=== PATIENT | male | born 1950 | race Caucasian/White ===

== ENCOUNTER 2024-10-13 13:28 | Inpatient (IN) | payer OTHER, SELFPAY ==
[2024-10-13] VITALS (17 sets, daily range): BP systolic 110–177; BP diastolic 79–122; PULSE 2–98; BMI 46.8
[2024-10-13] MEDS: DUONEB 6 ML INH (09:55)
--- NOTE | 2024-10-13 09:55 | ED.GENMED ---
History of Present Illness
General
Chief Complaint: Breathing Problem
Source: patient
Exam Limitations: none
Time Seen by Provider: 10/13/24 09:45
History of Present Illness
History of Present Illness:
See MDM
Past History
Past History
ED Past Medical History: COPD
ED Past Surgical History: Other (Eye surgery)
Social History
Tobacco: Non-smoker
Alcohol: None
Phy Exam
Physical Exam
Physical Exam:
See MDM
Scores
Heart Failure Risk
Heart Failure Risk Score: Yes
History of Stroke or TIA: No
History of intubation for respiratory distress: No
Heart rate on ED arrival >/= 110: No
SaO2 <90% on arrival on room air: Yes
HR >/=110 during 3min walk test (or too ill to perform test): Yes
ECG has acute ischemic changes: No
Urea >/=12mmol/L (BUN 33.6mg/dL): Yes
Serum CO2>/=35mmol/L: No
Troponin I or T elevated to IN Level (0.4mg/dL): No
NT-proBNP >/=5,000ng/L (5,000pg/ml): No
HF Risk Score: 4
Admission Status: HIGH RISK 26.1% Consider SNF treatment or admission to hospital
Course
Orders/Labs/Results
Orders:
Orders
10/13/24 09:41
EKG [Electrocardiogram (*1)] Urgent
Reason for Study: Shortness of Breath
10/13/24 09:42
EKG- Treatment ONCE
10/13/24 09:52
Dexamethasone Sod Phosphate [Decadron] 10 mg IV NOW STA
Ipratropium/Albuterol Sulfate [Duoneb] 6 ml INH R NOW STA
Bipap [RESP] Urgent
Patient to use own unit?: No
Inspiratory Pressure (cm H2O): 12
Expiratory Pressure (cm H2O): 5
10/13/24 09:54
CR Chest Portable - 1 View Urgent
Comment:
Reason For Exam: SOB, hypoxic
Reason Study Needs to be Portable: Patient Unstable
10/13/24 Lunch
Cholesterol Lowering
At Your Request: Limited, Hat Blocking Machine Operator Required
Fluid Restriction: 1500 mL/day (50 oz)
Cholesterol Lowering: Sodium, 2 Gram
COVID-19 Antigen Urgent
Source: Nasal Swab
Complete Blood Count/With Diff Urgent
Comprehensive Metabolic Panel Urgent
NT-proBNP Urgent
Troponin I Urgent
10/13/24 10:06
INF RAPID [Influenza A+B Rapid Molecular] Urgent
KATI Source: Nasal Swab
Specimen Description:
10/13/24 10:52
Furosemide [Lasix] 40 mg IV NOW STA
10/13/24 12:50
Admit/Transfer Patient As Directed
Co-Sign Provider:
Level of Care: Inpatient admission
Assign to:: IMU- Intermediate Care
Physician / Group: conn/hospitalist
Diagnosis: hypoxemia/pulm edema
Reason for Hospitalization: Acute hypoxic respiratory failure, pulmonary edema,
Expected length of stay greater than two midnights?: Yes
ELOS- Estimated Length of Stay in days: 5
I certify the patient meets the requirements for IP care: Yes
PRN Pain Medication Management As Directed
May give lesser potent ordered pain med per pt: Yes
preference::
Protocol:: Medication orders for pain may be administered in a
manner that supports deferring to patient preference
when the pt is:
- Requesting an ordered lesser potent pain medication.
Least to most potent pain medications are defined
as: acetaminophen < NSAID < tramadol < opioids
(morphine, oxycodone, hydromorphone).
- Requesting a lesser dose of the same medication IF
ORDERED.
- Requesting a less intrusive route of administration
if both routes are prescribed by the provider (PO <
IV).
10/13/24 12:51
Code Status As Directed
Resuscitation Status: Full Code
10/13/24 17:46
Furosemide [Lasix] 40 mg IV BID AT 0800,1600
Ipratropium/Albuterol Sulfate [Duoneb] 3 ml INH R TID
10/13/24 17:46
CARDIOLOGY CONSULT Routine
Consulting Provider: Adryan Shaw
Was physician already notified: Yes
HF DIETARY CONSULT Routine
HF EDUCATOR CONSULT Routine
Comment:
Activity As Directed
Activity Level: Out of Bed-Early Mobility
Intake/ Output As Directed
Frequency: Per unit guidelines
Patient Education As Directed
Type: CHF folder
Comment: give on admission. Document in Interdisciplinary Education record
Sleep Apnea Assessment by RN As Directed
Comment:
Physician Instructions:
Vital Signs As Directed
Frequency: Other
Additional Instructions:: Q12 or per unit guidelines if more frequent.
Weight As Directed
Frequency: Daily
Type of Scale: Standing Scale
Comment: Daily morning weight. If unable to stand, use balanced bed scale.
Weight As Directed
Frequency: Once
Type of Scale: Standing Scale
Comment: Upon Admission. If unable to stand, use balanced bed scale.
Pulse Ox/cont/shift [RESP] Routine
Quantity: 1
Special Instructions: Daily pulse oximetry at rest. If greater than 92% at rest also obtain pulse oximetry
while ambulating as tolerated.
DX Deep Vein Thrombosis Video Routine
10/13/24 18:00
Enoxaparin Sodium [Lovenox] 40 mg SC QPM
10/13/24 18:16
Troponin I Q6H
Comment: at admission & every 6 hours x 2 (3 total), ECG to be done with each level
10/13/24 23:46
Troponin I Q6H
Comment: at admission & every 6 hours x 2 (3 total), ECG to be done with each level
10/14/24 04:03
Cardiovascular Evaluation IN AM
Complete Blood Count/With Diff IN AM
Comprehensive Metabolic Panel IN AM
Magnesium IN AM
10/15/24 06:00
Complete Blood Count/With Diff IN AM
Comprehensive Metabolic Panel IN AM
10/16/24 06:00
Complete Blood Count/With Diff IN AM
Comprehensive Metabolic Panel IN AM
10/17/24 06:00
Comprehensive Metabolic Panel IN AM
10/18/24 06:00
Comprehensive Metabolic Panel IN AM
Abnormal Lab Results
10/13/24
10:00
WBC 12.0 H 10^3/uL
(4.8-10.8)
RBC 6.70 H 10^6/uL
(4.70-6.10)
Hct 57.3 H %
(39.0-52.0)
MCH 25.4 L pg
(27.0-31.0)
MCHC 29.7 L g/dL
(33.0-37.0)
RDW 18.9 H %
(11.5-14.5)
Abs Immat Gran (auto) 0.1 H 10^3/uL
(0-0.05)
Absolute Neuts (auto) 9.4 H 10^3/uL
(1.4-6.5)
Absolute Lymphs (auto) 1.0 L 10^3/uL
(1.2-3.4)
Absolute Monos (auto) 1.5 H 10^3/uL
(0.1-0.6)
Neutrophils % 78.4 H %
(42.2-75.2)
Lymphocytes % 8.0 L %
(20.5-51.1)
Monocytes % 12.8 H %
(1.7-9.3)
Potassium 5.6 H mmol/L
(3.5-5.1)
Carbon Dioxide 32 H mmol/L
(22-30)
BUN 52 H mg/dl
(9-20)
Glucose 124 H mg/dl
(70-99)
Total Bilirubin 1.6 H mg/dl
(0.2-1.3)
AST 238 H U/L
(17-59)
ALT 213 H U/L
(0-50)
10/13/24 10:00
10/13/24 10:00
Vital Signs
Initial and Last Documented VS:
Initial Vital Signs
Pulse Resp BP Pulse Ox
98 27 177/122 80
10/13/24 09:42 10/13/24 09:42 10/13/24 09:42 10/13/24 09:42
Last Documented Vital Signs
Temp Pulse Resp BP Pulse Ox
98.1 F 98 24 133/92 89
10/14/24 14:50 10/14/24 18:00 10/14/24 18:00 10/14/24 18:00 10/14/24 18:00
MDM/Problems Addressed
Differential Diagnosis Includes:
HPI and MDM Narrative:
74-year-old male presenting with shortness of breath, cough and hypoxia. Patient states this has progressed over the past several days. I question whether or not he has a history of CHF or COPD. Patient states he believes he has a history of
COPD. He is not on supplemental oxygen. He was initially on 6 L by EMS but he was unable to tolerate CPAP. On arrival, patient was met by myself, nursing staff and respiratory. Patient still 85% on 6 L. Will give BiPAP trial. Patient has upper
lung field wheezing but he also has bilateral left leg edema. Will treat as COPD and workup as CHF.
Physical exam
General: Uncomfortable, conversational dyspnea
HEENT: protecting airway
Neck: appears supple
CV: No evidence of cyanosis. Regular rate and rhythm
Resp: No accessory muscle use. Tachypnea. Shallow breath sounds. Upper lung wheezing
Abd: Non-distended
Extremities: +3 pitting edema bilateral lower extremities
Neuro: alert
Psych: Normal affect
Skin: Intact
Problems Addressed including Acute and Chronic Conditions affecting care:
1. Shortness of breath with hypoxia
Acuity: acute
Prognosis: stable
Details: Patient started on 2 DuoNebs, IV steroids and transition to BiPAP. Will treat as COPD while ruling out CHF
Updates
Chest x-ray consistent with pulmonary edema. Will continue BiPAP and start IV Lasix
Differential Diagnosis (but not limited to): Pulmonary edema, COPD exacerbation
Testing considered: D-dimer
Drug therapy (if applicable): OTC meds, please see d/c instruction regarding Rx drugs
Amount and/or Complexity of Data Reviewed
Clinical info obtained from: Patient
External data reviewed: N/A
Labs I independently reviewed (but not limited to): Elevated BNP
Radiology: X-ray independently reviewed: Chest x-ray consistent with pulmonary edema
Pulse Ox: hypoxic
EKG independently reviewed: Normal sinus rhythm, right axis, no STEMI
Tenter Frame Operator: sinus rhythm
Critical Care: The high probability of a clinically significant, sudden or life threatening deterioration of the cardiopulmonary system(s) required my full and direct attention, intervention and personal management. The aggregate critical care time
was 55 minutes. This time is in addition to time spent performing reported procedures but includes the following:
[x] Data Review and interpretation
[x] Patient assessment and monitoring of vital signs
[x] Documentation
[x] Medication orders and management
Risk of Complication:
Social Determinants of health: Good social support
Discussed with other providers: Hospitalist
Escalation of Care includes Admit/Obs: Given the pulmonary edema with hypoxia, will continue BiPAP and start IV Lasix and admit
Occasional wrong word or 'sound a like' substitutions may have occurred due to the inherent limitations of voice recognition software. Read the chart carefully and recognize, using context, where substitutions have occurred.
*Critical Care Note
Total Time (30-74mins, 75-104mins- exclusive of procedures): 55 min
ED Attending Note
-
Portions of this chart may have been created with voice recognition software.� Occasional wrong word or��sound alike� substitutions may have occurred due to the inherent limitations of voice recognition software.
Discharge Plan
Departure
Patient Disposition: Admit
Date of Disposition: 10/13/24
Time of Disposition: 10:59
Admit to: IMU
Presentation/result/management discussed w/ accepting MD/DO: Hospitalist
Discharge Problem:
Pulmonary edema, Hypoxia
Interventions
Interventions:
*Risk Screen - Suicide Last Done: 10/13/24 10:17
*General Assessment Last Done: 10/13/24 09:53
*Neglect/Abuse Screening Last Done: 10/13/24 10:16
*ED COVID-19 Vaccine History Last Done: 10/13/24 09:53
*Nursing Disposition Last Done: 10/13/24 17:16
ED- Cardiac Assessment Last Done: 10/13/24 11:45
ED- Pulmonary Assessment Last Done: 10/13/24 11:41
Discharge Date and Time
Discharge Date/Time: 10/13/24 17:18
[2024-10-13] MEDS: DECADRON 10 MG IV (09:58)
[2024-10-13 10:25] LABS: % Basophils 0.3 % (0-2); % Immature Granulocytes 0.5 % (0-0.5); % Monocytes 12.8 % (1.7-9.3); % Neutrophils 78.4 % (42.2-75.2); Absolute Immature Granulocytes 0.1 10^3/uL (0-0.05); Absolute Monocytes 1.5 10^3/uL (0.1-0.6); Absolute Neutrophils 9.4 10^3/uL (1.4-6.5); Hematocrit 57.3 % (39.0-52.0); Mean Corp Hgb Conc. 29.7 g/dL (33.0-37.0); Mean Corpuscular Hgb 25.4 pg (27.0-31.0); Mean Corpuscular Volume 85.5 fL (80.0-94.0); Mean Platelet Volume 10.3 fL (7.4-10.4); Platelet Count 150 10^3/uL (130-400); Red Cell Dist. Width 18.9 % (11.5-14.5)
[2024-10-13 10:36] LABS: COVID-19 Antigen Negative (Negative)
[2024-10-13 10:43] LABS: ALT (SGPT) 213 U/L (0-50); AST (SGOT) 238 U/L (17-59); Albumin 3.5 g/dl (3.5-5.0); Alkaline Phosphatase 109 U/L (38-126); Blood Urea Nitrogen 52 mg/dl (9-20); Calcium 9.2 mg/dl (8.4-10.2); Carbon Dioxide 32 mmol/L (22-30); Chloride 98 mmol/L (98-107); Estimated Creatinine Clearance 79 ml/min; Glucose 124 mg/dl (70-99); Potassium 5.6 mmol/L (3.5-5.1); Sodium 138 mmol/L (135-145); Total Bilirubin 1.6 mg/dl (0.2-1.3); Total Protein 6.8 g/dl (6.3-8.2); eGFR > 60.00
[2024-10-13 10:51] LABS: NT-proBNP 4200 pg/ml; Troponin I 0.027 ng/ml
[2024-10-13] MEDS: LASIX 40 MG IV ×2 (11:19→20:20)
--- NOTE | 2024-10-13 12:56 | HPS.HSE ---
Family Physician
-
Family Physician: Luciano Yates
Chief Complaint
-
Shortness of breath
History of Present Illness
74 female with extensive past medical history is presenting from home with complaint of shortness of breath. Patient stated chronic shortness of breath for the past 1 year. States her shortness of breath worsened in the last few days. States of
worsening lower extremity edema. States he sleeps laying in recliner. Unable to lie flat. States her blood pressure usually runs high. Not on any medications currently. Denies any chest pain. States not able to go up a flight of stairs with
shortness of breath. Denies any chest pain at rest or exertion. Denies any prior history of coronary artery disease or stent. States used to smoke 1 pack a day. Smoked for greater than 40 years. Not on any inhalers. States of productive cough
with white phlegm. No sick contact at home. Denies alcohol usage. Denies lightheaded and dizziness. Denies any nausea or vomiting or diarrhea or dysuria. States he already made significant amount of urine post IV Lasix. States of lower but
uncomfortable due to BiPAP machine. En route by EMS patient was severely hypoxic and received nitroglycerin x 2. Patient was did not tolerate CPAP. Patient was placed on BiPAP in the ER.
Medical History
Past Medical History
Past Medical History: Reports Other
Additional Past Medical History:
COPD
Hypertension
Morbid obesity due to excess calories
Tobacco abuse
Peripheral arterial disease
Lumbar spinal stenosis
Past Surgical History: Reports None
Social History
Tobacco: Former Smoker (Used to smoke 1 pack a day for 40+ years)
Alcohol: None
Family History
Family History: Not pertinent
Allergies / Home Medications
Allergies reflects when Allergies were last updated in [employer].
Home Medications with original date entered in [employer]
Allergy/Medication List:
Allergies
Allergy/AdvReac Type Severity Reaction Status Date / Time
NKA - No Known Allergies Allergy Unknown Uncoded 12/01/15 11:41
Home Medications
epinephrine 0.125 mg/actuation aerosol inhaler (Primatene Mist) 1 puff inhalation Q4HPRN PRN sob/wheezing 10/13/24
vldwyhgxdlvm-ovwoabex-wbumby tablet 1 tab PO DAILY Supplement 10/13/24
Review of Systems
-
History Source: Patient
Constitutional: Reports No Symptoms
Respiratory: Reports See HPI
Cardiac: Reports See HPI
: Reports No Symptoms
Musculoskeletal: Reports Edema
Skin: Reports No Symptoms
Neurological: Reports No Symptoms
Endocrine: Reports No Symptoms
Hematologic/Lymphatic: Reports No Symptoms
Psych: Reports No Symptoms
Physical Exam
Vital Signs
Vital Signs
Pulse Resp BP Pulse Ox
94 31 152/91 89
10/13/24 12:00 10/13/24 10:15 10/13/24 11:19 10/13/24 12:00
Physical Exam
General: Well Developed, Well Nourished and Respiratory Distress
HEENT: NormoCephalic, Moist mucous membranes and Atraumatic
Respiratory: Rales
Cardiac: S1/S2 and Regular Rhythm; No Murmur or Rub
GI: Soft, Non Tender, Non Distended and Normal Bowel Sounds; No Organomegaly
Rectal: Deferred by Provider
Musculoskeletal: No Clubbing, No Cyanosis, Edema, Left Lower Extremity (2-3 pitting edema) and Edema, Right Lower Extremity (2-3 pitting edema)
Skin: No Rash
Neuro: Awake, Alert, Oriented, AO x 3, No Motor Deficits and Nonfocal/grossly intact
Psych: Calm
Laboratory Results
-
10/13/24 10:00
10/13/24 10:00
Laboratory Results
Total Bilirubin 1.6 mg/dl (0.2-1.3) H 10/13/24 10:00
AST 238 U/L (17-59) H 10/13/24 10:00
ALT 213 U/L (0-50) H 10/13/24 10:00
Alkaline Phosphatase 109 U/L (38-126) 10/13/24 10:00
Troponin I 0.027 ng/ml 10/13/24 10:00
Data Reviewed
-
Diagnostic Radiology: Report Reviewed by me and Discussed with Patient
Medical Tests (Nuc Med, Echo, EKG etc): Report Reviewed by me and Discussed with Patient
Lab Data: Labs Reviewed by me and Discussed with Patient
Old Records: Reviewed
Impression/Plan
-
#Pulmonary edema
#Acute heart failure exacerbation
Status post 40 mg of IV Lasix
Start patient on Lasix 40 mg twice daily
Strict I's and O's.
Daily weights
Check echocardiogram
trend troponin
proBNP elevated at 4200
Lower extremity edema will check venous Doppler
Cardiology evaluation
#Right pleural effusion
Check chest ultrasound to see if fluid amenable for thoracentesis
#Acute hypoxic respiratory failure
Wean off BiPAP to nasal cannula or mid flow goal greater than 88%
Check chest ultrasound to see if fluid amenable for thoracentesis
Bronchodilators for now.
#Hyperkalemia
Should improve with aggressive diuresis
#Transaminitis likely secondary hepatic congestion
Check abdominal ultrasound in the morning
Trend CMP for now
#Primary hypertension elevated
Avoid AMADNA or ARB in the setting of hyperkalemia for now
Monitor blood pressure with diuresis
Probably needs to be started on beta-ekaterina, AMANDA or ARB once potassium stabilizes
Can try avoid Norvasc with LE edema
#Hyperglycemia
Check A1c
#Leukocytosis likely reactive
COVID influenza was negative
If spikes fever then check UA and blood cultures
# History of tobacco abuse
Does not follow-up with media marketing coordinator
Morbid obesity due to excess calories
Affects all aspects of medical care
Recommend weight loss after resolution of acute disease process
Peripheral arterial disease
DVT prophylaxis with Lovenox
Full code
I spent a total of 80 minutes with the patient or on the floor. More than 50% of this time involved counseling and coordination of care.
--- NOTE | 2024-10-13 13:38 | CON.CAR ---
Addendum entered and electronically signed by Adryan Shaw MD 10/13/24 13:57:
I saw and examined the patient.
The SOFTWARE ENGINEER SALES or PA's note was reviewed and I agree with the note.
Comment: General: Well developed, well nourished in NAD.
Neck: Supple, no JVD, HJR, carotids +2 B/L, no bruits bilaterally.
Heart: Non displaced PMI, RRR, no murmurs, No S3, S4, no rubs.
Lungs: Scattered rhonchi throughout
Extremities: Moderate lower extremity edema bilaterally with venous stasis changes
Neuro: Grossly nonfocal, awake, alert and oriented x3.
Shaq has a history of COPD with ongoing tobacco abuse as well as morbid obesity. He has had shortness of breath for the past month. He has had lower extremity edema abdominal bloating and orthopnea. He refused to come to the hospital but today
refused to drink coffee and told his he needed to go to the ER. In the ER he was severely hypoxic and is currently on BiPAP. Cardiology is consulted for CHF.
Will reassess response to IV diuresis. May need thoracentesis and will check ultrasound. Check echocardiogram. May need treatment for COPD as well
Original Note:
Consultation
Consultation Request
Date/Time Consultation Performed: 10/13/24
Requesting Provider: Dr. Yin
Performing Provider: Amy Velázquez PA-C for Dr. Shaw
Reason for Consultation: CHF
Medical History
-
Chief Complaint: SOB
History of Present Illness:
This is a 74-year-old male with past medical history of COPD, ongoing tobacco use, morbid obesity, who does not seek regular medical attention. He presented to [facility] due to progressive shortness of breath over the last month,
significantly worse over the last 48 hours. Reports lower extremity edema, weight gain, abdominal bloating, and orthopnea. Denies chest pain or discomfort. attempted to get patient to come in sooner howver patient refused. Today he refused to
drink his daily cup of morning coffee and told his he needed to come in. Ambulance was called as patient was unable to ambulate. proBNP 4600. Chest x-ray with small to moderate right-sided pleural effusion and evidence of pulmonary edema. Was
hypoxic on arrival and has been placed on bipap. Cardiology consulted for evaluation of new CHF. He has never seen cardiology before.
PMH:
COPD
Ongoing tobacco use
Morbid obesity
Past Medical History
Past Medical History: Other (in HPI)
Social History
Tobacco: Smoker (1 ppd, however previously more)
Personal:
Living: With Family
Family History
Family History: CAD (in mother later in life)
Allergies / Home Medications
Allergy/AdvReac Type Severity Reaction Status Date / Time
NKA - No Known Allergies Allergy Unknown Uncoded 12/01/15 11:41
�Medication �Instructions �Recorded �Confirmed �Type
epinephrine 0.125 mg/actuation 1 puff inhalation Q4HPRN PRN 10/13/24 10/13/24 History
aerosol inhaler (Primatene Mist) sob/wheezing
ddwtzvpwzgno-lslfqltw-pktalu tablet 1 tab PO DAILY Supplement 10/13/24 10/13/24 History
Review of Systems
-
History Source: Patient and Family
All other systems: Negative unless noted
Physical Exam
Vital Signs
Pulse Resp BP Pulse Ox
92 24 130/103 90
10/13/24 13:00 10/13/24 11:30 10/13/24 13:00 10/13/24 13:00
Lab Results
10/13/24 10:00
10/13/24 10:00
Troponin I 0.027 ng/ml 10/13/24 10:00
Dnj-E-Qvtnighjyux Pept 4200 pg/ml 10/13/24 10:00
Physical Exam
General: No Apparent Distress and Other (obese. on BIPAP)
HEENT: Normocephalic, Anicteric and Moist Mucous Membranes
Respiratory: Crackles
Cardiac: S1/S2 and Regular Rhythm
GI: Soft, Non Tender, Normal Bowel Sounds and Distended
Musculoskeletal: No Clubbing, No Cyanosis and Edema (4+ to level of thigh)
Skin: Warm and Dry
Neuro: AO x 3
Impression / Plan
-
Primary Dermatology Teacher: none prior to admission
Assessment:
Presentation with SOB
Acute hypoxic respiratory failure, on BIPAP
Acute CHF, unknown type
Small to moderate R pleural effusion
Leukocytosis
Hyperkalemia
Elevated LFTs, concern for passive congestion
COPD
Ongoing tobacco use
Morbid obesity
Plan:
-Patient presents to [facility] due to worsening shortness of breath. On arrival noted to be hypoxic, currently requiring BiPAP with sats still in the 80s. covid/flu negative
-Plan for admission to IMU
-proBNP 4200. Chest x-ray with small to moderate right pleural effusion and evidence of interstitial edema consistent with acute CHF, new diagnosis for patient.
-check chest US to eval for thora
-Continue IV Lasix diuresis with 40mg BID. Creatinine 1.2
-Hyperkalemia should improve with diuresis, as should LFTs if secondary to passive congestion. Follow
-CHF education
-Check echo
-Initial Trop 0.027, trend. no CP. EKG SR without clear ischemic abnormalities
-tobacco cessation encouraged. reports patient will require nicotine patch
-Not ideal candidate for beta-ekaterina given underlying COPD, however consider trialing. Not presently ideal candidate for AMANDA/ARB/Aldactone given hyperkalemia.
-he is frustrated with having to wear bipap mask. we discussed severity of current condition and that he should expect to be admitted for at least 3 days but likely more
-d/w patient, , and son at bedside. d/w ER physician
Data Reviewed
-
EKG: Tracing Personally Visualized and interpreted
Radiology: Report Reviewed by me
Labs: Labs Reviewed by me
--- NOTE | 2024-10-13 18:15 | PTCARENOTE ---
Pt received from ED via stretcher. Assessment as documented. Remains on bipap. Pt with very poor hygiene and multiple wounds present on admission. CHG bath completed and wound care c/s placed. Able to make needs known, call martínez within reach.
[2024-10-13] MEDS: DUONEB INH (18:22)
[2024-10-13 18:46] LABS: Troponin I 0.032 ng/ml
[2024-10-13] MEDS: DUONEB 3 ML INH (20:06)
[2024-10-13] MEDS: NICODERM TRANSDERMAL 14 MG TRANSDERM (20:20)
[2024-10-13] MEDS: LOVENOX 40 MG SC (20:21)
[2024-10-13 21:43] LABS: Glucose - Point of Care 141 mg/dl (70-99)
[2024-10-14] VITALS (24 sets, daily range): BP systolic 102–165; BP diastolic 69–100; PULSE 2–101; BMI 45.2
[2024-10-14 01:08] LABS: Troponin I 0.026 ng/ml
--- NOTE | 2024-10-14 03:19 | PTCARENOTE ---
Assumed care for patient overnight, received report from dayshift RN. Pt AAOx3, agitated at times. Pt was very agitated at the beginning of the shift and states that he wants to be left alone, originally refusing ultrasound stating 'I just want to
be left alone'. After some time this RN spoke to the pt about concerns and he is agitated with wearing the BiPAP. After education and encouragement pt understanding of the importance on the BiPAP. Pt wearing the BiPAP and tolerating. SpO2 91%. Pt
attempted to use urinal and saturated the bed. Full bed bath given. Upon assessment patient has MASD to the abdominal folds and groin, SEROLOGIST ordered desenex. Wound care consulted. Able to make needs known, call martínez is within reach.
[2024-10-14] MEDS: DESENEX/MITRAZOL/ZEASORB 1 APPLIC TOPICAL ×2 (04:13→20:24)
[2024-10-14 04:18] LABS: % Basophils 0.2 % (0-2); % Immature Granulocytes 0.5 % (0-0.5); % Lymphocytes 3.4 % (20.5-51.1); % Monocytes 10.9 % (1.7-9.3); Absolute Immature Granulocytes 0.1 10^3/uL (0-0.05); Absolute Lymphocytes 0.5 10^3/uL (1.2-3.4); Absolute Monocytes 1.7 10^3/uL (0.1-0.6); Absolute Neutrophils 13.1 10^3/uL (1.4-6.5); Hemoglobin 16.1 g/dL (13.0-18.0); Mean Corp Hgb Conc. 29.3 g/dL (33.0-37.0); Mean Corpuscular Hgb 25.2 pg (27.0-31.0); Mean Corpuscular Volume 86.1 fL (80.0-94.0); Mean Platelet Volume 10.7 fL (7.4-10.4); Nucleated Red Blood Cells % 0.4 % (-); Platelet Count 117 10^3/uL (130-400); Red Blood Cell Count 6.39 10^6/uL (4.70-6.10); Red Cell Dist. Width 18.4 % (11.5-14.5); White Blood Cell Count 15.4 10^3/uL (4.8-10.8)
[2024-10-14 04:42] LABS: ALT (SGPT) 165 U/L (0-50); AST (SGOT) 124 U/L (17-59); Albumin 3.3 g/dl (3.5-5.0); Alkaline Phosphatase 91 U/L (38-126); Blood Urea Nitrogen 48 mg/dl (9-20); Calcium 8.4 mg/dl (8.4-10.2); Carbon Dioxide 32 mmol/L (22-30); Chloride 98 mmol/L (98-107); Estimated Creatinine Clearance 105 ml/min; Glucose 126 mg/dl (70-99); HDL Cholesterol 20 mg/dl; LDL Cholesterol, Calculated 64 mg/dl; Magnesium 2.1 mg/dl (1.6-2.3); Potassium 5.3 mmol/L (3.5-5.1); Sodium 137 mmol/L (135-145); Total Bilirubin 1.7 mg/dl (0.2-1.3); Total Cholesterol 95 mg/dl (50-199); Total Protein 6.3 g/dl (6.3-8.2); Triglyceride 59 mg/dl (10-149); Very Low Density Lipoprotein 11 mg/dl (0-30); eGFR > 60.00
--- NOTE | 2024-10-14 06:06 | PTCARENOTE ---
Patient had an episode of V-tach 27 beats, asymptomatic on BiPAP, denies pain. K in AM 5.3. Mag 2.1. VALENTINE made aware. Strip printed and in the chart. VALENTINE Kendall made aware. Order for Frank.
[2024-10-14] MEDS: LOKELMA 5 GRAM PO (06:17)
[2024-10-14] MEDS: DUONEB 3 ML INH ×3 (08:09→19:38)
[2024-10-14] MEDS: NICODERM TRANSDERMAL 14 MG TRANSDERM (08:18)
[2024-10-14] MEDS: LASIX 40 MG IV ×2 (08:18→16:06)
--- NOTE | 2024-10-14 09:23 | W.PN.CARDCBS ---
Addendum entered and electronically signed by Vesna Johansen DO 10/14/24 12:29:
I saw and examined the patient.
The Foot Piece Assembler's note was reviewed and I agree with the note.
Comment: Patient is seen and examined at bedside. Reviewed echocardiogram with hospitalist this morning. RV enlargement hypokinesis with evidence of pulmonary hypertension. Given presentation concerning for thromboembolic disease; evaluation with
thromboembolic disease initiated. Given no absolute contraindications would start empiric IV heparin. Patient denies chest pain or pressure. Continues to have shortness of breath/cough.
GEN: Morbidly obese 74-year-old gentleman appears older than stated age. On mid flow O2 with mild conversational dyspnea
HEENT: Mucous membranes moist, anicteric sclera
LUNGS: Decreased effort. Bronchovesicular breath sounds decreased bilaterally with coarse rhonchi and crackles right base
CV: Regular. Positive S1-S2. Distant heart sounds without murmurs. No rub
ABD: soft, obese BS+, NT/ND
EXT: 4+ edema of B/L LE; chronic venous stasis changes
Plan:
ECHO 10/14/24: EF 55 to 60%, mild to moderate concentric LVH, grade 1 diastolic dysfunction, dilated hypokinetic RV with sparing of apex, PAP 50 to 55 mmHg, IVC dilated and does not collapse, prominent anterior fat pad
Plan:
74-year-old morbidly obese gentleman who does not receive regular medical care presents with acute hypoxic respiratory failure requiring BiPAP now on mid flow O2
-COVID/flu negative
-currently on 14L midflow, wean as able
-Concern for thromboembolic disease after echocardiogram this morning demonstrated RV dilatation and hypokinesis with apical sparing and pulmonary hypertension with RVSP estimated 50-50 mmHg
-No absolute contraindications to start anticoagulation pending further evaluation; will start IV heparin
-CTA chest, lower extremity Dopplers and D-dimer pending
-Chest x-ray with small to moderate right pleural effusion and evidence of interstitial edema consistent with acute CHF, new diagnosis for patient.
-proBNP 4200. Continue IV Lasix
-Highly suspect untreated sleep apnea; recommend outpatient testing
-Pending study results may need to involve pulmonary
-Monitor renal function, electrolytes and LFTs with diuresis
-echo read urgently this morning by physician with results as above, concern for PE. d/w hospitalist. added ddimer. for peripheral US B/L LE and consider for chest CTA when stable. consider starting IV heparin empirically
-proBNP 4200. Continue IV lasix. Cr improved to 0.9. I&O negative overnight
-Hyperkalemia and LFTs improving with diuresis
-trops detectable but within normal range and flat in 0.02 range. no CP
-tobacco cessation encouraged.
-Optimize medical therapy for heart failure with preserved ejection fraction pending above workup of thromboembolic disease
-d/w nursing and hospitalist
Original Note:
Today's Communication / Plan
-
continue IV lasix
echo concerning for PE, for ddimer, periph US, and chest CTA when able
consider empiric IV heparin
wean O2 as able
Impression / Plan
-
Primary Multiple Slide Operator: none prior to admission
Assessment:
Presentation with SOB
Acute hypoxic respiratory failure, on BIPAP
Acute CHF, unknown type
Small to moderate R pleural effusion
Leukocytosis
Hyperkalemia
Elevated LFTs, concern for passive congestion
COPD
Ongoing tobacco use
Morbid obesity
ECHO 10/14/24: EF 55 to 60%, mild to moderate concentric LVH, grade 1 diastolic dysfunction, dilated hypokinetic RV with sparing of apex, PAP 50 to 55 mmHg, IVC dilated and does not collapse, prominent anterior fat pad
Plan:
-Patient presents to [facility] due to worsening shortness of breath. On arrival noted to be hypoxic, initially requiring bipap. covid/flu negative
-currently on 14L midflow, wean as able
-echo read urgently this morning by physician with results as above, concern for PE. d/w hospitalist. added ddimer. for peripheral US B/L LE and consider for chest CTA when stable. consider starting IV heparin empirically
-proBNP 4200. Chest x-ray with small to moderate right pleural effusion and evidence of interstitial edema consistent with acute CHF, new diagnosis for patient. Continue IV lasix. Cr improved to 0.9. I&O negative overnight
-Hyperkalemia and LFTs improving with diuresis
-CHF education
-Not ideal candidate for beta-ekaterina given underlying COPD, however consider trialing. Not presently ideal candidate for AMANDA/ARB/Aldactone given hyperkalemia.
-trops detectable but within normal range and flat in 0.02 range. no CP
-tobacco cessation encouraged.
-d/w nursing
Progress Note - Multiple Slide Operator
Subjective
Date of Service: October 14, 2024
reports breathing somewhat improved compared to yesterday
Objective
Labs:
10/14/24 08:34
10/14/24 04:03
Labs
Hgb Cancelled 10/14/24 08:34
Hct Cancelled 10/14/24 08:34
Plt Count Cancelled 10/14/24 08:34
Sodium 137 mmol/L (135-145) 10/14/24 04:03
Potassium 5.3 mmol/L (3.5-5.1) H 10/14/24 04:03
BUN 48 mg/dl (9-20) H 10/14/24 04:03
Creatinine 0.9 mg/dL (0.7-1.3) 10/14/24 04:03
Glucose 126 mg/dl (70-99) H 10/14/24 04:03
Troponins
10/13/24 10/13/24 10/14/24
10:00 18:16 00:35
Troponin I 0.027 0.032 0.026
Vital Signs and I&O:
Vital Signs
Temp Pulse Resp BP Pulse Ox
97.7 F 91 18 132/90 92
10/14/24 07:15 10/14/24 08:21 10/14/24 08:21 10/14/24 08:18 10/14/24 08:21
Vital Signs
Temp Pulse Resp BP Pulse Ox
97.7 F 91 18 132/90 92
10/14/24 07:15 10/14/24 08:21 10/14/24 08:21 10/14/24 08:18 10/14/24 08:21
Intake & Output
10/12/24 10/13/24 10/14/24 10/15/24
07:59 07:59 07:59 07:59
Intake Total 240 / 240
Output Total 1575 / 1575
Balance -1335 / -1335
Physical Exam
Physical Exam
GEN: No distress, awake, alert, oriented x3. on midflow O2. obese.
HEENT: supple, anicteric, mmm, eomi
LUNGS: Decreased BS, crackles B/L
CV: Reg, S1/S2, no murmur
ABD: soft, BS+, NT/ND
EXT: No cyanosis, clubbing. 4+ edema of B/L LE
NEURO: Gross non-focal
SKIN: Warm, pink, dry. No rash
--- NOTE | 2024-10-14 09:35 | WOUNDNOTE ---
L FOOT/ANKLE (ANTERIOR)
--- NOTE | 2024-10-14 10:04 | WOUNDNOTE ---
[facility] RN note: Patient seen around 929 however was asked to come back by nursing and IV nurse d/t stat order for CT scan, new IV site needed. Unable to hear pedal pulses via portable Doppler. +PT pulses heard via portable Doppler. +LE edema (R>L).
Asked RN Leny to julia text this singer songwriter when patient can be turned for sacral skin assessment. Coolin texted Dr. Butt re: unable to hear pedal pulses via portable Doppler, +PT pulses heard via portable Doppler; defer to hospitalist if LE
arterial Doppler indicated. He has order in for bilateral LE Venous Doppler. Dr. Butt responded patient has severe PAD and will look into it if he had any recent imaging and who he follows up with it.
[2024-10-14 10:16] LABS: APTT 36.4 Sec (23.4-35.0)
[2024-10-14 10:25] LABS: D-Dimer 10.87 ug/mlFEU (0.00-0.50)
--- NOTE | 2024-10-14 10:47 | WOUNDNOTE ---
BACK (LOWER)/L FLANK
--- NOTE | 2024-10-14 10:47 | WOUNDNOTE ---
SACRAL/BUTTOCKS (with photo flash)
--- NOTE | 2024-10-14 10:48 | WOUNDNOTE ---
SACRAL/BUTTOCKS (BLANCHABLE RED/PURPLE)
--- NOTE | 2024-10-14 10:49 | WOUNDNOTE ---
R 5TH TOE TIP
--- NOTE | 2024-10-14 10:50 | WOUNDNOTE ---
[facility] RN note: Patient admitted with hypoxemia, pulmonary edema, LE edema. Patient lives with family. He sleeps in a recliner chair at home.
See H&P for complete history.
PMH: SOB, smoker, COPD, HTN, obesity, PAD, lumbar spinal stenosis.
Wound Location and type/assessment: Patient admitted with: Dermal dry scabbed abrasions dorsal proximal foot/ankle area. R anterior upper calf and L flank scabbed scratch kline. Discolored purple sacral/buttocks skin with MASD. Sacral purple skin
stage 1 vs DTI, slow to mark purple. Abdominal/groin/scrotal/perianal MASD. R 5th toe tip scabbed thin small abrasion. Dry skin on heels. See earlier note.
Appetite: good.
Pressure redistribution devices in place: Centrella Max air bed. Discussed using either comfort care glide air repositioning sheet or the Arjo repositioning sheet for positioning with CLIFF Michele. Patient cannot turn self in bed.
Plan: Stephanie care given. Miconazole powder applied to stephanie/buttocks, abdominal/groin skin folds. Sacral shaped silicone border foam applied to sacrum. Patient turned to R semi side lying position with help from CLIFF Michele using foam turning wedge
and pillow. Heels off bed with folded blankets. t/c SPD and ordered pillows and bariatric air chair cushion for heel relief measures, chair cushion. CLIFF Michele aware to obtain for patient.
Care plan to be updated and will follow as needed.
Note to case management of equipment requested for discharge: Air mattress recommended.
Recommend follow up at wound care center upon discharge if needed.
--- NOTE | 2024-10-14 10:50 | WOUNDNOTE ---
BUTTOCKS (with photo flash)
[2024-10-14] MEDS: HEPARIN 25000 UNITS/250 ML IV (10:59)
--- NOTE | 2024-10-14 11:11 | W.PN.HOSP.TC ---
Addendum entered and electronically signed by Remberto Butt MD 10/14/24 14:21:
After multiple discussion patient agreed to undergo thoracentesis. Explained to the patient he remains severely increased risk of acute severe decompensation with worsening of hypoxic respiratory failure and may need to be transition to high flow
nasal cannula versus mechanical ventilation. Patient agreed for thoracentesis. [facility] aware.
Addendum entered and electronically signed by Remberto uBtt MD 10/14/24 13:44:
Updated patient spouse over the phone in details.
Original Note:
Today's Communication/Plan
-
IV diuresis
wean O2
[facility] for thora
LE doppler pending
Assessment / Plan
Assessment / Plan
#Pulmonary edema
#Acute HFpEF
Start patient on Lasix 40 mg twice daily
Strict I's and O's.
Daily weights
ECHO normal left ventricular size and function with mild to moderate LVH. EF 55 to 60%. Grade 1 diastolic dysfunction. Dilated hypokinetic right ventricle with sparing of the apex. No significant valvular disease. PASP of 50-55. IVC is dilated
and does not collapse.
trop flat.
proBNP elevated at 4200
Elevated D-dimer.
Discussed with cardiology recommended CT chest which was negative for pulmonary embolism. Small suggesting 'filling defect' arterial in the left lower lobe most likely represents a branching vessel and does not pulmonary embolism, although cannot
be excluded. Recommend to continue heparin infusion until lower extremity Doppler negative.
Cardiology evaluation
#Right pleural effusion
CT chest with significant pleural effusion
[facility] consulted for thoracentesis
Fluid studies ordered
#Acute hypoxic respiratory failure
Wean off BiPAP to nasal cannula or mid flow goal greater than 88%
now Midflow 14-15Liter
Bronchodilators for now.
Pulmonary consulted
#Hyperkalemia
Should improve with aggressive diuresis
#Transaminitis likely secondary hepatic congestion
Improving
Trend CMP for now
#Primary hypertension elevated
Avoid AMANDA or ARB in the setting of hyperkalemia for now
Monitor blood pressure with diuresis
Probably needs to be started on beta-ekaterina, AMANDA or ARB once potassium stabilizes
Can try avoid Norvasc with LE edema
#Hyperglycemia
Check A1c
#Leukocytosis likely reactive
COVID influenza was negative
If spikes fever then check UA and blood cultures
# History of tobacco abuse
Does not follow-up with county treasurer
Morbid obesity due to excess calories
Affects all aspects of medical care
Recommend weight loss after resolution of acute disease process
Peripheral arterial disease
Mild thrombocytopenia
Continue to monitor platelets
Sacra; skin stage I versus DTI
Wound care
DVT prophylaxis with Lovenox
Full code
Called spouse to update. No response. left voicemail for call back.
d/w with cardiology
Anticipated Discharge: > 48 hours
Subjective/Interval History
-
Date of Service: October 14, 2024
Patient was transition off BiPAP to the MICU
Patient currently in 14 to 15 L of mid flow
States mild improvement in breathing
Objective Data
-
Labs:
Laboratory Results
10/14/24 10/14/24 10/14/24
04:03 08:34 09:57
WBC 15.4 H Cancelled
Hgb 16.1 Cancelled
Hct 55.0 H Cancelled
Plt Count 117 L D Cancelled
APTT 36.4 H
Sodium 137
Potassium 5.3 H
Chloride 98
Carbon Dioxide 32 H
BUN 48 H
Creatinine 0.9
Glucose 126 H
Calcium 8.4
Total Bilirubin 1.7 H
AST 124 H
ALT 165 H
Alkaline Phosphatase 91
10/14/24
17:00
WBC
Hgb
Hct
Plt Count
APTT Pending
Sodium
Potassium
Chloride
Carbon Dioxide
BUN
Creatinine
Glucose
Calcium
Total Bilirubin
AST
ALT
Alkaline Phosphatase
Vital Signs:
Vital Signs
Temp Pulse Resp BP Pulse Ox
97.7 F 91 18 132/90 92
10/14/24 07:15 10/14/24 08:21 10/14/24 08:21 10/14/24 08:18 10/14/24 08:21
I&O
10/13/24 10/14/24 10/15/24
06:59 06:59 06:59
Intake Total 240 / 240
Output Total 1575 / 1575
Balance -1335 / -1335
Physical Exam
-
General: Well Developed and No Apparent Distress
HEENT: Normocephalic, Atraumatic, Moist Mucous Membranes and Oxygen (MIDFLOW )
Respiratory: Decreased Breath Sounds (R>>L)
Cardiac: Regular Rhythm and S1/S2; Negative Murmur, Rub or Gallop
GI: Soft, Nontender, Nondistended and Normal Bowel Sounds; Negative Organomegaly
Rectal: Deferred by Provider
Musculoskeletal: No Clubbing, No Cyanosis and No Edema
Skin: Negative Rash
Neuro: Nonfocal/Grossly Intact
Data Reviewed
-
Total Time Spent with Patient (in minutes): 59
--- NOTE | 2024-10-14 11:58 | CON.PUL ---
Consultation
Consultation Request
Date/Time Consultation Requested: 10/14/24
Date/Time Consultation Performed: 10/14/24
Performing Provider: Obi
Reason for Consultation: CHF, COPD
Medical History
-
History of Present Illness:
Patient is a 74 year old M with past medical history of COPD, current smoker, noncompliance with outpatient followup presenting from home to ER with complaints of acute on chronic shortness of breath. Patient reports chronic shortness of breath
for the past 1 year, acutely worsening the past few days. There is also notation of worsening lower extremity edema, orthopnea, elevated BP at home. EMS reported patient was severely hypoxemic on initial evaluation and received nitroglycerin x 2.
Patient was placed on BiPAP in the ER. Imaging showing effusion, proBNP >4000, 3+ pitting LE edema. Admitted to IMU.
Reportedly suspected of having COPD but refused outpatient pulmonary evaluation. He denies home oxygen requirements but admits that he often buys canned oxygen and puffs it when he feels he needs it.
Current smoker, cut back to 1/2 PPD. Total usage > 40 pack years. Not on inhalers at home. Does not follow regularly with physicians for his care.
Past Medical History
Past Medical History: Other (see list below)
Social History
Tobacco: Smoker
Alcohol: Occasional
Drug: None
Family History
Family History: Reviewed & Not Pertinent
Allergies / Home Medications
Allergies
Allergy/AdvReac Type Severity Reaction Status Date / Time
No Known Allergies Allergy Verified 10/13/24 23:35
Home Medications
�Medication �Instructions �Recorded �Confirmed �Last Taken �Type
epinephrine 0.125 mg/actuation 1 puff inhalation Q4HPRN PRN 10/13/24 10/13/24 Unknown History
aerosol inhaler (Primatene Mist) sob/wheezing
[id number]-[id number] tablet 1 tab PO DAILY Supplement 10/13/24 10/13/24 Unknown History
Review of Systems
-
History Source: Patient
All other systems: Negative unless noted
Vitals / Labs / Diagnostic Testing
Vital Signs
Temp Pulse Resp BP Pulse Ox
97.7 F 91 18 132/90 92
10/14/24 07:15 10/14/24 08:21 10/14/24 08:21 10/14/24 08:18 10/14/24 08:21
Lab Data
10/14/24 08:34
10/14/24 04:03
Laboratory Results
10/14/24
09:57
APTT 36.4 H
Microbiology
10/13/24 10:06 Nasal Swab Influenza Types A & B (VENITA) - Final
Negative for Influenza A & B, NAAT
Negative results must be combined with clinical observations
and patient history.
Nucleic Acid Amplification test (NAAT)performed on the
[employer] platform.
Diagnostic Testing:
Physical Exam
-
HEENT: Normocephalic, Anicteric and Moist Mucous Membranes
Cardiovascular: S1/S2, Regular Rhythm and Peripheral Edema (3+, bilateral)
Respiratory: Rales and Non-Labored Respirations
GI: Soft, Distended (obese) and Non Tender
Neurology: Awake, Alert and Oriented
Skin: Warm and Dry
General: Comfortable and Other (NAD, morbidly obese)
Assessment
-
Patient is a 74 year old M with past medical history of COPD, current smoker, noncompliance with outpatient followup presenting from home to ER with complaints of acute on chronic shortness of breath. Patient reports chronic shortness of breath
for the past 1 year, acutely worsening the past few days. There is also notation of worsening lower extremity edema, orthopnea, elevated BP at home. EMS reported patient was severely hypoxemic on initial evaluation and received nitroglycerin x 2.
Patient was placed on BiPAP in the ER. Imaging showing effusion, proBNP >4000, 3+ pitting LE edema. Admitted to IMU. We are consulted for evaluation.
Acute heart failure exacerbation, orthopnea/LE edema
Acute hypoxic respiratory failure
Moderate pleural effusion
SOB
Leukocytosis
Hyperkalemia
Suspected CHRISTY/OHS
Noncompliance
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
COPD
Current smoker- 1 pack a day for 40+ years-cut down to 1/2 pack
Hypertension
Morbid obesity due to excess calories
Peripheral arterial disease
Lumbar spinal stenosis s/p surgery 2018
s/p R cataract IOL and trabeculectomy 2014
Plan
Significant hypoxemia noted on arrival, placed on 15L
There is no known history of O2 use at home/suspect he may need to be set up
Was using O2 in cans OTC at home
There is known prior history of lung disease including--suspected COPD but refused outpatient pulmonary evaluation.
He denies home oxygen requirements but admits that he often buys canned oxygen and puffs it when he feels he needs it.
Current smoker, cut back to 1/2 PPD. Total usage > 40 pack years. Not on inhalers at home. Does not follow regularly with physicians for his care.
No prior PFTs for review
Suspect patient has underlying CHF exacerbation predominantly given LE swelling/edema/orthopnea
Cards eval obtained
Diuresis IV
Agree with diagnostic and therapeutic thora, can send for labs for confirmation on fluid type
ECHO results reviewed, preserved function, RV dysfunction noted with moderate PH
Eventually can obtain formal PFT for COPD diagnosis with recs for inhaler therapy
Will hold off for now as he is current CHF that needs to be treated first
Suspect CHRISTY/OHS, placed on BIPAP at admission
Will check ABG for Co2 levels
May need NIV set up at home
Compliance is an issue
Will need outpatient pulmonary evaluation in our office including PFTs and 6MWT
Reviewed with patient
Risk factors assessed for underlying sleep disordered breathing also noted
Recommend outpatient sleep evaluation/PSG testing as indicated
Obesity likely contributing to respiratory symptoms as well
Weight loss measures recommended
We will follow
Diagnostic Data
CXR 10/13/24- CHF and small to moderate right pleural effusion with adjacent atelectasis.
02/03/15- No active pulmonary disease. Slightly prominent left hilum most likely representing overlapping normal vascularity. Left hilar mass/lymphadenopathy cannot be entirely excluded. Recommend comparison with any prior outside study to assess
stability.
CT CHEST 10/14/24- No findings to suggest CENTRAL pulmonary embolism. Unfortunately, evaluation for more peripheral pulmonary embolism particularly in the lower lobes bilaterally limited by bilateral lower lobe consolidations and pleural effusions,
right greater than left as well as motion/respiration artifact.. Small suggesting 'filling defect' arterial in the left lower lobe most likely represents a branching vessel and does not pulmonary embolism, although cannot be excluded.
ECHO 10/14/24- Normal left ventricular size and systolic function with mild to moderate concentric left ventricular hypertrophy Left ventricular ejection fraction visually estimated 55-60% Grade 1 diastolic dysfunction Dilated, hypokinetic right
ventricle with sparing of the apex Mild right atrial dilatation No significant valvular disease. Estimated pulmonary artery pressure of 50-55 mmHg. Assuming a right atrial pressure of 15 mmHg. The IVC is dilated and does not collapse Prominent
anterior fat pad present. No pericardial effusion. No pleural effusion present. No prior study available for comparison
PFT
Reports and relevant images were personally reviewed.
-----
Total time spent on this consultation _78__ minutes which includes review of history, physical exam, medications, llaboratory data, personal review of imaging, extensive review of outpatient records, and discussions with care team.
--- NOTE | 2024-10-14 13:29 | PTCARENOTE ---
Addendum entered by Jonathan Reyes RN 10/14/24 16:13:
Picked patient up from IR post thora. Patient reports easier breathing, VSS, 15L midflow, sats 90%. Thora site CDI. and son at bedside. Closely monitoring.
Original Note:
Patient AAOx3, grumpy. On 15L midflow, sats 93%. DELGADO, orthopneic, tachypneic, productive cough. NSR with PVCs on monitor. VSS. B/L dorsalis pedis pulses faint with doppler. Heparin gtt infusing per protocol. Patient weak. Due for LE US and potential
thoracentesis. Patient making needs known. updated. Will closely monitor.
[2024-10-14 15:44] LABS: Body Fluid pH 7.46
[2024-10-14 15:45] LABS: Body Fluid Mononuclear 37.7 %; Body Fluid Polymorphonuclear 62.3 %; Body Fluid WBC 1754 /CUMM
[2024-10-14 15:58] LABS: Body Fluid Second Tech DW
[2024-10-14 16:17] LABS: B.E. 5.1 mmol/L; O2 Saturation % 94.7 % (94-98); PCO2 66 mmHg (35-48); PO2 75 mmHg (83-108); pH 7.32 (7.35-7.45)
[2024-10-14 16:28] LABS: Body Fluid Amylase < 30 U/L; Body Fluid Glucose 155 mg/dl; Body Fluid LDH 286 U/L; Body Fluid Protein 2.9 g/dl; Body Fluid Triglycerides < 30 mg/dl
--- NOTE | 2024-10-14 16:51 | CM ---
Patient with Hx morbid obesity with Dx Pulmonary edema, Acute HF, Right pleural effusion. Plan thoracentesis. O2 15L NRB. Receiving IV Lasix, Heparin gtt. Seen by wound care nurse - air mattress recommended.
Spoke with patient's Lexy, here visiting patient;
the patient resides with his in a 2 story house with 1 KIERAN.
Met with patient who resides with .
The patient was independent in ADLs and ambulation until recently, when he became weak and needed to walk with RW.
No history of falls.
DME - RW
No prior VN or SNF.
PCP - Luciano Yates
Pharmacy - [facility]
Patient will benefit from PT/OT Evals when less medically acute.
Plan follow patient's O2 needs, mobility needs, wound care needs.
--- NOTE | 2024-10-14 16:58 | CM ---
Patient with Hx morbid obesity with Dx Pulmonary edema, Acute HF, Right pleural effusion. Plan thoracentesis. O2 15L NRB. Receiving IV Lasix, Heparin gtt. Seen by wound care nurse - air mattress recommended.
Spoke with patient's Lexy, here visiting patient;
the patient resides with his in a 2 story house with 1 KIERAN.
The patient was independent in ADLs and ambulation until recently, when he became weak and needed to walk with RW.
No history of falls.
DME - RW
No prior VN or SNF.
PCP - Luciano Yates
Pharmacy - [facility]
Patient will benefit from PT/OT Evals when less medically acute.
Plan follow patient's O2 needs, mobility needs, wound care needs.
[2024-10-14 17:40] LABS: LDH 279 U/L (120-246)
[2024-10-14 17:54] LABS: APTT 46.9 Sec (23.4-35.0)
[2024-10-14] MEDS: HEPARIN 10000 UNITS IV (18:07)
[2024-10-14] MEDS: PHATP 1 UNIT PO (19:44)
[2024-10-14] MEDS: TRANDATE 10 MG IV (22:44)
--- NOTE | 2024-10-14 23:00 | W.PN.UPDATE ---
Update Note
Progress Note Update
-Patient is de sating to low 80s on bipap, SVT 160s, RR in 40s, bp 122/78 denies chest pain. on diuresis IV TID, Labetalol PRN given
-Chest CT/PE neg earlier.
-Abg, cbc, bmp, mag ordered
-giving leukocytosis 15.4 will order procalcitonin, and blood cultures.
-Will transfer the patient to ICU for NIV requirement.
-Patient is full code. Rediscussed the code status with the patient and / Lexy over the phone and both would like to process with all treatment needed including intubation/vent.
[2024-10-14 23:13] LABS: B.E. 4.3 mmol/L; HCO3 33.2 mmol/L (21-28); O2 Saturation % 88.7 % (94-98); PCO2 66 mmHg (35-48); PO2 61 mmHg (83-108); pH 7.31 (7.35-7.45)
--- NOTE | 2024-10-14 23:30 | PTCARENOTE ---
Laid the patient flat to boost and patient desatting to 72% SpO2 and was tachypneic and appeared cyanotic. Called RT, RT bedside. VALENTINE Kendall came to bedside. Pt recovered slowly to 86% SpO2 on BiPAP. Pt RR 45 and HR 165, gave PRN labetalol. HR
responding to dose, HR 120's. Pt asymptomatic and denies any chest pain. Labs ordered, collected and sent. RT placed pt on non-invasive. Transferring patient to ICU, bedside report given to CLIFF Hanna.
[2024-10-14 23:31] LABS: Blood Urea Nitrogen 48 mg/dl (9-20); Calcium 8.9 mg/dl (8.4-10.2); Carbon Dioxide 32 mmol/L (22-30); Chloride 96 mmol/L (98-107); Estimated Creatinine Clearance 115 ml/min; Glucose 137 mg/dl (70-99); Magnesium 2.2 mg/dl (1.6-2.3); Potassium 4.9 mmol/L (3.5-5.1); Sodium 133 mmol/L (135-145); eGFR > 60.00
--- NOTE | 2024-10-14 23:33 | PTCARENOTE ---
Laid the patient flat to boost and patient desatting to 72% SpO2 and was tachypneic and appeared cyanotic. Called RT, RT bedside. VALENTINE Kendall came to bedside. Pt recovered slowly to 86% SpO2. Pt RR 45 and HR 165, gave PRN labetalol. HR responding to
dose, HR 120's. RT placed pt on non-invasive. Transferring patient to ICU, bedside report given to CLIFF Hanna.
[2024-10-14 23:34] LABS: Hemoglobin 16.9 g/dL (13.0-18.0); Mean Corp Hgb Conc. 30.7 g/dL (33.0-37.0); Mean Corpuscular Hgb 25.7 pg (27.0-31.0); Mean Corpuscular Volume 83.7 fL (80.0-94.0); Mean Platelet Volume 10.5 fL (7.4-10.4); Platelet Count 123 10^3/uL (130-400); Red Blood Cell Count 6.57 10^6/uL (4.70-6.10); Red Cell Dist. Width 18.7 % (11.5-14.5); White Blood Cell Count 15.6 10^3/uL (4.8-10.8)
[2024-10-15] VITALS (41 sets, daily range): BP systolic 91–147; BP diastolic 62–94; BMI 45.6
--- NOTE | 2024-10-15 | PTCARENOTE ---
pt was upgraded to ICU for increased O2 requirements, NIV started, pt AAOx3, denies pain and SOB at this time, pt HR ranging from 115-154, DISCOVERY GUIDE made aware and at bedside, EKG ordered and completed, pt remains on hep gtt, no further orders at this
time. doppler lower extremity pulses, tolerating NIV 95%, productive cough, sputum pink tinged, oral care provided, +BS, NPO at this time, pt oriented to room and call martínez in reach
[2024-10-15 00:20] LABS: Procalcitonin 0.21 ng/ml (0.0-0.25)
[2024-10-15 01:17] LABS: APTT > 200.0 Sec (23.4-35.0)
[2024-10-15 02:03] LABS: APTT > 200.0 Sec (23.4-35.0)
[2024-10-15 03:42] LABS: % Basophils 0.1 % (0-2); % Immature Granulocytes 0.5 % (0-0.5); % Monocytes 13.9 % (1.7-9.3); % Neutrophils 82.5 % (42.2-75.2); Absolute Immature Granulocytes 0.1 10^3/uL (0-0.05); Absolute Lymphocytes 0.5 10^3/uL (1.2-3.4); Absolute Monocytes 2.2 10^3/uL (0.1-0.6); Absolute Neutrophils 12.7 10^3/uL (1.4-6.5); Hematocrit 54.9 % (39.0-52.0); Hemoglobin 16.3 g/dL (13.0-18.0); Mean Corp Hgb Conc. 29.7 g/dL (33.0-37.0); Mean Corpuscular Hgb 25.3 pg (27.0-31.0); Mean Corpuscular Volume 85.4 fL (80.0-94.0); Mean Platelet Volume 10.5 fL (7.4-10.4); Nucleated Red Blood Cells % 0.6 % (-); Platelet Count 128 10^3/uL (130-400); Red Blood Cell Count 6.43 10^6/uL (4.70-6.10); Red Cell Dist. Width 18.5 % (11.5-14.5); White Blood Cell Count 15.4 10^3/uL (4.8-10.8)
--- NOTE | 2024-10-15 04:00 | PTCARENOTE ---
pt tolerating NIV, 95%, 18/10, call martínez in reach
[2024-10-15] MEDS: HEPARIN 25000 UNITS/250 ML IV ×2 (04:22→17:28)
[2024-10-15 04:28] LABS: ALT (SGPT) 145 U/L (0-50); AST (SGOT) 92 U/L (17-59); Alkaline Phosphatase 93 U/L (38-126); Blood Urea Nitrogen 52 mg/dl (9-20); Calcium 8.5 mg/dl (8.4-10.2); Carbon Dioxide 33 mmol/L (22-30); Chloride 100 mmol/L (98-107); Estimated Creatinine Clearance 103 ml/min; Glucose 137 mg/dl (70-99); Potassium 5.4 mmol/L (3.5-5.1); Sodium 137 mmol/L (135-145); Total Bilirubin 1.4 mg/dl (0.2-1.3); Total Protein 6.2 g/dl (6.3-8.2); eGFR > 60.00
[2024-10-15 04:41] LABS: Venous Blood Gas B.E. 0.8 mmol/L (-4 to +4); Venous Blood Gas HCO3 30.1 mmol/L (22-27); Venous Blood Gas O2 Sat % 99.2 %; Venous Blood Gas pCO2 67 mmHg (35-48); Venous Blood Gas pH 7.26 (7.32-7.43); Venous Blood Gas pO2 145 mmHg (30-50)
[2024-10-15 04:44] LABS: Venous Blood Gas O2 Therapy 100%
--- NOTE | 2024-10-15 05:12 | PTCARENOTE ---
pt sustaining HR 150s, LEGAL AID aware and at bedside, AMIO bolus and gtt ordered, pt AAOx3, denies chest pain and SOB at this time, call martínez in reach
[2024-10-15] MEDS: CORDARONE 103 MG IV (05:31)
[2024-10-15] MEDS: CORDARONE 518 MG IV (05:37)
--- NOTE | 2024-10-15 05:38 | W.PN.UPDATE ---
Update Note
Progress Note Update
Rapid afib overnight (150 to 155), started on amiodarone drip. Patient already on heparin drip.
[2024-10-15] MEDS: HYDROPHOR 1 APPLIC TOPICAL (07:21)
[2024-10-15] MEDS: DESENEX/MITRAZOL/ZEASORB 1 APPLIC TOPICAL ×2 (07:21→20:01)
[2024-10-15] MEDS: NICODERM TRANSDERMAL 14 MG TRANSDERM (07:29)
[2024-10-15] MEDS: LASIX 40 MG IV ×2 (07:29→17:19)
--- NOTE | 2024-10-15 07:37 | W.PN.INTV ---
Addendum entered and electronically signed by Bear Bolanos MD 10/15/24 14:01:
Reevaluated patient at the bedside-tolerated off noninvasive ventilation, marginal saturations
Updated in person-current clinical situation, prognosis she states 'he is not the best patient', 'paraphrase-we have been telling him to see a doctor for a long time and he has been refusing'
Continue antibiotics, diuresis, and intermittent noninvasive ventilation
Original Note:
Today's Communication / Plan
Recommendations
Diuresis
Antibiotics
Liberate from NIV
Diuresis
Assessment
-
74 year old M with past medical history of COPD, current smoker, noncompliance with outpatient followup presenting from home to ER with complaints of acute on chronic shortness of breath. Patient reports chronic shortness of breath for the past
1 year, acutely worsening the past few days. There is also notation of worsening lower extremity edema, orthopnea, elevated BP at home. EMS reported patient was severely hypoxemic on initial evaluation and received nitroglycerin x 2. Patient was
placed on BiPAP in the ER. Imaging showing effusion, proBNP >4000, 3+ pitting LE edema. Admitted to IMU. We are consulted for evaluation.
Acute heart failure exacerbation, orthopnea/LE edema
Acute hypoxic and hypercapnic respiratory failure
Moderate pleural effusion
SOB
Leukocytosis
Hyperkalemia
Suspected CHRISTY/OHS
Noncompliance
Thrombocytopenia
Conditions present DEGREE CLERK:
COPD-refuses outpatient pulmonary follow-up and PFTs
Current smoker- 1 pack a day for 40+ years-cut down to 1/2 pack
Hypertension
Morbid obesity due to excess calories
Peripheral arterial disease
Lumbar spinal stenosis s/p surgery 2018
s/p R cataract IOL and trabeculectomy 2014
Plan
Critically ill-transferred for progressive respiratory failure requiring noninvasive ventilation to avoid intubation
Supplemental oxygen as needed
Noninvasive ventilation-attempt to liberate-reviewed with respiratory therapy
Nebulizers-DuoNebs continue
Observe off steroids
Chest x-ray 10/14/2024-opacifications bilateral bases, right pleural effusion and component of CHF
Monitor right pleural effusion-consider thoracentesis
Chest x-ray with basilar infiltrates and leukocytosis
Check cultures
Sputum culture
Empiric ceftriaxone and doxycycline
Follow leukocytosis
Atrial fibrillation rate control
Amiodarone continues
Heparin drip continues
Diuresis as tolerated
Monitor renal function, electrolytes, intake/output, lower extremity edema and weight
Replace electrolytes as needed
Echocardiogram noted 10/14/2024-EF 55-60%, will grade 1 diastolic dysfunction, hypokinetic right ventricle, no significant valvular disease, PA systolic 50-55
Cardiology following-correspondence reviewed
Lower extremity ultrasound 10/15/2014-no evidence for DVT bilaterally
Smoking cessation counseling ongoing
Nicotine patch
DVT prophylaxis-on heparin drip
Nutrition
Early mobilization
Outpatient pulmonary and sleep disorders follow-up
Critical care statement: A total of 40 minutes of critical care time was provided for this patient today. This includes management of unstable vital signs, evaluation of the patient at bedside, reviewing the patient's pertinent medical records
including radiographs, microbiology, laboratory evaluations, and discussion with primary team, consultants, pharmacy, nutrition, physical therapy, case management, charge nurse, critical care nursing, and respiratory therapy.
Diagnostic Data
CXR 10/13/24- CHF and small to moderate right pleural effusion with adjacent atelectasis.
Chest x-ray 02/03/15- No active pulmonary disease. Slightly prominent left hilum most likely representing overlapping normal vascularity. Left hilar mass/lymphadenopathy cannot be entirely excluded. Recommend comparison with any prior outside study
to assess stability.
CT CHEST 10/14/24- No findings to suggest CENTRAL pulmonary embolism. Unfortunately, evaluation for more peripheral pulmonary embolism particularly in the lower lobes bilaterally limited by bilateral lower lobe consolidations and pleural effusions,
right greater than left as well as motion/respiration artifact.. Small suggesting 'filling defect' arterial in the left lower lobe most likely represents a branching vessel and does not pulmonary embolism, although cannot be excluded.
ECHO 10/14/24- Normal left ventricular size and systolic function with mild to moderate concentric left ventricular hypertrophy Left ventricular ejection fraction visually estimated 55-60% Grade 1 diastolic dysfunction Dilated, hypokinetic right
ventricle with sparing of the apex Mild right atrial dilatation No significant valvular disease. Estimated pulmonary artery pressure of 50-55 mmHg. Assuming a right atrial pressure of 15 mmHg. The IVC is dilated and does not collapse Prominent
anterior fat pad present. No pericardial effusion. No pleural effusion present. No prior study available for comparison
Reports and relevant images were personally reviewed.
Subjective Dataa
Subjective Data
Date of Service:
Date of Service: October 15, 2024
Chief Complaint: Manager Port Follow Up and Pulmonary Follow Up
Subjective:
Patient agitated as he is on noninvasive ventilator, once the NID off, states that he is less short of breath, offers no complaints of chest pain, productive cough, abdominal pain or leg swelling, nursing does report discolored mucus.
Review of Systems
General: Other (Per HPI)
Objective Data
Data Reviewed
Vital Signs / I&O / Oxygen:
Vital Signs
Temp Pulse Resp BP Pulse Ox
97.6 F 75 21 103/72 93
10/15/24 03:59 10/15/24 06:30 10/15/24 06:30 10/15/24 06:30 10/15/24 06:30
Intake and Output
10/14/24 10/15/24 10/16/24
06:59 06:59 06:59
Intake Total 240 / 240 863.3 / 863.3
Output Total 1575 / 1575 1350 / 1350
Balance -1335 / -1335 -486.7 / -486.7
SaO2 93
Physical Exam
General: Respiratory Distress (Mild-on noninvasive ventilation) and Comfortable
HEENT: Normocephalic, Anicteric and Moist Mucous Membranes
Cardiovascular: Irregular Rhythm and Murmur
Respiratory: Crackles (Basilar), Rhonchi ( expiratory), Non-Labored Respirations, Accessory Resp Muscle Use (n) and Stridor (n)
GI: Soft, Non Distended and Non Tender
Neurology: Awake, Alert and No Motor Deficits
Skin: Warm, Good Color, Cyanosis (n), Jaundice (n) and Rash (n)
Labs/Micro/Reports
Lab Data
10/15/24 03:24
10/15/24 03:24
Laboratory Results
10/14/24 10/14/24 10/14/24
09:57 16:03 17:18
APTT 36.4 H 46.9 H
pH 7.32 L
pCO2 66 H
pO2 75 L
HCO3 34.0 H
O2 Delivery Level
10/14/24 10/15/24 10/15/24
22:56 00:41 01:31
APTT > 200.0 H* > 200.0 H*
pH 7.31 L
pCO2 66 H
pO2 61 L
HCO3 33.2 H
O2 Delivery Level
Microbiology
10/14/24 15:19 Pleural Fluid Gram Stain - Preliminary
10/13/24 10:06 Nasal Swab Influenza Types A & B (VENITA) - Final
Negative for Influenza A & B, NAAT
Negative results must be combined with clinical observations
and patient history.
Nucleic Acid Amplification test (NAAT)performed on the
[employer] platform.
[2024-10-15] MEDS: DUONEB 3 ML INH ×3 (07:39→20:46)
--- NOTE | 2024-10-15 08:06 | PTCARENOTE ---
Received pt sleeping.Eyes open to voice.Conversation is appropriate.+SIMON.denies pain.Refusing to turn stating 'You did this already!'Pt educated regarding need to reposition and assessment.SR noted.Heparin and Amiodarone gtts infusing.NIV intact
18/10 100%Coarse breath sounds with rhonchi and wheezing noted.POX 92%+DELGADO,tachypnea and orthopnea noted.NPO.Mouth care completed.Smear BM.Pt has not voided.Condom cath applied.Skin integrity as noted.Plan of care discussed.
--- NOTE | 2024-10-15 08:32 | W.PN.CARDCBS ---
Today's Communication / Plan
-
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
HFpEF is secondary issue
Continue IV amiodarone and IV heparin
Continue IV furosemide
Transition to DOAC when stable, for A-fib, not for pulmonary embolus
Eventual consideration of SGLT2 antagonist, spironolactone for HFpEF
Impression / Plan
-
Primary Box Estimator: none prior to admission
Assessment:
Presentation with SOB
Acute hypoxic respiratory failure, on BIPAP
Acute CHF, unknown type
Small to moderate R pleural effusion
Leukocytosis
Hyperkalemia
Elevated LFTs, concern for passive congestion
COPD
Ongoing tobacco use
Morbid obesity
ECHO 10/14/24: EF 55 to 60%, mild to moderate concentric LVH, grade 1 diastolic dysfunction, dilated hypokinetic RV with sparing of apex, PAP 50 to 55 mmHg, IVC dilated and does not collapse, prominent anterior fat pad
Plan:
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
His echo was suggestive of pulmonary embolus, but no pulmonary embolus seen. Right heart changes likely related to COPD and hypercapnic/hypoxemic respiratory failure
He now has atrial fibrillation with a rapid ventricular response. He is on IV heparin and IV amiodarone. When stable we will transition to oral amiodarone and DOAC.
If heart rate remains difficult to control we could consider adding diltiazem with phenylephrine support, or consider digoxin
For now, continue IV Lasix. Eventual consideration of SGLT2 antagonist, possibly spironolactone.
Thoracentesis was for 200 mL, presumably transudative.
Given minimal troponin and body habitus, would probably not pursue ischemic evaluation at this time.
We will continue to follow.
Clinical summary:74-year-old man with COPD and ongoing tobacco abuse, morbid obesity, no recent medical contacts presenting with dyspnea and evidence of heart failure/pulmonary edema, proBNP 4200. Echo with preserved LVEF, hypokinetic right
ventricle with sparing of the apex, pulmonary artery systolic pressure 50-[address] scan shows elevated right hemidiaphragm and bilateral lower lobe consolidation with pleural effusions and no evidence of obvious pulmonary emboli. Onset of
atrial fibrillation October 15.
Progress Note - Box Estimator
Subjective
Date of Service: October 15, 2024:Nicotine patch, furosemide 40 mg IV twice daily, DuoNebs, IV heparin, amiodarone IV
He went into atrial fibrillation last night, rapid ventricular response, now on BiPAP, he says he is comfortable with the BiPAP but thirsty, asked for fruit cup
105/72, pulse 75, respirate 28, afebrile, sats 92%, intake and output -0.4 L, weight is 148.1 kg, morbidly obese, awake, conversant, rhonchi, distant heart tones, no obvious murmurs JVD probably elevated but hard to assess, abdomen morbidly obese
3-4+ edema distal pulses diminished but still palpable
White count 15.4, hemoglobin 16.3, 14% monocytes, D-dimer is 10.87, ABG last night 7.31, pCO2 66, pO2 61, bicarb 33, VBG this morning 7.26, 67, 145, bicarb 30.1, BUN and creatinine 52 and 0.9, potassium 5.4, bilirubin 1.4, AST 92, ALT 145,
procalcitonin is normal, troponin 0.032
ECG: Atrial fibrillation, anterior RI, low voltage, nonspecific ST and T wave changes
Objective
Labs:
10/15/24 03:24
10/15/24 03:24
Labs
Hgb 16.3 g/dL (13.0-18.0) 10/15/24 03:24
Hct 54.9 % (39.0-52.0) H 10/15/24 03:24
Plt Count 128 10^3/uL (130-400) L 10/15/24 03:24
APTT > 200.0 Sec (23.4-35.0) H* 10/15/24 01:31
Sodium 137 mmol/L (135-145) 10/15/24 03:24
Potassium 5.4 mmol/L (3.5-5.1) H 10/15/24 03:24
BUN 52 mg/dl (9-20) H 10/15/24 03:24
Creatinine 0.9 mg/dL (0.7-1.3) 10/15/24 03:24
Glucose 137 mg/dl (70-99) H 10/15/24 03:24
Troponins
10/13/24 10/13/24 10/14/24
10:00 18:16 00:35
Troponin I 0.027 0.032 0.026
Vital Signs and I&O:
Vital Signs
Temp Pulse Resp BP Pulse Ox
36.6 C 75 28 105/72 92
10/15/24 07:00 10/15/24 07:40 10/15/24 07:40 10/15/24 07:30 10/15/24 07:59
Vital Signs
Temp Pulse Resp BP Pulse Ox
36.6 C 75 28 105/72 92
10/15/24 07:00 10/15/24 07:40 10/15/24 07:40 10/15/24 07:30 10/15/24 07:59
Intake & Output
10/13/24 10/14/24 10/15/24 10/16/24
07:59 07:59 07:59 07:59
Intake Total 240 / 240 916.6 / 969.9 53.3 / 53.3
Output Total 1575 / 1575 1350 / 1350
Balance -1335 / -1335 -433.4 / -380.1 53.3 / 53.3
Physical Exam
Physical Exam
See above
--- NOTE | 2024-10-15 08:36 | PTCARENOTE ---
Pt expectorating thick blood tinged moderate sputum.
--- NOTE | 2024-10-15 09:24 | PTCARENOTE ---
Pt voiding jody urine via condom catheter.
--- NOTE | 2024-10-15 10:40 | PTCARENOTE ---
Pt transitioned to High flow 60l 80% as per MD order.
[2024-10-15 10:42] LABS: APTT 97.1 Sec (23.4-35.0)
--- NOTE | 2024-10-15 12:13 | W.PN.HOSP.TC ---
Today's Communication/Plan
-
Start patient IV antibiotic
IV amiodarone
Transition heparin to cardiac protocol
Continue with bronchodilators
High flow nasal cannula
Wean oxygen as tolerated
Assessment / Plan
Assessment / Plan
#Pulmonary edema
#Acute HFpEF
Start patient on Lasix 40 mg twice daily
S [place] catheter. Monitor urinary output. Change in Weight. May Benefit from Metolazone.
Strict I's and O's.
Daily weights
ECHO normal left ventricular size and function with mild to moderate LVH. EF 55 to 60%. Grade 1 diastolic dysfunction. Dilated hypokinetic right ventricle with sparing of the apex. No significant valvular disease. PASP of 50-55. IVC is dilated
and does not collapse.
trop flat.
proBNP elevated at 4200
Elevated D-dimer.
Discussed with cardiology recommended CT chest which was negative for pulmonary embolism. Small suggesting 'filling defect' arterial in the left lower lobe most likely represents a branching vessel and does not pulmonary embolism, although cannot
be excluded. If lower extremity Doppler negative then transition heparin to cardiac protocol
Cardiology evaluation
#Right pleural effusion exudative
CT chest with significant pleural effusion
[facility] consulted for thoracentesis status post 200 cc of fluid removal.
Fluid culture in lab.
Cytology pending
#Acute hypoxic and hypercapnic respiratory failure likely multifactorial pleural effusion, suspected COPD exacerbation, pulmonary edema, diastolic heart failure exacerbation, pneumonia
Off BiPAP and NIV and now transition to high flow
Started on ceftriaxone and doxycycline
Await for sputum sample
Bronchodilators for now.
Defer steroids to pulmonary
Card Maker following
# New onset of atrial fibrillation with rapid ventricular response
Already on heparin drip can be transition to DOAC
Remains on amiodarone
Continue to monitor on telemetry. Remains tachycardic.
#Hyperkalemia
Should improve with aggressive diuresis
#Transaminitis likely secondary hepatic congestion
Improving
Trend CMP for now
#Primary hypertension elevated
Avoid AMANDA or ARB in the setting of hyperkalemia for now
Monitor blood pressure with diuresis
Now with soft blood pressure
#Hyperglycemia
Check A1c
# History of tobacco abuse
Does not follow-up with travel director
Nicoderm
Morbid obesity due to excess calories
Affects all aspects of medical care
Recommend weight loss after resolution of acute disease process
Peripheral arterial disease
Mild thrombocytopenia
Continue to monitor platelets
Sacra; skin stage I versus DTI
Wound care
DVT prophylaxis hep gtt
Full code
d/w with cardiology
Total Critical Care Time_ 35 minutes. I was immediately available to the patient and staff. I personally examined, reviewed labs, diagnostic images/reports, interpretations, treatment plans, discussed patient care with other providers and family
or caregivers (if patient is unable to make decisions), entered orders as appropriate and documented the medical record.
Anticipated Discharge: > 48 hours
Subjective/Interval History
-
Date of Service: October 15, 2024
Overnight events noted
pt tx to ICU
On NIV
Wants fruit cup
in afib
Objective Data
-
Labs:
Laboratory Results
10/15/24 10/15/24 10/15/24
00:41 01:31 03:24
WBC 15.4 H
Hgb 16.3
Hct 54.9 H
Plt Count 128 L
APTT > 200.0 H* > 200.0 H*
Sodium 137
Potassium 5.4 H
Chloride 100
Carbon Dioxide 33 H
BUN 52 H
Creatinine 0.9
Glucose 137 H
Calcium 8.5
Total Bilirubin 1.4 H
AST 92 H
ALT 145 H
Alkaline Phosphatase 93
10/15/24 10/15/24
10:17 17:00
WBC
Hgb
Hct
Plt Count
APTT 97.1 H Pending
Sodium
Potassium
Chloride
Carbon Dioxide
BUN
Creatinine
Glucose
Calcium
Total Bilirubin
AST
ALT
Alkaline Phosphatase
Vital Signs:
Vital Signs
Temp Pulse Resp BP Pulse Ox
97.9 F 75 28 105/72 93
10/15/24 07:00 10/15/24 07:40 10/15/24 07:40 10/15/24 07:30 10/15/24 11:57
I&O
10/14/24 10/15/24 10/16/24
06:59 06:59 06:59
Intake Total 240 / 240 863.3 / 916.6 159.9 / 159.9
Output Total 1575 / 1575 1350 / 1350
Balance -1335 / -1335 -486.7 / -433.4 159.9 / 159.9
Physical Exam
-
General: Well Developed and No Apparent Distress
HEENT: Normocephalic, Atraumatic, Moist Mucous Membranes and Oxygen (niv)
Respiratory: Rhonchi
Cardiac: S1/S2, Irregular Rhythm and Tachycardic; Negative Murmur, Rub or Gallop
GI: Soft, Nontender, Nondistended and Normal Bowel Sounds; Negative Organomegaly
Rectal: Deferred by Provider
Musculoskeletal: No Clubbing, No Cyanosis, Edema, Right Lower Extrem and Edema, Left Lower Extrem
Skin: Negative Rash
Neuro: Awake and Nonfocal/Grossly Intact
[2024-10-15] MEDS: ROCEPHIN 2000 MG IV (12:40)
[2024-10-15] MEDS: STERILE WATER FOR INJECTION 20 ML IV (12:40)
[2024-10-15] MEDS: VIBRAMYCIN 100 MG PO ×2 (12:40→20:01)
--- NOTE | 2024-10-15 13:00 | PTCARENOTE ---
Pt assessed.No change in assessment noted.Pt changed to bariatric bed.Pt's at bedside.
--- NOTE | 2024-10-15 14:45 | PTCARENOTE ---
Pt frequently pulling high flow nasal prongs out of his nose with subsequent desaturation.Pt educated to keep High Flow prongs in place to ensure oxygen delivery.
--- NOTE | 2024-10-15 16:00 | PTCARENOTE ---
Pt assessed.No change in assessment noted.
--- NOTE | 2024-10-15 16:12 | VATNOTE ---
Per radiology report, PICC tip placement in good position in the cavoatrial junction. PCN notified that PICC is OK to use and to change all IV tubing prior to connection to the PICC line.
[2024-10-15 17:16] LABS: APTT 48.3 Sec (23.4-35.0)
[2024-10-15] MEDS: SENOKOT-S 1 TABLET PO (20:01)
--- NOTE | 2024-10-15 20:32 | PTCARENOTE ---
on assessment pt angry but cooperative, AAOx3, generalized weakness, denies pain and SOB at this time, SR on the monitor, doppler LE pulses, remains on hep gtt and amio gtt per orders, pt continues to remove high flow nasal cannula, pt educated on
importance of leaving NC on and in place, condom cath in place, pt on bariatric bed, call martínez in reach
[2024-10-16] VITALS (34 sets, daily range): BP systolic 95–166; BP diastolic 53–125; BMI 45.4
[2024-10-16 00:19] LABS: APTT 148.8 Sec (23.4-35.0)
--- NOTE | 2024-10-16 00:55 | PTCARENOTE ---
no changes from prior assessment, tolerating high flow NC, call martínez in reach
[2024-10-16] MEDS: CORDARONE 518 MG IV (03:59)
--- NOTE | 2024-10-16 05:15 | PTCARENOTE ---
no changes from prior assessment, call martínez in reach, repositioned q2h
[2024-10-16] MEDS: HEPARIN 25000 UNITS/250 ML IV (05:42)
[2024-10-16 06:08] LABS: % Basophils 0.1 % (0-2); % Immature Granulocytes 0.4 % (0-0.5); % Lymphocytes 3.4 % (20.5-51.1); % Monocytes 11.7 % (1.7-9.3); % Neutrophils 84.4 % (42.2-75.2); Absolute Immature Granulocytes 0.1 10^3/uL (0-0.05); Absolute Lymphocytes 0.5 10^3/uL (1.2-3.4); Absolute Monocytes 1.8 10^3/uL (0.1-0.6); Absolute Neutrophils 13.1 10^3/uL (1.4-6.5); Hemoglobin 15.2 g/dL (13.0-18.0); Mean Corp Hgb Conc. 29.8 g/dL (33.0-37.0); Mean Corpuscular Hgb 25.5 pg (27.0-31.0); Mean Corpuscular Volume 85.6 fL (80.0-94.0); Mean Platelet Volume 10.6 fL (7.4-10.4); Nucleated Red Blood Cells % 0.5 % (-); Platelet Count 115 10^3/uL (130-400); Red Blood Cell Count 5.96 10^6/uL (4.70-6.10); Red Cell Dist. Width 18.3 % (11.5-14.5); White Blood Cell Count 15.6 10^3/uL (4.8-10.8)
[2024-10-16 06:12] LABS: APTT 124.8 Sec (23.4-35.0)
[2024-10-16 06:44] LABS: ALT (SGPT) 108 U/L (0-50); AST (SGOT) 53 U/L (17-59); Albumin 2.8 g/dl (3.5-5.0); Alkaline Phosphatase 87 U/L (38-126); Blood Urea Nitrogen 52 mg/dl (9-20); Calcium 8.6 mg/dl (8.4-10.2); Carbon Dioxide 31 mmol/L (22-30); Chloride 97 mmol/L (98-107); Estimated Creatinine Clearance 116 ml/min; Glucose 125 mg/dl (70-99); Potassium 5.1 mmol/L (3.5-5.1); Sodium 134 mmol/L (135-145); Total Bilirubin 1.9 mg/dl (0.2-1.3); Total Protein 5.8 g/dl (6.3-8.2); eGFR > 60.00
[2024-10-16] MEDS: DUONEB 3 ML INH ×3 (07:18→20:57)
--- NOTE | 2024-10-16 07:18 | W.PN.INTV ---
Today's Communication / Plan
Recommendations
Wean oxygen
Increase activity
Gentle diuresis
Antibiotics
NIV as needed
Assessment
-
74 year old M with past medical history of COPD, current smoker, noncompliance with outpatient followup presenting from home to ER with complaints of acute on chronic shortness of breath. Patient reports chronic shortness of breath for the past
1 year, acutely worsening the past few days. There is also notation of worsening lower extremity edema, orthopnea, elevated BP at home. EMS reported patient was severely hypoxemic on initial evaluation and received nitroglycerin x 2. Patient was
placed on BiPAP in the ER. Imaging showing effusion, proBNP >4000, 3+ pitting LE edema. Admitted to IMU. We are consulted for evaluation.
Acute heart failure exacerbation, orthopnea/LE edema
Acute hypoxic and hypercapnic respiratory failure
Moderate pleural effusion
SOB
Leukocytosis
Hyperkalemia
Suspected CHRISTY/OHS
Noncompliance
Thrombocytopenia
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
COPD-refuses outpatient pulmonary follow-up and PFTs
Current smoker- 1 pack a day for 40+ years-cut down to 1/2 pack
Hypertension
Morbid obesity due to excess calories
Peripheral arterial disease
Lumbar spinal stenosis s/p surgery 2018
s/p R cataract IOL and trabeculectomy 2014
Plan
Critically ill intermittently requiring noninvasive ventilation
Noninvasive ventilation-attempt to liberate-reviewed with respiratory therapy-weaned to high flow oxygen-continue wean
Nebulizers-DuoNebs continue
Continue to observe off steroids
Chest x-ray 10/14/2024-opacifications bilateral bases, right pleural effusion and component of CHF
Chest x-ray 10/15/2024-right PICC projects over cavoatrial junction, mild vascular congestion, suspect bilateral pleural effusions
Monitor right pleural effusion-consider thoracentesis
Cultures reviewed
Blood cultures negative
Pleural fluid 10/14/2024-no growth
Sputum culture 10/15/2024-many WBC, mixed organisms
Influenza negative
Empiric ceftriaxone and doxycycline-finish a course for pneumonia
Follow leukocytosis-Remains elevated
Atrial fibrillation rate control
Amiodarone continues
Heparin drip continues
Diuresis as tolerated
Monitor renal function, electrolytes, intake/output, lower extremity edema and weight
Replace electrolytes as needed
Echocardiogram noted 10/14/2024-EF 55-60%, will grade 1 diastolic dysfunction, hypokinetic right ventricle, no significant valvular disease, PA systolic 50-55
Cardiology following-correspondence reviewed
Lower extremity ultrasound 10/15/2014-no evidence for DVT bilaterally
Smoking cessation counseling ongoing
Nicotine patch
DVT prophylaxis-on heparin drip
Nutrition with aspiration precautions
Eventual physical therapy evaluation
Dr. Bolanos reviewed in detail with at the bedside 10/15/2024
Outpatient pulmonary and sleep disorders follow-up
Critical care statement: A total of 38 minutes of critical care time was provided for this patient today. This includes management of unstable vital signs, evaluation of the patient at bedside, reviewing the patient's pertinent medical records
including radiographs, management of noninvasive ventilation, microbiology, laboratory evaluations, and discussion with primary team, consultants, pharmacy, nutrition, physical therapy, case management, charge nurse, critical care nursing, and
respiratory therapy.
Diagnostic Data
CXR 10/13/24- CHF and small to moderate right pleural effusion with adjacent atelectasis.
Chest x-ray 02/03/15- No active pulmonary disease. Slightly prominent left hilum most likely representing overlapping normal vascularity. Left hilar mass/lymphadenopathy cannot be entirely excluded. Recommend comparison with any prior outside study
to assess stability.
CT CHEST 10/14/24- No findings to suggest CENTRAL pulmonary embolism. Unfortunately, evaluation for more peripheral pulmonary embolism particularly in the lower lobes bilaterally limited by bilateral lower lobe consolidations and pleural effusions,
right greater than left as well as motion/respiration artifact.. Small suggesting 'filling defect' arterial in the left lower lobe most likely represents a branching vessel and does not pulmonary embolism, although cannot be excluded.
ECHO 10/14/24- Normal left ventricular size and systolic function with mild to moderate concentric left ventricular hypertrophy Left ventricular ejection fraction visually estimated 55-60% Grade 1 diastolic dysfunction Dilated, hypokinetic right
ventricle with sparing of the apex Mild right atrial dilatation No significant valvular disease. Estimated pulmonary artery pressure of 50-55 mmHg. Assuming a right atrial pressure of 15 mmHg. The IVC is dilated and does not collapse Prominent
anterior fat pad present. No pericardial effusion. No pleural effusion present. No prior study available for comparison
Reports and relevant images were personally reviewed.
Subjective Dataa
Subjective Data
Date of Service:
Date of Service: October 16, 2024
Chief Complaint: Measurement Technician Follow Up and Pulmonary Follow Up
Subjective:
Weaned off noninvasive, on high flow oxygen, denies any shortness of breath, 'when can I walk', no chest pain or abdominal pain
Review of Systems
General: Other (Per HPI)
Objective Data
Data Reviewed
Vital Signs / I&O / Oxygen:
Vital Signs
Temp Pulse Resp BP Pulse Ox
97.6 F 86 29 136/79 91
10/16/24 03:46 10/16/24 06:00 10/16/24 06:00 10/16/24 06:00 10/16/24 06:00
Intake and Output
10/15/24 10/16/24 10/17/24
06:59 06:59 06:59
Intake Total 863.3 / 916.6 1662.6 / 1662.6
Output Total 1350 / 1350 975 / 975
Balance -486.7 / -433.4 687.6 / 687.6
SaO2 [NIV (Non Invasive 92
Ventilation)]
SaO2 91
Nasal Cannula flow liters per 55
minute
Physical Exam
General: Respiratory Distress (Mild-on noninvasive ventilation) and Comfortable
HEENT: Normocephalic, Anicteric and Moist Mucous Membranes
Cardiovascular: Irregular Rhythm and Murmur
Respiratory: Crackles (Basilar), Rhonchi ( expiratory), Non-Labored Respirations, Accessory Resp Muscle Use (n) and Stridor (n)
GI: Soft, Non Distended and Non Tender
Neurology: Awake, Alert and No Motor Deficits
Skin: Warm, Good Color, Cyanosis (n), Jaundice (n) and Rash (n)
Labs/Micro/Reports
Lab Data
10/16/24 05:45
10/16/24 05:45
Laboratory Results
10/15/24 10/15/24 10/15/24
10:17 16:52 23:54
APTT 97.1 H 48.3 H 148.8 H
10/16/24
05:45
APTT 124.8 H
Microbiology
10/14/24 22:58 Blood/Venous Blood Culture - Preliminary
No Growth in 24 hours- Final report to follow
10/14/24 22:56 Blood/Venous Blood Culture - Preliminary
No Growth in 24 hours- Final report to follow
10/15/24 10:25 Sputum Gram Stain - Preliminary
10/14/24 15:19 Pleural Fluid Body Fluid Culture - Preliminary
No Growth After 18-24 Hours
10/14/24 15:19 Pleural Fluid Gram Stain - Preliminary
10/13/24 10:06 Nasal Swab Influenza Types A & B (VENITA) - Final
Negative for Influenza A & B, NAAT
Negative results must be combined with clinical observations
and patient history.
Nucleic Acid Amplification test (NAAT)performed on the
[employer] platform.
[2024-10-16] MEDS: HYDROPHOR 1 APPLIC TOPICAL (07:56)
[2024-10-16] MEDS: VIBRAMYCIN 100 MG PO ×2 (08:04→21:00)
[2024-10-16] MEDS: SENOKOT-S 1 TABLET PO ×2 (08:04→21:00)
[2024-10-16] MEDS: NICODERM TRANSDERMAL 14 MG TRANSDERM (08:04)
[2024-10-16] MEDS: LASIX 40 MG IV ×2 (08:05→15:53)
[2024-10-16] MEDS: FLUSH (NSS) 2 FLUSH IV ×3 (08:06→15:54)
[2024-10-16] MEDS: DESENEX/MITRAZOL/ZEASORB 1 APPLIC TOPICAL ×2 (08:07→20:12)
--- NOTE | 2024-10-16 08:07 | W.PN.CARDCBS ---
Today's Communication / Plan
-
Switch IV amiodarone to p.o.
Stop heparin and start Eliquis
Santacruz SGLT2 antagonist
Continue IV furosemide
Impression / Plan
-
Primary Oral Surgery Physician: none prior to admission
Assessment:
Presentation with SOB
Acute hypoxic respiratory failure, on BIPAP
Acute HFpEF
Paroxysmal atrial fibrillation, converted to sinus rhythm on amiodarone
Leukocytosis
Hyperkalemia
Elevated LFTs, concern for passive congestion
COPD
Ongoing tobacco use
Morbid obesity
ECHO 10/14/24: EF 55 to 60%, mild to moderate concentric LVH, grade 1 diastolic dysfunction, dilated hypokinetic RV with sparing of apex, PAP 50 to 55 mmHg, IVC dilated and does not collapse, prominent anterior fat pad
Plan:
Regarding A-fib, he is now in sinus rhythm on IV amiodarone and IV heparin.
It looks like no invasive procedures are planned, will so we will stop heparin and begin Eliquis. Will transition amiodarone to oral. As outpatient we can determine whether amiodarone should be continued long-term.
Acute HFpEF seems improved, but still with massive lower extremity edema. He has mild hyperkalemia. Continue IV Lasix. He could be considered for Farxiga or Jardiance. Avoid spironolactone. Will ask case management to santacruz SGLT2 antagonist
With preservation of EF, AMANDA/ARB, Etc. is not required
Major issue remains COPD, defer to hospitalist and spring former machine regarding best medication strategy
Clinical summary:74-year-old man with COPD and ongoing tobacco abuse, morbid obesity, no recent medical contacts presenting with dyspnea and evidence of heart failure/pulmonary edema, proBNP 4200. Echo with preserved LVEF, hypokinetic right
ventricle with sparing of the apex, pulmonary artery systolic pressure 50-[address] scan shows elevated right hemidiaphragm and bilateral lower lobe consolidation with pleural effusions and no evidence of obvious pulmonary emboli. Onset of
atrial fibrillation October 15.
Progress Note - Oral Surgery Physician
Subjective
Date of Service: October 16, 2024:
Meds: DuoNebs, IV heparin, IV amiodarone, nicotine patch, furosemide 40 mg IV twice daily, doxycycline, ceftriaxone, Senokot,
136/79, pulse 74, respiratory 20, afebrile, sats are 92% on room air,, intake and output 1.5/1 L, now on high flow, looks better, diminished breath sounds in lungs, regular rate and rhythm without obvious murmurs, obese abdomen still with 4+ edema,
neck veins are probably okay
Chest x-ray yesterday, infiltrate effusion right greater than left, suboptimal positioning of chest
White count 15.6, hemoglobin 15.2, BUN/creatinine 52 and 0.8, potassium 5.1, sodium 134, ALT 808
EKG yesterday, A-fib with RVR, proBNP was 4200, peak troponin 0.032
Echo: EF 55-60%, pulmonary artery pressure 50-55 mmHg, no significant valvular heart disease
Address amiodarone and heparin, decide about Lasix dosing, SGLT 1 antagonist no spironolactone given potassium
Objective
Labs:
10/16/24 05:45
10/16/24 05:45
Labs
Hgb 15.2 g/dL (13.0-18.0) 10/16/24 05:45
Hct 51.0 % (39.0-52.0) 10/16/24 05:45
Plt Count 115 10^3/uL (130-400) L 10/16/24 05:45
APTT 124.8 Sec (23.4-35.0) H 10/16/24 05:45
Sodium 134 mmol/L (135-145) L 10/16/24 05:45
Potassium 5.1 mmol/L (3.5-5.1) 10/16/24 05:45
BUN 52 mg/dl (9-20) H 10/16/24 05:45
Creatinine 0.8 mg/dL (0.7-1.3) 10/16/24 05:45
Glucose 125 mg/dl (70-99) H 10/16/24 05:45
Troponins
10/13/24 10/13/24 10/14/24
10:00 18:16 00:35
Troponin I 0.027 0.032 0.026
Vital Signs and I&O:
Vital Signs
Temp Pulse Resp BP Pulse Ox
36.4 C 72 20 148/82 92
10/16/24 03:46 10/16/24 08:05 10/16/24 07:21 10/16/24 08:05 10/16/24 07:22
Vital Signs
Temp Pulse Resp BP Pulse Ox
36.4 C 72 20 148/82 92
10/16/24 03:46 10/16/24 08:05 10/16/24 07:21 10/16/24 08:05 10/16/24 07:22
Intake & Output
10/14/24 10/15/24 10/16/24 10/17/24
07:59 07:59 07:59 07:59
Intake Total 240 / 240 916.6 / 969.9 1609.3 / 1609.3
Output Total 1575 / 1575 1350 / 1350 975 / 975
Balance -1335 / -1335 -433.4 / -380.1 634.3 / 634.3
Physical Exam
Physical Exam
See above
--- NOTE | 2024-10-16 09:00 | PTCARENOTE ---
Rec'd pt at 0745 awake resting in bed. Overall alert and oriented. Is cooperative but will tend to get easily frustrated with turning/care and if his table gets moved even for a short period to do care. Calms with explanation. Denies pain. Denies
dizziness or headache. SIMON but weakly. Did use arms to assist with turning but legs needed to be manually lifted for turning. Was able to lift them in general off the bed. Pt keeps stating that he wants to walk around however sats will dip to 83% if
High flow is not situated properly in his nose. Skin is pale pink wm and dry. Wounds as documented. Scabs are present on his back and legs. MASD in groin and skin folds. Miconazole applied. Hydorphor to his feet which are very dry. +2 gen anasarca
and +3 LE edema. Respirs- Rec'd pt on High Flow O2 55L/100% with sats of anywhere from 85% to 94% depending on whether he has the high flow situated properly in his nose. Pt keeps tending to reposition the cannula but then it is not seated properly
and sats are in the 82-86% range. Occasional moist cough for bloody tinged secretions. Encouraged pt to use the Yan[place]ur (showed him how to use it) instead of coughing in a cup. BS are coarse throughout, rhonchi with exp wheezing (mostly anterior).
With lying flatter or turning tends to get very orthopnic and dusky briefly until repositioned with his head back up. Only time he c/o being sob is lying flatter. Monitor SR with 1st'avb. MS.24. Denies chest pain. + pulses. PT and Dp pulses with the
doppler. R DP somewhat hard to find and can be fleeting. +3 LE edema. VS as documented. Remains on IV Amiodarone at 0.5 mg and Heparin at 1900 units/hr via R arm DP picc site wnl. Capped int intact L hand. LAC site removed due to occlusion. ABd is
obese with + BS. Initially did not want anything to eat but eventually ate about 60% of breakfast. Denies nausea. #[address] Voiding jody urine. Lasix 40 mg IV given as ordered. Turned and repositioned. Partial bath and mouth care
given. Pt shaved. Plan of care reviewed with pt and call martínez in reach.
[2024-10-16 09:52] LABS: Glycohemoglobin (HgbA1c) 6.8 % (4.0-5.6)
[2024-10-16] MEDS: PACERONE 200 MG PO ×3 (10:09→21:23)
[2024-10-16] MEDS: ELIQUIS 5 MG PO ×2 (10:10→21:00)
--- NOTE | 2024-10-16 10:15 | PTCARENOTE ---
Dr. Ocampo in to see pt orders given to stop IV Heparin and Amiodarone- Per order. PO Amiodarone 200 mg and Eliquis 5 mg po given and IV Heparin and Amiodarone gtts dc'd. PICC Line flushed. Repositioned. Remains on High FLow but need to keep
reminding pt to keep the high flow in his nose- tends to keep adjusting the cannula but when he does he does not reposition it correctly and sats decrease to 82-85%- when positioned properly sats are 93%. No other changes
--- NOTE | 2024-10-16 10:20 | W.PN.HOSP.TC ---
Today's Communication/Plan
-
Amiodarone loading dose
Eliquis
Start sliding scale Accu-Cheks
Wean oxygen as tolerated
IV antibiotics
Assessment / Plan
Assessment / Plan
#Pulmonary edema
#Acute HFpEF
Start patient on Lasix 40 mg twice daily
S [place] catheter. Monitor urinary output. Change in Weight. May Benefit from Metolazone.
Strict I's and O's.
Daily weights
ECHO normal left ventricular size and function with mild to moderate LVH. EF 55 to 60%. Grade 1 diastolic dysfunction. Dilated hypokinetic right ventricle with sparing of the apex. No significant valvular disease. PASP of 50-55. IVC is dilated
and does not collapse.
trop flat.
proBNP elevated at 4200
Elevated D-dimer.
CT chest which was negative for pulmonary embolism. lower extremity Doppler negative
Cardiology evaluation
#Right pleural effusion exudative
CT chest with significant pleural effusion
[facility] consulted for thoracentesis status post 200 cc of fluid removal.
Fluid culture in lab.
Cytology pending
#Acute hypoxic and hypercapnic respiratory failure likely multifactorial pleural effusion, suspected COPD exacerbation, pulmonary edema, diastolic heart failure exacerbation, pneumonia
Off BiPAP and NIV and now transition to high flow 100% FIO2.
Started on ceftriaxone and doxycycline
Await for sputum sample
Bronchodilators for now.
Defer steroids to pulmonary
Millinery Copyist following
# New onset of atrial fibrillation with rapid ventricular response
hep gtt stopped and switched to DOAC
Remains on amiodarone. Gtt discontinued and switch to 200mg PO TID loading dose.
Continue to monitor on telemetry. Remains tachycardic.
#Hyperkalemia
improved with aggressive diuresis
#Transaminitis likely secondary hepatic congestion
Improving
Trend CMP for now
#Primary hypertension elevated
Avoid AMANDA or ARB in the setting of hyperkalemia for now
Monitor blood pressure with diuresis
# Diabetes mellitus type 2
A1c of 6.8
Start insulin sliding scale and Accu-Cheks
May benefit from Farxiga or Jardiance
Start additional p.o. agents closer to discharge
# History of tobacco abuse
Does not follow-up with vp genetic
Nicoderm
Morbid obesity due to excess calories
Affects all aspects of medical care
Recommend weight loss after resolution of acute disease process
Peripheral arterial disease
Mild thrombocytopenia
Continue to monitor platelets
Sacra; skin stage I versus DTI
Wound care
DVT prophylaxi Eliquis
Full code
Anticipated Discharge: > 48 hours
Subjective/Interval History
-
Date of Service: October 16, 2024
remains on HFNC on 100%fio2
Objective Data
-
Labs:
Laboratory Results
10/15/24 10/16/24 10/16/24
23:54 05:45 12:30
WBC 15.6 H
Hgb 15.2
Hct 51.0
Plt Count 115 L
APTT 148.8 H 124.8 H Pending
Sodium 134 L
Potassium 5.1
Chloride 97 L
Carbon Dioxide 31 H
BUN 52 H
Creatinine 0.8
Glucose 125 H
Calcium 8.6
Total Bilirubin 1.9 H
AST 53
ALT 108 H
Alkaline Phosphatase 87
Vital Signs:
Vital Signs
Temp Pulse Resp BP Pulse Ox
97.0 F 89 18 166/87 95
10/16/24 08:00 10/16/24 10:09 10/16/24 09:00 10/16/24 10:09 10/16/24 09:00
I&O
10/15/24 10/16/24 10/17/24
06:59 06:59 06:59
Intake Total 863.3 / 916.6 1662.6 / 1698.3 507.1 / 507.1
Output Total 1350 / 1350 975 / 975 300 / 300
Balance -486.7 / -433.4 687.6 / 723.3 207.1 / 207.1
Physical Exam
-
General: Well Developed and No Apparent Distress
HEENT: Normocephalic, Atraumatic, Moist Mucous Membranes and Oxygen (HFNC )
Respiratory: Rhonchi
Cardiac: S1/S2, Irregular Rhythm and Tachycardic; Negative Murmur, Rub or Gallop
GI: Soft, Nontender, Nondistended and Normal Bowel Sounds; Negative Organomegaly
Rectal: Deferred by Provider
Musculoskeletal: No Clubbing, No Cyanosis, Edema, Right Lower Extrem and Edema, Left Lower Extrem
Skin: Negative Rash
Neuro: Awake and Nonfocal/Grossly Intact
Data Reviewed
-
Total Time Spent with Patient (in minutes): 55
--- NOTE | 2024-10-16 11:25 | CM ---
CM called to [facility] and confirmed cost for Farxiga is 143.90 for 30 day supply and Jardiance is 151.03 for 30 day supply. CM will try to reach insurance and update patient re; cost pending copay and deductibles. CM could supply coupon for 30 day
coverage. Patient would benefit from PT/OT assessment to clarify discharge level of care needs.
Plan; Pending medical treatment plan; patient plan is home with VN vs SNF
[2024-10-16 12:07] LABS: Glucose - Point of Care 145 mg/dl (70-99)
[2024-10-16] MEDS: NOVOLOG FLEXPEN-LOW RESISTANCE SC ×2 (12:08→17:36)
[2024-10-16] MEDS: ROCEPHIN 2000 MG IV (12:11)
[2024-10-16] MEDS: STERILE WATER FOR INJECTION 20 ML IV (12:11)
[2024-10-16] MEDS: FLUSH (NSS) 1 FLUSH IV (12:11)
--- NOTE | 2024-10-16 12:35 | PTCARENOTE ---
Remains resting. Dozes at intervals but easily awakens. Continues to 'adjust his high flow' out of his nose and sats decrease to the 83% range - 94% when wearing it appropriately. Desats easily with lying flatter and turning and does not tolerate
it. C/O being SOB when flatter. VS as documented. Remains in SR with 1st' avb. Voiding jody/yellow urine. Repositioned. Call martínez in reach. Lunch ordered
--- NOTE | 2024-10-16 14:11 | PTCARENOTE ---
Pt at the bedside. Updated. Resp therapy and around 1355 High flow decreased to 55/90% and currently decreased to 55L/80%. High Flow. Limited appetite for lunch. Ate fruit and about 5 bites of pancakes. Eating and drinking without diff in
swallowing
--- NOTE | 2024-10-16 16:15 | PTCARENOTE ---
Remains resting- dozing at intervals. Overall tolerating High FLow 60L/80% with sats of 91-93% although will desat with any activity or if the High FLow is not situated right in his nostrils. . Coughing bloody tinged mucous into a cup and rarely
into the yankeur. VS as documented. Aware of 1500 ml fluid restriction. Lasix given as ordered. PICC capped since earlier. Turned and repositioned. Skin care given. Linens changed. Call martínez in reach. at the bedside.
[2024-10-16 17:34] LABS: Glucose - Point of Care 97 mg/dl (70-99)
[2024-10-16 21:46] LABS: Glucose - Point of Care 125 mg/dl (70-99)
--- NOTE | 2024-10-16 22:54 | PTCARENOTE ---
Pt consistently angry/verbally nasty to staff. Emotional support provided, pt encouraged to work together with team for best possible outcome. Pt rolls his eyes at any suggestions and is demanding. Despite anger, pt agreed to turning/getting pulled
up in bed for optimal lung expansion. Pt placed on NIV as recommended but did not tolerate 2/2 moderate thin blood tinged secretions and aggressive coughing. RT at bedside. Placed back on high flow/NRB. Will reassess need for NIV throughout shift.
See assessment for more detail. Will monitor and encourage patient to participate in care.
[2024-10-17] VITALS (26 sets, daily range): BP systolic 129–168; BP diastolic 67–107; BMI 45.2
[2024-10-17 03:42] LABS: Hematocrit 48.8 % (39.0-52.0); Hemoglobin 15.1 g/dL (13.0-18.0); Mean Corp Hgb Conc. 30.9 g/dL (33.0-37.0); Mean Corpuscular Hgb 25.8 pg (27.0-31.0); Mean Corpuscular Volume 83.3 fL (80.0-94.0); Mean Platelet Volume 10.6 fL (7.4-10.4); Platelet Count 114 10^3/uL (130-400); Red Blood Cell Count 5.86 10^6/uL (4.70-6.10); Red Cell Dist. Width 17.9 % (11.5-14.5); White Blood Cell Count 13.7 10^3/uL (4.8-10.8)
[2024-10-17 04:02] LABS: ALT (SGPT) 96 U/L (0-50); AST (SGOT) 53 U/L (17-59); Albumin 2.8 g/dl (3.5-5.0); Alkaline Phosphatase 98 U/L (38-126); Blood Urea Nitrogen 44 mg/dl (9-20); Calcium 8.4 mg/dl (8.4-10.2); Carbon Dioxide 35 mmol/L (22-30); Chloride 95 mmol/L (98-107); Estimated Creatinine Clearance > 125 ml/min; Glucose 107 mg/dl (70-99); Potassium 4.7 mmol/L (3.5-5.1); Sodium 134 mmol/L (135-145); Total Bilirubin 1.9 mg/dl (0.2-1.3); Total Protein 5.8 g/dl (6.3-8.2); eGFR > 60.00
--- NOTE | 2024-10-17 04:30 | PTCARENOTE ---
AM labs sent. Pt offered am care/bath. Refused at this time. Pt noncompliant with q2h turns but agreeable to some turns overnight. Will monitor.
[2024-10-17] MEDS: DUONEB 3 ML INH ×3 (07:14→19:50)
[2024-10-17] MEDS: PACERONE 200 MG PO ×3 (07:19→21:28)
[2024-10-17] MEDS: VIBRAMYCIN 100 MG PO ×2 (07:19→20:00)
[2024-10-17] MEDS: ELIQUIS 5 MG PO ×2 (07:20→20:00)
[2024-10-17] MEDS: LASIX 40 MG IV ×2 (07:20→16:04)
[2024-10-17] MEDS: SENOKOT-S 1 TABLET PO ×2 (07:20→20:00)
[2024-10-17] MEDS: NICODERM TRANSDERMAL 14 MG TRANSDERM (07:20)
[2024-10-17] MEDS: HYDROPHOR 1 APPLIC TOPICAL (07:21)
[2024-10-17] MEDS: DESENEX/MITRAZOL/ZEASORB 1 APPLIC TOPICAL ×2 (07:21→20:00)
[2024-10-17] MEDS: FLUSH (NSS) 2 FLUSH IV (07:22)
--- NOTE | 2024-10-17 07:31 | W.PN.INTV ---
Today's Communication / Plan
Recommendations
Diuresis
Wean FiO2
Noninvasive ventilation as needed
Antibiotics
Prognosis guarded
Assessment
-
74 year old M with past medical history of COPD, current smoker, noncompliance with outpatient followup presenting from home to ER with complaints of acute on chronic shortness of breath. Patient reports chronic shortness of breath for the past
1 year, acutely worsening the past few days. There is also notation of worsening lower extremity edema, orthopnea, elevated BP at home. EMS reported patient was severely hypoxemic on initial evaluation and received nitroglycerin x 2. Patient was
placed on BiPAP in the ER. Imaging showing effusion, proBNP >4000, 3+ pitting LE edema. Admitted to IMU. We are consulted for evaluation.
Acute heart failure exacerbation, orthopnea/LE edema
Acute hypoxic and hypercapnic respiratory failure
Moderate pleural effusion
SOB
Leukocytosis
Hyperkalemia
Suspected CHRISTY/OHS
Noncompliance
Thrombocytopenia
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
COPD-refuses outpatient pulmonary follow-up and PFTs
Current smoker- 1 pack a day for 40+ years-cut down to 1/2 pack
Hypertension
Morbid obesity due to excess calories
Peripheral arterial disease
Lumbar spinal stenosis s/p surgery 2018
s/p R cataract IOL and trabeculectomy 2014
Plan
Remains critically ill intermittently requiring noninvasive ventilation with tenuous respiratory status
Noninvasive ventilation-attempt to liberate-reviewed with respiratory therapy-weaned to high flow oxygen-continue wean
Nebulizers-DuoNebs continue
Continue to observe off steroids
Chest x-ray 10/14/2024-opacifications bilateral bases, right pleural effusion and component of CHF
Chest x-ray 10/15/2024-right PICC projects over cavoatrial junction, mild vascular congestion, suspect bilateral pleural effusions
Monitor right pleural effusion-consider thoracentesis
Cultures reviewed
Blood cultures negative
Pleural fluid 10/14/2024-no growth
Sputum culture 10/15/2024-many WBC, mixed organisms
Influenza negative
Empiric ceftriaxone and doxycycline-finish a course for pneumonia
Follow leukocytosis-Remains elevated
Atrial fibrillation rate control
Amiodarone continues
Heparin drip continues
Diuresis continues as tolerated
Monitor renal function, electrolytes, intake/output, lower extremity edema and weight
Replace electrolytes as needed
Echocardiogram noted 10/14/2024-EF 55-60%, will grade 1 diastolic dysfunction, hypokinetic right ventricle, no significant valvular disease, PA systolic 50-55
Cardiology following-correspondence reviewed
Lower extremity ultrasound 10/15/2014-no evidence for DVT bilaterally
Smoking cessation counseling ongoing
Nicotine patch
DVT prophylaxis-on heparin drip
Nutrition with aspiration precautions
Eventual physical therapy evaluation
Dr. Bolanos reviewed in detail with at the bedside 10/15/2024 and 10/16/2024- states does not take care of himself, does not seek medical attention, and they have been nagging him to get medical attention since Thanksgiving
Goals of care discussion ongoing
Outpatient pulmonary and sleep disorders follow-up if willing to follow-up
Critical care statement: A total of 40 minutes of critical care time was provided for this patient today. This includes management of unstable vital signs, evaluation of the patient at bedside, reviewing the patient's pertinent medical records
including radiographs, management of noninvasive ventilation, microbiology, laboratory evaluations, and discussion with primary team, consultants, pharmacy, nutrition, physical therapy, case management, charge nurse, critical care nursing, and
respiratory therapy.
Diagnostic Data
CXR 10/13/24- CHF and small to moderate right pleural effusion with adjacent atelectasis.
Chest x-ray 02/03/15- No active pulmonary disease. Slightly prominent left hilum most likely representing overlapping normal vascularity. Left hilar mass/lymphadenopathy cannot be entirely excluded. Recommend comparison with any prior outside study
to assess stability.
CT CHEST 10/14/24- No findings to suggest CENTRAL pulmonary embolism. Unfortunately, evaluation for more peripheral pulmonary embolism particularly in the lower lobes bilaterally limited by bilateral lower lobe consolidations and pleural effusions,
right greater than left as well as motion/respiration artifact.. Small suggesting 'filling defect' arterial in the left lower lobe most likely represents a branching vessel and does not pulmonary embolism, although cannot be excluded.
ECHO 10/14/24- Normal left ventricular size and systolic function with mild to moderate concentric left ventricular hypertrophy Left ventricular ejection fraction visually estimated 55-60% Grade 1 diastolic dysfunction Dilated, hypokinetic right
ventricle with sparing of the apex Mild right atrial dilatation No significant valvular disease. Estimated pulmonary artery pressure of 50-55 mmHg. Assuming a right atrial pressure of 15 mmHg. The IVC is dilated and does not collapse Prominent
anterior fat pad present. No pericardial effusion. No pleural effusion present. No prior study available for comparison
Reports and relevant images were personally reviewed.
Subjective Dataa
Subjective Data
Date of Service:
Date of Service: October 17, 2024
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
Subjective:
Still quite tenuous from a respiratory perspective, easily desaturates, does not like noninvasive ventilation, no chest pain, some chest congestion, no abdominal pain and persistent lower extremity edema
Review of Systems
General: Other (Per HPI)
Objective Data
Data Reviewed
Vital Signs / I&O / Oxygen:
Vital Signs
Temp Pulse Resp BP Pulse Ox
99.5 F 96 22 162/85 91
10/17/24 07:08 10/17/24 07:20 10/17/24 07:15 10/17/24 07:20 10/17/24 07:15
Intake and Output
10/16/24 10/17/24 10/18/24
06:59 06:59 06:59
Intake Total 1662.6 / 1698.3 1212.8 / 1212.8
Output Total 975 / 975 1850 / 1850
Balance 687.6 / 723.3 -637.2 / -637.2
SaO2 [NIV (Non Invasive 92
Ventilation)]
SaO2 91
Nasal Cannula flow liters per 55
minute
Physical Exam
General: Respiratory Distress (Mild-on noninvasive ventilation) and Comfortable
HEENT: Normocephalic, Anicteric and Moist Mucous Membranes
Cardiovascular: Irregular Rhythm, Murmur and Peripheral Edema (+2)
Respiratory: Crackles (Basilar), Rhonchi ( expiratory), Non-Labored Respirations, Accessory Resp Muscle Use (n) and Stridor (n)
GI: Soft, Non Distended and Non Tender
Neurology: Awake, Alert and No Motor Deficits
Skin: Warm, Good Color, Cyanosis (n), Jaundice (n) and Rash (n)
Labs/Micro/Reports
Lab Data
10/17/24 03:24
10/17/24 03:24
Laboratory Results
10/16/24
12:30
APTT Cancelled
Microbiology
10/14/24 22:56 Blood/Venous Blood Culture - Preliminary
No Growth in 48 hours- Final report to follow
10/14/24 22:58 Blood/Venous Blood Culture - Preliminary
No Growth in 48 hours- Final report to follow
10/15/24 10:25 Sputum Respiratory Culture - Preliminary
Moraxella catarrhalis
10/15/24 10:25 Sputum Gram Stain - Preliminary
10/14/24 15:19 Pleural Fluid Body Fluid Culture - Preliminary
No Growth After 48 Hours
10/14/24 15:19 Pleural Fluid Gram Stain - Preliminary
[2024-10-17 08:03] LABS: Glucose - Point of Care 107 mg/dl (70-99)
--- NOTE | 2024-10-17 08:09 | W.PN.CARDCBS ---
Today's Communication / Plan
-
Continue IV furosemide 40 twice daily, follow serum bicarbonate
Avoid spironolactone
SGLT2 antagonist may be cost prohibitive
Impression / Plan
-
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
Assessment:
Presentation with SOB
Acute hypoxic respiratory failure, on BIPAP
Acute HFpEF
Paroxysmal atrial fibrillation, converted to sinus rhythm on amiodarone
Leukocytosis
Hyperkalemia
Elevated LFTs, concern for passive congestion
COPD
Ongoing tobacco use
Morbid obesity
ECHO 10/14/24: EF 55 to 60%, mild to moderate concentric LVH, grade 1 diastolic dysfunction, dilated hypokinetic RV with sparing of apex, PAP 50 to 55 mmHg, IVC dilated and does not collapse, prominent anterior fat pad
Plan:
Regarding atrial fibrillation, he remains in sinus rhythm, on oral amiodarone and now on Eliquis. Some hemoptysis, but will continue Eliquis for now.
Regarding HFpEF, he does not seem to have a significant element of left-sided heart failure but still has substantial edema. His BUN has dropped, creatinine is stable, continue furosemide 40 mg IV twice daily.
SGLT2 antagonist is likely cost prohibitive. Avoid spironolactone given hyperkalemia.
Management of COPD/respiratory failure per hospitalist and primary team. He remains on high flow oxygen and desaturates into the 70s off oxygen.
Clinical summary:74-year-old man with COPD and ongoing tobacco abuse, morbid obesity, no recent medical contacts presenting with dyspnea and evidence of heart failure/pulmonary edema, proBNP 4200. Echo with preserved LVEF, hypokinetic right
ventricle with sparing of the apex, pulmonary artery systolic pressure 50-[address] scan shows elevated right hemidiaphragm and bilateral lower lobe consolidation with pleural effusions and no evidence of obvious pulmonary emboli. Onset of
atrial fibrillation October 15.
Progress Note - Plant Attendant
Subjective
Date of Service: October 17, 2024:
He complains of fatigue.
Meds: Nicotine patch, furosemide 40 mg IV twice daily, DuoNebs, doxycycline p.o., ceftriaxone, apixaban 5 mg twice daily, amiodarone 200 mg 3 times daily, insulin sliding scale
162/85, low blood pressure 129/83, pulse 96, respiratory 22, afebrile, sats 91% on 55 L, intake and output -0.7 L, weight is pending was 147.5 kg yesterday which was down 0.6 kg, admission weight was 152 kg, obese, head neck exam unremarkable, rare
scattered rhonchi, normal sinus rhythm without obvious murmurs, Obese, edema slightly better still probably 3+
White count 13.7, hemoglobin 15.1, platelets 114, BUN/creatinine 44 and 0.7 with a potassium of 4.7, bicarb is 35
Objective
Labs:
10/17/24 03:24
10/17/24 03:24
Labs
Hgb 15.1 g/dL (13.0-18.0) 10/17/24 03:24
Hct 48.8 % (39.0-52.0) 10/17/24 03:24
Plt Count 114 10^3/uL (130-400) L 10/17/24 03:24
APTT Cancelled 10/16/24 12:30
Sodium 134 mmol/L (135-145) L 10/17/24 03:24
Potassium 4.7 mmol/L (3.5-5.1) 10/17/24 03:24
BUN 44 mg/dl (9-20) H 10/17/24 03:24
Creatinine 0.7 mg/dL (0.7-1.3) 10/17/24 03:24
Glucose 107 mg/dl (70-99) H 10/17/24 03:24
Vital Signs and I&O:
Vital Signs
Temp Pulse Resp BP Pulse Ox
37.5 C 96 22 162/85 91
10/17/24 07:08 10/17/24 07:20 10/17/24 07:15 10/17/24 07:20 10/17/24 07:15
Vital Signs
Temp Pulse Resp BP Pulse Ox
37.5 C 96 22 162/85 91
10/17/24 07:08 10/17/24 07:20 10/17/24 07:15 10/17/24 07:20 10/17/24 07:15
Intake & Output
10/15/24 10/16/24 10/17/24 10/18/24
07:59 07:59 07:59 07:59
Intake Total 916.6 / 969.9 1645.0 / 1930.7 1177.1 / 1177.1
Output Total 1350 / 1350 975 / 1275 1850 / 1850
Balance -433.4 / -380.1 670.0 / 655.7 -672.9 / -672.9
Physical Exam
Physical Exam
See above
[2024-10-17] MEDS: NOVOLOG FLEXPEN-LOW RESISTANCE SC ×3 (08:20→17:34)
--- NOTE | 2024-10-17 09:00 | PTCARENOTE ---
Rec'd pt at 0700 awake resting in bed. Does get drowsy at times but is easily arousable and oriented. SIMON but legs are weak and needs encouragement to move extremities- although wanted to get up and walk around today- explained to pt that he needs
too much O2 currently but encouraged pt to move extremities in bed. Affect is flat but will get frustrated at times when he wants something, something isn't in the right spot or is being turned. Skin is pale pink wm and dry. Wounds/skin as
documented. LE are reddned and pt in general has multiple scabbed areas many presumably from scratching. Foam dressing intact on sacrum. Respirs- at change of shift O2 sat were dipping into the 73% range and pt required 100% NRB along with the High
Flow. Considered trying pt back on NIV-but sats did come back slowly and currently pt back on just 55L/100% High FLow. Pt needs very frequent reminders to not be 'adjusting' the High flow in his nose as when he does it never ends up back in his
nostrils and he desats into the low 80's. Gets very orthopnic when needing to lay flatter for turning. Does not tolerate for long and gets winded. Added NRB with turning and sats only went as low as 88-91%. Respirs are shallow and tachypnic in the
26-36 range. BS are decreased, coarse with exp wheezing. Coughing up thick bloody tinged secretions. Henri Ocampo and Deandra aware secretions are bloody and have been. Encouraged to use the [employer]. Monitor SR. + pulses. PT and DP pulses with the
doppler. Edema as noted. Denies chest pain. VS as documented. ABd is obese with hypoactive BS. Denies nausea. Initially did not want breakfast but then did eat his ge[place]ian toast and juice. Lasix given as ordered and pt diurising. yellow urine. #25
short condom cath in place. Capped int intact L hand. R upper arm DL picc capped -site wnl. Turned and repositioned. Skin and mouth care given. Scotum is reddened. MIconazole applied. Plan of care reviewed with pt and call martínez in reach.
--- NOTE | 2024-10-17 10:30 | PTCARENOTE ---
Resting- just needs reminders to stop 'adjusting' his High Flow as he tends to desat into the 80's- back to the 92-94% range when on the High Flow
--- NOTE | 2024-10-17 11:23 | W.PN.HOSP.TC ---
Today's Communication/Plan
-
Continue with IV aggressive diuresis
Continue with antibiotic
Wean oxygen as tolerated continue bronchodilators
Assessment / Plan
Assessment / Plan
#Pulmonary edema
#Acute HFpEF
Start patient on Lasix 40 mg twice daily
[place] catheter. Monitor urinary output. Increase in UOP noted.
Strict I's and O's.
Daily weights
ECHO normal left ventricular size and function with mild to moderate LVH. EF 55 to 60%. Grade 1 diastolic dysfunction. Dilated hypokinetic right ventricle with sparing of the apex. No significant valvular disease. PASP of 50-55. IVC is dilated
and does not collapse.
trop flat.
proBNP elevated at 4200
Elevated D-dimer.
CT chest which was negative for pulmonary embolism. lower extremity Doppler negative
Cardiology evaluation
#Right pleural effusion exudative
CT chest with significant pleural effusion
[facility] consulted for thoracentesis status post 200 cc of fluid removal.
Fluid culture remains negative.
Cytology pending
#Acute hypoxic and hypercapnic respiratory failure likely multifactorial pleural effusion, suspected COPD exacerbation, pulmonary edema, diastolic heart failure exacerbation, pneumonia
Off BiPAP and NIV and now transition to high flow 100% FIO2.
Started on ceftriaxone and doxycycline
Await for sputum sample
Bronchodilators for now.
Defer steroids to pulmonary
Bend Up following
# Moraxella catarrhalis pneumonia
Continue with ceftriaxone and Doxy
# New onset of atrial fibrillation with rapid ventricular response
hep gtt stopped and switched to DOAC
Remains on amiodarone. Gtt discontinued and switch to 200mg PO TID loading dose.
Continue to monitor on telemetry. Remains tachycardic.
#Hyperkalemia
improved with aggressive diuresis
#Transaminitis likely secondary hepatic congestion
Improving
Trend CMP for now
#Primary hypertension elevated
Avoid AMANDA or ARB in the setting of hyperkalemia for now
Monitor blood pressure with diuresis
# Diabetes mellitus type 2
A1c of 6.8
Start insulin sliding scale and Accu-Cheks
May benefit from Farxiga or Jardiance
Start additional p.o. agents closer to discharge
# History of tobacco abuse
Does not follow-up with toe lining closer
Nicoderm
Morbid obesity due to excess calories
Affects all aspects of medical care
Recommend weight loss after resolution of acute disease process
Peripheral arterial disease
Mild thrombocytopenia
Continue to monitor platelets
Sacra; skin stage I versus DTI
Wound care
DVT prophylaxi Eliquis
Full code
Anticipated Discharge: > 48 hours
Subjective/Interval History
-
Date of Service: October 17, 2024
remains on HFNC
now in NSR
Objective Data
-
Labs:
Laboratory Results
10/17/24
03:24
WBC 13.7 H
Hgb 15.1
Hct 48.8
Plt Count 114 L
Sodium 134 L
Potassium 4.7
Chloride 95 L
Carbon Dioxide 35 H
BUN 44 H
Creatinine 0.7
Glucose 107 H
Calcium 8.4
Total Bilirubin 1.9 H
AST 53
ALT 96 H
Alkaline Phosphatase 98
Vital Signs:
Vital Signs
Temp Pulse Resp BP Pulse Ox
99.5 F 96 36 141/82 89
10/17/24 07:08 10/17/24 11:00 10/17/24 11:00 10/17/24 11:00 10/17/24 11:00
I&O
10/16/24 10/17/24 10/18/24
06:59 06:59 06:59
Intake Total 1662.6 / 1698.3 1212.8 / 1212.8 250 / 250
Output Total 975 / 975 1850 / 1850 1150 / 1150
Balance 687.6 / 723.3 -637.2 / -637.2 -900 / -900
Physical Exam
-
General: Well Developed and No Apparent Distress
HEENT: Normocephalic, Atraumatic, Moist Mucous Membranes and Oxygen (HFNC )
Respiratory: Rhonchi
Cardiac: S1/S2, Irregular Rhythm and Tachycardic; Negative Murmur, Rub or Gallop
GI: Soft, Nontender, Nondistended and Normal Bowel Sounds; Negative Organomegaly
Rectal: Deferred by Provider
Musculoskeletal: No Clubbing, No Cyanosis, Edema, Right Lower Extrem and Edema, Left Lower Extrem
Skin: Negative Rash
Neuro: Awake and Nonfocal/Grossly Intact
Psych: Calm
Data Reviewed
-
Total Time Spent with Patient (in minutes): 55
[2024-10-17] MEDS: ROCEPHIN 2000 MG IV (12:00)
[2024-10-17] MEDS: STERILE WATER FOR INJECTION 20 ML IV (12:01)
[2024-10-17] MEDS: FLUSH (NSS) 1 FLUSH IV ×2 (12:01→16:04)
[2024-10-17 12:17] LABS: Glucose - Point of Care 122 mg/dl (70-99)
--- NOTE | 2024-10-17 12:30 | PTCARENOTE ---
Dozing or watching TV this morning. Put bariatric bed in the chair position to see how pt tolerated but he did not like the positioning and did not want to stay in it. PROM done to lower extremities as pt is able to move his feet but with the edema
has difficulty moving his legs. Resp therapy in and tried pt on 6L nc to see how he would tolerate but sats down to 87%- placed pt then on 15L midlfow to see if the cannula would work better as far as keeping it in his nose. Currently sats are 89%
-90% on 15L midflow. Needs to be reminded to cough up his secretions and use the Yan[employer]ur. VS as documented. Will order lunch. Voiding jody/yellow urine. Repositioned. Denture care given. Pts at the bedside
--- NOTE | 2024-10-17 14:30 | PTCARENOTE ---
Ate a hamburger for lunch. Does intermittently desat on the 15L midlfow to 86% but then comes back up to 88-91% and overall says he is tired but more comfortable on the midlfow
--- NOTE | 2024-10-17 16:30 | PTCARENOTE ---
Family in visiting although pt mostly dozing. Awakens easily but admits to being tired. Overall this afternoon has tolerated the 15L Midflow with sats of 89-92%. Respirs overall remain shallow. VS as documented. Continuing to encourage pt to try to
expectorate mucous. Does get easily frustrated but is cooperative. Lasix given as ordered. New #25 short condom cath placed. Turned and repositioned. Skin and mouth care given. Call martínez in reach. Tried to see if pt would like to try the rotation
on the bariatric bed but does not like/tolerate his head being too low and needs his head up too high for rotation.
[2024-10-17 17:11] LABS: Glucose - Point of Care 128 mg/dl (70-99)
--- NOTE | 2024-10-17 18:20 | PTCARENOTE ---
Resting. No changes in assessment. Did not want any dinner currently. Remains on 15L midflow- sats currently 92%
--- NOTE | 2024-10-17 20:00 | PTCARENOTE ---
Rec'd pt resting in bed, very drowsy, easily arousable, oriented, pt needs a lot of encouragement to assist in care, does not want to turn- instructed pt on importance of turning to prevent pressure injuries;gets easily frustrated, SR, distal pulses
via doppler, + edema, O2 via mid flow 15 liters, to maintain sat > 88, see flow sheet, lungs decr, coughs up sm mat blood tinged secretions, enc to use is- reaches 100, hypo bowel sounds, no bm, abd obese, soft, no n/v, darryn h20, # 25 short condom
cath on- voiding jody urine
[2024-10-17 21:38] LABS: Glucose - Point of Care 108 mg/dl (70-99)
[2024-10-17] MEDS: TRANDATE 10 MG IV (22:37)
--- NOTE | 2024-10-17 22:39 | PTCARENOTE ---
labetolol 10mg iv given for elevatwed bp
[2024-10-18] VITALS (29 sets, daily range): BP systolic 109–171; BP diastolic 62–127; BMI 44.1
--- NOTE | 2024-10-18 | PTCARENOTE ---
sys reviewed, changes noted, when pt pulls off o2 sat dropped to 75%, CHG bath done, linens changed, with activity NRB mask applied; pt refused NIV
[2024-10-18 04:00] LABS: % Basophils 0.1 % (0-2); % Eosinophils 0.3 % (0-6); % Immature Granulocytes 0.5 % (0-0.5); % Lymphocytes 3.6 % (20.5-51.1); % Monocytes 12.1 % (1.7-9.3); % Neutrophils 83.4 % (42.2-75.2); Absolute Immature Granulocytes 0.1 10^3/uL (0-0.05); Absolute Lymphocytes 0.5 10^3/uL (1.2-3.4); Absolute Monocytes 1.7 10^3/uL (0.1-0.6); Absolute Neutrophils 11.6 10^3/uL (1.4-6.5); Hematocrit 51.5 % (39.0-52.0); Hemoglobin 15.6 g/dL (13.0-18.0); Mean Corp Hgb Conc. 30.3 g/dL (33.0-37.0); Mean Corpuscular Hgb 25.6 pg (27.0-31.0); Mean Corpuscular Volume 84.6 fL (80.0-94.0); Mean Platelet Volume 10.8 fL (7.4-10.4); Nucleated Red Blood Cells % 0.1 % (-); Platelet Count 115 10^3/uL (130-400); Red Blood Cell Count 6.09 10^6/uL (4.70-6.10); Red Cell Dist. Width 18.5 % (11.5-14.5); White Blood Cell Count 13.9 10^3/uL (4.8-10.8)
--- NOTE | 2024-10-18 04:00 | PTCARENOTE ---
sys reviewed, changes noted, cont to desat to 70's when takes off midflow, wearing NRB also prn
[2024-10-18 04:09] LABS: ALT (SGPT) 89 U/L (0-50); AST (SGOT) 54 U/L (17-59); Albumin 2.8 g/dl (3.5-5.0); Alkaline Phosphatase 107 U/L (38-126); Blood Urea Nitrogen 33 mg/dl (9-20); Calcium 8.6 mg/dl (8.4-10.2); Chloride 91 mmol/L (98-107); Estimated Creatinine Clearance > 125 ml/min; Glucose 116 mg/dl (70-99); Potassium 4.6 mmol/L (3.5-5.1); Sodium 136 mmol/L (135-145); Total Bilirubin 2.3 mg/dl (0.2-1.3); Total Protein 5.9 g/dl (6.3-8.2); eGFR > 60.00
[2024-10-18 04:19] LABS: Carbon Dioxide 37 mmol/L (22-30)
[2024-10-18] MEDS: TRANDATE 10 MG IV (06:14)
--- NOTE | 2024-10-18 06:17 | PTCARENOTE ---
labetolol 10mg iv given for bp
--- NOTE | 2024-10-18 07:11 | W.PN.HOSP.TC ---
Today's Communication/Plan
-
Add low dose BB to help with tachycardia/ HTN
change to low calorie diet
c/w Lasix
c/w ABx for total of 7-10 days
Assessment / Plan
Assessment / Plan
#Pulmonary edema
#Acute hypoxic and hypercapnic respiratory failure likely multifactorial pleural effusion, suspected COPD exacerbation, pulmonary edema, diastolic heart failure exacerbation, pneumonia
Off BiPAP and NIV and now transition to 15 liters and non rebreather to help with complaince.
Started on ceftriaxone and doxycycline
Blood cultures negative
Pleural fluid 10/14/2024-no growth
Sputum culture: Moraxella catarrhalis
Influenza negative
IV ceftriaxone and doxycycline-finish a course for pneumonia for total of 7-10 days
Bronchodilators for now.
#Acute HFpEF
Start patient on Lasix 40 mg twice daily
[place] catheter. Monitor urinary output. Increase in UOP noted.
Strict I's and O's.
Daily weights
ECHO normal left ventricular size and function with mild to moderate LVH. EF 55 to 60%. Grade 1 diastolic dysfunction. Dilated hypokinetic right ventricle with sparing of the apex. No significant valvular disease. PASP of 50-55. IVC is dilated
and does not collapse.
trop flat.
proBNP elevated at 4200
Elevated D-dimer.
CT chest which was negative for pulmonary embolism. lower extremity Doppler negative
Cardiology evaluation
#Right pleural effusion exudative
CT chest with significant pleural effusion
iRad consulted for thoracentesis status post 200 cc of fluid removal.
Fluid culture remains negative.
Cytology pending
# Moraxella catarrhalis pneumonia
Continue with ceftriaxone and Doxy
# New onset of atrial fibrillation with rapid ventricular response
hep gtt stopped and switched to DOAC
Remains on amiodarone. Gtt discontinued and switch to 200mg PO TID loading dose.
Continue to monitor on telemetry. Remains tachycardic.
#Hyperkalemia
improved with aggressive diuresis
#Transaminitis likely secondary hepatic congestion
Improving
Trend CMP for now
#Primary hypertension
Was uncontrolled
Add low dose Coreg
Avoid AMANDA or ARB in the setting of hyperkalemia for now
Monitor blood pressure with diuresis
# Borderline Diabetes mellitus type 2
A1c of 6.8
Start insulin sliding scale and Accu-Cheks
Not needing insulin
Encourage weight loss and diet compliance.
# tobacco abuse
Does not follow-up with tuck pointer
NicoDerm
Morbid obesity due to excess calories
Affects all aspects of medical care
Recommend weight loss after resolution of acute disease process
#Peripheral arterial disease
# Medical Noncompliance
Mild thrombocytopenia
Continue to monitor platelets
Sacra; skin stage I versus DTI
Wound care
DVT prophylaxis Eliquis
Full code
Total time spent to see the patient, examine the patient, review data and lab results, discuss treatment plan with patient, nursing staff around 55 minutes
Anticipated Discharge: > 48 hours
Subjective/Interval History
-
Date of Service: October 18, 2024
He reports feeling uncomfortable
No chest pain
Feels aches all his body
Objective Data
-
Labs:
Laboratory Results
10/18/24
03:36
WBC 13.9 H
Hgb 15.6
Hct 51.5
Plt Count 115 L
Sodium 136
Potassium 4.6
Chloride 91 L
Carbon Dioxide 37 H
BUN 33 H
Creatinine 0.7
Glucose 116 H
Calcium 8.6
Total Bilirubin 2.3 H
AST 54
ALT 89 H
Alkaline Phosphatase 107
Vital Signs:
Vital Signs
Temp Pulse Resp BP Pulse Ox
98.4 F 97 22 168/91 89
10/18/24 04:00 10/18/24 06:14 10/18/24 06:10 10/18/24 06:14 10/18/24 06:10
I&O
10/17/24 10/18/24 10/19/24
06:59 06:59 06:59
Intake Total 1212.8 / 1212.8 800 / 800
Output Total 1850 / 1850 3400 / 3400
Balance -637.2 / -637.2 -2600 / -2600
--- NOTE | 2024-10-18 07:15 | W.PN.INTV ---
Today's Communication / Plan
Recommendations
Remains on NIV, severe hypoxemia ongoing
Continue IV diuresis, has lost 9lkgs thus far but legs are still edematous
Follow IOs, daily weights
Low threshold for intubation, aware of prognosis and he remains full code
Assessment
-
74 year old M with past medical history of COPD, current smoker, noncompliance with outpatient followup presenting from home to ER with complaints of acute on chronic shortness of breath. Patient reports chronic shortness of breath for the past
1 year, acutely worsening the past few days. There is also notation of worsening lower extremity edema, orthopnea, elevated BP at home. EMS reported patient was severely hypoxemic on initial evaluation and received nitroglycerin x 2. Patient was
placed on BiPAP in the ER. Imaging showing effusion, proBNP >4000, 3+ pitting LE edema. Admitted to IMU. We are consulted for evaluation.
Acute heart failure exacerbation, orthopnea/LE edema now on NIV
Acute hypoxic and hypercapnic respiratory failure
Moderate pleural effusion
SOB
Leukocytosis
Hyperkalemia
Suspected CHRISTY/OHS
Noncompliance
Thrombocytopenia
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
COPD-refuses outpatient pulmonary follow-up and PFTs
Current smoker- 1 pack a day for 40+ years-cut down to 1/2 pack
Hypertension
Morbid obesity due to excess calories
Peripheral arterial disease
Lumbar spinal stenosis s/p surgery 2018
s/p R cataract IOL and trabeculectomy 2014
Plan
Remains critically ill intermittently requiring noninvasive ventilation with tenuous respiratory status
Noninvasive ventilation-attempt to liberate-reviewed with respiratory therapy-weaned to high flow oxygen-continue wean
Has been dependant on NIV more often
Nebulizers-DuoNebs continue
Continue to observe off steroids
Chest x-ray 10/14/2024-opacifications bilateral bases, right pleural effusion and component of CHF
Chest x-ray 10/15/2024-right PICC projects over cavoatrial junction, mild vascular congestion, suspect bilateral pleural effusions
Monitor right pleural effusion-consider thoracentesis
Cultures reviewed
Blood cultures negative
Pleural fluid 10/14/2024-no growth
Sputum culture 10/15/2024-many WBC, mixed organisms
Influenza negative
Empiric ceftriaxone and doxycycline-finish a course for pneumonia
Follow leukocytosis-Remains elevated
Atrial fibrillation rate control
Amiodarone continues
Heparin drip continues
Diuresis continues as tolerated--IV continued
Monitor renal function, electrolytes, intake/output, lower extremity edema and weight
Replace electrolytes as needed
Echocardiogram noted 10/14/2024-EF 55-60%, will grade 1 diastolic dysfunction, hypokinetic right ventricle, no significant valvular disease, PA systolic 50-55
Cardiology following-correspondence reviewed
Lower extremity ultrasound 10/15/2014-no evidence for DVT bilaterally
Smoking cessation counseling ongoing
Nicotine patch
DVT prophylaxis-on heparin drip
Nutrition with aspiration precautions
Eventual physical therapy evaluation
Family Discussions
Obi 10/18/24- spoke with at bedside regarding code status and she notes that he would not want to be prolonged or undergo tracheostomy but would want intubation is that would help him recover
Remains full code
Dr. Bolanos reviewed in detail with at the bedside 10/15/2024 and 10/16/2024- states does not take care of himself, does not seek medical attention, and they have been nagging him to get medical attention since Thanksgiving
Goals of care discussion ongoing
Diagnostic Data
CXR 10/13/24- CHF and small to moderate right pleural effusion with adjacent atelectasis.
Chest x-ray 02/03/15- No active pulmonary disease. Slightly prominent left hilum most likely representing overlapping normal vascularity. Left hilar mass/lymphadenopathy cannot be entirely excluded. Recommend comparison with any prior outside study
to assess stability.
CT CHEST 10/14/24- No findings to suggest CENTRAL pulmonary embolism. Unfortunately, evaluation for more peripheral pulmonary embolism particularly in the lower lobes bilaterally limited by bilateral lower lobe consolidations and pleural effusions,
right greater than left as well as motion/respiration artifact.. Small suggesting 'filling defect' arterial in the left lower lobe most likely represents a branching vessel and does not pulmonary embolism, although cannot be excluded.
ECHO 10/14/24- Normal left ventricular size and systolic function with mild to moderate concentric left ventricular hypertrophy Left ventricular ejection fraction visually estimated 55-60% Grade 1 diastolic dysfunction Dilated, hypokinetic right
ventricle with sparing of the apex Mild right atrial dilatation No significant valvular disease. Estimated pulmonary artery pressure of 50-55 mmHg. Assuming a right atrial pressure of 15 mmHg. The IVC is dilated and does not collapse Prominent
anterior fat pad present. No pericardial effusion. No pleural effusion present. No prior study available for comparison
Reports and relevant images were personally reviewed.
Critical care statement: A total of 55 minutes of critical care time was provided for this patient today. This includes management of unstable vital signs, evaluation of the patient at bedside, reviewing the patient's pertinent medical records
including radiographs, management of noninvasive ventilation, microbiology, laboratory evaluations, and discussion with primary team, consultants, pharmacy, nutrition, physical therapy, case management, charge nurse, critical care nursing, and
respiratory therapy.
Subjective Dataa
Subjective Data
Date of Service:
Date of Service: October 18, 2024
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
Subjective:
Remains on NIV, has been noncompliant with care
Remains on IV diuresis, weight down 9kgs
and son at bedside
Objective Data
Data Reviewed
Vital Signs / I&O / Oxygen:
Vital Signs
Temp Pulse Resp BP Pulse Ox
98.4 F 97 22 168/91 89
10/18/24 04:00 10/18/24 06:14 10/18/24 06:10 10/18/24 06:14 10/18/24 06:10
Intake and Output
10/17/24 10/18/24 10/19/24
06:59 06:59 06:59
Intake Total 1212.8 / 1212.8 800 / 800
Output Total 1850 / 1850 3400 / 3400
Balance -637.2 / -637.2 -2600 / -2600
SaO2 [NIV (Non Invasive 92
Ventilation)]
SaO2 89
Nasal Cannula flow liters per 55
minute
Physical Exam
General: Respiratory Distress (Mild-on noninvasive ventilation), Comfortable, Other (morbid obesity) and Other (on NIV)
HEENT: Normocephalic, Anicteric and Moist Mucous Membranes
Cardiovascular: S1-S2, Irregular Rhythm, Murmur and Peripheral Edema (4+)
Respiratory: Crackles (Basilar), Non-Labored Respirations, Accessory Resp Muscle Use (n), Stridor (n) and Other (overall decreased BS bilaterally)
GI: Soft, Non Distended and Non Tender
Neurology: Awake, Alert, Oriented and No Motor Deficits
Skin: Warm, Good Color, Cyanosis (n), Jaundice (n) and Rash (n)
Labs/Micro/Reports
Lab Data
10/18/24 03:36
10/18/24 03:36
Microbiology
10/14/24 22:58 Blood/Venous Blood Culture - Preliminary
No Growth in 72 hours- Final report to follow
10/14/24 22:56 Blood/Venous Blood Culture - Preliminary
No Growth in 72 hours- Final report to follow
10/14/24 15:19 Pleural Fluid Body Fluid Culture - Final
No Growth After 72 Hours
10/14/24 15:19 Pleural Fluid Gram Stain - Final
10/15/24 10:25 Sputum Respiratory Culture - Final
Moraxella catarrhalis
10/15/24 10:25 Sputum Gram Stain - Final
[2024-10-18] MEDS: DUONEB 3 ML INH ×3 (07:17→20:34)
--- NOTE | 2024-10-18 08:00 | PTCARENOTE ---
Received pt awake and alert.Conversation is appropriate.+SIMON.c/o general whole body discomfort.Repositioned for comfort.Declined Tylenol.SR noted.Right DL PICC intact.15 l mid flow O2 with NRB.POX 85-88%Pt removing and readjusting O2 mask
frequently.Pt states the O2 modalities are uncomfortable.Pt educated to keep O2 modalities on to prevent desaturation.Coarse ,decreased breath sounds throughout.Occasional non productive cough noted.Appetite is poor.Pt encouraged to eat, but only
wants water.No BM.Condom cath draining jody urine.Skin integrity as documented.Plan of care discussed.
[2024-10-18] MEDS: VIBRAMYCIN 100 MG PO ×2 (08:05→19:50)
[2024-10-18] MEDS: SENOKOT-S 1 TABLET PO ×2 (08:05→19:50)
[2024-10-18] MEDS: ELIQUIS 5 MG PO ×2 (08:05→19:50)
[2024-10-18] MEDS: NICODERM TRANSDERMAL 14 MG TRANSDERM (08:05)
[2024-10-18] MEDS: PACERONE 200 MG PO ×3 (08:06→21:18)
[2024-10-18] MEDS: LASIX 40 MG IV ×2 (08:06→17:05)
[2024-10-18] MEDS: HYDROPHOR 1 APPLIC TOPICAL (08:06)
[2024-10-18] MEDS: DESENEX/MITRAZOL/ZEASORB 1 APPLIC TOPICAL ×2 (08:07→20:06)
[2024-10-18] MEDS: NOVOLOG FLEXPEN-LOW RESISTANCE SC ×2 (08:12→13:10)
[2024-10-18 08:22] LABS: Glucose - Point of Care 106 mg/dl (70-99)
--- NOTE | 2024-10-18 08:30 | W.PN.CARDCBS ---
Today's Communication / Plan
-
Continue IV Lasix
No spironolactone or SGLT2 antagonist
Impression / Plan
-
Primary Manager Human Resources: none prior to admission
Assessment:
Presentation with SOB
Acute hypoxic respiratory failure, on BIPAP
Acute HFpEF
Paroxysmal atrial fibrillation, converted to sinus rhythm on amiodarone
Leukocytosis
Hyperkalemia
Elevated LFTs, concern for passive congestion
COPD
Ongoing tobacco use
Morbid obesity
ECHO 10/14/24: EF 55 to 60%, mild to moderate concentric LVH, grade 1 diastolic dysfunction, dilated hypokinetic RV with sparing of apex, PAP 50 to 55 mmHg, IVC dilated and does not collapse, prominent anterior fat pad
Plan:
Unfortunately from the standpoint of COPD, his progress is slow and his oxygen requirements have increased.
Overall from a cardiac standpoint he is relatively stable, but still volume overloaded with edema. Blood pressure, renal function continues to improve so we will continue IV Lasix 40 mg IV twice daily. He has dropped almost 10 kg since admission
and dropped 3.5 kg since yesterday.
Will add losartan for hypertension at this time.
Although he has a diagnosis of HFpEF, no SGLT2 antagonist related to cost, avoid spironolactone related to hyperkalemia.
No further A-fib, continue amiodarone and at discharge decrease to 200 mg twice daily for 4 weeks then 200 mg a day. Continue apixaban.
Clinical summary:74-year-old man with COPD and ongoing tobacco abuse, morbid obesity, no recent medical contacts presenting with dyspnea and evidence of heart failure/pulmonary edema, proBNP 4200. Echo with preserved LVEF, hypokinetic right
ventricle with sparing of the apex, pulmonary artery systolic pressure 50-[address] scan shows elevated right hemidiaphragm and bilateral lower lobe consolidation with pleural effusions and no evidence of obvious pulmonary emboli. Onset of
atrial fibrillation October 15.
Progress Note - Manager Human Resources
Subjective
Date of Service: October 18, 2024:
Now on both high flow and nonrebreather
Medications: DuoNebs, doxycycline, ceftriaxone, nicotine patch, furosemide 40 IV twice daily, apixaban 5 twice daily, amiodarone 200 3 times daily
168/91, 109/75 pulse 89, resp rate 20, sats 88% on mid flow, rhonchi, distant heart tones, JVD probably okay, still with substantial lower extremity edema
White count 13.9, hemoglobin 15.6, platelets 115, BUN and creatinine 33 and 0.7, BUN had been 44, potassium 4.6, bilirubin is 2.3, ALT is 89, ALT continues to drop was 213, AST 54, had been 92
Objective
Labs:
10/18/24 03:36
10/18/24 03:36
Labs
Hgb 15.6 g/dL (13.0-18.0) 10/18/24 03:36
Hct 51.5 % (39.0-52.0) 10/18/24 03:36
Plt Count 115 10^3/uL (130-400) L 10/18/24 03:36
APTT Cancelled 10/16/24 12:30
Sodium 136 mmol/L (135-145) 10/18/24 03:36
Potassium 4.6 mmol/L (3.5-5.1) 10/18/24 03:36
BUN 33 mg/dl (9-20) H 10/18/24 03:36
Creatinine 0.7 mg/dL (0.7-1.3) 10/18/24 03:36
Glucose 116 mg/dl (70-99) H 10/18/24 03:36
Vital Signs and I&O:
Vital Signs
Temp Pulse Resp BP Pulse Ox
36.5 C 89 20 168/91 88
10/18/24 07:22 10/18/24 07:18 10/18/24 07:18 10/18/24 06:14 10/18/24 07:18
Vital Signs
Temp Pulse Resp BP Pulse Ox
36.5 C 89 20 168/91 88
10/18/24 07:22 10/18/24 07:18 10/18/24 07:18 10/18/24 06:14 10/18/24 07:18
Intake & Output
10/16/24 10/17/24 10/18/24 10/19/24
07:59 07:59 07:59 07:59
Intake Total 1645.0 / 1930.7 1177.1 / 1177.1 800 / 800
Output Total 975 / 1275 1850 / 1850 3400 / 3400
Balance 670.0 / 655.7 -672.9 / -672.9 -2600 / -2600
Physical Exam
Physical Exam
See above
--- NOTE | 2024-10-18 08:44 | PTCARENOTE ---
POX 83-85%.High Flow 55 l with NRB applied by RT.POX 92%
--- NOTE | 2024-10-18 10:40 | PTCARENOTE ---
POX 85%.NIV 15/5 70% applied by RT.
--- NOTE | 2024-10-18 12:00 | PTCARENOTE ---
Pt assessed.No change in assessment noted.
[2024-10-18] MEDS: COREG 3.125 MG PO ×2 (12:09→19:50)
[2024-10-18] MEDS: STERILE WATER FOR INJECTION 20 ML IV (12:21)
[2024-10-18] MEDS: ROCEPHIN 2000 MG IV (12:21)
[2024-10-18 13:19] LABS: Glucose - Point of Care 111 mg/dl (70-99)
--- NOTE | 2024-10-18 14:47 | CM ---
CM following re: discharge planning.
Discussed in Rounds, reviewed pt's chart, met with pt. Pt' spouse and pt's son at bedside.
Per Rounds meeting, pt requires continuous NIV treatment, continue supportive care. Pt's spouse expressed little motivation regrading pt's recovery. Emotional support offered and provided.
D/C plan: uncertain at this time and will depend on pt's progress.
CM will follow with discharge plan updates as hospitalization progresses
--- NOTE | 2024-10-18 16:00 | PTCARENOTE ---
Pt assessed.No change in assessment noted.
[2024-10-18 17:38] LABS: Glucose - Point of Care 178 mg/dl (70-99)
[2024-10-18] MEDS: NOVOLOG FLEXPEN-LOW RESISTANCE 1 UNITS SC (18:30)
--- NOTE | 2024-10-18 20:00 | PTCARENOTE ---
Rec'd pt sleeping, easily arousable, follows commands, denies pain at present,follows commands, moves legs weakly, SR w/ 1' AV block, bp elevated, coreg given as scheduled,distal pulses via doppler, + edema, skin warm/dry, O2 via NIV 15/5 w/ rate
14, 100% o2, sat 92, lungs dec, crackles R base, occas cough, + bowel sounds, no bm, abd obese, darryn fluids, purewick to urethra
[2024-10-18 21:35] LABS: Glucose - Point of Care 111 mg/dl (70-99)
--- NOTE | 2024-10-18 23:57 | PTCARENOTE ---
sys reviewed, changes noted, lungs unch,CHG bath done, linens changed, #21 condom cath applied
[2024-10-19] VITALS (47 sets, daily range): BP systolic 125–187; BP diastolic 68–127; PULSE 103; O2SAT 94; BMI 43.6
--- NOTE | 2024-10-19 01:00 | PTCARENOTE ---
fio2 decr to 80% by resp therapist
[2024-10-19 03:51] LABS: Hematocrit 51.3 % (39.0-52.0); Hemoglobin 15.2 g/dL (13.0-18.0); Mean Corp Hgb Conc. 29.6 g/dL (33.0-37.0); Mean Corpuscular Hgb 25.2 pg (27.0-31.0); Mean Corpuscular Volume 85.2 fL (80.0-94.0); Mean Platelet Volume 11.6 fL (7.4-10.4); Platelet Count 116 10^3/uL (130-400); Red Blood Cell Count 6.02 10^6/uL (4.70-6.10); Red Cell Dist. Width 18.1 % (11.5-14.5); White Blood Cell Count 12.3 10^3/uL (4.8-10.8)
[2024-10-19 03:58] LABS: Blood Urea Nitrogen 33 mg/dl (9-20); Calcium 8.4 mg/dl (8.4-10.2); Chloride 93 mmol/L (98-107); Estimated Creatinine Clearance > 125 ml/min; Glucose 107 mg/dl (70-99); Potassium 4.7 mmol/L (3.5-5.1); Sodium 136 mmol/L (135-145); eGFR > 60.00
--- NOTE | 2024-10-19 04:00 | PTCARENOTE ---
sys reviewed, fio2 decr to 75% by resp therapist, #21 condom cath applied
[2024-10-19 04:08] LABS: Carbon Dioxide 37 mmol/L (22-30)
--- NOTE | 2024-10-19 06:21 | W.PN.HOSP.TC ---
Today's Communication/Plan
-
Poor intake, trial of IV PPI & Pre-meal Reglan
Can repeat chest x ray today
Would c/w Lasix, BB, Amiodarone
c/w IV Abx
Assessment / Plan
Assessment / Plan
#Pulmonary edema
#Acute hypoxic and hypercapnic respiratory failure likely multifactorial pleural effusion, suspected COPD exacerbation, pulmonary edema, diastolic heart failure exacerbation, pneumonia
Off BiPAP and NIV
Started on ceftriaxone and doxycycline
Blood cultures negative
Pleural fluid 10/14/2024-no growth
Sputum culture: Moraxella catarrhalis
Influenza negative
IV ceftriaxone and doxycycline-finish a course for pneumonia for total of 7-10 days
Bronchodilators for now.
#Acute HFpEF
Start patient on Lasix 40 mg twice daily
No SGLT2 antagonist related to cost, avoid spironolactone related to hyperkalemia.
Monitor urinary output.
Daily weights
ECHO normal left ventricular size and function with mild to moderate LVH. EF 55 to 60%. Grade 1 diastolic dysfunction. Dilated hypokinetic right ventricle with sparing of the apex. No significant valvular disease. PASP of 50-55. IVC is dilated
and does not collapse.
trop flat.
proBNP elevated at 4200
Elevated D-dimer.
CT chest which was negative for pulmonary embolism. lower extremity Doppler negative
Cardiology evaluation
#Right pleural effusion exudative
CT chest with significant pleural effusion
[facility] consulted for thoracentesis status post 200 cc of fluid removal.
Fluid culture remains negative.
Cytology pending
# Poor oral intake
will do IV PPI & Pre-meal Reglan for today
# Moraxella catarrhalis pneumonia
Continue with ceftriaxone and Doxy
# New onset of atrial fibrillation with rapid ventricular response
hep gtt stopped and switched to DOAC
Remains on amiodarone. Gtt discontinued and switch to 200mg PO TID loading dose, now on 200 mg QD with new dose of Coreg.
Continue to monitor on telemetry. Remains tachycardic.
#Hyperkalemia
improved with aggressive diuresis
#Transaminitis likely secondary hepatic congestion
Improving
Trend CMP for now
#Primary hypertension
Better controlled
Added low dose Coreg
Avoid AMANDA or ARB in the setting of hyperkalemia for now
Monitor blood pressure with diuresis
# Borderline Diabetes mellitus type 2
A1c of 6.8
Started insulin sliding scale and Accu-Cheks
Not needing insulin
Encourage weight loss and diet compliance.
# tobacco abuse
Does not follow-up with photography manager
NicoDerm
Morbid obesity due to excess calories
Affects all aspects of medical care
Recommend weight loss after resolution of acute disease process
#Peripheral arterial disease
# Medical Noncompliance
Mild thrombocytopenia
Continue to monitor platelets
Sacra; skin stage I versus DTI
Wound care
DVT prophylaxis Eliquis
Full code
Total time spent to see the patient, examine the patient, review data and lab results, discuss treatment plan with patient, nursing staff around 55 minutes
Anticipated Discharge: > 48 hours
Subjective/Interval History
-
Date of Service: October 19, 2024
Slept well overnight
No fevers
Still on NIV
Objective Data
-
Labs:
Laboratory Results
10/19/24
03:10
WBC 12.3 H
Hgb 15.2
Hct 51.3
Plt Count 116 L
Sodium 136
Potassium 4.7
Chloride 93 L
Carbon Dioxide 37 H
BUN 33 H
Creatinine 0.6 L
Glucose 107 H
Calcium 8.4
Vital Signs:
Vital Signs
Temp Pulse Resp BP Pulse Ox
97.6 F 73 15 133/79 91
10/19/24 04:00 10/19/24 06:00 10/19/24 06:00 10/19/24 06:00 10/19/24 06:00
I&O
10/17/24 10/18/24 10/19/24
06:59 06:59 06:59
Intake Total 1212.8 / 1212.8 800 / 800 580 / 580
Output Total 1850 / 1850 3400 / 3400 1350 / 1350
Balance -637.2 / -637.2 -2600 / -2600 -770 / -770
--- NOTE | 2024-10-19 07:14 | W.PN.INTV ---
Today's Communication / Plan
Recommendations
Remains on NIV and HFNC, no significant improvements
IV diuresis continued, severe deconditioning is an issue
Complete abx for 5 days, then stop
Needs aggressive rehab, PT/OT evals
Repeat CXR today
Continue GOC discussion with family
Assessment
-
74 year old M with past medical history of COPD, current smoker, noncompliance with outpatient followup presenting from home to ER with complaints of acute on chronic shortness of breath. Patient reports chronic shortness of breath for the past
1 year, acutely worsening the past few days. There is also notation of worsening lower extremity edema, orthopnea, elevated BP at home. EMS reported patient was severely hypoxemic on initial evaluation and received nitroglycerin x 2. Patient was
placed on BiPAP in the ER. Imaging showing effusion, proBNP >4000, 3+ pitting LE edema. Admitted to IMU. We are consulted for evaluation.
Acute heart failure exacerbation, orthopnea/LE edema now on NIV
Acute hypoxic and hypercapnic respiratory failure
Moderate pleural effusion
SOB
Leukocytosis
Hyperkalemia
Suspected CHRISTY/OHS
Noncompliance
Thrombocytopenia
Profoundly weak, likely severe deconditioning
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
COPD-refuses outpatient pulmonary follow-up and PFTs
Current smoker- 1 pack a day for 40+ years-cut down to 1/2 pack
Hypertension
Morbid obesity due to excess calories
Peripheral arterial disease
Lumbar spinal stenosis s/p surgery 2018
s/p R cataract IOL and trabeculectomy 2014
Plan
Remains critically ill intermittently requiring noninvasive ventilation with tenuous respiratory status
Noninvasive ventilation-attempt to liberate-reviewed with respiratory therapy-weaned to high flow oxygen-continue wean
Has been dependant on NIV more often
Nebulizers-DuoNebs continue
Continue to observe off steroids
Chest x-ray 10/14/2024-opacifications bilateral bases, right pleural effusion and component of CHF
Chest x-ray 10/15/2024-right PICC projects over cavoatrial junction, mild vascular congestion, suspect bilateral pleural effusions
Monitor right pleural effusion-consider thoracentesis
Repeat CXR 10/19
Cultures reviewed
Blood cultures negative
Pleural fluid 10/14/2024-no growth
Sputum culture 10/15/2024-many WBC, mixed organisms
Influenza negative
Empiric ceftriaxone and doxycycline-finish a course for pneumonia
Follow leukocytosis-Remains elevated
Atrial fibrillation rate control
Amiodarone continues
Heparin drip continues
Diuresis continues as tolerated--IV continued
Monitor renal function, electrolytes, intake/output, lower extremity edema and weight
Replace electrolytes as needed
Echocardiogram noted 10/14/2024-EF 55-60%, will grade 1 diastolic dysfunction, hypokinetic right ventricle, no significant valvular disease, PA systolic 50-55
Cardiology following-correspondence reviewed
Lower extremity ultrasound 10/15/2014-no evidence for DVT bilaterally
Smoking cessation counseling ongoing
Nicotine patch
DVT prophylaxis-on heparin drip
Nutrition with aspiration precautions
Eventual physical therapy evaluation
Family Discussions
Obi 10/18/24- spoke with at bedside regarding code status and she notes that he would not want to be prolonged or undergo tracheostomy but would want intubation is that would help him recover
Remains full code
Dr. Bolanos reviewed in detail with at the bedside 10/15/2024 and 10/16/2024- states does not take care of himself, does not seek medical attention, and they have been nagging him to get medical attention since Thanksgiving
Goals of care discussion ongoing
Diagnostic Data
CXR 10/15/24- 1. Right PICC tip projects over the cavoatrial junction. 2. Mild pulmonary vascular congestion. 3. Suspected bilateral pleural effusions. Bibasilar airspace disease may also be present.
CXR 10/13/24- CHF and small to moderate right pleural effusion with adjacent atelectasis.
Chest x-ray 02/03/15- No active pulmonary disease. Slightly prominent left hilum most likely representing overlapping normal vascularity. Left hilar mass/lymphadenopathy cannot be entirely excluded. Recommend comparison with any prior outside study
to assess stability.
CT CHEST 10/14/24- No findings to suggest CENTRAL pulmonary embolism. Unfortunately, evaluation for more peripheral pulmonary embolism particularly in the lower lobes bilaterally limited by bilateral lower lobe consolidations and pleural effusions,
right greater than left as well as motion/respiration artifact.. Small suggesting 'filling defect' arterial in the left lower lobe most likely represents a branching vessel and does not pulmonary embolism, although cannot be excluded.
ECHO 10/14/24- Normal left ventricular size and systolic function with mild to moderate concentric left ventricular hypertrophy Left ventricular ejection fraction visually estimated 55-60% Grade 1 diastolic dysfunction Dilated, hypokinetic right
ventricle with sparing of the apex Mild right atrial dilatation No significant valvular disease. Estimated pulmonary artery pressure of 50-55 mmHg. Assuming a right atrial pressure of 15 mmHg. The IVC is dilated and does not collapse Prominent
anterior fat pad present. No pericardial effusion. No pleural effusion present. No prior study available for comparison
Reports and relevant images were personally reviewed.
Critical care statement: A total of 54 minutes of critical care time was provided for this patient today. This includes management of unstable vital signs, evaluation of the patient at bedside, reviewing the patient's pertinent medical records
including radiographs, management of noninvasive ventilation, microbiology, laboratory evaluations, and discussion with primary team, consultants, pharmacy, nutrition, physical therapy, case management, charge nurse, critical care nursing, and
respiratory therapy.
Subjective Dataa
Subjective Data
Date of Service:
Date of Service: October 19, 2024
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
Subjective:
Remains unchanged, on NIV at night
Remains on max HFNC settings when off
Bedbound, not OOB yet
Objective Data
Data Reviewed
Vital Signs / I&O / Oxygen:
Vital Signs
Temp Pulse Resp BP Pulse Ox
97.6 F 73 15 133/79 91
10/19/24 04:00 10/19/24 06:00 10/19/24 06:00 10/19/24 06:00 10/19/24 06:00
Intake and Output
10/18/24 10/19/24 10/20/24
06:59 06:59 06:59
Intake Total 800 / 800 580 / 580
Output Total 3400 / 3400 1350 / 1350
Balance -2600 / -2600 -770 / -770
SaO2 [NIV (Non Invasive 91
Ventilation)]
SaO2 91
Nasal Cannula flow liters per 55
minute
Physical Exam
General: Respiratory Distress (Mild-on noninvasive ventilation), Comfortable, Other (morbid obesity) and Other (on NIV)
HEENT: Normocephalic, Anicteric and Moist Mucous Membranes
Cardiovascular: S1-S2, Irregular Rhythm, Murmur and Peripheral Edema (4+)
Respiratory: Crackles (Basilar), Non-Labored Respirations, Accessory Resp Muscle Use (n), Stridor (n) and Other (overall decreased BS bilaterally)
GI: Soft, Non Distended and Non Tender
Neurology: Awake, Alert, Oriented and No Motor Deficits
Skin: Warm, Good Color, Cyanosis (n), Jaundice (n) and Rash (n)
Labs/Micro/Reports
Lab Data
10/19/24 03:10
10/19/24 03:10
Microbiology
10/14/24 22:56 Blood/Venous Blood Culture - Preliminary
No Growth in 4 days- Final report to follow
10/14/24 22:58 Blood/Venous Blood Culture - Preliminary
No Growth in 4 days- Final report to follow
10/14/24 15:19 Pleural Fluid Body Fluid Culture - Final
No Growth After 72 Hours
10/14/24 15:19 Pleural Fluid Gram Stain - Final
10/15/24 10:25 Sputum Respiratory Culture - Final
Moraxella catarrhalis
10/15/24 10:25 Sputum Gram Stain - Final
[2024-10-19] MEDS: DUONEB 3 ML INH ×3 (07:52→20:05)
[2024-10-19] MEDS: NOVOLOG FLEXPEN-LOW RESISTANCE SC ×3 (08:54→17:31)
[2024-10-19] MEDS: VIBRAMYCIN 100 MG PO ×2 (08:55→19:18)
[2024-10-19] MEDS: NICODERM TRANSDERMAL 14 MG TRANSDERM (08:55)
[2024-10-19] MEDS: SENOKOT-S 1 TABLET PO ×2 (08:55→19:18)
[2024-10-19] MEDS: COREG 3.125 MG PO ×2 (08:55→18:40)
[2024-10-19] MEDS: PROTONIX IV 40 MG IV (08:56)
[2024-10-19] MEDS: PACERONE 200 MG PO ×3 (08:56→21:31)
[2024-10-19] MEDS: ELIQUIS 5 MG PO ×2 (08:56→19:18)
[2024-10-19] MEDS: REGLAN 2.5 MG IV ×2 (08:56→15:43)
[2024-10-19] MEDS: LASIX 40 MG IV ×2 (08:57→15:44)
[2024-10-19] MEDS: NSS (PRESERVATIVE FREE) 10 ML IV (08:57)
[2024-10-19] MEDS: DESENEX/MITRAZOL/ZEASORB 1 APPLIC TOPICAL ×2 (08:57→21:30)
[2024-10-19] MEDS: HYDROPHOR 1 APPLIC TOPICAL (08:57)
[2024-10-19 09:05] LABS: Glucose - Point of Care 115 mg/dl (70-99)
--- NOTE | 2024-10-19 09:08 | W.PN.CARDCBS ---
Today's Communication / Plan
-
Continue IV Lasix and attempt to improve his respiratory status
Follow creatinine which is improving
Impression / Plan
-
Primary Staff Electrical Engineer: none prior to admission
Assessment:
Presentation with SOB
Acute hypoxic respiratory failure, on BIPAP
Acute HFpEF
Paroxysmal atrial fibrillation, converted to sinus rhythm on amiodarone
Leukocytosis
Hyperkalemia
Elevated LFTs, concern for passive congestion
COPD
Ongoing tobacco use
Morbid obesity
ECHO 10/14/24: EF 55 to 60%, mild to moderate concentric LVH, grade 1 diastolic dysfunction, dilated hypokinetic RV with sparing of apex, PAP 50 to 55 mmHg, IVC dilated and does not collapse, prominent anterior fat pad
Plan:
Requiring bipap overnight and this AM. Suspect hypoxia is more so related to COPD, but there is a component of HFpEF
Continue IV diuresis and monitor Cr which is improving suggestive of cardiorenal syndrome
No SGLT2 antagonist related to cost
Avoid spironolactone related to hyperkalemia which was POA
No further A-fib
Continue amiodarone and at discharge decrease to 200 mg twice daily for 4 weeks then 200 mg a day
Continue apixaban
Clinical summary:74-year-old man with COPD and ongoing tobacco abuse, morbid obesity, no recent medical contacts presenting with dyspnea and evidence of heart failure/pulmonary edema, proBNP 4200. Echo with preserved LVEF, hypokinetic right
ventricle with sparing of the apex, pulmonary artery systolic pressure 50-[address] scan shows elevated right hemidiaphragm and bilateral lower lobe consolidation with pleural effusions and no evidence of obvious pulmonary emboli. Onset of
atrial fibrillation October 15.
Progress Note - Staff Electrical Engineer
Subjective
Date of Service: October 19, 2024
Requiring bipap overnight. Remains in MICU.
Objective
Labs:
10/19/24 03:10
10/19/24 03:10
Labs
Hgb 15.2 g/dL (13.0-18.0) 10/19/24 03:10
Hct 51.3 % (39.0-52.0) 10/19/24 03:10
Plt Count 116 10^3/uL (130-400) L 10/19/24 03:10
APTT Cancelled 10/16/24 12:30
Sodium 136 mmol/L (135-145) 10/19/24 03:10
Potassium 4.7 mmol/L (3.5-5.1) 10/19/24 03:10
BUN 33 mg/dl (9-20) H 10/19/24 03:10
Creatinine 0.6 mg/dL (0.7-1.3) L 10/19/24 03:10
Glucose 107 mg/dl (70-99) H 10/19/24 03:10
Vital Signs and I&O:
Vital Signs
Temp Pulse Resp BP Pulse Ox
97.8 F 71 15 141/72 95
10/19/24 07:44 10/19/24 08:57 10/19/24 06:00 10/19/24 08:57 10/19/24 07:53
Vital Signs
Temp Pulse Resp BP Pulse Ox
97.8 F 71 15 141/72 95
10/19/24 07:44 10/19/24 08:57 10/19/24 06:00 10/19/24 08:57 10/19/24 07:53
Intake & Output
10/17/24 10/18/24 10/19/24 10/20/24
06:59 06:59 06:59 06:59
Intake Total 1212.8 / 1212.8 800 / 800 580 / 580
Output Total 1850 / 1850 3400 / 3400 1350 / 1350
Balance -637.2 / -637.2 -2600 / -2600 -770 / -770
Physical Exam
Physical Exam
Gen: NAD, awake
HEENT: NC/AT, sclera anicteric
Neck: Difficult to assess JVD
CV: RRR, NL s1/s2
Lungs: No increased WOB on bipap
Abd: S/ND
Ext: Nonpitting LE edema
Skin: Warm, dry
Neuro: Non-focal
[2024-10-19] MEDS: TRANDATE 10 MG IV ×2 (11:27→17:31)
[2024-10-19] MEDS: ROCEPHIN 2000 MG IV (11:27)
[2024-10-19] MEDS: STERILE WATER FOR INJECTION 20 ML IV (11:28)
[2024-10-19 12:08] LABS: Glucose - Point of Care 143 mg/dl (70-99)
--- NOTE | 2024-10-19 12:42 | PTCARENOTE ---
pt awake and alert , in am on NIV and transitioned to HFNC 60L and 100% sats are 94-96% , NSR on monitor , he was lifted oob to chair with lift device this am , his respiratory status is much improved with oob in chair , poor appetite , pt family
here and updated on current plan of care and condition , physical therapy consulted
[2024-10-19] MEDS: REGLAN IV (14:08)
--- NOTE | 2024-10-19 15:21 | PTCARENOTE ---
no change in assessments , pt family spoke in length with Dr Hargrove regarding goals of care , pt currently remains a full code
--- NOTE | 2024-10-19 16:09 | CM ---
CM following re: discharge planning.
Discussed in Rounds, reviewed pt's chart, met with pt. Pt' spouse and pt's son Adryan at bedside.
Per Rounds meeting, pt requires HFNC with NIV treatment, continue supportive care.
PT and OT evaluated the pt and SNF level of care recommended. CM will explore SNF options when pt will be less medically acute.
D/C plan: uncertain at this time and will depend on pt's progress.
CM will follow with discharge plan updates as hospitalization progresses
[2024-10-19 17:44] LABS: Glucose - Point of Care 135 mg/dl (70-99)
--- NOTE | 2024-10-19 18:43 | PTCARENOTE ---
pt oob for 9 hours today tolerated well, pt hypertensive SBP 170-180 he was given labetalol 10mg at 1730 and was not effective , Dr Villatoro notifed and pt medicated with pm coreg 3.125 dose at 1830 , will continue to evaluate and monitor
[2024-10-19] MEDS: APRESOLINE 10 MG IV (19:28)
--- NOTE | 2024-10-19 19:30 | PTCARENOTE ---
Received pt resting in bed, on hi flow 45 liters/ 100 %, sat 85%, placed on NIV 100%, RFate 16, 13/01, bp 184/103, B Dominick, VOICE PATHOLOGIST aware, apresoline 10mg iv given
--- NOTE | 2024-10-19 20:00 | PTCARENOTE ---
pt answers questions appropriately, flat affect, needs a lot of enc to assist w/ care, very weak, SR w/ 1' AV block, bp improved after apresoline, distal pulses via doppler + edema, skin warm/dry, enc to use IS- reaches 500ml,sats 92 on NIV, lungs
coarse, decr in bases, occas NPC, + bowel sounds, no bm , abd obese, soft, no n/v, darryn h20 with meds, pruewick in place- voiding jody urine
[2024-10-19 21:24] LABS: Glucose - Point of Care 123 mg/dl (70-99)
[2024-10-20] VITALS (29 sets, daily range): BP systolic 119–170; BP diastolic 63–110; PULSE 2–107; O2SAT 87–88; BMI 43.6
--- NOTE | 2024-10-20 | PTCARENOTE ---
sys reviewed, tolerating NIV, purewick leaking, # 25 short condom cath applied, CHG bath done, linens changed, inc lg soft brown bm
--- NOTE | 2024-10-20 03:26 | DOWNTIME ---
There was a [email or web address] Client Burglary Investigator Downtime on 10/20/2024 from 0100 to 10/20/2023 at 0235 . Downtime documentation of patient's care, including medication administrations, has been reconciled in the electronic record per guidelines. Refer to the
patient's paper chart under the miscellaneous tab to see printed paper medication records and downtime forms.
[2024-10-20 03:56] LABS: Hematocrit 51.4 % (39.0-52.0); Hemoglobin 15.6 g/dL (13.0-18.0); Mean Corp Hgb Conc. 30.4 g/dL (33.0-37.0); Mean Corpuscular Hgb 25.4 pg (27.0-31.0); Mean Corpuscular Volume 83.8 fL (80.0-94.0); Mean Platelet Volume 10.8 fL (7.4-10.4); Platelet Count 132 10^3/uL (130-400); Red Blood Cell Count 6.13 10^6/uL (4.70-6.10); Red Cell Dist. Width 18.3 % (11.5-14.5)
--- NOTE | 2024-10-20 04:06 | PTCARENOTE ---
sys reviewed, changes noted,darryn NIV
[2024-10-20 04:08] LABS: Blood Urea Nitrogen 32 mg/dl (9-20); Calcium 8.7 mg/dl (8.4-10.2); Chloride 90 mmol/L (98-107); Estimated Creatinine Clearance > 125 ml/min; Glucose 105 mg/dl (70-99); Potassium 4.2 mmol/L (3.5-5.1); Sodium 137 mmol/L (135-145); eGFR > 60.00
[2024-10-20 04:29] LABS: Carbon Dioxide 38 mmol/L (22-30)
--- NOTE | 2024-10-20 06:40 | W.PN.HOSP.TC ---
Today's Communication/Plan
-
Lost weight with IV Lasix
c/w low dose Reglan, PPI
Assessment / Plan
Assessment / Plan
#Pulmonary edema
#Acute hypoxic and hypercapnic respiratory failure likely multifactorial pleural effusion, suspected COPD exacerbation, pulmonary edema, diastolic heart failure exacerbation, pneumonia
Off BiPAP and NIV
Started on ceftriaxone and doxycycline
Blood cultures negative
Pleural fluid 10/14/2024-no growth
Sputum culture: Moraxella catarrhalis
Influenza negative
IV ceftriaxone and doxycycline-finish a course for pneumonia for total of 7-10 days
Bronchodilators for now.
#Acute HFpEF
Start patient on Lasix 40 mg twice daily
No SGLT2 antagonist related to cost, avoid spironolactone related to hyperkalemia.
Monitor urinary output.
Daily weights
ECHO normal left ventricular size and function with mild to moderate LVH. EF 55 to 60%. Grade 1 diastolic dysfunction. Dilated hypokinetic right ventricle with sparing of the apex. No significant valvular disease. PASP of 50-55. IVC is dilated
and does not collapse.
trop flat.
proBNP elevated at 4200
Elevated D-dimer.
CT chest which was negative for pulmonary embolism. lower extremity Doppler negative
Cardiology evaluation
#Right pleural effusion exudative
CT chest with significant pleural effusion
[facility] consulted for thoracentesis status post 200 cc of fluid removal.
Fluid culture remains negative.
Cytology pending
# Poor oral intake
will do IV PPI & Pre-meal Reglan for today
# Moraxella catarrhalis pneumonia
Continue with ceftriaxone and Doxy
# New onset of atrial fibrillation with rapid ventricular response
hep gtt stopped and switched to DOAC
Remains on amiodarone. Gtt discontinued and switch to 200mg PO TID loading dose, now on 200 mg QD with new dose of Coreg.
Continue to monitor on telemetry. Remains tachycardic.
#Hyperkalemia
improved with aggressive diuresis
#Transaminitis likely secondary hepatic congestion
Improving
Trend CMP for now
#Primary hypertension
Better controlled
Added low dose Coreg
Avoid AMANDA or ARB in the setting of hyperkalemia for now
Monitor blood pressure with diuresis
# Borderline Diabetes mellitus type 2
A1c of 6.8
Started insulin sliding scale and Accu-Cheks
Not needing insulin
Encourage weight loss and diet compliance.
# tobacco abuse
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
NicoDerm
Morbid obesity due to excess calories
Affects all aspects of medical care
Recommend weight loss after resolution of acute disease process
#Peripheral arterial disease
# Medical Noncompliance
Mild thrombocytopenia
Continue to monitor platelets
Sacra; skin stage I versus DTI
Wound care
DVT prophylaxis Eliquis
Full code
Total time spent to see the patient, examine the patient, review data and lab results, discuss treatment plan with patient, nursing staff around 55 minutes
Anticipated Discharge: > 48 hours
Subjective/Interval History
-
Date of Service: October 20, 2024
Still on NIV
No fevers
Objective Data
-
Labs:
Laboratory Results
10/20/24
03:33
WBC 14.0 H
Hgb 15.6
Hct 51.4
Plt Count 132
Sodium 137
Potassium 4.2
Chloride 90 L
Carbon Dioxide 38 H
BUN 32 H
Creatinine 0.6 L
Glucose 105 H
Calcium 8.7
Vital Signs:
Vital Signs
Temp Pulse Resp BP Pulse Ox
98.1 F 78 16 119/63 90
10/20/24 04:00 10/20/24 06:00 10/20/24 05:30 10/20/24 06:00 10/20/24 06:00
I&O
10/18/24 10/19/24 10/20/24
06:59 06:59 06:59
Intake Total 800 / 800 580 / 580 525 / 525
Output Total 3400 / 3400 1350 / 1350 950 / 950
Balance -2600 / -2600 -770 / -770 -425 / -425
--- NOTE | 2024-10-20 07:15 | W.PN.INTV ---
Today's Communication / Plan
Recommendations
Remains on HFNC with NIV, trial back to BIPAP nightly
Continue diuresis, cards following
Completed abx, can repeat cultures if needed
CXR remains similar to prior
Encouraged further rehab, IS, OOB
Assessment
-
74 year old M with past medical history of COPD, current smoker, noncompliance with outpatient followup presenting from home to ER with complaints of acute on chronic shortness of breath. Patient reports chronic shortness of breath for the past
1 year, acutely worsening the past few days. There is also notation of worsening lower extremity edema, orthopnea, elevated BP at home. EMS reported patient was severely hypoxemic on initial evaluation and received nitroglycerin x 2. Patient was
placed on BiPAP in the ER. Imaging showing effusion, proBNP >4000, 3+ pitting LE edema. Admitted to IMU. We are consulted for evaluation.
Acute heart failure exacerbation, orthopnea/LE edema now on NIV
Acute hypoxic and hypercapnic respiratory failure
Moderate pleural effusion s/p thora 10/14/24
SOB
Leukocytosis
Hyperkalemia
Suspected CHRISTY/OHS
Noncompliance
Thrombocytopenia
Profoundly weak, likely severe deconditioning
Moraxella in sputum
Conditions present RN TRIAGE:
COPD-refuses outpatient pulmonary follow-up and PFTs
Current smoker- 1 pack a day for 40+ years-cut down to 1/2 pack
Hypertension
Morbid obesity due to excess calories
Peripheral arterial disease
Lumbar spinal stenosis s/p surgery 2018
s/p R cataract IOL and trabeculectomy 2014
Plan
HFNC on 100%/45LPM, NIV use intermittently, nightly use
Transition to BIPAP as tolerated, reviewed with RT
Nebulizers-DuoNebs continue
Continue to observe off steroids
Chest x-ray 10/14/2024-opacifications bilateral bases, right pleural effusion and component of CHF
Chest x-ray 10/15/2024-right PICC projects over cavoatrial junction, mild vascular congestion, suspect bilateral pleural effusions
Monitor right pleural effusion-s/p thoracentesis 10/14/24, yielded 200cc
Cell count: 7.46/ wbc 1754 / glu 155 / tp 2.9 / ldh 286- pleural culture negative/cyto neg
Repeat CXR 10/19--similar to prior
Cultures reviewed
Blood cultures negative
Pleural fluid 10/14/2024-no growth
Sputum culture 10/15/2024- +Moraxella, completed Doxy
Influenza negative
Empiric ceftriaxone and doxycycline-finished course for pneumonia
Follow leukocytosis-Remains elevated
Repeat cultures as indicated
Atrial fibrillation rate control
Echocardiogram noted 10/14/2024-EF 55-60%, will grade 1 diastolic dysfunction, hypokinetic right ventricle, no significant valvular disease, PA systolic 50-55
Cardiology following-correspondence reviewed
Amiodarone continues
Heparin drip continues
Diuresis continues as tolerated--IV continued --thus far down 11kg
Monitor renal function, electrolytes, intake/output, lower extremity edema and weight
Replace electrolytes as needed
Lower extremity ultrasound 10/15/2014-no evidence for DVT bilaterally
Smoking cessation counseling ongoing
Nicotine patch
DVT prophylaxis-on heparin drip
Nutrition with aspiration precautions
Eventual physical therapy evaluation
Family Discussions
Obi 10/18/24- spoke with at bedside regarding code status and she notes that he would not want to be prolonged or undergo tracheostomy but would want intubation is that would help him recover
Remains full code
Dr. Bolanos reviewed in detail with at the bedside 10/15/2024 and 10/16/2024- states does not take care of himself, does not seek medical attention, and they have been nagging him to get medical attention since Thanksgiving
Goals of care discussion ongoing
Diagnostic Data
CXR 10/15/24- 1. Right PICC tip projects over the cavoatrial junction. 2. Mild pulmonary vascular congestion. 3. Suspected bilateral pleural effusions. Bibasilar airspace disease may also be present.
CXR 10/13/24- CHF and small to moderate right pleural effusion with adjacent atelectasis.
Chest x-ray 02/03/15- No active pulmonary disease. Slightly prominent left hilum most likely representing overlapping normal vascularity. Left hilar mass/lymphadenopathy cannot be entirely excluded. Recommend comparison with any prior outside study
to assess stability.
CT CHEST 10/14/24- No findings to suggest CENTRAL pulmonary embolism. Unfortunately, evaluation for more peripheral pulmonary embolism particularly in the lower lobes bilaterally limited by bilateral lower lobe consolidations and pleural effusions,
right greater than left as well as motion/respiration artifact.. Small suggesting 'filling defect' arterial in the left lower lobe most likely represents a branching vessel and does not pulmonary embolism, although cannot be excluded.
ECHO 10/14/24- Normal left ventricular size and systolic function with mild to moderate concentric left ventricular hypertrophy Left ventricular ejection fraction visually estimated 55-60% Grade 1 diastolic dysfunction Dilated, hypokinetic right
ventricle with sparing of the apex Mild right atrial dilatation No significant valvular disease. Estimated pulmonary artery pressure of 50-55 mmHg. Assuming a right atrial pressure of 15 mmHg. The IVC is dilated and does not collapse Prominent
anterior fat pad present. No pericardial effusion. No pleural effusion present. No prior study available for comparison
Reports and relevant images were personally reviewed.
Critical care statement: A total of 45 minutes of critical care time was provided for this patient today. This includes management of unstable vital signs, evaluation of the patient at bedside, reviewing the patient's pertinent medical records
including radiographs, management of noninvasive ventilation, microbiology, laboratory evaluations, and discussion with primary team, consultants, pharmacy, nutrition, physical therapy, case management, charge nurse, critical care nursing, and
respiratory therapy.
Subjective Dataa
Subjective Data
Date of Service:
Date of Service: October 20, 2024
Chief Complaint: Loom Blower Follow Up and Pulmonary Follow Up
Subjective:
Remains between HFNC and NIV
Somewhat improving on his efforts, OOB yesterday
No new complaints
Objective Data
Data Reviewed
Vital Signs / I&O / Oxygen:
Vital Signs
Temp Pulse Resp BP Pulse Ox
98.1 F 78 16 119/63 90
10/20/24 04:00 10/20/24 06:00 10/20/24 05:30 10/20/24 06:00 10/20/24 06:00
Intake and Output
10/19/24 10/20/24 10/21/24
06:59 06:59 06:59
Intake Total 580 / 580 525 / 525
Output Total 1350 / 1350 950 / 950
Balance -770 / -770 -425 / -425
SaO2 [NIV (Non Invasive 90
Ventilation)]
SaO2 90
Nasal Cannula flow liters per 50
minute
Physical Exam
General: Respiratory Distress (Mild-on noninvasive ventilation), Comfortable, Other (morbid obesity) and Other (on NIV)
HEENT: Normocephalic, Anicteric and Moist Mucous Membranes
Cardiovascular: S1-S2, Irregular Rhythm, Murmur and Peripheral Edema (4+)
Respiratory: Crackles (Basilar), Non-Labored Respirations, Accessory Resp Muscle Use (n), Stridor (n) and Other (overall decreased BS bilaterally)
GI: Soft, Non Distended and Non Tender
Neurology: Awake, Alert, Oriented and No Motor Deficits
Skin: Warm, Good Color, Cyanosis (n), Jaundice (n) and Rash (n)
Labs/Micro/Reports
Lab Data
10/20/24 03:33
10/20/24 03:33
Microbiology
10/14/24 22:58 Blood/Venous Blood Culture - Final
No Growth - Final Report
10/14/24 22:56 Blood/Venous Blood Culture - Final
No Growth - Final Report
10/14/24 15:19 Pleural Fluid Body Fluid Culture - Final
No Growth After 72 Hours
10/14/24 15:19 Pleural Fluid Gram Stain - Final
10/15/24 10:25 Sputum Respiratory Culture - Final
Moraxella catarrhalis
10/15/24 10:25 Sputum Gram Stain - Final
[2024-10-20] MEDS: DUONEB 3 ML INH ×3 (07:34→19:32)
--- NOTE | 2024-10-20 08:00 | PTCARENOTE ---
Received pt sleeping.Eyes open to voice.Conversation is appropriate.+SIMON 2-3/5.Pt does attempt to assist with repositioning.Denies pain at this time.SR noted.Right DL PICC intact.Coarse breath sounds decreased breath sounds bibasilar noted.High Flow
50 l 100% POX 85-89%Appetite is poor.No BM.Condom cath draining jody urine.Skin integrity as documented.Plan of care discussed.
[2024-10-20 08:22] LABS: Glucose - Point of Care 96 mg/dl (70-99)
[2024-10-20] MEDS: ELIQUIS 5 MG PO ×2 (08:40→19:48)
[2024-10-20] MEDS: SENOKOT-S 1 TABLET PO ×2 (08:40→19:48)
[2024-10-20] MEDS: PACERONE 200 MG PO ×3 (08:40→23:17)
[2024-10-20] MEDS: NOVOLOG FLEXPEN-LOW RESISTANCE SC ×3 (08:40→18:02)
[2024-10-20] MEDS: COREG 3.125 MG PO (08:41)
[2024-10-20] MEDS: HYDROPHOR 1 APPLIC TOPICAL (08:41)
[2024-10-20] MEDS: DESENEX/MITRAZOL/ZEASORB 1 APPLIC TOPICAL ×2 (08:41→19:48)
[2024-10-20] MEDS: PROTONIX 40 MG PO (08:41)
[2024-10-20] MEDS: NICODERM TRANSDERMAL 14 MG TRANSDERM (08:41)
[2024-10-20] MEDS: REGLAN 2.5 MG IV ×2 (08:45→11:52)
[2024-10-20] MEDS: LASIX 40 MG IV ×2 (08:45→16:49)
--- NOTE | 2024-10-20 10:11 | W.PN.CARDCBS ---
Today's Communication / Plan
-
Continue IV diuresis
Follow Cr
Wean O2 as able
Stop Coreg
Impression / Plan
-
Primary Photographic Restorer: none prior to admission
Assessment:
Presentation with SOB
Acute hypoxic respiratory failure, on BIPAP
Acute HFpEF
Paroxysmal atrial fibrillation, converted to sinus rhythm on amiodarone
Leukocytosis
Hyperkalemia
Elevated LFTs, concern for passive congestion
COPD
Ongoing tobacco use
Morbid obesity
ECHO 10/14/24: EF 55 to 60%, mild to moderate concentric LVH, grade 1 diastolic dysfunction, dilated hypokinetic RV with sparing of apex, PAP 50 to 55 mmHg, IVC dilated and does not collapse, prominent anterior fat pad
Plan:
Requiring high flow O2
Suspect hypoxia is more so related to COPD, but there is a component of HFpEF
Continue IV diuresis and monitor Cr which is improving suggestive of cardiorenal syndrome
No SGLT2 antagonist related to cost
Avoid spironolactone related to hyperkalemia which was POA
No further A-fib
Continue amiodarone and at discharge decrease to 200 mg twice daily for 4 weeks then 200 mg a day
Continue apixaban
Stop Coreg given underlying lung disease
Smoking cessation encouraged
Clinical summary:74-year-old man with COPD and ongoing tobacco abuse, morbid obesity, no recent medical contacts presenting with dyspnea and evidence of heart failure/pulmonary edema, proBNP 4200. Echo with preserved LVEF, hypokinetic right
ventricle with sparing of the apex, pulmonary artery systolic pressure 50-[address] scan shows elevated right hemidiaphragm and bilateral lower lobe consolidation with pleural effusions and no evidence of obvious pulmonary emboli. Onset of
atrial fibrillation October 15.
Progress Note - Photographic Restorer
Subjective
Date of Service: October 20, 2024
NAOE. Remains in ICU on high flow O2. Tells me his breathing is improved from days prior.
Objective
Labs:
02/19/25 03:33
10/20/24 03:33
Labs
Hgb 15.6 g/dL (13.0-18.0) 10/20/24 03:33
Hct 51.4 % (39.0-52.0) 10/20/24 03:33
Plt Count 132 10^3/uL (130-400) 10/20/24 03:33
APTT Cancelled 10/16/24 12:30
Sodium 137 mmol/L (135-145) 10/20/24 03:33
Potassium 4.2 mmol/L (3.5-5.1) 10/20/24 03:33
BUN 32 mg/dl (9-20) H 10/20/24 03:33
Creatinine 0.6 mg/dL (0.7-1.3) L 10/20/24 03:33
Glucose 105 mg/dl (70-99) H 10/20/24 03:33
Vital Signs and I&O:
Vital Signs
Temp Pulse Resp BP Pulse Ox
97.6 F 85 28 119/63 90
10/20/24 07:25 10/20/24 07:41 10/20/24 07:41 10/20/24 06:00 10/20/24 07:42
Vital Signs
Temp Pulse Resp BP Pulse Ox
97.6 F 85 28 119/63 90
10/20/24 07:25 10/20/24 07:41 10/20/24 07:41 10/20/24 06:00 10/20/24 07:42
Intake & Output
10/18/24 10/19/24 10/20/24 10/21/24
06:59 06:59 06:59 06:59
Intake Total 800 / 800 580 / 580 525 / 525
Output Total 3400 / 3400 1350 / 1350 950 / 950
Balance -2600 / -2600 -770 / -770 -425 / -425
Physical Exam
Physical Exam
Gen: NAD, AAOx3
HEENT: NC/AT, sclera anicteric
Neck: Difficult to assess JVD
CV: RRR, NL s1/s2
Lungs: CTAB on high flow O2
Abd: S/ND
Ext: 2+ pitting LE edema
Skin: Warm, dry
Neuro: Non-focal
--- NOTE | 2024-10-20 12:00 | PTCARENOTE ---
Pt assessed.No change in assessment noted.Pt dependently assisted oob to chair with lift.Pt's at bedside.Plan of care discussed.
[2024-10-20 12:57] LABS: Glucose - Point of Care 102 mg/dl (70-99)
--- NOTE | 2024-10-20 13:57 | CM ---
CM following re: discharge planning.
Discussed in Rounds, reviewed pt's chart, met with pt. Pt's son Dru at bedside.
Per Rounds meeting, pt requires 50 L HFNC with FIO2 100%, NIV at night, continue supportive care.
PT and OT evaluated the pt and SNF level of care recommended. CM will explore SNF options when pt will be less medically acute.
D/C plan: uncertain at this time and will depend on pt's progress.
CM will follow with discharge plan updates as hospitalization progresses
--- NOTE | 2024-10-20 16:00 | PTCARENOTE ---
Pt assessed.No change in assessment noted.Pt encouraged to increase food intake.
--- NOTE | 2024-10-20 16:30 | PTCARENOTE ---
resumed care of patient from previous RN. Pt OOB in chair. AAOx3. pt on high flow nasal cannula, 50L, 100%. sat 91%. lung sounds coarse. SR on telemetry heart rate in 80s. condom catheter replaced. IV lasix given. family at bedside.
--- NOTE | 2024-10-20 17:23 | PTCARENOTE ---
Report given to TRACTOR SWEEPER OPERATOR.
[2024-10-20] MEDS: REGLAN IV (18:02)
[2024-10-20 18:11] LABS: Glucose - Point of Care 104 mg/dl (70-99)
[2024-10-20] MEDS: TRANDATE 10 MG IV (19:58)
--- NOTE | 2024-10-20 20:00 | PTCARENOTE ---
Received pt via handoff. Pt AAOx3 but irritated and angry when asked to do things with generalized weakness. NSR with palpable radial pulses, DP's present with doppler, +3 edema on lower extremities, +2 on uppers. 90% on high flow with NRB, lung
sounds coarse throughout. Hypoactive bowel sounds in all 4Q. #[address] draining jody clear urine. DL Picc in place. Pt sitting in chair, requested to stay in it for tonight. Call martínez at bedside.
[2024-10-21] VITALS (47 sets, daily range): BP systolic 95–169; BP diastolic 48–109; BMI 43.6
--- NOTE | 2024-10-21 | PTCARENOTE ---
All systems reassessed. Pt continues to remove NIV, settings increased to 18/8.
[2024-10-21 05:00] LABS: Blood Urea Nitrogen 33 mg/dl (9-20); Chloride 85 mmol/L (98-107); Estimated Creatinine Clearance > 125 ml/min; Glucose 108 mg/dl (70-99); Potassium 3.9 mmol/L (3.5-5.1); Sodium 138 mmol/L (135-145); eGFR > 60.00
--- NOTE | 2024-10-21 05:13 | PTCARENOTE ---
All systems reassessed, labs drawn and hygiene performed. Call martínez at bedside.
[2024-10-21 05:20] LABS: Carbon Dioxide 38 mmol/L (22-30)
[2024-10-21] MEDS: APRESOLINE 10 MG IV (06:12)
--- NOTE | 2024-10-21 06:24 | W.PN.HOSP.TC ---
Today's Communication/Plan
-
c/w Lasix, amiodarone
Coreg was stopped.
O2 management
IV Rocephin
Stop Reglan
Assessment / Plan
Assessment / Plan
Physical Exam
General: chronically ill looking
HEENT: Normocephalic, Atraumatic,
Respiratory: Rhonchi
Cardiac: S1/S2
GI: Soft, Nontender, Nondistended and Normal Bowel Sounds;
Rectal: no bleeding
Musculoskeletal: No Cyanosis, Edema, Right Lower Extrem and Edema, Left Lower Extrem
Skin: Negative Rash
Neuro: Awake, lethargy, follows simple commands
Psych: Calm
#Pulmonary edema
#Acute hypoxic and hypercapnic respiratory failure likely multifactorial pleural effusion, suspected COPD exacerbation, pulmonary edema, diastolic heart failure exacerbation, pneumonia
Off BiPAP and NIV
s/p eftriaxone and doxycycline
Blood cultures negative
Pleural fluid 10/14/2024-no growth
Sputum culture: Moraxella catarrhalis
Influenza negative
IV ceftriaxone and doxycycline-finish a course for pneumonia for total of 10 days
Bronchodilators for now.
#Acute HFpEF
Lasix 40 mg twice daily
No SGLT2 antagonist related to cost, avoid spironolactone related to hyperkalemia.
Monitor urinary output.
Daily weights
ECHO normal left ventricular size and function with mild to moderate LVH. EF 55 to 60%. Grade 1 diastolic dysfunction. Dilated hypokinetic right ventricle with sparing of the apex. No significant valvular disease. PASP of 50-55. IVC is dilated
and does not collapse.
trop flat.
proBNP elevated at 4200
Elevated D-dimer.
CT chest which was negative for pulmonary embolism. lower extremity Doppler negative
Cardiology evaluation
#Right pleural effusion exudative
CT chest with significant pleural effusion
[facility] consulted for thoracentesis status post 200 cc of fluid removal.
Fluid culture remains negative.
Cytology pending
# Poor oral intake
Tried PPI & Pre-meal Reglan for today
# Moraxella catarrhalis pneumonia
Continue with ceftriaxone and Doxy
# New onset of atrial fibrillation with rapid ventricular response
hep gtt stopped and switched to DOAC
Remains on amiodarone. Gtt discontinued and switch to 200mg PO TID loading dose, cardiology adjusted doses, now on Amiodarone only, Coreg was stopped.
Continue to monitor on telemetry. Remains tachycardic.
#Hyperkalemia
improved with aggressive diuresis
#Transaminitis likely secondary hepatic congestion
Improving
Trend CMP for now
#Primary hypertension
Better controlled
Added low dose Coreg
Avoid AMANDA or ARB in the setting of hyperkalemia for now
Monitor blood pressure with diuresis
# Borderline Diabetes mellitus type 2
A1c of 6.8
Started insulin sliding scale and Accu-Cheks
Not needing insulin
Encourage weight loss and diet compliance.
# tobacco abuse
Does not follow-up with property assistant
NicoDerm
Morbid obesity due to excess calories
Affects all aspects of medical care
Recommend weight loss after resolution of acute disease process
#Peripheral arterial disease
# Medical Noncompliance
Mild thrombocytopenia
Continue to monitor platelets
Sacra; skin stage I versus DTI
Wound care
DVT prophylaxis Eliquis
Full code
Total time spent to see the patient, examine the patient, review data and lab results, discuss treatment plan with patient, nursing staff around 55 minutes
Anticipated Discharge: > 48 hours
Subjective/Interval History
-
Date of Service: October 21, 2024
No fevers over night
Objective Data
-
Labs:
Laboratory Results
10/21/24
03:50
Sodium 138
Potassium 3.9
Chloride 85 L
Carbon Dioxide 38 H
BUN 33 H
Creatinine 0.7
Glucose 108 H
Calcium 9.0
Vital Signs:
Vital Signs
Temp Pulse Resp BP Pulse Ox
100.0 F 93 27 153/109 89
10/21/24 03:30 10/21/24 05:01 10/21/24 05:01 10/21/24 05:01 10/21/24 04:32
I&O
10/19/24 10/20/24 10/21/24
06:59 06:59 06:59
Intake Total 580 / 580 525 / 525 220 / 220
Output Total 1350 / 1350 950 / 950 850 / 850
Balance -770 / -770 -425 / -425 -630 / -630
--- NOTE | 2024-10-21 07:15 | W.PN.INTV ---
Today's Communication / Plan
Recommendations
Worsening in the past 12 hours, more dependant on NIV
Remains on IV diuresis
Placed back on abx IV
Have spoken to family numerous times about code status/prognosis
Continue supportive care
Assessment
-
74 year old M with past medical history of COPD, current smoker, noncompliance with outpatient followup presenting from home to ER with complaints of acute on chronic shortness of breath. Patient reports chronic shortness of breath for the past
1 year, acutely worsening the past few days. There is also notation of worsening lower extremity edema, orthopnea, elevated BP at home. EMS reported patient was severely hypoxemic on initial evaluation and received nitroglycerin x 2. Patient was
placed on BiPAP in the ER. Imaging showing effusion, proBNP >4000, 3+ pitting LE edema. Admitted to IMU. We are consulted for evaluation.
Acute heart failure exacerbation, orthopnea/LE edema now on NIV
Acute hypoxic and hypercapnic respiratory failure
Moderate pleural effusion s/p thora 10/14/24
SOB
Leukocytosis
Hyperkalemia
Suspected CHRISTY/OHS
Noncompliance
Thrombocytopenia
Profoundly weak, likely severe deconditioning
Moraxella in sputum
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
COPD-refuses outpatient pulmonary follow-up and PFTs
Current smoker- 1 pack a day for 40+ years-cut down to 1/2 pack
Hypertension
Morbid obesity due to excess calories
Peripheral arterial disease
Lumbar spinal stenosis s/p surgery 2018
s/p R cataract IOL and trabeculectomy 2014
Plan
HFNC on 100%/45LPM, NIV use intermittently, nightly use--more dependant on NIV
Transition to BIPAP as tolerated, reviewed with RT
Nebulizers-DuoNebs continue
Continue to observe off steroids
Chest x-ray 10/14/2024-opacifications bilateral bases, right pleural effusion and component of CHF
Chest x-ray 10/15/2024-right PICC projects over cavoatrial junction, mild vascular congestion, suspect bilateral pleural effusions
Monitor right pleural effusion-s/p thoracentesis 10/14/24, yielded 200cc
Cell count: 7.46/ wbc 1754 / glu 155 / tp 2.9 / ldh 286- pleural culture negative/cyto neg
Repeat CXR 10/19--similar to prior
Cultures reviewed
Blood cultures negative
Pleural fluid 10/14/2024-no growth
Sputum culture 10/15/2024- +Moraxella, completed Doxy
Influenza negative
Empiric ceftriaxone and doxycycline-finished course for pneumonia
Follow leukocytosis-Remains elevated
Repeat cultures as indicated
Atrial fibrillation rate control
Echocardiogram noted 10/14/2024-EF 55-60%, will grade 1 diastolic dysfunction, hypokinetic right ventricle, no significant valvular disease, PA systolic 50-55
Cardiology following-correspondence reviewed
Amiodarone continues
Heparin drip continues
Diuresis continues as tolerated--IV continued --thus far down 11kg
Monitor renal function, electrolytes, intake/output, lower extremity edema and weight
Replace electrolytes as needed
Lower extremity ultrasound 10/15/2014-no evidence for DVT bilaterally
Smoking cessation counseling ongoing
Nicotine patch
DVT prophylaxis-on heparin drip
Nutrition with aspiration precautions
Eventual physical therapy evaluation
Family Discussions
Obi 10/19/24- spoke to family again at bedside, they confirmed intubation but he would not want prolongation
Obi 10/18/24- spoke with at bedside regarding code status and she notes that he would not want to be prolonged or undergo tracheostomy but would want intubation is that would help him recover
Remains full code
Dr. Bolanos reviewed in detail with at the bedside 10/15/2024 and 10/16/2024- states does not take care of himself, does not seek medical attention, and they have been nagging him to get medical attention since Thanksgiving
Goals of care discussion ongoing
Diagnostic Data
CXR 10/15/24- 1. Right PICC tip projects over the cavoatrial junction. 2. Mild pulmonary vascular congestion. 3. Suspected bilateral pleural effusions. Bibasilar airspace disease may also be present.
CXR 10/13/24- CHF and small to moderate right pleural effusion with adjacent atelectasis.
Chest x-ray 02/03/15- No active pulmonary disease. Slightly prominent left hilum most likely representing overlapping normal vascularity. Left hilar mass/lymphadenopathy cannot be entirely excluded. Recommend comparison with any prior outside study
to assess stability.
CT CHEST 10/14/24- No findings to suggest CENTRAL pulmonary embolism. Unfortunately, evaluation for more peripheral pulmonary embolism particularly in the lower lobes bilaterally limited by bilateral lower lobe consolidations and pleural effusions,
right greater than left as well as motion/respiration artifact.. Small suggesting 'filling defect' arterial in the left lower lobe most likely represents a branching vessel and does not pulmonary embolism, although cannot be excluded.
ECHO 10/14/24- Normal left ventricular size and systolic function with mild to moderate concentric left ventricular hypertrophy Left ventricular ejection fraction visually estimated 55-60% Grade 1 diastolic dysfunction Dilated, hypokinetic right
ventricle with sparing of the apex Mild right atrial dilatation No significant valvular disease. Estimated pulmonary artery pressure of 50-55 mmHg. Assuming a right atrial pressure of 15 mmHg. The IVC is dilated and does not collapse Prominent
anterior fat pad present. No pericardial effusion. No pleural effusion present. No prior study available for comparison
Reports and relevant images were personally reviewed.
Critical care statement: A total of 45 minutes of critical care time was provided for this patient today. This includes management of unstable vital signs, evaluation of the patient at bedside, reviewing the patient's pertinent medical records
including radiographs, management of noninvasive ventilation, microbiology, laboratory evaluations, and discussion with primary team, consultants, pharmacy, nutrition, physical therapy, case management, charge nurse, critical care nursing, and
respiratory therapy.
Subjective Dataa
Subjective Data
Date of Service:
Date of Service: October 21, 2024
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
Subjective:
Remains on NIV and intermittent to HFNC
Worsened in the past 12 hours, more dependant on NIV
Objective Data
Data Reviewed
Vital Signs / I&O / Oxygen:
Vital Signs
Temp Pulse Resp BP Pulse Ox
100.0 F 93 27 153/109 89
10/21/24 03:30 10/21/24 05:01 10/21/24 05:01 10/21/24 05:01 10/21/24 04:32
Intake and Output
10/20/24 10/21/24 10/22/24
06:59 06:59 06:59
Intake Total 525 / 525 220 / 220
Output Total 950 / 950 850 / 850
Balance -425 / -425 -630 / -630
SaO2 [NIV (Non Invasive 90
Ventilation)]
SaO2 89
Nasal Cannula flow liters per 50
minute
Physical Exam
General: Respiratory Distress (Mild-on noninvasive ventilation), Comfortable, Other (morbid obesity) and Other (on NIV)
HEENT: Normocephalic, Anicteric and Moist Mucous Membranes
Cardiovascular: S1-S2, Irregular Rhythm, Murmur and Peripheral Edema (4+)
Respiratory: Crackles (Basilar), Non-Labored Respirations, Accessory Resp Muscle Use (n), Stridor (n) and Other (overall decreased BS bilaterally)
GI: Soft, Non Distended and Non Tender
Neurology: Awake, Alert, Oriented and No Motor Deficits
Skin: Warm, Good Color, Cyanosis (n), Jaundice (n) and Rash (n)
Labs/Micro/Reports
Lab Data
10/20/24 03:33
10/21/24 03:50
Microbiology
10/14/24 22:58 Blood/Venous Blood Culture - Final
No Growth - Final Report
10/14/24 22:56 Blood/Venous Blood Culture - Final
No Growth - Final Report
[2024-10-21] MEDS: DUONEB 3 ML INH ×3 (07:31→17:39)
--- NOTE | 2024-10-21 08:00 | PTCARENOTE ---
Received pt at 07:15 from previous RN. Pt drowsy, easily arousable, opens eyes to voice. Conversation is appropriate.+SIMON.Pt does attempt to assist with repositioning. Denies pain at this time. SR noted. Right DL PICC intact. Coarse breath sounds,
decreased breath sounds bibasilar noted. Cough productive with blood tinged mucous. Pt spitting into tissue. High Flow 50 l 100% with NRB attempted at 07:30, however pt did not tolerate for >30 min as POX dipped to low 80s. Oral meds administered,
mouth care provided, then placed back on NIV by RT at 08:00, settings as documented in worklist. Appetite is poor. Mod soft brown BM -hygiene care and CHG bath provided for incontinence of bowel and bladder-large amounts of jody urine draining via
purewick. Call martínez in hand, pt indicates knowledge of use. Safe environment maintained.
[2024-10-21 08:02] LABS: Glucose - Point of Care 123 mg/dl (70-99)
[2024-10-21] MEDS: PROTONIX 40 MG PO (08:05)
[2024-10-21] MEDS: ELIQUIS 5 MG PO (08:05)
[2024-10-21] MEDS: PACERONE 200 MG PO (08:05)
[2024-10-21] MEDS: SENOKOT-S PO (08:44)
[2024-10-21] MEDS: NOVOLOG FLEXPEN-LOW RESISTANCE SC ×2 (08:44→12:19)
[2024-10-21] MEDS: REGLAN IV (08:45)
[2024-10-21] MEDS: DESENEX/MITRAZOL/ZEASORB 1 APPLIC TOPICAL ×2 (08:53→20:12)
[2024-10-21] MEDS: HYDROPHOR 1 APPLIC TOPICAL (08:53)
[2024-10-21] MEDS: LASIX 40 MG IV (08:54)
[2024-10-21] MEDS: NICODERM TRANSDERMAL 14 MG TRANSDERM (08:55)
[2024-10-21] MEDS: STERILE WATER FOR INJECTION 20 ML IV (12:11)
[2024-10-21] MEDS: ROCEPHIN 2000 MG IV (12:11)
--- NOTE | 2024-10-21 12:11 | W.PN.CARDCBS ---
Today's Communication / Plan
-
Requiring BiPAP
Continue IV diuresis. Will increase lasix to 60mg IV BID and follow.
Follow labs, check pro-BNP (4200 prior 10/13/24)
Avoid spironolactone related to hyperkalemia
Continue amiodarone, has received oral 3000mg today total.
Continue apixaban
Impression / Plan
-
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
Assessment:
Acute hypoxic respiratory failure, on BIPAP
Presentation with SOB
Acute HFpEF
Paroxysmal atrial fibrillation, converted to sinus rhythm on amiodarone
Leukocytosis
Hyperkalemia
Elevated LFTs, concern for passive congestion
COPD
Ongoing tobacco use
Morbid obesity
ECHO 10/14/24: EF 55 to 60%, mild to moderate concentric LVH, grade 1 diastolic dysfunction, dilated hypokinetic RV with sparing of apex, PAP 50 to 55 mmHg, IVC dilated and does not collapse, prominent anterior fat pad
Plan:
Continues with high oxygen requirements and not doing as well today as yesterday.
Requiring high flow O2--now BiPAP
Suspect hypoxia is more so related to COPD, but there is a component of HFpEF with increased volume which is difficult to assess
Continue IV diuresis. Will increase lasix to 60mg IV BID and follow. Good urine output despite flat wt on bedscale. Monitor Cr which is improving/stable suggestive of cardiorenal syndrome
Check pro BNP
No SGLT2 antagonist related to cost
Avoid spironolactone related to hyperkalemia which was POA
No further A-fib
Continue amiodarone, has received oral 3000mg today total.
Continue apixaban
Stop Coreg given underlying lung disease
Prn medications for BP elevation noted. Continue
Smoking cessation encouraged
I dw family at the bedside.I dw nursing.
Clinical summary:74-year-old man with COPD and ongoing tobacco abuse, morbid obesity, no recent medical contacts presenting with dyspnea and evidence of heart failure/pulmonary edema, proBNP 4200. Echo with preserved LVEF, hypokinetic right
ventricle with sparing of the apex, pulmonary artery systolic pressure 50-[address] scan shows elevated right hemidiaphragm and bilateral lower lobe consolidation with pleural effusions and no evidence of obvious pulmonary emboli. Onset of
atrial fibrillation October 15.
Progress Note - Passenger Booking Clerk
Subjective
Date of Service: October 21, 2024
On bipap. No chest pain.
Objective
Labs:
10/20/24 03:33
10/21/24 03:50
Labs
Hgb 15.6 g/dL (13.0-18.0) 10/20/24 03:33
Hct 51.4 % (39.0-52.0) 10/20/24 03:33
Plt Count 132 10^3/uL (130-400) 10/20/24 03:33
APTT Cancelled 10/16/24 12:30
Sodium 138 mmol/L (135-145) 10/21/24 03:50
Potassium 3.9 mmol/L (3.5-5.1) 10/21/24 03:50
BUN 33 mg/dl (9-20) H 10/21/24 03:50
Creatinine 0.7 mg/dL (0.7-1.3) 10/21/24 03:50
Glucose 108 mg/dl (70-99) H 10/21/24 03:50
Vital Signs and I&O:
Vital Signs
Temp Pulse Resp BP Pulse Ox
98.5 F 93 29 151/73 92
10/21/24 08:00 10/21/24 08:54 10/21/24 08:30 10/21/24 08:54 10/21/24 08:30
Vital Signs
Temp Pulse Resp BP Pulse Ox
98.5 F 93 29 151/73 92
10/21/24 08:00 10/21/24 08:54 10/21/24 08:30 10/21/24 08:54 10/21/24 08:30
Intake & Output
10/19/24 10/20/24 10/21/24 10/22/24
06:59 06:59 06:59 06:59
Intake Total 580 / 580 525 / 525 220 / 220
Output Total 1350 / 1350 950 / 950 850 / 850
Balance -770 / -770 -425 / -425 -630 / -630
Physical Exam
Physical Exam
General: ill man on bipap
Heart: distant heart sd, regular
Lungs: coarse bth sounds
Extremities: No clubbing, cyanosis +2-3 edema bilaterall rt>lt.
Neuro: awake
[2024-10-21 12:29] LABS: Glucose - Point of Care 102 mg/dl (70-99)
[2024-10-21] MEDS: LASIX 20 MG IV (13:04)
--- NOTE | 2024-10-21 13:59 | PTCARENOTE ---
Plan of care was discussed in rounds, family at bedside, no change in assessment, pt remains on NIV due to inability to maintain sat on Hiflow at this time. See worklist for documentation.
[2024-10-21] MEDS: LASIX 60 MG IV (15:53)
[2024-10-21] MEDS: PACERONE PO (15:55)
--- NOTE | 2024-10-21 16:29 | PTCARENOTE ---
Air Liaison And Special Staff in room to discuss plan with patient and family, pt remains on NIV...sat only holding 88-92%, plan is likely to intubate pt, awaiting son to arrive to assist in making final decision. Anesthesia notified.
[2024-10-21] MEDS: DIPRIVAN 100 IV ×2 (17:05→21:00)
--- NOTE | 2024-10-21 17:05 | PTCARENOTE ---
Decision to intubate, anesthesia in room, pt intubated at 17:05. Diprivan gtt initiated per orders- See flowsheet.
--- NOTE | 2024-10-21 17:14 | W.PN.ANESINT ---
Anesthesia Intubation Note
- Intubation Note
Intubation Note:
Diagnosis: heart failure, resp distress
Blade: glidescope 4
Tube Size:
8
Depth:
21
Side Taped:
r
Drugs Used:
propofol 100mg, anectine 100mg, phenylephrine 100 mcg
Grade View:
EtCO2 Present:
y
Atraumatic:
y
Attempts:
1
Insertion Start and Stop Time:
1700
SaO2 Pre:83
SaO2 Post:88
Glidescope Used:
y
Other Airway Adjustments:
Pre-Oxygenated:
y
Portable Chest X-Ray:
RSI:y
Suctioned:
Bilateral Breath Sounds Confirmed:
y
Vent Settings:
Settings per ___Attending Physician
--- NOTE | 2024-10-21 17:46 | W.PN.UPDATE ---
Update Note
Progress Note Update
Update:
Spoke to and family regarding code status and elective intubation as patient had been steadily worsening throughout the day. She decided to intubate patient, anesthesia called, ETT placed.
Bagged and vented for sats around 75-83%. Placed on AC 400/22/100/12+ with no improvement.
Initial CXR showing total L sided atelectasis, mucus plugs suctioned via ETT.
Emergently bronched at bedside, L side showing some plugs, lavaged quickly and suctioned. Mostly clear just noted compelete L main stem collapse/atelectasis.
Patient repositioned to slight R lateral recumbent and sats now 90-91% on AC 400/22/100/10+
Repeat ABG and CXR pending again
Will leave this way for the night, and family updated.
----
Additional CC time 65 mins, total time spent >100mins.
[2024-10-21] MEDS: SUBLIMAZE 50 MCG IV (17:49)
[2024-10-21] MEDS: SUBLIMAZE 100 IV (17:53)
--- NOTE | 2024-10-21 18:52 | PTCARENOTE ---
Pt emergently bronched after intubation, see forest fire management officer report. DHT placed right nare @75, xray for placement confirmation. Fent and propofol gtts infusing per orders. Handoff given to night RN.
[2024-10-21] MEDS: ELIQUIS TUBE (20:13)
[2024-10-21 20:41] LABS: Triglycerides 208 mg/dl (10-149)
[2024-10-21] MEDS: ELIQUIS 5 MG TUBE (20:54)
--- NOTE | 2024-10-21 21:57 | W.PN.UPDATE ---
Update Note
Progress Note Update
Procedure Note: Arterial Line�
� Right Wrist Arrow 20 (11/02)�
Diagnosis:��Hypoxic respiratory failure
IV Line Comments: Uneventful Procedure�
Bear's test completed pre-procedure: Yes�
A-Line Comments: Sterile technique as per standard protocol, Ultrasound guided insertion�
Functioning A-line in situ: Yes�
A-line Insertion Start Time:��2129
A-line in at:��2134
[2024-10-21 22:27] LABS: B.E. 21.1 mmol/L; O2 Saturation % 91.6 % (94-98); PCO2 64 mmHg (35-48); PO2 61 mmHg (83-108); pH 7.49 (7.35-7.45)
[2024-10-21 22:29] LABS: HCO3 48.8 mmol/L (21-28)
[2024-10-21] MEDS: PACERONE 200 MG TUBE (23:11)
--- NOTE | 2024-10-21 23:39 | PTCARENOTE ---
Received pt via handoff. Pt sedated and intubated. NSR with palpable radial pulses, DP's present with doppler, +3 edema on lower extremities, +2 on uppers. Vent settings A/C 20/400/1/100%, lung sounds coarse throughout. Hypoactive bowel sounds in
all 4Q. Purewick in place draining jody clear urine. DL Picc in place. A Line zeroed and correlates with cuff.
[2024-10-21 23:55] LABS: Glucose - Point of Care 96 mg/dl (70-99)
[2024-10-22] VITALS: BP 122/59
--- NOTE | 2024-10-22 00:05 | PTCARENOTE ---
All systems reassessed. ABG drawn, no change in status.
[2024-10-22] MEDS: DIPRIVAN 100 IV ×4 (01:12→21:09)
[2024-10-22 03:56] LABS: B.E. 20.6 mmol/L; O2 Saturation % 93.2 % (94-98); PCO2 67 mmHg (35-48); PO2 66 mmHg (83-108); pH 7.47 (7.35-7.45)
[2024-10-22 03:58] LABS: O2 Therapy 100
[2024-10-22 03:59] LABS: HCO3 48.8 mmol/L (21-28)
[2024-10-22 04:17] LABS: Hematocrit 47.9 % (39.0-52.0); Hemoglobin 14.4 g/dL (13.0-18.0); Mean Corp Hgb Conc. 30.1 g/dL (33.0-37.0); Mean Corpuscular Hgb 25.6 pg (27.0-31.0); Mean Corpuscular Volume 85.2 fL (80.0-94.0); Mean Platelet Volume 10.7 fL (7.4-10.4); Platelet Count 136 10^3/uL (130-400); Red Blood Cell Count 5.62 10^6/uL (4.70-6.10); Red Cell Dist. Width 18.6 % (11.5-14.5); White Blood Cell Count 20.9 10^3/uL (4.8-10.8)
[2024-10-22 04:22] LABS: Blood Urea Nitrogen 37 mg/dl (9-20); Calcium 8.3 mg/dl (8.4-10.2); Chloride 91 mmol/L (98-107); Estimated Creatinine Clearance > 125 ml/min; Glucose 106 mg/dl (70-99); Potassium 3.7 mmol/L (3.5-5.1); Sodium 139 mmol/L (135-145); eGFR > 60.00
[2024-10-22 04:39] LABS: NT-proBNP 2840 pg/ml
[2024-10-22] MEDS: KCL 50 IV (05:26)
[2024-10-22] MEDS: DUONEB 3 ML INH ×3 (05:35→17:30)
[2024-10-22 06:00] VITALS: BMI 43.6
[2024-10-22 06:14] LABS: Carbon Dioxide 39 mmol/L (22-30)
--- NOTE | 2024-10-22 06:52 | W.PN.HOSP.TC ---
Today's Communication/Plan
-
High Peep and FiO2
I/O chart
Nutrition
KCl
Lasix
Rocephin
Blood culture
CXR
Assessment / Plan
Assessment / Plan
Physical Exam
General: chronically ill looking, intubated
HEENT: Normocephalic, Atraumatic, ET tube
Respiratory: Rhonchi
Cardiac: S1/S2
GI: Soft, Nontender, Nondistended and Normal Bowel Sounds;
Rectal: no bleeding
Musculoskeletal: No Cyanosis, Edema, Right Lower Extrem and Edema, Left Lower Extrem
Skin: Negative Rash
Neuro: Awake, lethargy, follows simple commands
Psych: Calm
# Acute mucus plugging with collapse of left lung and persistent hypoxia despite high flow O2 and pressurized O2 treatment
s/p Bronchoscopy and intubation on 10/21
Need high Peep & FiO2 to maintain normal O2 level
No fevers
respirator culture 10/21 is pending
Order blood culture
#Pulmonary edema
#Acute hypoxic and hypercapnic respiratory failure likely multifactorial pleural effusion, suspected COPD exacerbation, pulmonary edema, diastolic heart failure exacerbation, pneumonia
Failed BiPAP and NIV, now intubated, ventilatory assisted.
s/p Ceftriaxone and doxycycline
Blood cultures negative, repeat 10/22
Pleural fluid 10/14/2024-no growth
Sputum culture: Moraxella catarrhalis, respiratory culture sent on 10/21
Influenza negative
IV ceftriaxone 2 gm, to finish a course for pneumonia for total of 10 days
Bronchodilators for now.
#Acute HFpEF
Lasix 60 mg twice daily, add KCl.
No SGLT2 antagonist related to cost, avoid spironolactone related to hyperkalemia.
Monitor urinary output.
Daily weights
ECHO normal left ventricular size and function with mild to moderate LVH. EF 55 to 60%. Grade 1 diastolic dysfunction. Dilated hypokinetic right ventricle with sparing of the apex. No significant valvular disease. PASP of 50-55. IVC is dilated
and does not collapse.
trop flat.
proBNP elevated at 4200
Elevated D-dimer.
CT chest which was negative for pulmonary embolism. lower extremity Doppler negative
Cardiology evaluation
#Right pleural effusion exudative
CT chest with significant pleural effusion
[facility] consulted for thoracentesis status post 200 cc of fluid removal.
Fluid culture remains negative.
Cytology atypical cells, favor reactive.
# Moraxella catarrhalis pneumonia
Continue with ceftriaxone
Repeat culture
# New onset of atrial fibrillation with rapid ventricular response
hep gtt stopped and switched to DOAC
Remains on amiodarone. Gtt discontinued and switch to 200mg PO TID loading dose, cardiology adjusted doses, now on Amiodarone only, Coreg was stopped.
Continue to monitor on telemetry. Remains tachycardic.
#Hyperkalemia
improved with aggressive diuresis
#Transaminitis likely secondary hepatic congestion
Improving
#Primary hypertension
Avoid AMANDA or ARB in the setting of hyperkalemia for now
Monitor blood pressure with diuresis
# Borderline Diabetes mellitus type 2
A1c of 6.8
Started insulin sliding scale and Accu-Cheks
Not needing insulin
Encourage weight loss and diet compliance.
# tobacco abuse
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
NicoDerm
#Morbid obesity due to excess calories
# Obesity BMP >40
Affects all aspects of medical care
Recommend weight loss after resolution of acute disease process
#Peripheral arterial disease
# Medical Noncompliance
Mild thrombocytopenia
Continue to monitor platelets
Sacra; skin stage I versus DTI
Wound care
DVT prophylaxis Eliquis
Full code
Total time spent to see the patient, examine the patient, review data and lab results, discuss treatment plan with pulmonary nursing staff around 55 minutes
Anticipated Discharge: > 48 hours
Subjective/Interval History
-
Date of Service: October 22, 2024
Intubated and sedated
Afebrile
Objective Data
-
Labs:
Laboratory Results
10/21/24 10/21/24 10/22/24
22:08 22:23 03:46
WBC 20.9 H
Hgb 14.4
Hct 47.9
Plt Count 136
HCO3 Cancelled 48.8 H* 48.8 H*
Sodium 139
Potassium 3.7
Chloride 91 L
Carbon Dioxide 39 H
BUN 37 H
Creatinine 0.7
Glucose 106 H
Calcium 8.3 L
Vital Signs:
Vital Signs
Temp Pulse Resp BP Pulse Ox
97.1 F 87 18 122/59 87
10/22/24 03:35 10/22/24 06:00 10/22/24 06:00 10/22/24 00:00 10/22/24 06:00
I&O
10/20/24 10/21/24 10/22/24
06:59 06:59 06:59
Intake Total 525 / 525 220 / 220 286 / 286
Output Total 950 / 950 850 / 850 1150 / 1150
Balance -425 / -425 -630 / -630 -864 / -864
--- NOTE | 2024-10-22 07:26 | W.PN.INTV ---
Today's Communication / Plan
Recommendations
Remains on max vent settings without clear improvement in hypoxemia
Desats with position
Continue IV diuresis, cards following
Add IV steroids
Bronch wash pending
Continue as is, follow up discussions with family if not significant improvement noted
Assessment
-
74 year old M with past medical history of COPD, current smoker, noncompliance with outpatient followup presenting from home to ER with complaints of acute on chronic shortness of breath. Patient reports chronic shortness of breath for the past
1 year, acutely worsening the past few days. There is also notation of worsening lower extremity edema, orthopnea, elevated BP at home. EMS reported patient was severely hypoxemic on initial evaluation and received nitroglycerin x 2. Patient was
placed on BiPAP in the ER. Imaging showing effusion, proBNP >4000, 3+ pitting LE edema. Admitted to IMU. We are consulted for evaluation.
Acute heart failure exacerbation, orthopnea/LE edema on NIV
s/p intubation 10/21/24
Acute hypoxic and hypercapnic respiratory failure
Moderate pleural effusion s/p thora 10/14/24
SOB
Leukocytosis
Hyperkalemia
Suspected CHRISTY/OHS
Noncompliance
Thrombocytopenia
Profoundly weak, likely severe deconditioning
Moraxella in sputum
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
COPD-refuses outpatient pulmonary follow-up and PFTs
Current smoker- 1 pack a day for 40+ years-cut down to 1/2 pack
Hypertension
Morbid obesity due to excess calories
Peripheral arterial disease
Lumbar spinal stenosis s/p surgery 2018
s/p R cataract IOL and trabeculectomy 2014
Plan
Sedated/intubated
Now on propofol, fent, wean as tolerated
RASS goal -2
Atrial fibrillation rate control
Echocardiogram noted 10/14/2024-EF 55-60%, will grade 1 diastolic dysfunction, hypokinetic right ventricle, no significant valvular disease, PA systolic 50-55
Cardiology following-correspondence reviewed
Amiodarone/Eliquis PO continued
Diuresis continues as tolerated--IV continued --thus far down 11kg
HFNC on 100%/45LPM, NIV use intermittently, nightly use--more dependant on NIV
s/p Intubation 10/21/24 due to worsening hypoxemia, WOB
CXR wtih total L sided atelectasis, emergent bronch small mucus, lavaged and suctioned, mostly L sided atelectasis
Repositioned to R side down, sats improved
Desats with turning, positionally dependent
Nebulizers-DuoNebs continue
Add IV steroids
No significant improvement in sats with max vent settings
NPO, DHT in place
TFs order per RD placed
Aspiration precautions
Cultures reviewed
Blood cultures negative
Pleural fluid 10/14/2024-no growth
Sputum culture 10/15/2024- +Moraxella, completed Doxy
Bronch culture resent 10/21, pending
Influenza negative
Empiric ceftriaxone and doxycycline-finished course for pneumonia
Resumed on CTX following clinical change
Follow leukocytosis-Remains elevated
Monitor renal function, electrolytes, intake/output, lower extremity edema and weight
Replace electrolytes as needed
Lower extremity ultrasound 10/15/2014-no evidence for DVT bilaterally
DVT ppx, Eliquis
Smoking cessation counseling ongoing
Nicotine patch
DVT prophylaxis-on heparin drip
Nutrition with aspiration precautions
Eventual physical therapy evaluation
Family Discussions
Obi 10/19/24- spoke to family again at bedside, they confirmed intubation but he would not want prolongation
Obi 10/18/24- spoke with at bedside regarding code status and she notes that he would not want to be prolonged or undergo tracheostomy but would want intubation is that would help him recover
Remains full code
Dr. Bolanos reviewed in detail with at the bedside 10/15/2024 and 10/16/2024- states does not take care of himself, does not seek medical attention, and they have been nagging him to get medical attention since Thanksgiving
Goals of care discussion ongoing
Diagnostic Data
CXR 10/15/24- 1. Right PICC tip projects over the cavoatrial junction. 2. Mild pulmonary vascular congestion. 3. Suspected bilateral pleural effusions. Bibasilar airspace disease may also be present.
CXR 10/13/24- CHF and small to moderate right pleural effusion with adjacent atelectasis.
Chest x-ray 02/03/15- No active pulmonary disease. Slightly prominent left hilum most likely representing overlapping normal vascularity. Left hilar mass/lymphadenopathy cannot be entirely excluded. Recommend comparison with any prior outside study
to assess stability.
CT CHEST 10/14/24- No findings to suggest CENTRAL pulmonary embolism. Unfortunately, evaluation for more peripheral pulmonary embolism particularly in the lower lobes bilaterally limited by bilateral lower lobe consolidations and pleural effusions,
right greater than left as well as motion/respiration artifact.. Small suggesting 'filling defect' arterial in the left lower lobe most likely represents a branching vessel and does not pulmonary embolism, although cannot be excluded.
ECHO 10/14/24- Normal left ventricular size and systolic function with mild to moderate concentric left ventricular hypertrophy Left ventricular ejection fraction visually estimated 55-60% Grade 1 diastolic dysfunction Dilated, hypokinetic right
ventricle with sparing of the apex Mild right atrial dilatation No significant valvular disease. Estimated pulmonary artery pressure of 50-55 mmHg. Assuming a right atrial pressure of 15 mmHg. The IVC is dilated and does not collapse Prominent
anterior fat pad present. No pericardial effusion. No pleural effusion present. No prior study available for comparison
Reports and relevant images were personally reviewed.
Critical care statement: A total of 45 minutes of critical care time was provided for this patient today. This includes management of unstable vital signs, evaluation of the patient at bedside, reviewing the patient's pertinent medical records
including radiographs, management of noninvasive ventilation, microbiology, laboratory evaluations, and discussion with primary team, consultants, pharmacy, nutrition, physical therapy, case management, charge nurse, critical care nursing, and
respiratory therapy.
Subjective Dataa
Subjective Data
Date of Service:
Date of Service: October 22, 2024
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
Subjective:
intubated overnight, see other note
Remains on vent, satting 89-91% despite max settings
Objective Data
Data Reviewed
Vital Signs / I&O / Oxygen:
Vital Signs
Temp Pulse Resp BP Pulse Ox
98.1 F 87 18 122/59 87
10/22/24 07:04 10/22/24 06:00 10/22/24 06:00 10/22/24 00:00 10/22/24 06:00
Intake and Output
10/21/24 10/22/24 10/23/24
06:59 06:59 06:59
Intake Total 220 / 220 286 / 286
Output Total 850 / 850 1150 / 1150
Balance -630 / -630 -864 / -864
SaO2 [A/C] 87
SaO2 [NIV (Non Invasive 90
Ventilation)]
SaO2 87
Nasal Cannula flow liters per 50
minute
Physical Exam
General: Comfortable and Other (morbid obesity)
HEENT: Normocephalic, Anicteric and Moist Mucous Membranes
Cardiovascular: S1-S2, Irregular Rhythm, Murmur and Peripheral Edema (4+)
Respiratory: Crackles (Basilar), Non-Labored Respirations, Accessory Resp Muscle Use (n), Stridor (n), ET Tube and Other (overall decreased BS bilaterally)
GI: Soft, Non Distended and Non Tender
Neurology: No Motor Deficits and Non Verbal (sedated/intubated)
Skin: Warm, Good Color, Cyanosis (n), Jaundice (n) and Rash (n)
Labs/Micro/Reports
Lab Data
10/22/24 03:46
10/22/24 03:46
Laboratory Results
10/21/24 10/21/24 10/22/24
22:08 22:23 03:46
pH Cancelled 7.49 H 7.47 H
pCO2 Cancelled 64 H 67 H
pO2 Cancelled 61 L 66 L
HCO3 Cancelled 48.8 H* 48.8 H*
O2 Delivery Level Cancelled 100
Microbiology
10/14/24 22:58 Blood/Venous Blood Culture - Final
No Growth - Final Report
10/14/24 22:56 Blood/Venous Blood Culture - Final
No Growth - Final Report
[2024-10-22 08:00] VITALS: BP 113/62
[2024-10-22] MEDS: LASIX 60 MG IV ×2 (08:35→15:31)
[2024-10-22] MEDS: PROTONIX IV 40 MG IV (08:36)
[2024-10-22] MEDS: PACERONE 200 MG TUBE ×3 (08:37→21:09)
[2024-10-22] MEDS: NICODERM TRANSDERMAL 14 MG TRANSDERM (08:37)
[2024-10-22] MEDS: DESENEX/MITRAZOL/ZEASORB 1 APPLIC TOPICAL ×2 (08:37→19:17)
[2024-10-22] MEDS: ELIQUIS 5 MG TUBE ×2 (08:37→19:17)
[2024-10-22] MEDS: HYDROPHOR 1 APPLIC TOPICAL (08:38)
[2024-10-22] MEDS: MIRALAX TUBE (08:41)
--- NOTE | 2024-10-22 09:00 | PTCARENOTE ---
Pt rec'd from night RN 07:15, sedated and intubated. NSR in 90-9s, palpable radial pulses, DP's present with doppler, +3 edema on lower extremities, +2 on uppers. Vent settings A/C 20/400/+10/100%, lung sounds dim/coarse throughout. Hypoactive bowel
sounds in all 4Q. Purewick in place draining jody clear urine. Right DL Picc in place with fent and prop infusing, see worklist. A Line zeroed and correlated with cuff. Meds and assessment as documented. Plan discussed in grand rounds, awaiting
family to arrive. Safe environment maintained.
--- NOTE | 2024-10-22 10:47 | W.PN.CARDCBS ---
Today's Communication / Plan
-
Continue IV diuresis; strict i/o and weights; ~600 cc output /24h
Leukocytosis -> Abx per primary service
Continue amiodarone, apixaban; if no respiratory improvement, can consider amio reduction/discontiuation
Impression / Plan
-
Primary Manager Massage Department: none prior to admission, first seen by Dr Shaw
Assessment:
Acute hypoxic respiratory failure, on BIPAP, now intubated (10/21) 2/ worsening hypoxia
Presentation with SOB
Acute HFpEF
Paroxysmal atrial fibrillation, converted to sinus rhythm on amiodarone
Leukocytosis
Hyperkalemia
Elevated LFTs, concern for passive congestion
COPD, possibly acute on chronic
Ongoing tobacco use
Morbid obesity
ECHO 10/14/24: EF 55 to 60%, mild to moderate concentric LVH, grade 1 diastolic dysfunction, dilated hypokinetic RV with sparing of apex, PAP 50 to 55 mmHg, IVC dilated and does not collapse, prominent anterior fat pad
Plan:
Elective intubation on 10/21 due to hypoxia; requiring high PEEP and O2
Suspect hypoxia is more so related to COPD, but there is a component of HFpEF with increased volume which is difficult to assess
Continue IV diuresis. Will increase lasix to 60mg IV BID and follow. Good urine output despite flat wt on bedscale. Monitor Cr which is improving/stable suggestive of cardiorenal syndrome; BNP downtrending 4000 -> 2000 showing improvement wit
hdiuresis
No SGLT2 antagonist related to cost
Avoid spironolactone related to hyperkalemia which was POA
No further A-fib
Continue amiodarone, has received oral 3000mg 10/21 total; on 200 mg TID via NGT
Continue apixaban
Coreg stopped given underlying lung disease
Prn medications for BP elevation noted. currently stable
d/w nursing, Dr Hargrove.
Clinical summary:74-year-old man with COPD and ongoing tobacco abuse, morbid obesity, no recent medical contacts presenting with dyspnea and evidence of heart failure/pulmonary edema, proBNP 4200. Echo with preserved LVEF, hypokinetic right
ventricle with sparing of the apex, pulmonary artery systolic pressure 50-[address] scan shows elevated right hemidiaphragm and bilateral lower lobe consolidation with pleural effusions and no evidence of obvious pulmonary emboli. Onset of
atrial fibrillation October 15.
Progress Note - Manager Massage Department
Subjective
Date of Service: October 22, 2024
Patient seen and examined. Elective intubation occurring overnight. Patient intubated and sedated on mechanical ventilation. Telemetry demonstrates sinus rhythm. ROS not obtained due to medical condition.
Objective
Labs:
10/22/24 03:46
10/22/24 03:46
Labs
Hgb 14.4 g/dL (13.0-18.0) 10/22/24 03:46
Hct 47.9 % (39.0-52.0) 10/22/24 03:46
Plt Count 136 10^3/uL (130-400) 10/22/24 03:46
APTT Cancelled 10/16/24 12:30
Sodium 139 mmol/L (135-145) 10/22/24 03:46
Potassium 3.7 mmol/L (3.5-5.1) 10/22/24 03:46
BUN 37 mg/dl (9-20) H 10/22/24 03:46
Creatinine 0.7 mg/dL (0.7-1.3) 10/22/24 03:46
Glucose 106 mg/dl (70-99) H 10/22/24 03:46
Vital Signs and I&O:
Vital Signs
Temp Pulse Resp BP Pulse Ox
98.1 F 92 18 113/62 91
10/22/24 07:04 10/22/24 10:00 10/22/24 10:00 10/22/24 08:35 10/22/24 09:00
Vital Signs
Temp Pulse Resp BP Pulse Ox
98.1 F 92 18 113/62 91
10/22/24 07:04 10/22/24 10:00 10/22/24 10:00 10/22/24 08:35 10/22/24 09:00
Intake & Output
10/20/24 10/21/24 10/22/24 10/23/24
06:59 06:59 06:59 06:59
Intake Total 525 / 525 220 / 220 286 / 308 259.5 / 259.5
Output Total 950 / 950 850 / 850 1150 / 1150
Balance -425 / -425 -630 / -630 -864 / -842 259.5 / 259.5
Physical Exam
Physical Exam
GENERAL: Ill-appearing, intubated, sedated
EYE: sclera anicteric
NECK: Supple, no JVD appreciated (difficult to assess due to neck mass), no carotid bruit appreciated
ENT: normal nose, dry mucosal membranes
CARDIAC: Distant heart sounds, regular rate and rhythm, +S1/S2, no murmur, rubs, or gallops
CHEST/PULMONARY: Normal effort, coarse mechanical breath sounds
ABDOMEN: Soft, without focal tenderness or distention
NEUROLOGICAL: Sedated on mechanical ventilation
SKIN: Warm and dry, no rash, 3+ pitting edema bilaterally, right greater than left
PSYCH: Sedated on mechanical ventilation
[2024-10-22] MEDS: DECADRON 4 MG IV ×2 (11:22→15:31)
[2024-10-22] MEDS: STERILE WATER FOR INJECTION 20 ML IV (11:22)
[2024-10-22] MEDS: ROCEPHIN 2000 MG IV (11:23)
--- NOTE | 2024-10-22 11:45 | PTOTSP ---
Reviewed chart and noted pt was intubated in afternoon 10/21/24. Will hold PT at this time. Will need new orders for PT, and OT, when stable to restart therapy activities.
--- NOTE | 2024-10-22 12:00 | PTCARENOTE ---
Pt reassessed. Propofol weaned, see worklist. Vent settings unchanged per Bending Roll Hand, sa02 89-90%. at bedside, plan discussed. She states she wants to 'give him a few days' and see how he does, will readdress GOC on Friday. Bending Roll Hand
updated. Safe environment maintained.
[2024-10-22 12:06] LABS: Glucose - Point of Care 85 mg/dl (70-99)
[2024-10-22] MEDS: SUBLIMAZE 100 IV (12:06)
[2024-10-22] MEDS: SUBLIMAZE 50 MCG IV (15:03)
--- NOTE | 2024-10-22 15:13 | PTCARENOTE ---
Pt restless, PRN Fent bolus administered, pt coughing, suctioned for large amount thick bloody secretions, sat dropping to low 80s, slowly recovered to 86%...prop increased back to 10 mcg/kg/min, pt repositioned to right lateral recumbent position,
food processing scientist aware.
[2024-10-22] MEDS: PACERONE TUBE (15:31)
--- NOTE | 2024-10-22 15:49 | PTCARENOTE ---
Tube moved to left side, 24 at the lip. oral care provided.
[2024-10-22 16:00] VITALS: BP 118/61
[2024-10-22] MEDS: NOVOLOG FLEXPEN-MODERATE RESISTANCE SC (18:35)
[2024-10-22 18:40] LABS: Glucose - Point of Care 118 mg/dl (70-99)
--- NOTE | 2024-10-22 18:45 | PTCARENOTE ---
Starr cath placement ordered by Dr Hargrove. 16R thermistor starr cath placed with sterile technique. Initial urine output 275 ml. Pt remains on AC 18, TV 400 ml, peep 10, 100% O2, O2 sat=90%. Pt will open eyes to name, and nod appropriately to
questions when asked. Propofol remains at 50 mcg/hr and propofol at 10 mcg/kg/min.
--- NOTE | 2024-10-22 19:30 | PTCARENOTE ---
Received patient at 1900. Pt. currently intubated and sedated. Opens eyes to voice, follows simple commands. Nods appropriately. Denies pain/discomfort. Heart rhythm sinus. Blood pressure normotensive. Ventilator settings verified. Lungs sound
diminished. NG tube in place. Parson catheter in place, draining without issue. Skin as documented. Discussed plan of care with patient. Vital signs stable at this time.
[2024-10-23] VITALS: BP 108/63
--- NOTE | 2024-10-23 | PTCARENOTE ---
Pt. assessment unchanged. Remans sedated on ventilator. Fi02 100%. Pt. has episodes where oxygen saturation dips down into low 80s. Suction performed. Thick driscoll secretions. 02 saturation recovered back to low 90s. Vital signs stable at this time.
[2024-10-23] MEDS: NOVOLOG FLEXPEN-MODERATE RESISTANCE SC ×5 (00:05→23:12)
[2024-10-23] MEDS: DECADRON 4 MG IV ×4 (00:08→23:13)
[2024-10-23 00:12] LABS: Glucose - Point of Care 117 mg/dl (70-99)
[2024-10-23 03:13] LABS: Venous Blood Gas B.E. 19.4 mmol/L (-4 to +4); Venous Blood Gas HCO3 47.3 mmol/L (22-27); Venous Blood Gas O2 Sat % 91.4 %; Venous Blood Gas pCO2 65 mmHg (35-48); Venous Blood Gas pH 7.47 (7.32-7.43); Venous Blood Gas pO2 62 mmHg (30-50)
[2024-10-23 03:14] LABS: Venous Blood Gas O2 Therapy VENT
[2024-10-23 03:27] LABS: White Blood Cell Count 19.1 10^3/uL (4.8-10.8)
[2024-10-23 03:33] LABS: Blood Urea Nitrogen 45 mg/dl (9-20); Calcium 8.5 mg/dl (8.4-10.2); Chloride 90 mmol/L (98-107); Estimated Creatinine Clearance 113 ml/min; Glucose 125 mg/dl (70-99); Potassium 4.2 mmol/L (3.5-5.1); Sodium 137 mmol/L (135-145); eGFR > 60.00
[2024-10-23 03:36] LABS: Hematocrit 47.7 % (39.0-52.0); Hemoglobin 14.4 g/dL (13.0-18.0); Mean Corp Hgb Conc. 30.2 g/dL (33.0-37.0); Mean Corpuscular Hgb 25.6 pg (27.0-31.0); Mean Corpuscular Volume 84.9 fL (80.0-94.0); Mean Platelet Volume 11.5 fL (7.4-10.4); Platelet Count 134 10^3/uL (130-400); Red Blood Cell Count 5.62 10^6/uL (4.70-6.10); Red Cell Dist. Width 18.8 % (11.5-14.5)
[2024-10-23 03:53] LABS: Carbon Dioxide 42 mmol/L (22-30)
--- NOTE | 2024-10-23 04:00 | PTCARENOTE ---
Pt. assessment remains unchanged. AM labs drawn. Vital signs stable at this time.
[2024-10-23] MEDS: DIPRIVAN 100 IV ×3 (04:51→21:24)
[2024-10-23 05:25] VITALS: BMI 43.5
--- NOTE | 2024-10-23 06:37 | W.PN.HOSP.TC ---
Today's Communication/Plan
-
Chest x ray this morning
On high dose Lasix, lost weight. Blood pressure seems to tolerate diuresis
To start Tube nutrition
IV steroid , high dose
High dose IV Rocephin
f/w blood and respiratory cultures.
DVT and GI prophylaxis
High-dose amiodarone for A-fib
Assessment / Plan
Assessment / Plan
Physical Exam
General: chronically ill looking, intubated
HEENT: Normocephalic, Atraumatic, ET tube
Respiratory: Rhonchi
Cardiac: S1/S2
GI: Soft, Nontender, Nondistended and Normal Bowel Sounds;
Rectal: no bleeding
Musculoskeletal: No Cyanosis, Edema, Right Lower Extrem and Edema, Left Lower Extrem
Skin: Negative Rash
Neuro: Awake, lethargy, follows simple commands
Psych: Calm
# Acute mucus plugging with collapse of left lung and persistent hypoxia despite high flow O2 and pressurized O2 treatment
s/p Bronchoscopy and intubation on 10/21
Need high Peep & FiO2 to maintain normal O2 level
No fevers
respirator culture 10/21 is pending
Follow with blood culture
#Pulmonary edema
#Acute hypoxic and hypercapnic respiratory failure likely multifactorial pleural effusion, suspected COPD exacerbation, pulmonary edema, diastolic heart failure exacerbation, pneumonia
Failed BiPAP and NIV, now intubated, ventilatory assisted.
s/p Ceftriaxone and doxycycline
Blood cultures negative, repeat 10/22
Pleural fluid 10/14/2024-no growth
Sputum culture: Moraxella catarrhalis, respiratory culture sent on 10/21
Influenza negative
IV ceftriaxone 2 gm, to finish a course for pneumonia for total of 10 days
Bronchodilators for now.
#Acute HFpEF
Lasix 60 mg twice daily, add KCl.
No SGLT2 antagonist related to cost, avoid spironolactone related to hyperkalemia.
Monitor urinary output.
Daily weights
ECHO normal left ventricular size and function with mild to moderate LVH. EF 55 to 60%. Grade 1 diastolic dysfunction. Dilated hypokinetic right ventricle with sparing of the apex. No significant valvular disease. PASP of 50-55. IVC is dilated
and does not collapse.
trop flat.
proBNP elevated at 4200
Elevated D-dimer.
CT chest which was negative for pulmonary embolism. lower extremity Doppler negative
Cardiology evaluation
#Right pleural effusion exudative
CT chest with significant pleural effusion
[facility] consulted for thoracentesis status post 200 cc of fluid removal.
Fluid culture remains negative.
Cytology atypical cells, favor reactive.
# Moraxella catarrhalis pneumonia
Continue with ceftriaxone
Repeat culture
# New onset of atrial fibrillation with rapid ventricular response
hep gtt stopped and switched to DOAC
Remains on amiodarone. Gtt discontinued and switch to 200mg PO TID loading dose, cardiology adjusted doses, now on Amiodarone only, Coreg was stopped.
Continue to monitor on telemetry. Remains tachycardic.
#Hyperkalemia
improved with aggressive diuresis
#Transaminitis likely secondary hepatic congestion
Improving
#Primary hypertension
Avoid AMANDA or ARB in the setting of hyperkalemia for now
Monitor blood pressure with diuresis
# Borderline Diabetes mellitus type 2
A1c of 6.8
Started insulin sliding scale and Accu-Cheks
Not needing insulin
Encourage weight loss and diet compliance.
# tobacco abuse
Does not follow-up with pharmacy laboratory technician
NicoDerm
#Morbid obesity due to excess calories
# Obesity BMP >40
Affects all aspects of medical care
Recommend weight loss after resolution of acute disease process
#Peripheral arterial disease
# Medical Noncompliance
Mild thrombocytopenia
Continue to monitor platelets
Sacra; skin stage I versus DTI
Wound care
DVT prophylaxis Eliquis
Full code
Total time spent to see the patient, examine the patient, review data and lab results, discuss treatment plan with pulmonary nursing staff around 55 minutes
Anticipated Discharge: > 48 hours
Subjective/Interval History
-
Date of Service: October 23, 2024
Afebrile over night
No hypotension
Objective Data
-
Labs:
Laboratory Results
10/23/24
03:04
WBC 19.1 H
Hgb 14.4
Hct 47.7
Plt Count 134
Sodium 137
Potassium 4.2
Chloride 90 L
Carbon Dioxide 42 H
BUN 45 H
Creatinine 0.8
Glucose 125 H
Calcium 8.5
Vital Signs:
Vital Signs
Temp Pulse Resp BP Pulse Ox
98.3 F 85 19 108/63 87
10/23/24 03:24 10/23/24 06:00 10/23/24 06:00 10/23/24 00:00 10/23/24 06:00
I&O
10/21/24 10/22/24 10/23/24
06:59 06:59 06:59
Intake Total 220 / 220 286 / 308 765.3 / 765.3
Output Total 850 / 850 1150 / 1150 1385 / 1385
Balance -630 / -630 -864 / -842 -619.7 / -619.7
[2024-10-23] MEDS: DUONEB 3 ML INH ×3 (07:21→19:28)
[2024-10-23 07:40] VITALS: BP 145/70
[2024-10-23] MEDS: DESENEX/MITRAZOL/ZEASORB 1 APPLIC TOPICAL ×2 (07:42→19:30)
[2024-10-23] MEDS: HYDROPHOR 1 APPLIC TOPICAL (07:43)
[2024-10-23] MEDS: ELIQUIS 5 MG TUBE ×2 (07:43→19:27)
[2024-10-23] MEDS: LASIX 60 MG IV ×2 (07:44→15:09)
[2024-10-23] MEDS: MIRALAX 17 GRAMS TUBE (07:45)
[2024-10-23] MEDS: NICODERM TRANSDERMAL 14 MG TRANSDERM (07:45)
[2024-10-23] MEDS: PACERONE 200 MG TUBE ×3 (07:45→21:24)
[2024-10-23] MEDS: PROTONIX IV 40 MG IV (07:46)
[2024-10-23] MEDS: NSS (PRESERVATIVE FREE) 10 ML IV (07:46)
[2024-10-23] MEDS: SUBLIMAZE 50 MCG IV (07:46)
[2024-10-23 08:00] VITALS: BP 152/78
--- NOTE | 2024-10-23 08:10 | W.PN.INTV ---
Today's Communication / Plan
Recommendations
Mechanical ventilation
DuoNebs
Lightly sedate with goal RASS 0 to -2
Starting Coreg given possible Takotsubo's cardiomyopathy seen on echo from 10/14/2024
Start sport bed CPT
Continue IV diuresis, cards following
s/p course of ABx
May need to add Zaroxolyn
Continue IV steroid
Bronch wash pending (NGTD)
Continue as is, follow up discussions with family if not significant improvement noted
Patient is critically ill
Assessment
-
74 year old M with past medical history of COPD, current smoker, noncompliance with outpatient followup presenting from home to ER with complaints of acute on chronic shortness of breath. Patient reports chronic shortness of breath for the past
1 year, acutely worsening the past few days. There is also notation of worsening lower extremity edema, orthopnea, elevated BP at home. EMS reported patient was severely hypoxemic on initial evaluation and received nitroglycerin x 2. Patient was
placed on BiPAP in the ER. Imaging showing effusion, proBNP >4000, 3+ pitting LE edema. Admitted to IMU. We are consulted for evaluation.
Acute HFpEF exacerbation with orthopnea/LE edema on NIV
s/p intubation 10/21/24
Acute hypoxic and hypercapnic respiratory failure
Moderate pleural effusions s/p R-sided thora 10/14/24 (transudative)
SOB
Leukocytosis
Suspected CHRISTY/OHS
Noncompliance
Thrombocytopenia
Profoundly weak, likely severe deconditioning
Moraxella in sputum Cx from 10/15/2024
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
COPD-refuses outpatient pulmonary follow-up and PFTs
Current smoker- 1 pack a day for 40+ years-cut down to 1/2 pack
Hypertension
Morbid obesity due to excess calories
Peripheral arterial disease
Lumbar spinal stenosis s/p surgery 2018
s/p R cataract IOL and trabeculectomy 2014
Plan
Sedated/intubated
Now on propofol, fent, wean as tolerated
RASS goal 0 to -2
Atrial fibrillation rate control - currently in NSR as of 10/23/2024
Echocardiogram noted 10/14/2024-EF 55-60%, will grade 1 diastolic dysfunction, hypokinetic right ventricle with apical sparing (?Takotsubo's cardiomyopathy), no significant valvular disease, PA systolic 50-55
Cardiology following-correspondence reviewed
Amiodarone/Eliquis PO continued
Diuresis continues as tolerated--IV continued on IV lasix 60mg BID; may need additional diuresis with Zaroxolyn
Given his echo findings with possible Takotsubo's cardiomyopathy, I discussed this case today with Dr. Nabor Loredo, and we will restart beta-ekaterina
s/p Intubation 10/21/24 due to worsening hypoxemia, WOB
CXR with total L sided atelectasis, emergent bronch on 10/21/2024 with small mucus, lavaged and suctioned, mostly L sided atelectasis
Repositioned to R side down, sats improved
Desats with turning, positionally dependent
Nebulizers-DuoNebs continue
Start chest PT with sport bed
Added IV steroids on 10/22/2024 with IV decadron 4mg q8hr
NPO, DHT in place
TFs order per RD placed
Aspiration precautions
Cultures reviewed
Blood cultures negative
Pleural fluid 10/14/2024-no growth
Sputum culture 10/15/2024- +Moraxella, completed Doxy/rocephin (10/15 - 10/19/2024), then got rocephin again 10/21-10/22 (resumed on CTX following clinical change)
Bronch culture resent 10/21, NGTD
Influenza negative
Empiric ceftriaxone and doxycycline-finished course for pneumonia
Follow leukocytosis-Remains elevated
Monitor for fevers
Monitor renal function, electrolytes, intake/output, lower extremity edema and weight
Replace electrolytes as needed
Lower extremity ultrasound 10/15/2014-no evidence for DVT bilaterally
DVT ppx, Eliquis
Smoking cessation counseling ongoing
Nicotine patch
DVT prophylaxis-on Eliquis
Eventual physical therapy evaluation
[facility] services will continue to follow along. Patient remains critically ill.
Family Discussions
Obi 10/19/24- spoke to family again at bedside, they confirmed intubation but he would not want prolongation
Obi 10/18/24- spoke with at bedside regarding code status and she notes that he would not want to be prolonged or undergo tracheostomy but would want intubation is that would help him recover
Remains full code
Dr. Bolanos reviewed in detail with at the bedside 10/15/2024 and 10/16/2024- states does not take care of himself, does not seek medical attention, and they have been nagging him to get medical attention since Thanksgiving
Goals of care discussion ongoing
Diagnostic Data
CXR 10/15/24- 1. Right PICC tip projects over the cavoatrial junction. 2. Mild pulmonary vascular congestion. 3. Suspected bilateral pleural effusions. Bibasilar airspace disease may also be present.
CXR 10/13/24- CHF and small to moderate right pleural effusion with adjacent atelectasis.
Chest x-ray 02/03/15- No active pulmonary disease. Slightly prominent left hilum most likely representing overlapping normal vascularity. Left hilar mass/lymphadenopathy cannot be entirely excluded. Recommend comparison with any prior outside study
to assess stability.
CT CHEST 10/14/24- No findings to suggest CENTRAL pulmonary embolism. Unfortunately, evaluation for more peripheral pulmonary embolism particularly in the lower lobes bilaterally limited by bilateral lower lobe consolidations and pleural effusions,
right greater than left as well as motion/respiration artifact.. Small suggesting 'filling defect' arterial in the left lower lobe most likely represents a branching vessel and does not pulmonary embolism, although cannot be excluded.
ECHO 10/14/24- Normal left ventricular size and systolic function with mild to moderate concentric left ventricular hypertrophy Left ventricular ejection fraction visually estimated 55-60% Grade 1 diastolic dysfunction Dilated, hypokinetic right
ventricle with sparing of the apex Mild right atrial dilatation No significant valvular disease. Estimated pulmonary artery pressure of 50-55 mmHg. Assuming a right atrial pressure of 15 mmHg. The IVC is dilated and does not collapse Prominent
anterior fat pad present. No pericardial effusion. No pleural effusion present. No prior study available for comparison
Reports and relevant images were personally reviewed.
Critical care statement: A total of 38 minutes of critical care time was provided for this patient today. This includes management of unstable vital signs, evaluation of the patient at bedside, reviewing the patient's pertinent medical records
including radiographs, microbiology, laboratory evaluations, and discussion with primary team, consultants, pharmacy, nutrition, physical therapy, case management, charge nurse, critical care nursing, and respiratory therapy.
Subjective Dataa
Subjective Data
Date of Service:
Date of Service: October 23, 2024
Chief Complaint: [facility] Follow Up and Pulmonary Follow Up
Subjective:
Patient seen and evaluated today at bedside. Remains intubated on AC/CMV at 18/400/80%/10, with peak pressure [id number], VTe 474 cc and breathing at 18 breaths/minute. He is sedated on propofol at 10mcg/kg/hr and fentanyl 50mcg/hr and on tube feeds
at 20 cc/hour. He easily awakens and is following all commands, in no acute distress. Denies chest pain or abdominal pain. Heart rate 81, BP (A-line): 137/59, BP (NIBP): 152/78, SpO2: 91%, ETCO2: 47.
Review of Systems
General: Other (Negative unless mentioned above)
Objective Data
Data Reviewed
Vital Signs / I&O / Oxygen:
Vital Signs
Temp Pulse Resp BP Pulse Ox
98.3 F 85 18 152/78 96
10/23/24 07:00 10/23/24 09:00 10/23/24 09:00 10/23/24 08:00 10/23/24 09:00
Intake and Output
10/22/24 10/23/24 10/24/24
06:59 06:59 06:59
Intake Total 286 / 308 765.3 / 765.3
Output Total 1150 / 1150 1385 / 1385
Balance -864 / -842 -619.7 / -619.7
SaO2 [A/C] 89
SaO2 [NIV (Non Invasive 90
Ventilation)]
SaO2 96
Nasal Cannula flow liters per 50
minute
Physical Exam
General: Respiratory Distress (negative), Comfortable, Chills (negative), Sweats (negative) and Other (morbid obesity)
HEENT: Normocephalic, Anicteric and Moist Mucous Membranes
Cardiovascular: S1-S2, Rub (negative) and Peripheral Edema (4+ bilateral pitting edema in lower extremities)
Respiratory: Wheeze (negative), Crackles (Bilaterally), Rhonchi (negative), Non-Labored Respirations, Accessory Resp Muscle Use (n), Stridor (n) and ET Tube (Mechanical breath sounds heard bilaterally)
GI: Soft, Distended (Abdominal obesity), Non Tender and Normal Bowel Sounds
Neurology: Tremors (negative) and Other (Sedated but easily arousable and following all commands)
Skin: Warm, Dry, Cyanosis (n), Jaundice (n) and Rash (n)
Labs/Micro/Reports
Lab Data
10/23/24 03:04
10/23/24 03:04
Microbiology
10/21/24 20:11 Bronch Washing Respiratory Culture - Final
10/21/24 20:11 Bronch Washing Gram Stain - Final
--- NOTE | 2024-10-23 10:21 | W.PN.CARDCBS ---
Addendum entered and electronically signed by Zain Loredo DO 10/23/24 10:57:
Discussed case with Dr. Otero. Patient has RV dysfunction present on echocardiogram with apical sparing at initial presentation as well as pulmonary hypertension with PASP 50 to 55 mmHg. Patient is improving while on ventilator with decreasing
FiO2 requirements and stable diuresis. Additionally, patient hypertensive on monitor. We discussed options for initiation of goal-directed medical therapy not only to help with hypertension but possible RV dysfunction. Patient currently unable to
take AMANDA/ARB due to hyperkalemia present on admission and also Aldactone to be avoided for similar reason. Plan for reassessment of SGLT2 with case management for pricing as patient may need this going forward. For now, we will start low-dose
beta-ekaterina (carvedilol 3.125 twice daily) and monitor response. This had previously been stopped out of concern for respiratory function however respiratory function unchanged with and without carvedilol. In discussion with Dr. Otero, he
agrees that carvedilol a reasonable option to start. If change in respiratory status while on beta-ekaterina therapy, promptly discontinue. Continue IV diuresis, vent management per pulmonology. Remaining assessment and plan as below.
Original Note:
Today's Communication / Plan
-
Continue IV diuresis Lasix 60 mg IV twice daily, appropriate urine output roughly 1 L output over last 24 hours
BUN/creatinine stable, monitor and replete electrolytes
May benefit from compression hose for lower extremities while immobile
Impression / Plan
-
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
Assessment:
Acute hypoxic respiratory failure, on BIPAP, now intubated (10/21) 2/2 worsening hypoxia
Presentation with SOB
Acute HFpEF
Paroxysmal atrial fibrillation, converted to sinus rhythm on amiodarone
Leukocytosis
Hyperkalemia
Elevated LFTs, concern for passive congestion
COPD, possibly acute on chronic
Ongoing tobacco use
Morbid obesity
ECHO 10/14/24: EF 55 to 60%, mild to moderate concentric LVH, grade 1 diastolic dysfunction, dilated hypokinetic RV with sparing of apex, PAP 50 to 55 mmHg, IVC dilated and does not collapse, prominent anterior fat pad
Plan:
Elective intubation on 10/21 due to hypoxia; requiring high PEEP and O2
Suspect hypoxia is more so related to COPD, but there is a component of HFpEF with increased volume which is difficult to assess
Continue IV diuresis. Will increase lasix to 60mg IV BID and follow; creatinine stable at 0.8, can consider additional IV diuretic therapy. Good urine output despite flat wt on bedscale. Monitor Cr which is improving/stable suggestive of cardiorenal
syndrome; BNP downtrending 4000 -> 2000 showing improvement with diuresis; roughly 1 L 24-hour urine output via [place]
No SGLT2 antagonist related to cost
Avoid spironolactone related to hyperkalemia which was POA
No further A-fib
Continue amiodarone, has received oral 3000mg 10/21 total; on 200 mg TID via NGT
Continue apixaban
Coreg stopped given underlying lung disease
Prn medications for BP elevation noted. currently stable
d/w nursing, Dr Hargrove.
Clinical summary:74-year-old man with COPD and ongoing tobacco abuse, morbid obesity, no recent medical contacts presenting with dyspnea and evidence of heart failure/pulmonary edema, proBNP 4200. Echo with preserved LVEF, hypokinetic right
ventricle with sparing of the apex, pulmonary artery systolic pressure 50-[address] scan shows elevated right hemidiaphragm and bilateral lower lobe consolidation with pleural effusions and no evidence of obvious pulmonary emboli. Onset of
atrial fibrillation October 15.
Progress Note - Hotel Sales Manager
Subjective
Date of Service: October 23, 2024
Patient seen and examined. No acute events overnight. Patient intubated, sedated, on mechanical ventilation. 958 cc output over last 24 hours. Telemetry sinus rhythm no AF. Afebrile overnight.
Objective
Labs:
10/23/24 03:04
10/23/24 03:04
Labs
Hgb 14.4 g/dL (13.0-18.0) 10/23/24 03:04
Hct 47.7 % (39.0-52.0) 10/23/24 03:04
Plt Count 134 10^3/uL (130-400) 10/23/24 03:04
APTT Cancelled 10/16/24 12:30
Sodium 137 mmol/L (135-145) 10/23/24 03:04
Potassium 4.2 mmol/L (3.5-5.1) 10/23/24 03:04
BUN 45 mg/dl (9-20) H 10/23/24 03:04
Creatinine 0.8 mg/dL (0.7-1.3) 10/23/24 03:04
Glucose 125 mg/dl (70-99) H 10/23/24 03:04
Vital Signs and I&O:
Vital Signs
Temp Pulse Resp BP Pulse Ox
98.3 F 86 18 152/78 97
10/23/24 07:00 10/23/24 09:30 10/23/24 09:30 10/23/24 08:00 10/23/24 09:30
Vital Signs
Temp Pulse Resp BP Pulse Ox
98.3 F 86 18 152/78 97
10/23/24 07:00 10/23/24 09:30 10/23/24 09:30 10/23/24 08:00 10/23/24 09:30
Intake & Output
10/21/24 10/22/24 10/23/24 10/24/24
06:59 06:59 06:59 06:59
Intake Total 220 / 220 286 / 308 765.3 / 778.8 240.5 / 240.5
Output Total 850 / 850 1150 / 1150 1385 / 1445 320 / 320
Balance -630 / -630 -864 / -842 -619.7 / -666.2 -79.5 / -79.5
Physical Exam
Physical Exam
GENERAL: Ill-appearing, intubated, sedated
EYE: sclera anicteric
NECK: Supple, no JVD appreciated (difficult to assess due to neck mass), no carotid bruit appreciated
ENT: normal nose, dry mucosal membranes
CARDIAC: Distant heart sounds, regular rate and rhythm, +S1/S2, no murmur, rubs, or gallops
CHEST/PULMONARY: Normal effort, coarse mechanical breath sounds
ABDOMEN: Soft, without focal tenderness or distention
NEUROLOGICAL: Sedated on mechanical ventilation
SKIN: Warm and dry, no rash, 3+ pitting edema bilaterally, right greater than left
PSYCH: Sedated on mechanical ventilation
[2024-10-23] MEDS: SUBLIMAZE 100 IV (10:33)
[2024-10-23] MEDS: ROCEPHIN 2000 MG IV (11:48)
[2024-10-23] MEDS: STERILE WATER FOR INJECTION 20 ML IV (11:48)
[2024-10-23 11:54] LABS: Glucose - Point of Care 114 mg/dl (70-99)
[2024-10-23 12:00] VITALS: BP 139/69
--- NOTE | 2024-10-23 12:48 | PTCARENOTE ---
Systems reviewed. Pt having intermittent agitation, r/t not being able to eat or drink. Denies pain, follows commands. Nods Y/N appropriately. Otherwise please see worklist.
[2024-10-23 16:00] VITALS: BP 136/72
--- NOTE | 2024-10-23 16:32 | PTCARENOTE ---
Systems reviewed. No new changes. updated by myself and Dr Otero. Percussion done and tolerated well.
[2024-10-23 17:37] LABS: Glucose - Point of Care 121 mg/dl (70-99)
[2024-10-23] MEDS: COREG 3.125 MG PO (19:27)
[2024-10-23 20:00] VITALS: BP 120/59
[2024-10-23 23:23] LABS: Glucose - Point of Care 146 mg/dl (70-99)
[2024-10-24] VITALS (8 sets, daily range): BP systolic 119–136; BP diastolic 60–77; BMI 43.4
--- NOTE | 2024-10-24 | PTCARENOTE ---
Pt. assessment unchanged. Appears to be sleeping comfortably. Vital signs stable at this time.
[2024-10-24] MEDS: DIPRIVAN 100 IV ×2 (04:10→21:38)
--- NOTE | 2024-10-24 04:30 | PTCARENOTE ---
Pt. assessment remains unchanged. AM labs drawn. Vital signs stable at this time.
[2024-10-24 04:32] LABS: B.E. 21.1 mmol/L; O2 Saturation % 96.2 % (94-98); PCO2 64 mmHg (35-48); PO2 73 mmHg (83-108); pH 7.49 (7.35-7.45)
[2024-10-24 04:33] LABS: O2 Therapy VENT
[2024-10-24 04:34] LABS: HCO3 48.8 mmol/L (21-28)
[2024-10-24 04:51] LABS: Hematocrit 47.5 % (39.0-52.0); Hemoglobin 14.2 g/dL (13.0-18.0); Mean Corp Hgb Conc. 29.9 g/dL (33.0-37.0); Mean Corpuscular Hgb 25.2 pg (27.0-31.0); Mean Corpuscular Volume 84.2 fL (80.0-94.0); Mean Platelet Volume 12.3 fL (7.4-10.4); Platelet Count 148 10^3/uL (130-400); Red Blood Cell Count 5.64 10^6/uL (4.70-6.10); White Blood Cell Count 19.7 10^3/uL (4.8-10.8)
[2024-10-24 05:06] LABS: Blood Urea Nitrogen 55 mg/dl (9-20); Calcium 8.5 mg/dl (8.4-10.2); Chloride 91 mmol/L (98-107); Estimated Creatinine Clearance 113 ml/min; Glucose 152 mg/dl (70-99); Potassium 4.1 mmol/L (3.5-5.1); Sodium 137 mmol/L (135-145); Triglycerides 116 mg/dl (10-149); eGFR > 60.00
[2024-10-24 05:17] LABS: Carbon Dioxide 38 mmol/L (22-30)
[2024-10-24] MEDS: NOVOLOG FLEXPEN-MODERATE RESISTANCE 1 UNITS SC ×2 (05:35→23:18)
--- NOTE | 2024-10-24 06:41 | W.PN.HOSP.TC ---
Today's Communication/Plan
-
c/w diuretic therapy
Coreg was re-started, agree
Eliquis
Nutrition with tube feeding
FiO2 70%
Assessment / Plan
Assessment / Plan
Physical Exam
General: chronically ill looking, intubated
HEENT: Normocephalic, Atraumatic, ET tube
Respiratory: Rhonchi
Cardiac: S1/S2
GI: Soft, Nontender, Nondistended and Normal Bowel Sounds;
Rectal: no bleeding
Musculoskeletal: No Cyanosis, Edema, Right Lower Extrem and Edema, Left Lower Extrem
Skin: Negative Rash
Neuro: Awake, lethargy, follows simple commands
Psych: Calm
# Acute mucus plugging with collapse of left lung and persistent hypoxia despite high flow O2 and pressurized O2 treatment
s/p Bronchoscopy and intubation on 10/21
Need high Peep & FiO2 to maintain normal O2 level
No fevers
respirator culture 10/21 no growth
Neegative blood culture
#Pulmonary edema
#Acute hypoxic and hypercapnic respiratory failure likely multifactorial pleural effusion, suspected COPD exacerbation, pulmonary edema, diastolic heart failure exacerbation, pneumonia
Failed BiPAP and NIV, now intubated, ventilatory assisted.
s/p Ceftriaxone and doxycycline. IV ceftriaxone 2 gm, to finish a course for pneumonia for total of 10 days
Blood cultures negative, repeat 10/22
Pleural fluid 10/14/2024-no growth
Sputum culture: Moraxella catarrhalis, respiratory culture sent on 10/21
Influenza negative
Bronchodilators for now.
#Acute HFpEF
Lasix 80 mg twice daily, add KCl.
No SGLT2 antagonist related to cost, avoid spironolactone related to hyperkalemia.
Monitor urinary output.
Daily weights
ECHO normal left ventricular size and function with mild to moderate LVH. EF 55 to 60%. Grade 1 diastolic dysfunction. Dilated hypokinetic right ventricle with sparing of the apex. No significant valvular disease. PASP of 50-55. IVC is dilated
and does not collapse.
trop flat.
proBNP elevated at 4200
Elevated D-dimer.
CT chest which was negative for pulmonary embolism. lower extremity Doppler negative
Cardiology evaluation
#Right pleural effusion exudative
CT chest with significant pleural effusion
[facility] consulted for thoracentesis status post 200 cc of fluid removal.
Fluid culture remains negative.
Cytology atypical cells, favor reactive.
# Moraxella catarrhalis pneumonia
Continue with ceftriaxone ( ordered)
Repeat culture no growth
# New onset of atrial fibrillation with rapid ventricular response
hep gtt stopped and switched to DOAC
Remains on amiodarone. Gtt discontinued and switch to 200mg PO TID loading dose, cardiology adjusted doses, now on Amiodarone only, Coreg was stopped then started back again.
#Hyperkalemia
improved with aggressive diuresis
#Transaminitis likely secondary hepatic congestion
Improving
#Primary hypertension
Avoid AMANDA or ARB in the setting of hyperkalemia for now
Monitor blood pressure with diuresis
# Borderline Diabetes mellitus type 2
A1c of 6.8
Started insulin sliding scale and Accu-Cheks
Not needing insulin
Encourage weight loss and diet compliance.
# tobacco abuse
Does not follow-up with coordinator hotels
NicoDerm
#Morbid obesity due to excess calories
# Obesity BMP >40
Affects all aspects of medical care
Recommend weight loss after resolution of acute disease process
#Peripheral arterial disease
# Medical Noncompliance
Mild thrombocytopenia
Continue to monitor platelets
Sacra; skin stage I versus DTI
Wound care
DVT prophylaxis Eliquis
Full code
Total time spent to see the patient, examine the patient, review data and lab results, discuss treatment plan with pulmonary nursing staff around 55 minutes
Anticipated Discharge: > 48 hours
Subjective/Interval History
-
Date of Service: October 24, 2024
No hypotension
No fevers
Objective Data
-
Labs:
Laboratory Results
10/24/24
04:23
WBC 19.7 H
Hgb 14.2
Hct 47.5
Plt Count 148
HCO3 48.8 H*
Sodium 137
Potassium 4.1
Chloride 91 L
Carbon Dioxide 38 H
BUN 55 H
Creatinine 0.8
Glucose 152 H
Calcium 8.5
Vital Signs:
Vital Signs
Temp Pulse Resp BP Pulse Ox
98.5 F 63 18 125/73 95
10/23/24 19:54 10/24/24 06:00 10/24/24 06:00 10/24/24 04:00 10/24/24 06:00
I&O
10/22/24 10/23/24 10/24/24
06:59 06:59 06:59
Intake Total 286 / 308 765.3 / 778.8 1910.6 / 1910.6
Output Total 1150 / 1150 1385 / 1445 1765 / 1765
Balance -864 / -842 -619.7 / -666.2 145.6 / 145.6
[2024-10-24] MEDS: DECADRON 4 MG IV ×2 (07:47→19:44)
[2024-10-24] MEDS: COREG 3.125 MG PO ×2 (07:47→19:43)
[2024-10-24] MEDS: DESENEX/MITRAZOL/ZEASORB 1 APPLIC TOPICAL ×2 (07:48→19:44)
[2024-10-24] MEDS: ELIQUIS 5 MG TUBE ×2 (07:48→19:43)
[2024-10-24] MEDS: HYDROPHOR 1 APPLIC TOPICAL (07:48)
[2024-10-24] MEDS: MIRALAX 17 GRAMS TUBE (07:49)
[2024-10-24] MEDS: LASIX 60 MG IV (07:49)
[2024-10-24] MEDS: NICODERM TRANSDERMAL 14 MG TRANSDERM (07:49)
[2024-10-24] MEDS: PROTONIX IV 40 MG IV (07:50)
[2024-10-24] MEDS: PACERONE 200 MG TUBE ×3 (07:50→21:36)
[2024-10-24] MEDS: DUONEB 3 ML INH ×3 (07:52→19:47)
[2024-10-24] MEDS: NSS (PRESERVATIVE FREE) 10 ML IV (07:52)
--- NOTE | 2024-10-24 08:01 | W.PN.INTV ---
Today's Communication / Plan
Recommendations
Mechanical ventilation --> mode changed to ASV and his FiO2 as improved today to 50%
Hopefully can liberate him from the fly in the next 48-72 hrs
DuoNebs
Lightly sedate with goal RASS 0 to -2
Continue Coreg given possible Takotsubo's cardiomyopathy seen on echo from 10/14/2024
Continue sport bed CPT
Continue IV diuresis, cards following
May need to add Zaroxolyn depending on CXR tomorrow
s/p course of ABx and back on rocephin --> would only give short course
Continue IV steroids --> start weaning down today
Bronch wash shows NGTD
Patient is critically ill - remains full code; he will have a long uphill road ahead of him if he is extubated, and will almost certainly require at least subacute rehab, possibly SNF
Assessment
-
74 year old M with past medical history of COPD, current smoker, noncompliance with outpatient followup presenting from home to ER with complaints of acute on chronic shortness of breath. Patient reports chronic shortness of breath for the past
1 year, acutely worsening the past few days. There is also notation of worsening lower extremity edema, orthopnea, elevated BP at home. EMS reported patient was severely hypoxemic on initial evaluation and received nitroglycerin x 2. Patient was
placed on BiPAP in the ER. Imaging showing effusion, proBNP >4000, 3+ pitting LE edema. Admitted to IMU. We are consulted for evaluation.
Acute HFpEF exacerbation with orthopnea/LE edema on NIV
s/p intubation 10/21/24
Acute hypoxic and hypercapnic respiratory failure
Moderate pleural effusions s/p R-sided thora 10/14/24 (transudative)
SOB
Leukocytosis
Suspected CHRISTY/OHS (Noncompliant)
Thrombocytopenia
Profoundly weak, likely severe deconditioning
Moraxella in sputum Cx from 10/15/2024
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
COPD-refuses outpatient pulmonary follow-up and PFTs
Current smoker- 1 pack a day for 40+ years-cut down to 1/2 pack
Hypertension
Morbid obesity due to excess calories
Peripheral arterial disease
Lumbar spinal stenosis s/p surgery 2018
s/p R cataract IOL and trabeculectomy 2014
Plan
Sedated/intubated
Now off propofol, remains on fentanyl gtt at low dose (25mcg/hr), wean as tolerated to keep goal RASS goal 0 to -2
Atrial fibrillation rate control - currently in NSR as of 10/23/2024
Echocardiogram noted 10/14/2024-EF 55-60%, grade 1 diastolic dysfunction, hypokinetic right ventricle with apical sparing (?Takotsubo's cardiomyopathy), no significant valvular disease, PA systolic 50-55
Cardiology following-correspondence reviewed
Amiodarone/Eliquis PO continued
Diuresis continues as tolerated--today (10/24/2024) lasix changed from 60mg IV BID to 80mg BID; may need additional diuresis with Zaroxolyn
Given his echo findings with possible Takotsubo's cardiomyopathy, I discussed this case on 10/[address] Nabor Loredo, and we resumed Coreg - will increase dose as tolerated
s/p Intubation 10/21/24 due to worsening hypoxemia, WOB
CXR with total L sided atelectasis, emergent bronch on 10/21/2024 with small mucus, lavaged and suctioned, mostly L sided atelectasis
Repositioned to R side down, sats improved
Desats with turning, positionally dependent
Nebulizers-DuoNebs continue
On 10/23 we started chest PT with sport bed
Added IV steroids on 10/22/2024 with IV decadron 4mg q8hr --> will start weaning now to 4mg IV q12hr
NPO, DHT in place
TFs order per RD placed
Aspiration precautions
Cultures reviewed
Blood cultures negative
Pleural fluid 10/14/2024-no growth
Sputum culture 10/15/2024- +Moraxella, completed Doxy/rocephin (10/15 - 10/19/2024), then rocephin resumed on 10/21 following clinical change --> would stop after next 24-48 hrs assuming he remains afebrile
Bronch culture resent 10/21, NGTD
Influenza negative
Follow leukocytosis-Remains elevated
Monitor for fevers
Monitor renal function, electrolytes, intake/output, lower extremity edema and weight
Replace electrolytes as needed
Lower extremity ultrasound 10/15/2014-no evidence for DVT bilaterally
DVT ppx, Eliquis
Smoking cessation counseling ongoing
Nicotine patch
DVT prophylaxis-on Eliquis
Eventual physical therapy evaluation
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 Patient remains critically ill.
Family Discussions
Obi 10/19/24- spoke to family again at bedside, they confirmed intubation but he would not want prolongation
Obi 10/18/24- spoke with at bedside regarding code status and she notes that he would not want to be prolonged or undergo tracheostomy but would want intubation is that would help him recover
Remains full code
Dr. Bolanos reviewed in detail with at the bedside 10/15/2024 and 10/16/2024- states does not take care of himself, does not seek medical attention, and they have been nagging him to get medical attention since Thanksgiving
Goals of care discussion ongoing
Diagnostic Data
CXR 10/15/24- 1. Right PICC tip projects over the cavoatrial junction. 2. Mild pulmonary vascular congestion. 3. Suspected bilateral pleural effusions. Bibasilar airspace disease may also be present.
CXR 10/13/24- CHF and small to moderate right pleural effusion with adjacent atelectasis.
Chest x-ray 02/03/15- No active pulmonary disease. Slightly prominent left hilum most likely representing overlapping normal vascularity. Left hilar mass/lymphadenopathy cannot be entirely excluded. Recommend comparison with any prior outside study
to assess stability.
CT CHEST 10/14/24- No findings to suggest CENTRAL pulmonary embolism. Unfortunately, evaluation for more peripheral pulmonary embolism particularly in the lower lobes bilaterally limited by bilateral lower lobe consolidations and pleural effusions,
right greater than left as well as motion/respiration artifact.. Small suggesting 'filling defect' arterial in the left lower lobe most likely represents a branching vessel and does not pulmonary embolism, although cannot be excluded.
ECHO 10/14/24- Normal left ventricular size and systolic function with mild to moderate concentric left ventricular hypertrophy Left ventricular ejection fraction visually estimated 55-60% Grade 1 diastolic dysfunction Dilated, hypokinetic right
ventricle with sparing of the apex Mild right atrial dilatation No significant valvular disease. Estimated pulmonary artery pressure of 50-55 mmHg. Assuming a right atrial pressure of 15 mmHg. The IVC is dilated and does not collapse Prominent
anterior fat pad present. No pericardial effusion. No pleural effusion present. No prior study available for comparison
Reports and relevant images were personally reviewed.
Critical care statement: A total of 41 minutes of critical care time was provided for this patient today. This includes management of unstable vital signs, evaluation of the patient at bedside, reviewing the patient's pertinent medical records
including radiographs, microbiology, laboratory evaluations, and discussion with primary team, consultants, pharmacy, nutrition, physical therapy, case management, charge nurse, critical care nursing, and respiratory therapy.
Subjective Dataa
Subjective Data
Date of Service:
Date of Service: October 24, 2024
Chief Complaint: Floor Mechanic Follow Up and Pulmonary Follow Up
Subjective:
Pt was seen this AM - at bedside. All questions were answered. He remains intubated - vent mode changed to ASV 110% with PEEP remaining at 10, and FiO2 down to 50%. He is saturating 94% with HR 69, and BP 123/53 via A-line (135/72 via NIBP).
EtCO2 is 39, PIP: 60dnP7L, VTe 413mL and breathing at 26 breaths/min. He is sedated on fentanyl gtt at 25 mcg/hr, although still awake and following all commands, and is calm. On TF at 75 cc/hr. He denies chest pain, abd pain, or PELAEZ.
Review of Systems
General: Other (negative unless mentioned above)
Objective Data
Data Reviewed
Vital Signs / I&O / Oxygen:
Vital Signs
Temp Pulse Resp BP Pulse Ox
97.4 F 75 16 135/72 89
10/24/24 07:37 10/24/24 10:47 10/24/24 10:47 10/24/24 08:00 10/24/24 10:47
Intake and Output
10/23/24 10/24/24 10/25/24
06:59 06:59 06:59
Intake Total 765.3 / 778.8 1910.6 / 2009.1 627.0 / 627.0
Output Total 1385 / 1445 1765 / 1815 535 / 535
Balance -619.7 / -666.2 145.6 / 194.1 92.0 / 92.0
SaO2 [A/C] 96
SaO2 [NIV (Non Invasive 90
Ventilation)]
SaO2 89
Nasal Cannula flow liters per 50
minute
Physical Exam
General: Respiratory Distress (negative), Comfortable, Chills (negative), Sweats (negative) and Other (morbid obesity)
HEENT: Normocephalic, Anicteric, Moist Mucous Membranes and Other (Thick neck)
Cardiovascular: S1-S2, Rub (negative) and Peripheral Edema (+3 bilateral pitting edema in lower extremities)
Respiratory: Wheeze (negative), Crackles (Bilaterally), Rhonchi (negative), Non-Labored Respirations, Accessory Resp Muscle Use (n), Stridor (n) and ET Tube (Mechanical breath sounds heard bilaterally)
GI: Soft, Distended (Abdominal obesity), Non Tender and Normal Bowel Sounds
Neurology: Awake, Alert, Tremors (negative) and Other (On sedaton, sleepy at times but easily arousable and following all commands)
Skin: Warm, Dry, Cyanosis (n), Jaundice (n) and Rash (n)
Labs/Micro/Reports
Lab Data
10/24/24 04:23
10/24/24 04:23
Laboratory Results
10/24/24
04:23
pH 7.49 H
pCO2 64 H
pO2 73 L
HCO3 48.8 H*
O2 Delivery Level Vent
Microbiology
10/22/24 13:25 Blood/Venous Blood Culture - Preliminary
No Growth in 24 hours- Final report to follow
10/21/24 20:11 Bronch Washing Respiratory Culture - Final
10/21/24 20:11 Bronch Washing Gram Stain - Final
--- NOTE | 2024-10-24 08:50 | W.PN.CARDCBS ---
Today's Communication / Plan
-
Increase Lasix 80 mg twice daily, additional dose 40 mg IV today
Monitor renal function, intake and output
Vent management per pulm
Impression / Plan
-
Primary Bar Pilot: none prior to admission, first seen by Dr Shaw
Assessment:
Acute hypoxic respiratory failure, on BIPAP, now intubated (10/21) 2/ worsening hypoxia
Presentation with SOB
Acute HFpEF, improving
Paroxysmal atrial fibrillation, converted to sinus rhythm on amiodarone
Leukocytosis
Hyperkalemia
Elevated LFTs, concern for passive congestion
COPD, possibly acute on chronic
Ongoing tobacco use
Morbid obesity
ECHO 10/14/24: EF 55 to 60%, mild to moderate concentric LVH, grade 1 diastolic dysfunction, dilated hypokinetic RV with sparing of apex, PAP 50 to 55 mmHg, IVC dilated and does not collapse, prominent anterior fat pad
Plan:
Elective intubation on 10/21 due to hypoxia; requiring high PEEP and O2
Suspect hypoxia is more so related to COPD, but there is a component of HFpEF with increased volume which is difficult to assess
Continue IV diuresis. Will increase lasix to 60mg IV BID and follow; creatinine stable at 0.8, can consider additional IV diuretic therapy. Good urine output despite flat wt on bedscale. Monitor Cr which is improving/stable suggestive of cardiorenal
syndrome; BNP downtrending 4000 -> 2000 showing improvement with diuresis; roughly 1 L 24-hour urine output via [place]; 10/24 positive fluid balance due to tube feeds; will increase lasix to 80 BID; additional 40 mg dose today
Tolerating low dose beta-ekaterina, coreg 3.125 for hypertension/rate control; FiO2 requirements improving
No SGLT2 antagonist related to cost
Avoid spironolactone related to hyperkalemia which was POA
No further A-fib
Continue amiodarone, has received oral 3000mg 10/21 total; on 200 mg TID via NGT; QT/QTc stable
Continue apixaban
Coreg resumed, tolerating without issue
d/w nursing
Clinical summary:74-year-old man with COPD and ongoing tobacco abuse, morbid obesity, no recent medical contacts presenting with dyspnea and evidence of heart failure/pulmonary edema, proBNP 4200. Echo with preserved LVEF, hypokinetic right
ventricle with sparing of the apex, pulmonary artery systolic pressure 50-[address] scan shows elevated right hemidiaphragm and bilateral lower lobe consolidation with pleural effusions and no evidence of obvious pulmonary emboli. Onset of
atrial fibrillation October 15.
Progress Note - Bar Pilot
Subjective
Date of Service: October 24, 2024
Patient seen and examined. No acute events overnight. Patient intubated, sedated on mechanical ventilation. Sedation reduced this morning and patient following verbal stimuli appropriately. Telemetry demonstrates sinus rhythm, no recurrence of
AF.
Objective
Labs:
10/24/24 04:23
10/24/24 04:23
Labs
Hgb 14.2 g/dL (13.0-18.0) 10/24/24 04:23
Hct 47.5 % (39.0-52.0) 10/24/24 04:23
Plt Count 148 10^3/uL (130-400) 10/24/24 04:23
APTT Cancelled 10/16/24 12:30
Sodium 137 mmol/L (135-145) 10/24/24 04:23
Potassium 4.1 mmol/L (3.5-5.1) 10/24/24 04:23
BUN 55 mg/dl (9-20) H 10/24/24 04:23
Creatinine 0.8 mg/dL (0.7-1.3) 10/24/24 04:23
Glucose 152 mg/dl (70-99) H 10/24/24 04:23
Vital Signs and I&O:
Vital Signs
Temp Pulse Resp BP Pulse Ox
97.4 F 71 18 135/72 96
10/24/24 07:37 10/24/24 08:00 10/24/24 08:00 10/24/24 08:00 10/24/24 08:49
Vital Signs
Temp Pulse Resp BP Pulse Ox
97.4 F 71 18 135/72 96
10/24/24 07:37 10/24/24 08:00 10/24/24 08:00 10/24/24 08:00 10/24/24 08:49
Intake & Output
10/22/24 10/23/24 10/24/24 10/25/24
06:59 06:59 06:59 06:59
Intake Total 286 / 308 765.3 / 778.8 1910.6 / 2009.1 422.0 / 422.0
Output Total 1150 / 1150 1385 / 1445 1765 / 1815 110 / 110
Balance -864 / -842 -619.7 / -666.2 145.6 / 194.1 312.0 / 312.0
Physical Exam
Physical Exam
GENERAL: Ill-appearing, intubated, sedated
EYE: sclera anicteric
NECK: Supple, no JVD appreciated (difficult to assess due to neck mass), no carotid bruit appreciated
ENT: normal nose, dry mucosal membranes
CARDIAC: Distant heart sounds, regular rate and rhythm, +S1/S2, no murmur, rubs, or gallops
CHEST/PULMONARY: Normal effort, coarse mechanical breath sounds, distant breath sounds
ABDOMEN: Soft, without focal tenderness or distention
NEUROLOGICAL: Sedated on mechanical ventilation
SKIN: Warm and dry, no rash, 3+ pitting edema bilaterally, right greater than left
PSYCH: Sedated on mechanical ventilation
[2024-10-24] MEDS: ROCEPHIN 2000 MG IV (11:40)
[2024-10-24] MEDS: LASIX 40 MG IV (11:40)
[2024-10-24] MEDS: STERILE WATER FOR INJECTION 20 ML IV (11:41)
--- NOTE | 2024-10-24 12:06 | PTCARENOTE ---
Systems reviewed. Fio2 weaned to 50% t/o morning. Dr Otero aware and approved wean, pt initially weaned 15/10, 08/10, 06/10 for about and hour then transitioned to asv. Vitals stable t/o. Pt continues on sport bed. Propofol off for a few
hours, but pt frustrated/agitated when arrived, restarted at half dose. Otherwise see flowsheets.
[2024-10-24] MEDS: NOVOLOG FLEXPEN-MODERATE RESISTANCE SC ×2 (12:20→17:29)
[2024-10-24 12:29] LABS: Glucose - Point of Care 144 mg/dl (70-99)
[2024-10-24] MEDS: SUBLIMAZE 50 MCG IV (14:13)
--- NOTE | 2024-10-24 14:22 | PTCARENOTE ---
pt agitated again with family. keeps asking for water, mouth moisturizer given and pt still agitated. fentanyl bolus given
[2024-10-24] MEDS: LASIX 80 MG IV (15:57)
[2024-10-24] MEDS: TYLENOL ORAL SOLUTION 650 MG TUBE (15:58)
--- NOTE | 2024-10-24 16:24 | PTCARENOTE ---
Systems reviewed. Pt repositioned had multiple episodes of desat as low as 86% with 'big turn', had to get multiple 100% o2 and suctioned a couple of times before pt recovered while on 45%. Otherwise no complaints at this time..
[2024-10-24] MEDS: SUBLIMAZE 100 IV (16:25)
[2024-10-24 17:39] LABS: Glucose - Point of Care 147 mg/dl (70-99)
--- NOTE | 2024-10-24 20:00 | PTCARENOTE ---
Rec'd pt with wrist restraints on for pt safety, awake, follows simple commands, SIMON,on lAat rotation bed, fent gtt at 25 tiara, diprivan gtt at 5 tiara, 1' AV block, R rad larry w/ good wave form, flushes well, accurate to cuff, distal pulses via
doppler +edema, #8 oral ett- moved to R side of mouth at 24cm, ASV 110, 45%, 10 peep, lungs coarse, sat 92,thick driscoll secretions via tube,percussion done q4 hr per order; + bowel sounds, + flatus, R nares dobhof- vital 1.2 at 75ml/hr & 25ml/hr h20
flush, no vomiting, abd obese, soft, thermister starr draining jody urine w/ sediment
--- NOTE | 2024-10-24 22:25 | PTCARENOTE ---
VS filed from [id number] by this RN, unable to assess validity since it was from previous shift
[2024-10-24 23:28] LABS: Glucose - Point of Care 152 mg/dl (70-99)
[2024-10-25] VITALS: BP 139/79
--- NOTE | 2024-10-25 00:03 | PTCARENOTE ---
Addendum entered by Brinda Davis RN 10/25/24 01:02:
CHG bath done, linens changed, on Left medial buttock at coccyx, puncture hoe noted - draining sanguinous liquid
Original Note:
sys reviewed, changes noted, percussion larry stanley tubing & dsg changed
[2024-10-25 03:34] LABS: B.E. 21.5 mmol/L; O2 Saturation % 91.6 % (94-98); PCO2 56 mmHg (35-48); PO2 61 mmHg (83-108); pH 7.54 (7.35-7.45)
[2024-10-25 03:35] LABS: HCO3 47.9 mmol/L (21-28); O2 Therapy VENT
[2024-10-25 03:47] LABS: Hematocrit 47.4 % (39.0-52.0); Hemoglobin 14.3 g/dL (13.0-18.0); Mean Corp Hgb Conc. 30.2 g/dL (33.0-37.0); Mean Corpuscular Hgb 25.5 pg (27.0-31.0); Mean Corpuscular Volume 84.5 fL (80.0-94.0); Mean Platelet Volume 12.3 fL (7.4-10.4); Platelet Count 153 10^3/uL (130-400); Red Blood Cell Count 5.61 10^6/uL (4.70-6.10); Red Cell Dist. Width 18.6 % (11.5-14.5); White Blood Cell Count 19.2 10^3/uL (4.8-10.8)
--- NOTE | 2024-10-25 04:00 | PTCARENOTE ---
sys reviewed. ett repos on left side at 24 cm, percussion done
[2024-10-25 04:04] LABS: Blood Urea Nitrogen 60 mg/dl (9-20); Calcium 8.6 mg/dl (8.4-10.2); Chloride 90 mmol/L (98-107); Estimated Creatinine Clearance 113 ml/min; Glucose 154 mg/dl (70-99); Potassium 3.8 mmol/L (3.5-5.1); Sodium 137 mmol/L (135-145); eGFR > 60.00
[2024-10-25 04:13] LABS: NT-proBNP 1870 pg/ml
[2024-10-25 04:24] LABS: Carbon Dioxide 41 mmol/L (22-30)
[2024-10-25 04:41] VITALS: BMI 42.6
[2024-10-25] MEDS: NOVOLOG FLEXPEN-MODERATE RESISTANCE SC ×3 (05:42→18:19)
[2024-10-25 05:49] LABS: Glucose - Point of Care 127 mg/dl (70-99)
[2024-10-25] MEDS: DUONEB 3 ML INH ×3 (07:20→19:11)
[2024-10-25] MEDS: MIRALAX 17 GRAMS TUBE (07:34)
[2024-10-25] MEDS: COREG 3.125 MG PO (07:36)
[2024-10-25] MEDS: PACERONE 200 MG TUBE ×2 (07:36→19:44)
[2024-10-25] MEDS: NSS (PRESERVATIVE FREE) 10 ML IV (07:37)
[2024-10-25] MEDS: PROTONIX IV 40 MG IV (07:37)
[2024-10-25] MEDS: DECADRON 4 MG IV ×2 (07:37→19:44)
[2024-10-25] MEDS: LASIX 80 MG IV (07:37)
[2024-10-25] MEDS: HYDROPHOR 1 APPLIC TOPICAL (07:38)
[2024-10-25] MEDS: NICODERM TRANSDERMAL 14 MG TRANSDERM (07:38)
[2024-10-25] MEDS: DESENEX/MITRAZOL/ZEASORB 1 APPLIC TOPICAL ×2 (07:40→19:45)
[2024-10-25] MEDS: ELIQUIS 5 MG TUBE ×2 (07:40→19:44)
--- NOTE | 2024-10-25 08:12 | W.PN.INTV ---
Today's Communication / Plan
Recommendations
Mechanical ventilation --> mode changed to ASV
Hopefully can liberate him from the vent in the next 48-72 hrs
DuoNebs
Lightly sedate with goal RASS 0 to -2
Continue Coreg given possible Takotsubo's cardiomyopathy seen on echo from 10/14/2024
Continue sport bed CPT
Continue diuresis, now on PO as of 10/25, cards following
May need to add Zaroxolyn if pulmonary edema worsens - thankfully his CXR looks better today
s/p course of ABx and back on rocephin --> would only give short course (last day today)
Continue IV steroids --> began weaning down on 10/24
Bronch wash shows NGTD
Patient is critically ill - remains full code; he will have a long uphill road ahead of him if he is extubated, and will almost certainly require at least subacute rehab, possibly SNF
Assessment
-
74 year old M with past medical history of COPD, current smoker, noncompliance with outpatient followup presenting from home to ER with complaints of acute on chronic shortness of breath. Patient reports chronic shortness of breath for the past
1 year, acutely worsening the past few days. There is also notation of worsening lower extremity edema, orthopnea, elevated BP at home. EMS reported patient was severely hypoxemic on initial evaluation and received nitroglycerin x 2. Patient was
placed on BiPAP in the ER. Imaging showing effusion, proBNP >4000, 3+ pitting LE edema. Admitted to IMU. We are consulted for evaluation.
Acute HFpEF exacerbation with orthopnea/LE edema on NIV
s/p intubation 10/21/24
Acute hypoxic and hypercapnic respiratory failure
Moderate pleural effusions s/p R-sided thora 10/14/24 (transudative)
SOB
Leukocytosis
Suspected CHRISTY/OHS (Noncompliant)
Thrombocytopenia
Profoundly weak, likely severe deconditioning
Moraxella in sputum Cx from 10/15/2024
Conditions present NURSE TRANSITIONAL:
COPD-refuses outpatient pulmonary follow-up and PFTs
Current smoker- 1 pack a day for 40+ years-cut down to 1/2 pack
Hypertension
Morbid obesity due to excess calories
Peripheral arterial disease
Lumbar spinal stenosis s/p surgery 2018
s/p R cataract IOL and trabeculectomy 2014
Plan
Sedated/intubated
Was off propofol but now back on; remains on fentanyl gtt at low dose (25mcg/hr), wean sedation as tolerated to keep goal RASS goal 0 to -2
Atrial fibrillation rate control - currently in NSR as of 10/23/2024
Echocardiogram noted 10/14/2024-EF 55-60%, grade 1 diastolic dysfunction, hypokinetic right ventricle with apical sparing (?Takotsubo's cardiomyopathy), no significant valvular disease, PA systolic 50-55
Cardiology following-correspondence reviewed
Amiodarone/Eliquis PO continued
Diuresis continues as tolerated--on 10/24/2024 lasix changed from 60mg IV BID to 80mg BID; may need additional diuresis with Zaroxolyn
He has improved pulmonary edema on CXR today --> cardiology changed IV lasix to PO
Given his echo findings with possible Takotsubo's cardiomyopathy, I discussed this case on 10/[address] Nabor Loredo, and we resumed Coreg - now stopped on 10/25 due to Hx of COPD
s/p intubation 10/21/24 due to worsening hypoxemia, WOB
CXR with total L sided atelectasis, emergent bronch on 10/21/2024 with small mucus, lavaged and suctioned, mostly L sided atelectasis
Repositioned to R side down, sats improved
Desats with turning, positionally dependent
Nebulizers-DuoNebs continue
On 10/23 we started chest PT with sport bed
Added IV steroids on 10/22/2024 with IV decadron 4mg q8hr --> started weaning on 10/24 to 4mg IV q12hr
NPO, DHT in place
TFs order per RD placed
Aspiration precautions
Cultures reviewed
Blood cultures negative
Pleural fluid 10/14/2024-no growth
Sputum culture 10/15/2024- +Moraxella, completed Doxy/rocephin (10/15 - 10/19/2024), then rocephin resumed on 10/21 following clinical change --> would stop after next 24-48 hrs assuming he remains afebrile
Bronch culture resent 10/21, NGTD
Influenza negative
Follow leukocytosis-Remains elevated
Monitor for fevers
Monitor renal function, electrolytes, intake/output, lower extremity edema and weight
Replace electrolytes as needed
Giving diamox today --> continue to trend blood gas
Lower extremity ultrasound 10/15/2014-no evidence for DVT bilaterally
DVT ppx, Eliquis
Smoking cessation counseling ongoing
Nicotine patch
DVT prophylaxis-on Eliquis
Eventual physical therapy evaluation
Edger Machine Setter services will continue to follow along. Patient remains critically ill.
Family Discussions
Obi 10/19/24- spoke to family again at bedside, they confirmed intubation but he would not want prolongation
Obi 10/18/24- spoke with at bedside regarding code status and she notes that he would not want to be prolonged or undergo tracheostomy but would want intubation is that would help him recover
Remains full code
Dr. Bolanos reviewed in detail with at the bedside 10/15/2024 and 10/16/2024- states does not take care of himself, does not seek medical attention, and they have been nagging him to get medical attention since Thanksgiving
Goals of care discussion ongoing
Diagnostic Data
CXR 10/15/24- 1. Right PICC tip projects over the cavoatrial junction. 2. Mild pulmonary vascular congestion. 3. Suspected bilateral pleural effusions. Bibasilar airspace disease may also be present.
CXR 10/13/24- CHF and small to moderate right pleural effusion with adjacent atelectasis.
Chest x-ray 02/03/15- No active pulmonary disease. Slightly prominent left hilum most likely representing overlapping normal vascularity. Left hilar mass/lymphadenopathy cannot be entirely excluded. Recommend comparison with any prior outside study
to assess stability.
CT CHEST 10/14/24- No findings to suggest CENTRAL pulmonary embolism. Unfortunately, evaluation for more peripheral pulmonary embolism particularly in the lower lobes bilaterally limited by bilateral lower lobe consolidations and pleural effusions,
right greater than left as well as motion/respiration artifact.. Small suggesting 'filling defect' arterial in the left lower lobe most likely represents a branching vessel and does not pulmonary embolism, although cannot be excluded.
ECHO 10/14/24- Normal left ventricular size and systolic function with mild to moderate concentric left ventricular hypertrophy Left ventricular ejection fraction visually estimated 55-60% Grade 1 diastolic dysfunction Dilated, hypokinetic right
ventricle with sparing of the apex Mild right atrial dilatation No significant valvular disease. Estimated pulmonary artery pressure of 50-55 mmHg. Assuming a right atrial pressure of 15 mmHg. The IVC is dilated and does not collapse Prominent
anterior fat pad present. No pericardial effusion. No pleural effusion present. No prior study available for comparison
Reports and relevant images were personally reviewed.
Critical care statement: A total of 38 minutes of critical care time was provided for this patient today. This includes management of unstable vital signs, evaluation of the patient at bedside, reviewing the patient's pertinent medical records
including radiographs, microbiology, laboratory evaluations, and discussion with primary team, consultants, pharmacy, nutrition, physical therapy, case management, charge nurse, critical care nursing, and respiratory therapy.
Subjective Dataa
Subjective Data
Date of Service:
Date of Service: October 25, 2024
Chief Complaint: Edger Machine Setter Follow Up and Pulmonary Follow Up
Subjective:
Pt seen and evaluated this AM. Remains intubated on ASV at 110%, FiO2 40%, PEEP 10. He is easily awakening, following commands. Currently sedated on Fentanyl gtt at 25mcg/hr and propofol at 5mcg/kg/min. HR 66, BP 122/56, EtCO2 39, SpO2 93%.
Has thick driscoll moderate amount secretions from ETT. End-tidal CO2 is 35 with a shake for morphology.
Review of Systems
General: Other (Unobtainable - intubated)
Objective Data
Data Reviewed
Vital Signs / I&O / Oxygen:
Vital Signs
Temp Pulse Resp BP Pulse Ox
97.9 F 74 14 134/56 91
10/25/24 07:21 10/25/24 08:00 10/25/24 08:00 10/25/24 07:36 10/25/24 08:00
Intake and Output
10/24/24 10/25/24 10/26/24
06:59 06:59 06:59
Intake Total 1910.6 / 2009.1 2868.7 / 2975.5 320.4 / 320.4
Output Total 1765 / 1815 2355 / 2430 725 / 725
Balance 145.6 / 194.1 513.7 / 545.5 -404.6 / -404.6
SaO2 [ASV] 91
SaO2 [A/C] 96
SaO2 [NIV (Non Invasive 90
Ventilation)]
SaO2 91
Nasal Cannula flow liters per 50
minute
Physical Exam
General: Respiratory Distress (negative), Comfortable, Chills (negative), Sweats (negative) and Other (morbid obesity)
HEENT: Normocephalic, Anicteric, Moist Mucous Membranes and Other (Thick neck)
Cardiovascular: S1-S2, Rub (negative) and Peripheral Edema (+2 bilateral pitting edema in lower extremities)
Respiratory: Wheeze (negative), Crackles (Bilaterally), Rhonchi (negative), Non-Labored Respirations, Accessory Resp Muscle Use (n), Stridor (n) and ET Tube (Mechanical breath sounds heard bilaterally)
GI: Soft, Distended (Abdominal obesity), Non Tender and Normal Bowel Sounds
Neurology: Awake, Alert, Tremors (negative) and Other (On sedaton, sleepy at times but easily arousable and following all commands)
Skin: Warm, Dry, Cyanosis (n), Jaundice (n) and Rash (n)
Labs/Micro/Reports
Lab Data
10/25/24 03:05
10/25/24 03:05
Laboratory Results
10/25/24
03:05
pH 7.54 H
pCO2 56 H
pO2 61 L
HCO3 47.9 H*
O2 Delivery Level Vent
Microbiology
10/22/24 13:25 Blood/Venous Blood Culture - Preliminary
No Growth in 48 hours- Final report to follow
10/21/24 20:11 Bronch Washing Respiratory Culture - Final
10/21/24 20:11 Bronch Washing Gram Stain - Final
--- NOTE | 2024-10-25 08:25 | W.PN.CARDCBS ---
Today's Communication / Plan
-
Switch to furosemide via tube
Decrease amiodarone to 200 mg twice daily
Stop carvedilol given COPD
Consider acetazolamide
Impression / Plan
-
Primary Leases And Land Supervisor: none prior to admission, first seen by Dr Shaw
Assessment:
Acute hypoxic respiratory failure, on BIPAP, now intubated (10/21) 2/ worsening hypoxia
Presentation with SOB
Acute HFpEF, improving
Paroxysmal atrial fibrillation, converted to sinus rhythm on amiodarone
Leukocytosis
Hyperkalemia
Elevated LFTs, concern for passive congestion
COPD, possibly acute on chronic
Ongoing tobacco use
Morbid obesity
ECHO 10/14/24: EF 55 to 60%, mild to moderate concentric LVH, grade 1 diastolic dysfunction, dilated hypokinetic RV with sparing of apex, PAP 50 to 55 mmHg, IVC dilated and does not collapse, prominent anterior fat pad
Plan:
Overall, he seems relatively stable from a cardiac standpoint. He may be volume depleted and has marked hypercarbia. This may be affecting ability to get off the vent. Silk Weaver to consider acetazolamide, will defer to their best judgment.
Given bronchospasm, and the fact that he has HFpEF, indication for beta-ekaterina is unclear and it could be making bronchospasm worse. Will stop carvedilol.
If acetazolamide is started, that may assist diuresis will switch to oral/tube furosemide 80 twice daily
No SGLT2 antagonist or spironolactone related to cost and hyperkalemia respectively.
Clinical summary:74-year-old man with COPD and ongoing tobacco abuse, morbid obesity, no recent medical contacts presenting with dyspnea and evidence of heart failure/pulmonary edema, proBNP 4200. Echo with preserved LVEF, hypokinetic right
ventricle with sparing of the apex, pulmonary artery systolic pressure 50-[address] scan shows elevated right hemidiaphragm and bilateral lower lobe consolidation with pleural effusions and no evidence of obvious pulmonary emboli. Onset of
atrial fibrillation October 15.
Progress Note - Leases And Land Supervisor
Subjective
Date of Service: October 25, 2024:
Sedated but awake, nods appropriately to questions, on ASV, 40% may have spontaneous breathing trial later today.
Current meds: Nicotine patch, DuoNebs, ceftriaxone, IV fentanyl, IV propofol, pantoprazole, amiodarone 200 via the tube 3 times daily, apixaban 5 mg via the tube twice daily, carvedilol 3.125 mg twice daily furosemide 80 mg IV twice daily,
dexamethasone 4 IV every 12
134/56, pulse 74, resp rate 14, afebrile, weight is 138.6 kg, if accurate down 2.5 kg, weight on admission was 152 kg, intake and output balanced, rhonchi, JVD okay, regular rate and rhythm, abdomen obese still with 1+ 2+ edema
White count 19.2, hemoglobin 14.3, platelets 153, bicarbonate 47.9, pO2 61, pH 7.54, sodium 137, bicarb 41, BUN 60, creatinine 0.8, proBNP 1870, had been 4200 on admission
Chest x-ray today, infiltrate in bases right greater than left, question interstitial pattern
Objective
Labs:
10/25/24 03:05
10/25/24 03:05
Labs
Hgb 14.3 g/dL (13.0-18.0) 10/25/24 03:05
Hct 47.4 % (39.0-52.0) 10/25/24 03:05
Plt Count 153 10^3/uL (130-400) 10/25/24 03:05
APTT Cancelled 10/16/24 12:30
Sodium 137 mmol/L (135-145) 10/25/24 03:05
Potassium 3.8 mmol/L (3.5-5.1) 10/25/24 03:05
BUN 60 mg/dl (9-20) H 10/25/24 03:05
Creatinine 0.8 mg/dL (0.7-1.3) 10/25/24 03:05
Glucose 154 mg/dl (70-99) H 10/25/24 03:05
Vital Signs and I&O:
Vital Signs
Temp Pulse Resp BP Pulse Ox
36.6 C 74 14 134/56 91
10/25/24 07:21 10/25/24 08:00 10/25/24 08:00 10/25/24 07:36 10/25/24 08:00
Vital Signs
Temp Pulse Resp BP Pulse Ox
36.6 C 74 14 134/56 91
10/25/24 07:21 10/25/24 08:00 10/25/24 08:00 10/25/24 07:36 10/25/24 08:00
Intake & Output
10/23/24 10/24/24 10/25/24 10/26/24
07:59 07:59 07:59 07:59
Intake Total 756.8 / 970.3 1995.6 / 2319.1 2877.0 / 2983.8 106.8 / 106.8
Output Total 1445 / 1505 1755 / 1815 2380 / 2455 75 / 75
Balance -688.2 / -534.7 240.6 / 504.1 497.0 / 528.8 31.8 / 31.8
Physical Exam
Physical Exam
See above
[2024-10-25 08:50] VITALS: BP 130/65
--- NOTE | 2024-10-25 09:18 | PTOTSP ---
Reviewed chart and note pt continues to be intubated in ICU. Will continue to hold PT at this time.
--- NOTE | 2024-10-25 09:34 | PTCARENOTE ---
Received pt awake and alert.Mouthing words and using letter board to communicate.Pt was asking for a fruit cup to eat.+SIMON.Pt attempts to assist with repositioning.Denies pain.SR with 1st AVB noted.Right DL PICC intact with Fentanyl and Propofol
gtts.#8 ETT to vent.Coarse breath sounds throughout.Suctioned for moderate amount thick driscoll secretions.POX 92%Dobbhoff intact with tube feedings as ordered.Smear BM noted.Parson draining jdoy yellow urine.Skin integrity as documented.Plan of care
discussed.
--- NOTE | 2024-10-25 11:13 | WOUNDNOTE ---
GLUTEAL CLEFT AND SACRUM
--- NOTE | 2024-10-25 11:15 | WOUNDNOTE ---
R LEG AND FOOT
--- NOTE | 2024-10-25 11:15 | WOUNDNOTE ---
L LOWER LEG AND FOOT
--- NOTE | 2024-10-25 11:16 | WOUNDNOTE ---
AZALEA RN NOTE: Followed up today with assist of nurse Katie. Asked to follow up for bleeding ulcers on buttocks. Sacrum and gluteal cleft with blanchable purple tinged skin, improved since last seen. Perianal/buttocks with sloughing skin when cleaned
and weeping serosanguineous drainage of scant amt. Patient had a loose dark brown stool, appeared to be blood tinged, nurse Katie aware. Barrier cream applied after cleaning. Legs with same scabs, less dry and heels intact. Repositioned patient onto L
semi side lying position and pillows under calves. Remains on sports bed with lateral rotation. NO change to wound care, will follow as needed.
--- NOTE | 2024-10-25 11:22 | W.PN.HOSP.TC ---
Today's Communication/Plan
-
diuretics
BB stopped
recheck h/h
vent weaning per ICU
cont TF
Assessment / Plan
Assessment / Plan
Physical Exam
General: chronically ill looking, intubated
HEENT: Normocephalic, Atraumatic, ET tube
Respiratory: Rhonchi
Cardiac: S1/S2
GI: Soft, Nontender, Nondistended and Normal Bowel Sounds;
Rectal: no bleeding
Musculoskeletal: No Cyanosis, Edema, Right Lower Extrem and Edema, Left Lower Extrem
Skin: Negative Rash
Neuro: lightly sedated
Psych: Calm
# Acute mucus plugging with collapse of left lung and persistent hypoxia despite high flow O2 and pressurized O2 treatment
s/p Bronchoscopy and intubation on 10/21
Need high Peep & FiO2 to maintain normal O2 level
No fevers
respirator culture 10/21 no growth
Neegative blood culture
#Pulmonary edema
#Acute hypoxic and hypercapnic respiratory failure likely multifactorial pleural effusion, suspected COPD exacerbation, pulmonary edema, diastolic heart failure exacerbation, pneumonia
Failed BiPAP and NIV, now intubated, ventilatory assisted.
s/p Ceftriaxone and doxycycline. IV ceftriaxone 2 gm, to finish a course for pneumonia for total of 10 days
Blood cultures negative, repeat 10/22
Pleural fluid 10/14/2024-no growth
Sputum culture: Moraxella catarrhalis, respiratory culture sent on 10/21
Influenza negative
Bronchodilators for now.
FiO2 requirement downtrending. TF ongoing
#Acute HFpEF
Lasix 80 mg twice daily, add KCl.
No SGLT2 antagonist related to cost, avoid spironolactone related to hyperkalemia.
Monitor urinary output.
Daily weights
ECHO normal left ventricular size and function with mild to moderate LVH. EF 55 to 60%. Grade 1 diastolic dysfunction. Dilated hypokinetic right ventricle with sparing of the apex. No significant valvular disease. PASP of 50-55. IVC is dilated
and does not collapse.
trop flat.
proBNP elevated at 4200
Elevated D-dimer.
CT chest which was negative for pulmonary embolism. lower extremity Doppler negative
Cardiology evaluation
#Right pleural effusion exudative
CT chest with significant pleural effusion
[facility] consulted for thoracentesis status post 200 cc of fluid removal.
Fluid culture remains negative.
Cytology atypical cells, favor reactive.
#Burgundy stool on 10/25
Check H/H
Hgb stable so far
# Moraxella catarrhalis pneumonia
Continue with ceftriaxone ( ordered)
Repeat culture no growth
# New onset of atrial fibrillation with rapid ventricular response
hep gtt stopped and switched to DOAC
Remains on amiodarone. Gtt discontinued and switch to 200mg PO TID loading dose, cardiology adjusted doses, now on Amiodarone 200 BID only, Coreg was started and now stopped .
#Hyperkalemia
improved with aggressive diuresis
#Transaminitis likely secondary hepatic congestion
Improving
#Primary hypertension
Avoid AMANDA or ARB in the setting of hyperkalemia for now
Monitor blood pressure with diuresis
# Borderline Diabetes mellitus type 2
A1c of 6.8
Started insulin sliding scale and Accu-Cheks
Not needing insulin
Encourage weight loss and diet compliance.
# tobacco abuse
Does not follow-up with agile java developer
NicoDerm
#Morbid obesity due to excess calories
# Obesity BMP >40
Affects all aspects of medical care
Recommend weight loss after resolution of acute disease process
#Peripheral arterial disease
# Medical Noncompliance
Mild thrombocytopenia
Continue to monitor platelets
Sacra; skin stage I versus DTI
Wound care
DVT prophylaxis Eliquis
Full code
Anticipated Discharge: > 48 hours
Subjective/Interval History
-
Date of Service: October 25, 2024
Remains intubated and sedated
FiO2 45%
Objective Data
-
Labs:
Laboratory Results
10/25/24
03:05
WBC 19.2 H
Hgb 14.3
Hct 47.4
Plt Count 153
HCO3 47.9 H*
Sodium 137
Potassium 3.8
Chloride 90 L
Carbon Dioxide 41 H
BUN 60 H
Creatinine 0.8
Glucose 154 H
Calcium 8.6
Vital Signs:
Vital Signs
Temp Pulse Resp BP Pulse Ox
99.1 F 76 15 130/65 91
10/25/24 11:16 10/25/24 11:00 10/25/24 11:00 10/25/24 08:50 10/25/24 11:00
I&O
10/24/24 10/25/24 10/26/24
06:59 06:59 06:59
Intake Total 1910.6 / 2008.1 2868.7 / 2975.5 534.0 / 534.0
Output Total 1765 / 1815 2355 / 2430 1025 / 1025
Balance 145.6 / 194.1 513.7 / 545.5 -491.0 / -491.0
Data Reviewed
-
Total Time Spent with Patient (in minutes): 56
[2024-10-25] MEDS: STERILE WATER FOR INJECTION 20 ML IV (11:24)
[2024-10-25] MEDS: DIAMOX 250 MG TUBE (11:24)
[2024-10-25] MEDS: ROCEPHIN 2000 MG IV (11:24)
--- NOTE | 2024-10-25 11:45 | PTCARENOTE ---
Pt incontinent of small amount burgundy stool. made aware.H/H obtained as ordered.
[2024-10-25 11:48] LABS: Hematocrit 46.1 % (39.0-52.0); Hemoglobin 14.3 g/dL (13.0-18.0)
[2024-10-25 11:48] LABS: Glucose - Point of Care 135 mg/dl (70-99)
[2024-10-25 12:15] VITALS: BP_SYST 132
--- NOTE | 2024-10-25 12:19 | PTCARENOTE ---
Pt assessed.No change in assessment noted.SBT in progress 01/06 45%.
[2024-10-25] MEDS: DIPRIVAN 100 IV ×2 (12:46→19:44)
[2024-10-25 13:00] VITALS: BP_SYST 133
--- NOTE | 2024-10-25 13:56 | PTCARENOTE ---
Pt's at bedside.Plan of care discussed.
--- NOTE | 2024-10-25 14:49 | PN.CDI ---
CDI
- -
CDI:
Physician Documentation Request
Admit Date: 10/13/24 13:28
Dear Doctor Filomena,
Patient admitted for acute heart failure.
10/25 Blueprint Duplicator Assessment: 'Peptide based enteral feeding with MCTs appropriate at this time due to severe protein calorie malnutrition of acute illness with 12lb 3.85% weight loss in 1 week, prolonged poor intake <50% estimated needs
>5days.'
Based on the above information and your assessment, which of the following most accurately represents the patient's nutritional status?
Severe protein calorie malnutrition
Other
Merlin Criteria ([facility] 2017)
2 or more criteria must be present for either
non severe or severe malnutrition
Note that the criteria differs related to the
presence of an acute or chronic illness
Acute Illness Chronic Illness
Energy Intake Non Severe: <75% for >7 days Non Severe: <75% for >1 month
Severe: <50% for >5 days Severe: <75% for >1 month
Weight Loss Non Severe: 1-2% over 1 week Non Severe: 5% over 1 month
5% over 1 month 7.5% over 3 months
7.5% over 3 months 10% over 6 months
1 year N/A 20% over 1 year
Severe: >2% over 1 week Severe: >5% over 1 month
>5% over 1 month >7.5% over 3 months
>7.5% over 3 months >10% over 6 months
1 year N/A >20% over 1 year
Body Fat Non Severe: Mild Decrease Non Severe: Mild Loss
Severe: Moderate Decrease Severe: Severe Loss
Muscle Mass Non Severe: Mild Decrease Non Severe: Mild Loss
Severe: Moderate Decrease Severe: Severe Loss
Fluid Accumulation Non Severe: Mild Accumulation Non Severe: Mild Accumulation
Severe: Moderate to severe Severe: Moderate to severe
accumulation accumulation
Reduced Senior Fire Protection Engineer Strength Non Severe: N/A Non Severe: N/A
Severe: Measurably reduced Severe: Measurably reduced
Additional criteria that can be used to Determine if Mild or Moderate Malnutrition ([employer] Manual 2018)
Mild Moderate Severe
Albumin gm/dl <3.0 gm/dl <2.5 gm/dl <2.0 gm/dl
Pre Albumin mg/dl <15 gm/dl <10 mg/dl <5.0 mg/dl
BMI <18.5 <17 <16
Use of terms such as suspected, likely, concern for, or probable (associated with a specific diagnosis that is being evaluated, monitored, or treated as if it exists) are acceptable and can be coded in the inpatient setting, when documented at the
time of discharge.
Thank you,
Liz Anderson RN, BSN
CDI Specialist
Available via [place] text
Please use your independent medical judgment in providing your response.
[2024-10-25 16:05] VITALS: BP_SYST 131
--- NOTE | 2024-10-25 16:15 | PTCARENOTE ---
Pt assessed.Tachypnea noted.Pt c/o SOB.RT made aware.Pt changed back to ASV vent setting.Pt tolerated SBT x 4.5 hours.
[2024-10-25] MEDS: LASIX 80 MG PO (16:25)
--- NOTE | 2024-10-25 16:42 | RESPNOTE ---
patient weaned on CPAP5/8 @45% for about 4.5 hours. patient tiring out, SpO2 85%. back to ASV 110% +8 45%, SpO2 improved to 89-90%.
[2024-10-25 16:43] VITALS: BP_SYST 131
[2024-10-25 18:14] LABS: Glucose - Point of Care 134 mg/dl (70-99)
--- NOTE | 2024-10-25 19:14 | PTCARENOTE ---
Received pt awake and alert. Mouthing words and using letter board to communicate. Able to SIMON.Pt attempts to assist with repositioning.Denies pain. NSR with 1st AVB noted. Right DL PICC intact with Fentanyl and Propofol gtts.#8 ETT to vent. Coarse
breath sounds throughout. Suctioned for moderate amount thick driscoll secretions. 93% POX. Dobbhoff intact with tube feedings as ordered.Parson draining jody yellow urine.Skin integrity as documented. Plan of care discussed.
[2024-10-26] MEDS: NOVOLOG FLEXPEN-MODERATE RESISTANCE SC ×2 (00:20→05:59)
[2024-10-26] MEDS: DIPRIVAN 100 IV ×2 (00:23→18:07)
[2024-10-26 00:29] LABS: Glucose - Point of Care 136 mg/dl (70-99)
--- NOTE | 2024-10-26 00:43 | PTCARENOTE ---
All systems reassessed. Propofol increased due to pt becoming restless and attempting to pull out tube.
[2024-10-26 03:44] LABS: Blood Urea Nitrogen 57 mg/dl (9-20); Calcium 8.5 mg/dl (8.4-10.2); Chloride 92 mmol/L (98-107); Estimated Creatinine Clearance 99 ml/min; Glucose 150 mg/dl (70-99); Magnesium 2.3 mg/dl (1.6-2.3); Potassium 3.6 mmol/L (3.5-5.1); Sodium 138 mmol/L (135-145); eGFR > 60.00
[2024-10-26 03:49] LABS: Mean Corp Hgb Conc. 30.4 g/dL (33.0-37.0); Mean Corpuscular Hgb 25.2 pg (27.0-31.0); Mean Corpuscular Volume 82.9 fL (80.0-94.0); Mean Platelet Volume 12.1 fL (7.4-10.4); Platelet Count 144 10^3/uL (130-400); Red Blood Cell Count 5.55 10^6/uL (4.70-6.10); Red Cell Dist. Width 19.4 % (11.5-14.5); White Blood Cell Count 29.6 10^3/uL (4.8-10.8)
[2024-10-26 03:55] LABS: Carbon Dioxide 38 mmol/L (22-30)
[2024-10-26 04:08] LABS: % Basophils 0.3 % (0-2); % Immature Granulocytes 0.8 % (0-0.5); % Lymphocytes 2.6 % (20.5-51.1); % Monocytes 4.7 % (1.7-9.3); % Neutrophils 91.6 % (42.2-75.2); Absolute Basophils 0.1 10^3/uL (0-0.2); Absolute Immature Granulocytes 0.3 10^3/uL (0-0.05); Absolute Lymphocytes 0.8 10^3/uL (1.2-3.4); Absolute Monocytes 1.4 10^3/uL (0.1-0.6); Absolute Neutrophils 27.1 10^3/uL (1.4-6.5); Nucleated Red Blood Cells % 0 % (-)
[2024-10-26 04:23] LABS: B.E. 16.4 mmol/L; O2 Saturation % 95.7 % (94-98); PCO2 56 mmHg (35-48); PO2 68 mmHg (83-108); pH 7.49 (7.35-7.45)
[2024-10-26 04:24] LABS: HCO3 42.7 mmol/L (21-28); O2 Therapy 21
--- NOTE | 2024-10-26 04:43 | PTCARENOTE ---
All systems reassessed, labs drawn and hygiene performed. Call martínez at bedside.
[2024-10-26 06:00] VITALS: BMI 42.5
[2024-10-26 06:10] LABS: Glucose - Point of Care 147 mg/dl (70-99)
[2024-10-26] MEDS: DUONEB 3 ML INH ×3 (07:43→20:00)
--- NOTE | 2024-10-26 08:00 | PTCARENOTE ---
Received pt with eyes closed.Eyes open to voice.Propofol titrated to 5 mcg.Pt consistently follows commands.+ SIMON.Pt seems withdrawn today.Denies pain at this time.SR with 1st AVB noted.Right DL PICC intact with Propofol and Fentanyl gtts.# 8 ETT to
vent.POX91%Coarse rhonchi/diminished breath sounds throughout.Suctioned for moderate amount thick driscoll sputum.No BM at this time.Dobbhoff intact with tube feedings.Parson draining jody urine.Skin integrity as documented.Plan of care discussed with pt.
[2024-10-26] MEDS: DECADRON 4 MG IV ×2 (08:10→21:12)
[2024-10-26] MEDS: PACERONE 200 MG TUBE ×2 (08:10→21:14)
[2024-10-26] MEDS: LASIX 80 MG TUBE ×2 (08:10→16:03)
[2024-10-26] MEDS: DESENEX/MITRAZOL/ZEASORB 1 APPLIC TOPICAL ×2 (08:11→21:14)
[2024-10-26] MEDS: PROTONIX IV 40 MG IV (08:11)
[2024-10-26] MEDS: NSS (PRESERVATIVE FREE) 10 ML IV (08:11)
[2024-10-26] MEDS: MIRALAX 17 GRAMS TUBE (08:11)
[2024-10-26] MEDS: ELIQUIS 5 MG TUBE ×2 (08:11→21:14)
[2024-10-26] MEDS: NICODERM TRANSDERMAL 14 MG TRANSDERM (08:12)
[2024-10-26] MEDS: HYDROPHOR 1 APPLIC TOPICAL (08:12)
--- NOTE | 2024-10-26 08:24 | W.PN.INTV ---
Today's Communication / Plan
Recommendations
Mechanical ventilation --> mode changed to ASV
Hopefully can liberate him from the vent in the next 24-48hrs
DuoNebs
Lightly sedate with goal RASS 0 to -2
Now off Coreg --> was resumed given possible Takotsubo's cardiomyopathy seen on echo from 10/14/2024
Continue sport bed CPT
Continue diuresis, now on PO as of 10/25, cards following --> give a dose of IV lasix today and diamox
May need to add Zaroxolyn if pulmonary edema worsens - thankfully his CXR looks better on 10/25
s/p course of ABx and s/p short course again of rocephin (last day yesterday)
Continue IV steroids --> began weaning down on 10/24
Bronch wash shows NGTD
Patient is critically ill - remains full code; he will have a long uphill road ahead of him if he is extubated, and will almost certainly require at least subacute rehab, possibly SNF
Assessment
-
74 year old M with past medical history of COPD, current smoker, noncompliance with outpatient followup presenting from home to ER with complaints of acute on chronic shortness of breath. Patient reports chronic shortness of breath for the past
1 year, acutely worsening the past few days. There is also notation of worsening lower extremity edema, orthopnea, elevated BP at home. EMS reported patient was severely hypoxemic on initial evaluation and received nitroglycerin x 2. Patient was
placed on BiPAP in the ER. Imaging showing effusion, proBNP >4000, 3+ pitting LE edema. Admitted to IMU. We are consulted for evaluation.
Acute HFpEF exacerbation with orthopnea/LE edema on NIV
s/p intubation 10/21/24
Acute hypoxic and hypercapnic respiratory failure
Moderate pleural effusions s/p R-sided thora 10/14/24 (transudative)
SOB
Leukocytosis
Suspected CHRISTY/OHS (Noncompliant)
Thrombocytopenia
Profoundly weak, likely severe deconditioning
Moraxella in sputum Cx from 10/15/2024
Bloody stool seen on 10/25/2024 - resolved
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
COPD-refuses outpatient pulmonary follow-up and PFTs
Current smoker- 1 pack a day for 40+ years-cut down to 1/2 pack
Hypertension
Morbid obesity due to excess calories
Peripheral arterial disease
Lumbar spinal stenosis s/p surgery 2018
s/p R cataract IOL and trabeculectomy 2014
Plan
Sedated/intubated
Was off propofol but now back on; remains on fentanyl gtt at low dose - wean sedation as tolerated to keep goal RASS goal 0 to -2
Atrial fibrillation rate control - currently in NSR as of 10/23/2024
Echocardiogram noted 10/14/2024-EF 55-60%, grade 1 diastolic dysfunction, hypokinetic right ventricle with apical sparing (?Takotsubo's cardiomyopathy), no significant valvular disease, PA systolic 50-55
Cardiology following-correspondence reviewed
Amiodarone/Eliquis PO continued
Diuresis continues as tolerated--on 10/24/2024 lasix changed from 60mg IV BID to 80mg BID --> now on PO lasix since 10/25 may need additional diuresis with Zaroxolyn
He has improved pulmonary edema on CXR on 10/25 --> cardiology changed IV lasix to PO on 10/25
Given his echo findings with possible Takotsubo's cardiomyopathy, I discussed this case on 10/[address] Nabor Loredo, and we resumed Coreg - now stopped on 10/25 due to Hx of COPD
s/p intubation 10/21/24 due to worsening hypoxemia, WOB
CXR with total L sided atelectasis, emergent bronch on 10/21/2024 with small mucus, lavaged and suctioned, mostly L sided atelectasis
Repositioned to R side down, sats improved
Desats with turning, positionally dependent
Nebulizers-DuoNebs continue
On 10/23 we started chest PT with sport bed
Added IV steroids on 10/22/2024 with IV decadron 4mg q8hr --> started weaning on 10/24 to 4mg IV q12hr
NPO, DHT in place
TFs order per RD placed
Aspiration precautions
Cultures reviewed
Blood cultures negative
Pleural fluid 10/14/2024-no growth
Sputum culture 10/15/2024- +Moraxella, completed Doxy/rocephin (10/15 - 10/19/2024), then rocephin resumed on 10/21 following clinical change --> would stop after next 24-48 hrs assuming he remains afebrile
Bronch culture resent 10/21, NGTD
Influenza negative
Follow leukocytosis-Remains elevated
Monitor for fevers
Monitor renal function, electrolytes, intake/output, lower extremity edema and weight
Replace electrolytes as needed
Giving diamox again today --> continue to trend blood gas
Lower extremity ultrasound 10/15/2014-no evidence for DVT bilaterally
DVT ppx, Eliquis
Smoking cessation counseling ongoing
Nicotine patch
DVT prophylaxis-on Eliquis
Eventual physical therapy evaluation
Pt failed SBT yesterday due to tachypnea after about 4 hrs. He is much less interactive today. I discussed his poor status today with his . She is aware that there is a low chance of successful extubation, but she wants to give him another
day and see how he does with the weaning trial tomorrow.
Coat Padder services will continue to follow along. Patient remains critically ill.
Family Discussions
Obi 10/19/24- spoke to family again at bedside, they confirmed intubation but he would not want prolongation
Obi 10/18/24- spoke with at bedside regarding code status and she notes that he would not want to be prolonged or undergo tracheostomy but would want intubation is that would help him recover
Remains full code
Dr. Bolanos reviewed in detail with at the bedside 10/15/2024 and 10/16/2024- states does not take care of himself, does not seek medical attention, and they have been nagging him to get medical attention since Thanksgiving
Goals of care discussion ongoing
Diagnostic Data
CXR 10/15/24- 1. Right PICC tip projects over the cavoatrial junction. 2. Mild pulmonary vascular congestion. 3. Suspected bilateral pleural effusions. Bibasilar airspace disease may also be present.
CXR 10/13/24- CHF and small to moderate right pleural effusion with adjacent atelectasis.
Chest x-ray 02/03/15- No active pulmonary disease. Slightly prominent left hilum most likely representing overlapping normal vascularity. Left hilar mass/lymphadenopathy cannot be entirely excluded. Recommend comparison with any prior outside study
to assess stability.
CT CHEST 10/14/24- No findings to suggest CENTRAL pulmonary embolism. Unfortunately, evaluation for more peripheral pulmonary embolism particularly in the lower lobes bilaterally limited by bilateral lower lobe consolidations and pleural effusions,
right greater than left as well as motion/respiration artifact.. Small suggesting 'filling defect' arterial in the left lower lobe most likely represents a branching vessel and does not pulmonary embolism, although cannot be excluded.
ECHO 10/14/24- Normal left ventricular size and systolic function with mild to moderate concentric left ventricular hypertrophy Left ventricular ejection fraction visually estimated 55-60% Grade 1 diastolic dysfunction Dilated, hypokinetic right
ventricle with sparing of the apex Mild right atrial dilatation No significant valvular disease. Estimated pulmonary artery pressure of 50-55 mmHg. Assuming a right atrial pressure of 15 mmHg. The IVC is dilated and does not collapse Prominent
anterior fat pad present. No pericardial effusion. No pleural effusion present. No prior study available for comparison
Reports and relevant images were personally reviewed.
Critical care statement: A total of 41 minutes of critical care time was provided for this patient today. This includes management of unstable vital signs, evaluation of the patient at bedside, reviewing the patient's pertinent medical records
including radiographs, microbiology, laboratory evaluations, and discussion with primary team, consultants, pharmacy, nutrition, physical therapy, case management, charge nurse, critical care nursing, and respiratory therapy.
Subjective Dataa
Subjective Data
Date of Service:
Date of Service: October 26, 2024
Chief Complaint: Coat Padder Follow Up and Pulmonary Follow Up
Subjective:
Pt seen and evaluated this AM. Still intubated on ASV at 110%, PEEP 8, FiO2 60% with PIP [id number], VTe 513 mL and breathing at 16 breaths/min. He tried to extubate himself overnight. FiO2 raised overnight from 45% to 60%. Less interactive this
AM. Had burgundy colored stool yesterday, no BM seen today. HR 79, BP 132/58, SpO2 90%, EtCO2 35. Tolerated SBT yesterday x 4 hrs.
Review of Systems
General: Other (Unobtainable - intubated)
Objective Data
Data Reviewed
Vital Signs / I&O / Oxygen:
Vital Signs
Temp Pulse Resp BP Pulse Ox
99.3 F 74 14 132/55 89
10/26/24 08:12 10/26/24 07:49 10/26/24 07:49 10/25/24 19:44 10/26/24 07:49
Intake and Output
10/25/24 10/26/24 10/27/24
06:59 06:59 06:59
Intake Total 2868.7 / 2975.5 2639.2 / 2639.2
Output Total 2355 / 2430 3105 / 3105
Balance 513.7 / 545.5 -465.8 / -465.8
SaO2 [CPAP/PSV] 92
SaO2 [ASV] 84
SaO2 [A/C] 96
SaO2 [NIV (Non Invasive 90
Ventilation)]
SaO2 89
Nasal Cannula flow liters per 50
minute
Physical Exam
General: Respiratory Distress (negative), Comfortable, Chills (negative), Sweats (negative) and Other (morbid obesity)
HEENT: Normocephalic, Anicteric, Moist Mucous Membranes and Other (Thick neck)
Cardiovascular: S1-S2, Rub (negative) and Peripheral Edema (+2 bilateral pitting edema in lower extremities)
Respiratory: Wheeze (negative), Crackles (Bilaterally), Rhonchi (negative), Non-Labored Respirations, Accessory Resp Muscle Use (n), Stridor (n) and ET Tube (Mechanical breath sounds heard bilaterally)
GI: Soft, Distended (Abdominal obesity), Non Tender and Normal Bowel Sounds
Neurology: Awake, Tremors (negative), Lethargic and Other (sleepy at times but easily arousable and following all commands)
Skin: Warm, Dry, Cyanosis (n), Jaundice (n) and Rash (n)
Labs/Micro/Reports
Lab Data
10/26/24 03:11
10/26/24 03:11
Laboratory Results
10/26/24
04:16
pH 7.49 H
pCO2 56 H
pO2 68 L
HCO3 42.7 H*
O2 Delivery Level 21
Microbiology
10/22/24 13:25 Blood/Venous Blood Culture - Preliminary
No Growth in 72 hours- Final report to follow
10/25/24 10:07 Nasal Swab Influenza Types A & B (VENITA) - Final
Negative for Influenza A & B, NAAT
Negative results must be combined with clinical observations
and patient history.
Nucleic Acid Amplification test (NAAT)performed on the
[employer] platform.
10/21/24 20:11 Bronch Washing Respiratory Culture - Final
10/21/24 20:11 Bronch Washing Gram Stain - Final
[2024-10-26] MEDS: SUBLIMAZE 100 IV (08:36)
--- NOTE | 2024-10-26 08:58 | CM ---
Patient intubated. Therapy unable to assess functional status at this time. Will follow for progress.
Plan: Case management will continue to follow and assist with discharge planning. Will follow medical course and discuss discharge planning when patient can participate in care and therapy.
--- NOTE | 2024-10-26 10:36 | PTOTSP ---
Reviewed chart. Pt remains intubated this AM. Will continue to hold PT. Will need new order for PT and OT when extubated and able to actively participate in therapy activity.
--- NOTE | 2024-10-26 11:27 | W.PN.CARDCBS ---
Today's Communication / Plan
-
No changes in cardiac regimen at this time
Prognosis very guarded
May need to reconsider goals of care and level of care
Impression / Plan
-
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
Assessment:
Acute hypoxic respiratory failure, on BIPAP, now intubated (10/21) 2/2 worsening hypoxia
Presentation with SOB
Acute HFpEF, improving
Paroxysmal atrial fibrillation, converted to sinus rhythm on amiodarone
Leukocytosis
Hyperkalemia
Elevated LFTs, concern for passive congestion
COPD, possibly acute on chronic
Ongoing tobacco use
Morbid obesity
ECHO 10/14/24: EF 55 to 60%, mild to moderate concentric LVH, grade 1 diastolic dysfunction, dilated hypokinetic RV with sparing of apex, PAP 50 to 55 mmHg, IVC dilated and does not collapse, prominent anterior fat pad
Plan:
Volume status with HFpEF is relatively stable but still probably 10 to 15 pounds above dry weight. Acetazolamide may be of value in facilitating diuresis.
Doing poorly from respiratory standpoint.
May need to consider goals of care.
No cardiac changes at this time, will continue to follow
Clinical summary:74-year-old man with COPD and ongoing tobacco abuse, morbid obesity, no recent medical contacts presenting with dyspnea and evidence of heart failure/pulmonary edema, proBNP 4200. Echo with preserved LVEF, hypokinetic right
ventricle with sparing of the apex, pulmonary artery systolic pressure 50-[address] scan shows elevated right hemidiaphragm and bilateral lower lobe consolidation with pleural effusions and no evidence of obvious pulmonary emboli. Onset of
atrial fibrillation October 15.
Progress Note - Unindentured Apprentice
Subjective
Date of Service: October 26, 2024:
Still intubated, failed weaning trial, receiving acetazolamide, got extra dose of IV Lasix today
Current medications: DuoNebs, IV fentanyl, propofol, nicotine patch, apixaban 5 via the tube twice daily, IV dexamethasone, amiodarone 200 twice daily via tube, furosemide 80 twice daily via tube, IV Lasix now x 1, acetazolamide 250 mg daily
132/55, pulse 81, respiratory 21, afebrile, weight is 138.1 kg which is stable, admission weight was 152 kg, appears weaker and frailer, head neck exam unremarkable, lungs are diminished, regular rate and rhythm, abdomen benign still 3+ edema
White count 29.6, hemoglobin 14.0, platelets 144, ABG today 7.49, pCO2 56, pO2 68, calculated bicarb 43
Objective
Labs:
10/26/24 03:11
10/26/24 03:11
Labs
Hgb 14.0 g/dL (13.0-18.0) 10/26/24 03:11
Hct 46.0 % (39.0-52.0) 10/26/24 03:11
Plt Count 144 10^3/uL (130-400) 10/26/24 03:11
APTT Cancelled 10/16/24 12:30
Sodium 138 mmol/L (135-145) 10/26/24 03:11
Potassium 3.6 mmol/L (3.5-5.1) 10/26/24 03:11
BUN 57 mg/dl (9-20) H 10/26/24 03:11
Creatinine 0.9 mg/dL (0.7-1.3) 10/26/24 03:11
Glucose 150 mg/dl (70-99) H 10/26/24 03:11
Vital Signs and I&O:
Vital Signs
Temp Pulse Resp BP Pulse Ox
37.4 C 81 21 132/55 87
10/26/24 08:12 10/26/24 11:00 10/26/24 11:00 10/25/24 19:44 10/26/24 11:00
Vital Signs
Temp Pulse Resp BP Pulse Ox
37.4 C 81 21 132/55 87
10/26/24 08:12 10/26/24 11:00 10/26/24 11:00 10/25/24 19:44 10/26/24 11:00
Intake & Output
10/24/24 10/25/24 10/26/24 10/27/24
07:59 07:59 07:59 07:59
Intake Total 1995.6 / 2319.1 2877.0 / 2983.8 2639.2 / 2746.0 427.2 / 427.2
Output Total 1755 / 1815 2380 / 2455 3105 / 3180 430 / 430
Balance 240.6 / 504.1 497.0 / 528.8 -465.8 / -434.0 -2.8 / -2.8
Physical Exam
Physical Exam
See above
[2024-10-26 11:48] LABS: Glucose - Point of Care 151 mg/dl (70-99)
--- NOTE | 2024-10-26 12:00 | PTCARENOTE ---
Pt assessed.No change in assessment noted.Pt failed SBT wean lasting 8 minutes before tachypnea and desaturation to < 85% POX noted. made aware.
[2024-10-26] MEDS: LASIX 80 MG IV (12:19)
[2024-10-26] MEDS: DIAMOX 250 MG TUBE ×2 (12:19→21:13)
--- NOTE | 2024-10-26 12:46 | W.PN.HOSP.TC ---
Today's Communication/Plan
-
Additional dose of IV Lasix
Wean oxygen as tolerated
Chest x-ray with pulmonary edema
Continue with steroids
Continue with tube feeding
Assessment / Plan
Assessment / Plan
Physical Exam
General: chronically ill looking, intubated
HEENT: Normocephalic, Atraumatic, ET tube
Respiratory: Rhonchi
Cardiac: S1/S2
GI: Soft, Nontender, Nondistended and Normal Bowel Sounds;
Rectal: no bleeding
Musculoskeletal: No Cyanosis, Edema, Right Lower Extrem and Edema, Left Lower Extrem
Skin: Negative Rash
Neuro: lightly sedated
Psych: Calm
# Acute mucus plugging with collapse of left lung and persistent hypoxia despite high flow O2 and pressurized O2 treatment
s/p Bronchoscopy and intubation on 10/21
Currently on 60% FiO2 with 87% sats. May require to go up on FiO2.
Repeat chest x-ray
No fevers
respirator culture 10/21 no growth
Negative blood culture
#Pulmonary edema
#Acute hypoxic and hypercapnic respiratory failure likely multifactorial pleural effusion, suspected COPD exacerbation, pulmonary edema, diastolic heart failure exacerbation, pneumonia
Failed BiPAP and NIV, now intubated, ventilatory assisted.
s/p Ceftriaxone and doxycycline. IV ceftriaxone 2 gm, to finish a course for pneumonia for total of 10 days
Blood cultures negative, repeat 10/22
Pleural fluid 10/14/2024-no growth
Sputum culture: Moraxella catarrhalis, respiratory culture sent on 10/21
Influenza negative
Bronchodilators for now.
FiO2 requirement uptrending today TF ongoing
Chest x-ray 10/26 with acute pulmonary edema with slight progression
#Acute HFpEF
Lasix 80 mg twice daily, add KCl.
No SGLT2 antagonist related to cost, avoid spironolactone related to hyperkalemia.
Monitor urinary output.
Daily weights
ECHO normal left ventricular size and function with mild to moderate LVH. EF 55 to 60%. Grade 1 diastolic dysfunction. Dilated hypokinetic right ventricle with sparing of the apex. No significant valvular disease. PASP of 50-55. IVC is dilated
and does not collapse.
trop flat.
proBNP elevated at 4200
Elevated D-dimer.
CT chest which was negative for pulmonary embolism. lower extremity Doppler negative
Also resume Diamox
May need to consider increasing dose of diuretics and transition to IV
Cardiology evaluation
# Leukocytosis likely secondary to recent pneumonia and also with steroids
If had episode of fever will need pancultures with repeat urine, blood cultures and chest x-ray
Monitor secretions
#Right pleural effusion exudative
CT chest with significant pleural effusion
[facility] consulted for thoracentesis status post 200 cc of fluid removal.
Fluid culture remains negative.
Cytology atypical cells, favor reactive.
#Burgundy stool on 10/25
Hgb stable so far
Monitor stools
# Moraxella catarrhalis pneumonia
Continue with ceftriaxone ( ordered)
Repeat culture no growth
# New onset of atrial fibrillation with rapid ventricular response
hep gtt stopped and switched to DOAC
Remains on amiodarone. Gtt discontinued and switch to 200mg PO TID loading dose, cardiology adjusted doses, now on Amiodarone 200 BID only, Coreg was started and now stopped .
#Hyperkalemia
improved with aggressive diuresis
#Transaminitis likely secondary hepatic congestion
Improving
#Primary hypertension
Avoid AMANDA or ARB in the setting of hyperkalemia for now
Monitor blood pressure with diuresis
# Borderline Diabetes mellitus type 2
A1c of 6.8
Started insulin sliding scale and Accu-Cheks
Not needing insulin
Encourage weight loss and diet compliance.
# tobacco abuse
Does not follow-up with order desk caller
NicoDerm
#Morbid obesity due to excess calories
# Obesity BMP >40
Affects all aspects of medical care
Recommend weight loss after resolution of acute disease process
#Peripheral arterial disease
# Medical Noncompliance
Mild thrombocytopenia
Continue to monitor platelets
Resolved
Sacra; skin stage I versus DTI
Wound care
Severe protein caloric malnutrition of acute illness
Tube feedings ongoing
Dietitian on board
DVT prophylaxis Eliquis
Full code
Discussed with director process engineering
Total Critical Care Time 32 _ minutes. I was immediately available to the patient and staff. I personally examined, reviewed labs, diagnostic images/reports, interpretations, treatment plans, discussed patient care with other providers and family
or caregivers (if patient is unable to make decisions), entered orders as appropriate and documented the medical record.
Anticipated Discharge: > 48 hours
Subjective/Interval History
-
Date of Service: October 26, 2024
Remains intubated and sedated
Opens eyes
Was trying to self extubated and propofol was increased overnight
Objective Data
-
Labs:
Laboratory Results
10/26/24 10/26/24
03:11 04:16
WBC 29.6 H
Hgb 14.0
Hct 46.0
Plt Count 144
HCO3 42.7 H*
Sodium 138
Potassium 3.6
Chloride 92 L
Carbon Dioxide 38 H
BUN 57 H
Creatinine 0.9
Glucose 150 H
Calcium 8.5
Vital Signs:
Vital Signs
Temp Pulse Resp BP Pulse Ox
98.6 F 84 23 132/55 88
10/26/24 11:30 10/26/24 12:00 10/26/24 12:00 10/25/24 19:44 10/26/24 12:00
I&O
10/25/24 10/26/24 10/27/24
06:59 06:59 06:59
Intake Total 2868.7 / 2975.5 2639.2 / 2746.0 534.0 / 534.0
Output Total 2355 / 2430 3105 / 3180 505 / 505
Balance 513.7 / 545.5 -465.8 / -434.0 29.0 / 29.0
--- NOTE | 2024-10-26 12:47 | RESPNOTE ---
attempted CPAP trial. SBT failed after 8 min, SpO2 dropped to 83% and patient became tachypneic RR 28-32. Dr. Otero updated.
--- NOTE | 2024-10-26 14:08 | PTCARENOTE ---
Pt's at bedside.Update given and plan of care discussed.
--- NOTE | 2024-10-26 16:25 | PTCARENOTE ---
Pt assessed.No change in assessment noted.
[2024-10-26 17:42] LABS: Glucose - Point of Care 192 mg/dl (70-99)
--- NOTE | 2024-10-26 20:00 | PTCARENOTE ---
On assessment pt intubated and sedated, on FEN and PROP gtt per MD order. pt follows simple commands and nods head appropriately. SIMON. denies pain, SR on monitor, doppler pulses, #8 24 at the lip 92%, Vital 1.2 75 with 25 flush, R nare dobhoff,
matty for critical I&Os, R radial FABIANA [place] double lumen PICC
--- NOTE | 2024-10-27 | PTCARENOTE ---
no changes from prior assessment, pt repositioned and cleansed, auto turn on bed q2h
[2024-10-27] MEDS: DIPRIVAN 100 IV ×2 (00:29→05:46)
--- NOTE | 2024-10-27 04:07 | PTCARENOTE ---
no changes from prior assessment, denies pain, follows commands and nods appropriately.
[2024-10-27 05:06] LABS: B.E. 15.3 mmol/L; O2 Saturation % 92.5 % (94-98); PCO2 61 mmHg (35-48); PO2 63 mmHg (83-108); pH 7.45 (7.35-7.45)
[2024-10-27 05:07] LABS: O2 Therapy 60%
[2024-10-27 05:08] LABS: HCO3 42.4 mmol/L (21-28)
[2024-10-27 05:13] LABS: % Basophils 0.3 % (0-2); % Immature Granulocytes 1.4 % (0-0.5); % Lymphocytes 1.6 % (20.5-51.1); % Monocytes 3.6 % (1.7-9.3); % Neutrophils 93.1 % (42.2-75.2); Absolute Basophils 0.1 10^3/uL (0-0.2); Absolute Immature Granulocytes 0.5 10^3/uL (0-0.05); Absolute Lymphocytes 0.5 10^3/uL (1.2-3.4); Absolute Monocytes 1.2 10^3/uL (0.1-0.6); Absolute Neutrophils 31.4 10^3/uL (1.4-6.5); Hematocrit 44.3 % (39.0-52.0); Hemoglobin 13.6 g/dL (13.0-18.0); Mean Corp Hgb Conc. 30.7 g/dL (33.0-37.0); Mean Corpuscular Hgb 25.5 pg (27.0-31.0); Nucleated Red Blood Cells % 0 % (-); Platelet Count 151 10^3/uL (130-400); Red Blood Cell Count 5.34 10^6/uL (4.70-6.10); Red Cell Dist. Width 19.9 % (11.5-14.5); White Blood Cell Count 33.7 10^3/uL (4.8-10.8)
[2024-10-27 05:27] VITALS: BMI 41.9
[2024-10-27 05:38] LABS: Blood Urea Nitrogen 55 mg/dl (9-20); Calcium 8.4 mg/dl (8.4-10.2); Chloride 92 mmol/L (98-107); Estimated Creatinine Clearance 98 ml/min; Glucose 171 mg/dl (70-99); Potassium 3.7 mmol/L (3.5-5.1); Sodium 138 mmol/L (135-145); Triglycerides 80 mg/dl (10-149); eGFR > 60.00
[2024-10-27 05:51] LABS: Carbon Dioxide 39 mmol/L (22-30)
[2024-10-27 06:39] LABS: Glucose - Point of Care 157 mg/dl (70-99)
[2024-10-27] MEDS: DUONEB 3 ML INH ×3 (07:21→19:32)
--- NOTE | 2024-10-27 07:28 | W.PN.CARDCBS ---
Today's Communication / Plan
-
Remains intubated and sedated.
Continue diuresis with Lasix 80 mg p.o. twice daily. Creatinine overall stable. Could add Zaroxolyn if needed.
Remains in sinus rhythm. Continue amiodarone and Eliquis.
Continue ventilatory care. Continue nebs and steroids.
Impression / Plan
-
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
Assessment:
Acute hypoxic respiratory failure, on BIPAP, now intubated (10/21) 2/ worsening hypoxia
Presentation with SOB
Acute HFpEF, improving
Paroxysmal atrial fibrillation, converted to sinus rhythm on amiodarone
Leukocytosis
Hyperkalemia
Elevated LFTs, concern for passive congestion
COPD, possibly acute on chronic
Ongoing tobacco use
Morbid obesity
ECHO 10/14/24: EF 55 to 60%, mild to moderate concentric LVH, grade 1 diastolic dysfunction, dilated hypokinetic RV with sparing of apex, PAP 50 to 55 mmHg, IVC dilated and does not collapse, prominent anterior fat pad
Plan:
Weight continues to fall. Continue Lasix 80 mg p.o. twice daily. Could use Zaroxolyn if needed.
Continue steroids and supportive care for respiratory failure.
Remains in sinus rhythm. Continue amiodarone and Eliquis.
Blood pressure remains borderline but acceptable.
Continue with elevated white blood cell count. ?from steroids
Clinical summary:74-year-old man with COPD and ongoing tobacco abuse, morbid obesity, no recent medical contacts presenting with dyspnea and evidence of heart failure/pulmonary edema, proBNP 4200. Echo with preserved LVEF, hypokinetic right
ventricle with sparing of the apex, pulmonary artery systolic pressure 50-[address] scan shows elevated right hemidiaphragm and bilateral lower lobe consolidation with pleural effusions and no evidence of obvious pulmonary emboli. Onset of
atrial fibrillation October 15.
Progress Note - Audiovisual Aids Technician
Subjective
Date of Service: October 27, 2024
Remains intubated and sedated. Weight continues to improve.
Objective
Labs:
10/27/24 04:50
10/27/24 04:50
Labs
Hgb 13.6 g/dL (13.0-18.0) 10/27/24 04:50
Hct 44.3 % (39.0-52.0) 10/27/24 04:50
Plt Count 151 10^3/uL (130-400) 10/27/24 04:50
APTT Cancelled 10/16/24 12:30
Sodium 138 mmol/L (135-145) 10/27/24 04:50
Potassium 3.7 mmol/L (3.5-5.1) 10/27/24 04:50
BUN 55 mg/dl (9-20) H 10/27/24 04:50
Creatinine 0.9 mg/dL (0.7-1.3) 10/27/24 04:50
Glucose 171 mg/dl (70-99) H 10/27/24 04:50
Vital Signs and I&O:
Vital Signs
Temp Pulse Resp BP Pulse Ox
99.3 F 70 13 99/44 94
10/27/24 05:28 10/27/24 07:23 10/27/24 07:23 10/26/24 21:14 10/27/24 07:23
Vital Signs
Temp Pulse Resp BP Pulse Ox
99.3 F 70 13 99/44 94
10/27/24 05:28 10/27/24 07:23 10/27/24 07:23 10/26/24 21:14 10/27/24 07:23
Intake & Output
10/25/24 10/26/24 10/27/24 10/28/24
06:59 06:59 06:59 06:59
Intake Total 2868.7 / 2975.5 2639.2 / 2746.0 2652.3 / 2652.3
Output Total 2355 / 2430 3105 / 3180 3235 / 3235
Balance 513.7 / 545.5 -465.8 / -434.0 -582.7 / -582.7
Physical Exam
Physical Exam
GEN: No distress, intubated/sedated
HEENT: supple, anicteric, mmm
LUNGS: bilat rhonchi
CV: Reg, S1/S2, 1/6 syst LSB, no murmur
ABD: soft, BS+, NT/ND
EXT: No edema
NEURO: Gross non-focal
SKIN: No rash
[2024-10-27] MEDS: NICODERM TRANSDERMAL 14 MG TRANSDERM (07:42)
[2024-10-27] MEDS: NSS (PRESERVATIVE FREE) 10 ML IV (07:43)
[2024-10-27] MEDS: MIRALAX 17 GRAMS TUBE (07:43)
[2024-10-27] MEDS: PACERONE 200 MG TUBE ×2 (07:43→20:00)
[2024-10-27] MEDS: PROTONIX IV 40 MG IV (07:43)
[2024-10-27] MEDS: ELIQUIS 5 MG TUBE ×2 (07:43→20:00)
[2024-10-27] MEDS: LASIX 80 MG TUBE ×2 (07:43→16:47)
[2024-10-27] MEDS: DESENEX/MITRAZOL/ZEASORB 1 APPLIC TOPICAL ×2 (07:44→20:11)
[2024-10-27] MEDS: DECADRON 4 MG IV (07:44)
[2024-10-27] MEDS: HYDROPHOR 1 APPLIC TOPICAL (07:44)
--- NOTE | 2024-10-27 08:20 | W.PN.INTV ---
Today's Communication / Plan
Recommendations
Extubated today to NIV, continue with NIV with sleep and as needed during the day
He is now DNR/DNI
DuoNebs
Now off Coreg --> was resumed given possible Takotsubo's cardiomyopathy seen on echo from 10/14/2024
Continue sport bed CPT
Continue diuresis, now on PO as of 10/25, cards following --> on 10/26 he was given a dose of IV Lasix + Diamox --> reassess volume status + need for additional Diamox daily
May need to add Zaroxolyn if pulmonary edema worsens - thankfully his CXR looks better on 10/25
s/p course of ABx and s/p short course again of rocephin (last day on 10/25)
Continue IV steroids --> began weaning down on 10/24 --> wean down further tonight to 2 mg IV every 12
Bronch wash shows NGTD
Patient is critically ill - remains full code; he will have a long uphill road ahead of him, although at least he was extubated today. PT/OT --> he will almost certainly require at least subacute rehab, possibly SNF
Assessment
-
74 year old M with past medical history of COPD, current smoker, noncompliance with outpatient followup presenting from home to ER with complaints of acute on chronic shortness of breath. Patient reports chronic shortness of breath for the past
1 year, acutely worsening the past few days. There is also notation of worsening lower extremity edema, orthopnea, elevated BP at home. EMS reported patient was severely hypoxemic on initial evaluation and received nitroglycerin x 2. Patient was
placed on BiPAP in the ER. Imaging showing effusion, proBNP >4000, 3+ pitting LE edema. Admitted to IMU. We are consulted for evaluation.
Acute HFpEF exacerbation with orthopnea/LE edema on NIV
s/p intubation 10/21/24
Acute hypoxic and hypercapnic respiratory failure
Moderate pleural effusions s/p R-sided thora 10/14/24 (transudative)
SOB
Leukocytosis
Suspected CHRISTY/OHS (Noncompliant)
Thrombocytopenia
Profoundly weak, likely severe deconditioning
Moraxella in sputum Cx from 10/15/2024
Bloody stool seen on 10/25/2024 - resolved
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
COPD-refuses outpatient pulmonary follow-up and PFTs
Current smoker- 1 pack a day for 40+ years-cut down to 1/2 pack
Hypertension
Morbid obesity due to excess calories
Peripheral arterial disease
Lumbar spinal stenosis s/p surgery 2018
s/p R cataract IOL and trabeculectomy 2014
Plan
Sedated/intubated
Was off propofol but now back on; remains on fentanyl gtt at low dose - wean sedation as tolerated to keep goal RASS goal 0 to -2
Plan to extubate today to NIV and then use NIV with sleep and as needed during the day
Atrial fibrillation rate control - currently in NSR as of 10/23/2024
Echocardiogram noted 10/14/2024-EF 55-60%, grade 1 diastolic dysfunction, hypokinetic right ventricle with apical sparing (?Takotsubo's cardiomyopathy), no significant valvular disease, PA systolic 50-55
Cardiology following-correspondence reviewed
Amiodarone/Eliquis PO continued
Diuresis continues as tolerated--on 10/24/2024 lasix changed from 60mg IV BID to 80mg BID --> now on PO lasix since 10/25 may need additional diuresis with Zaroxolyn
He has improved pulmonary edema on CXR on 10/25 --> cardiology changed IV lasix to PO on 10/25
Given his echo findings with possible Takotsubo's cardiomyopathy, I discussed this case on 10/[address] Nabor Loredo, and we resumed Coreg - now stopped on 10/25 due to Hx of COPD
s/p intubation 10/21/24 due to worsening hypoxemia, WOB
CXR with total L sided atelectasis, emergent bronch on 10/21/2024 with small mucus, lavaged and suctioned, mostly L sided atelectasis
Repositioned to R side down, sats improved
Desats with turning, positionally dependent
Nebulizers-DuoNebs continue
On 10/23 we started chest PT with sport bed
Added IV steroids on 10/22/2024 with IV decadron 4mg q8hr --> started weaning on 10/24 to 4mg IV q12hr --> wean tonight to 2mg IV q12hr
NPO, DHT in place
TFs order per RD placed
For tube feeds on hold while being extubated to NIV
Aspiration precautions
Cultures reviewed
Blood cultures negative
Pleural fluid 10/14/2024-no growth
Sputum culture 10/15/2024- +Moraxella, completed Doxy/rocephin (10/15 - 10/19/2024), then rocephin resumed on 10/21 following clinical change --> would stop after next 24-48 hrs assuming he remains afebrile
Bronch culture resent 10/21, NGTD
Influenza negative
Follow leukocytosis-Remains elevated
Monitor for fevers
Monitor renal function, electrolytes, intake/output, lower extremity edema and weight
Replace electrolytes as needed
Gave Diamox on 10/25+10/26, and pH this morning looks good at 7.45, continue to hold off on additional Diamox at this time
Lower extremity ultrasound 10/15/2014-no evidence for DVT bilaterally
DVT ppx, Eliquis
Smoking cessation counseling ongoing
Nicotine patch
DVT prophylaxis-on Eliquis
Eventual physical therapy evaluation
Patient not interested in obtaining a tracheostomy. He did well today on a weaning trial and was extubated to NIV with plans to use NIV with bedtime and as needed during the day. He is now DNR/DNI (see separate update note).
Orthodontic Assistant services will continue to follow along. Patient remains critically ill requiring NIV.
Family Discussions
Obi 10/19/24- spoke to family again at bedside, they confirmed intubation but he would not want prolongation
Obi 10/18/24- spoke with at bedside regarding code status and she notes that he would not want to be prolonged or undergo tracheostomy but would want intubation is that would help him recover
Remains full code
Dr. Bolanos reviewed in detail with at the bedside 10/15/2024 and 10/16/2024- states does not take care of himself, does not seek medical attention, and they have been nagging him to get medical attention since Thanksgiving
Goals of care discussion ongoing
Diagnostic Data
CXR 10/15/24- 1. Right PICC tip projects over the cavoatrial junction. 2. Mild pulmonary vascular congestion. 3. Suspected bilateral pleural effusions. Bibasilar airspace disease may also be present.
CXR 10/13/24- CHF and small to moderate right pleural effusion with adjacent atelectasis.
Chest x-ray 02/03/15- No active pulmonary disease. Slightly prominent left hilum most likely representing overlapping normal vascularity. Left hilar mass/lymphadenopathy cannot be entirely excluded. Recommend comparison with any prior outside study
to assess stability.
CT CHEST 10/14/24- No findings to suggest CENTRAL pulmonary embolism. Unfortunately, evaluation for more peripheral pulmonary embolism particularly in the lower lobes bilaterally limited by bilateral lower lobe consolidations and pleural effusions,
right greater than left as well as motion/respiration artifact.. Small suggesting 'filling defect' arterial in the left lower lobe most likely represents a branching vessel and does not pulmonary embolism, although cannot be excluded.
ECHO 10/14/24- Normal left ventricular size and systolic function with mild to moderate concentric left ventricular hypertrophy Left ventricular ejection fraction visually estimated 55-60% Grade 1 diastolic dysfunction Dilated, hypokinetic right
ventricle with sparing of the apex Mild right atrial dilatation No significant valvular disease. Estimated pulmonary artery pressure of 50-55 mmHg. Assuming a right atrial pressure of 15 mmHg. The IVC is dilated and does not collapse Prominent
anterior fat pad present. No pericardial effusion. No pleural effusion present. No prior study available for comparison
Reports and relevant images were personally reviewed.
Critical care statement: A total of 38 minutes of critical care time was provided for this patient today. This includes management of unstable vital signs, evaluation of the patient at bedside, reviewing the patient's pertinent medical records
including radiographs, microbiology, laboratory evaluations, and discussion with primary team, consultants, pharmacy, nutrition, physical therapy, case management, charge nurse, critical care nursing, and respiratory therapy.
Subjective Dataa
Subjective Data
Date of Service:
Date of Service: October 27, 2024
Chief Complaint: Orthodontic Assistant Follow Up and Pulmonary Follow Up
Subjective:
Pt seen this AM and resting in bed in NAD. Was changed from ASV 110% to PS 5/8 FiO2 60% with PIP 14, breathing at 21 b/min and VTe 530mL. HR 81, BP 143/59 via A line, EtCO2 33 and SpO2 94%.
Review of Systems
General: Other (Unable to obtain due to intubation)
Objective Data
Data Reviewed
Vital Signs / I&O / Oxygen:
Vital Signs
Temp Pulse Resp BP Pulse Ox
99.1 F 79 21 125/51 95
10/27/24 08:00 10/27/24 09:45 10/27/24 09:45 10/27/24 07:43 10/27/24 09:45
Intake and Output
10/26/24 10/27/24 10/28/24
06:59 06:59 06:59
Intake Total 2639.2 / 2746.0 2652.3 / 2767.6 458.1 / 458.1
Output Total 3105 / 3180 3235 / 3335 300 / 300
Balance -465.8 / -434.0 -582.7 / -567.4 158.1 / 158.1
SaO2 [CPAP/PSV] 92
SaO2 [ASV] 94
SaO2 [A/C] 96
SaO2 [NIV (Non Invasive 90
Ventilation)]
SaO2 95
Nasal Cannula flow liters per 50
minute
Physical Exam
General: Respiratory Distress (negative), Comfortable, Chills (negative), Sweats (negative) and Other (morbid obesity)
HEENT: Normocephalic, Anicteric, Moist Mucous Membranes and Other (Thick neck)
Cardiovascular: S1-S2, Rub (negative) and Peripheral Edema (+2 bilateral pitting edema in lower extremities)
Respiratory: Wheeze (negative), Crackles (Bilaterally), Rhonchi (negative), Non-Labored Respirations, Accessory Resp Muscle Use (n), Stridor (n) and ET Tube (Mechanical breath sounds heard bilaterally)
GI: Soft, Distended (Abdominal obesity), Non Tender and Normal Bowel Sounds
Neurology: Awake, Tremors (negative), Lethargic and Other (sleepy at times but easily arousable and following all commands)
Skin: Warm, Dry, Cyanosis (n), Jaundice (n) and Rash (n)
Labs/Micro/Reports
Lab Data
10/27/24 04:50
10/27/24 04:50
Laboratory Results
10/27/24
04:50
pH 7.45
pCO2 61 H
pO2 63 L
HCO3 42.4 H*
O2 Delivery Level 60%
Microbiology
10/22/24 13:25 Blood/Venous Blood Culture - Preliminary
No Growth in 4 days- Final report to follow
10/25/24 10:07 Nasal Swab Influenza Types A & B (VENITA) - Final
Negative for Influenza A & B, NAAT
Negative results must be combined with clinical observations
and patient history.
Nucleic Acid Amplification test (NAAT)performed on the
[employer] platform.
[2024-10-27 09:36] VITALS: BP_SYST 143
--- NOTE | 2024-10-27 09:37 | PTCARENOTE ---
at start of shift pt wake to touch. sedate on diprivan and fent. nods head no to pain. asv mode on vent tube feeding running via dht. placement checked. diprovan now off and pt on vent wean.
[2024-10-27 09:45] VITALS: BP_SYST 138
[2024-10-27 11:46] LABS: B.E. 14.1 mmol/L; PCO2 59 mmHg (35-48); PO2 61 mmHg (83-108); pH 7.45 (7.35-7.45)
[2024-10-27] MEDS: KCL ELIXIR 20 MEQ TUBE (12:16)
--- NOTE | 2024-10-27 13:06 | W.PN.UPDATE ---
Update Note
Progress Note Update
Pt doing well on a SBT with PS 5, PEEP of 8 and FiO2 60%. at bedside, and we discussed his clinical status and his candidacy for extubation. I believe he is ready for extubation now. We talked about after extubation should we put the tube
back and in if he fails. The and the patient spoke amongst themselves, and he would like to be DNR/DNI. If he does not do well after extubation then we will transition to comfort care at that time. All questions were answered and emotional
support was provided.
--- NOTE | 2024-10-27 13:09 | W.PN.HOSP.TC ---
Today's Communication/Plan
-
SBT with plan for extubation
cont with diuresis
Trend cbc
Monitor closley post op
Assessment / Plan
Assessment / Plan
Physical Exam
General: chronically ill looking, intubated
HEENT: Normocephalic, Atraumatic, ET tube
Respiratory: Rhonchi
Cardiac: S1/S2
GI: Soft, Nontender, Nondistended and Normal Bowel Sounds;
Rectal: no bleeding
Musculoskeletal: No Cyanosis, Edema, Right Lower Extrem and Edema, Left Lower Extrem
Skin: Negative Rash
Neuro: lightly sedated
Psych: Calm
#Acute Pulmonary edema
#Acute hypoxic and hypercapnic respiratory failure likely multifactorial pleural effusion, suspected COPD exacerbation, pulmonary edema, diastolic heart failure exacerbation, pneumonia
Failed BiPAP and NIV, now intubated, ventilatory assisted. SBT today.
s/p Ceftriaxone and doxycycline. IV ceftriaxone 2 gm, s/p completion of abx course
Blood cultures negative, repeat 10/22
Pleural fluid 10/14/2024-no growth
Sputum culture: Moraxella catarrhalis, respiratory culture sent on 10/21
Influenza negative
Bronchodilators for now.
TF ongoing.
Chest x-ray 10/26 with acute pulmonary edema with slight progression
Intern Brand correspondence noted. Plan is for extubation. CODE STATUS changed to DNR/DNI after extubation
# Acute mucus plugging with collapse of left lung and persistent hypoxia despite high flow O2 and pressurized O2 treatment
s/p Bronchoscopy and intubation on 10/21
currently on SBT
No fevers
respirator culture 10/21 no growth
Negative blood culture
#Acute HFpEF
Lasix 80 mg twice daily, add KCl. Good urinary output
No SGLT2 antagonist related to cost, avoid spironolactone related to hyperkalemia.
Monitor urinary output.
Daily weights
ECHO normal left ventricular size and function with mild to moderate LVH. EF 55 to 60%. Grade 1 diastolic dysfunction. Dilated hypokinetic right ventricle with sparing of the apex. No significant valvular disease. PASP of 50-55. IVC is dilated
and does not collapse.
trop flat.
proBNP elevated at 4200
Elevated D-dimer.
CT chest which was negative for pulmonary embolism. lower extremity Doppler negative
Also resume Diamox
May need to consider Zaroxolyn
Cardiology evaluation
# Leukocytosis likely secondary to recent pneumonia and also with steroids
If had episode of fever will need pancultures with repeat urine, blood cultures and chest x-ray
Monitor secretions
Abdomen not significantly distended
#Right pleural effusion exudative
CT chest with significant pleural effusion
[facility] consulted for thoracentesis status post 200 cc of fluid removal.
Fluid culture remains negative.
Cytology atypical cells, favor reactive.
#[place]urg[place] stool on 10/25
Hgb stable so far
Monitor stools
# Moraxella catarrhalis pneumonia
Continue with ceftriaxone ( ordered)
Repeat culture no growth
# New onset of atrial fibrillation with rapid ventricular response
hep gtt stopped and switched to DOAC
Remains on amiodarone. Gtt discontinued and switch to 200mg PO TID loading dose, cardiology adjusted doses, now on Amiodarone 200 BID only, Coreg was started and now stopped .
#Hyperkalemia
improved with aggressive diuresis
#Transaminitis likely secondary hepatic congestion
Improving
#Primary hypertension
Avoid AMANDA or ARB in the setting of hyperkalemia for now
Monitor blood pressure with diuresis
# Borderline Diabetes mellitus type 2
A1c of 6.8
Started insulin sliding scale and Accu-Cheks
Not needing insulin
Encourage weight loss and diet compliance.
# tobacco abuse
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
NicoDerm
#Morbid obesity due to excess calories
# Obesity BMP >40
Affects all aspects of medical care
Recommend weight loss after resolution of acute disease process
#Peripheral arterial disease
# Medical Noncompliance
Mild thrombocytopenia
Continue to monitor platelets
Resolved
Sacra; skin stage I versus DTI
Wound care
Severe protein caloric malnutrition of acute illness
Tube feedings ongoing
Dietitian on board
DVT prophylaxis Eliquis
Full code
Discussed with tar roofer
Anticipated Discharge: > 48 hours
Subjective/Interval History
-
Date of Service: October 27, 2024
Patient remains intubated
Currently on SBT
Objective Data
-
Labs:
Laboratory Results
10/27/24 10/27/24
04:50 11:37
WBC 33.7 H
Hgb 13.6
Hct 44.3
Plt Count 151
HCO3 42.4 H* 41.0 H*
Sodium 138
Potassium 3.7
Chloride 92 L
Carbon Dioxide 39 H
BUN 55 H
Creatinine 0.9
Glucose 171 H
Calcium 8.4
Vital Signs:
Vital Signs
Temp Pulse Resp BP Pulse Ox
99 F 79 16 125/51 90
10/27/24 11:19 10/27/24 12:00 10/27/24 12:00 10/27/24 07:43 10/27/24 12:00
I&O
10/26/24 10/27/24 10/28/24
06:59 06:59 06:59
Intake Total 2639.2 / 2746.0 2652.3 / 2767.6 768.1 / 768.1
Output Total 3105 / 3180 3235 / 3335 1125 / 1125
Balance -465.8 / -434.0 -582.7 / -567.4 -356.9 / -356.9
Data Reviewed
-
Total Time Spent with Patient (in minutes): 55
--- NOTE | 2024-10-27 13:26 | PTCARENOTE ---
pt extubated 1320 placed on niv. restraints removed. pt at bedside.
--- NOTE | 2024-10-27 14:01 | CM ---
CM following re: discharge planning.
Reviewed pt's chart, met with pt and pt's spouse at bedside.
Pt extubated today at 13:30 to NIV, continue supportive care. Per MD, pt now DNR/DNI and If he does not do well after extubation then we will transition to comfort care at that time.
D/c plan: uncertain at this time and will depend on pt's progress.
CM will follow with discharge plan updates as hospitalization progresses
--- NOTE | 2024-10-27 15:51 | PTCARENOTE ---
pt placed on mid flow 15l. oral care done.
--- NOTE | 2024-10-27 16:38 | PTCARENOTE ---
pt placed back in niv
[2024-10-27 17:34] LABS: Glucose - Point of Care 124 mg/dl (70-99)
[2024-10-27] MEDS: TYLENOL ORAL SOLUTION 650 MG TUBE (20:00)
[2024-10-27] MEDS: DECADRON 2 MG IV (20:01)
--- NOTE | 2024-10-27 20:50 | PTCARENOTE ---
Received pt from previous RN. Pt is AAOx3, drowsy at times, nods head/mouths words, trying to vocalizes his needs. NSR w/ 1st degree, doppler pedal pulses. On NIV 158 60%, O2 sat 91%, lungs diminished/coarse/rhonchi. R nare dobhoff @ 80 cm, Vital
1.2 @ 75 ml/hr 25 ml flush. Parson in place. Percussion for 10 mins provided. Pt c/o 10/10 generalized pain, PRN Tylenol given (see MAR). Mouth care provided. Right radial larry zeroed and transduced. Pt is laying in bed with call martínez in reach. Safe
environment maintained.
--- NOTE | 2024-10-27 21:19 | PTCARENOTE ---
Received pt from previous RN. Pt is AAOx3, drowsy at times, nods head/mouths words, trying to vocalizes his needs. NSR w/ 1st degree, doppler pedal pulses. On NIV 15/8 60%, O2 sat 91%, lungs diminished/coarse/rhonchi. R nare dobhoff @ 80 cm, Vital
1.2 @ 75 ml/hr 25 ml flush. Parson in place. Percussion for 10 mins provided. Pt c/o 10/10 generalized pain, PRN Tylenol given (see MAR). Mouth care provided. Pt is laying in bed with call martínez in reach. Safe environment maintained.
[2024-10-27 23:58] LABS: Glucose - Point of Care 164 mg/dl (70-99)
[2024-10-27] MEDS: MORPHINE SULFATE 2 MG IV (23:59)
[2024-10-28] MEDS: NOVOLOG FLEXPEN-LOW RESISTANCE 1 UNITS SC (00:13)
--- NOTE | 2024-10-28 00:17 | PTCARENOTE ---
Systems reviewed. Pt c/o 06/10 whole body pain, ICU TRAUMA COUNSELLOR Jazmine notified, PRN Morphine ordered (see MAR). FiO2 increased to 75%. Safe environment maintained.
--- NOTE | 2024-10-28 04:40 | PTCARENOTE ---
Systems reviewed, no new changes in assessment. AM labs provided. Safe environment maintained.
[2024-10-28 04:42] VITALS: BMI 40.9
[2024-10-28 04:57] LABS: Blood Urea Nitrogen 54 mg/dl (9-20); Calcium 8.5 mg/dl (8.4-10.2); Chloride 95 mmol/L (98-107); Estimated Creatinine Clearance 109 ml/min; Glucose 119 mg/dl (70-99); Potassium 4.3 mmol/L (3.5-5.1); Sodium 138 mmol/L (135-145); eGFR > 60.00
[2024-10-28 05:07] LABS: Carbon Dioxide 34 mmol/L (22-30)
[2024-10-28 05:12] LABS: Hematocrit 46.4 % (39.0-52.0); Hemoglobin 14.3 g/dL (13.0-18.0); Mean Corp Hgb Conc. 30.8 g/dL (33.0-37.0); Mean Corpuscular Hgb 25.5 pg (27.0-31.0); Mean Corpuscular Volume 82.7 fL (80.0-94.0); Platelet Count 158 10^3/uL (130-400); Red Blood Cell Count 5.61 10^6/uL (4.70-6.10); Red Cell Dist. Width 20.1 % (11.5-14.5); White Blood Cell Count 29.8 10^3/uL (4.8-10.8)
[2024-10-28] MEDS: NOVOLOG FLEXPEN-LOW RESISTANCE SC ×2 (05:39→11:44)
[2024-10-28 05:50] LABS: Glucose - Point of Care 102 mg/dl (70-99)
[2024-10-28 07:00] LABS: % Basophils 0.2 % (0-2); % Immature Granulocytes 2.3 % (0-0.5); % Lymphocytes 2.4 % (20.5-51.1); % Monocytes 5.6 % (1.7-9.3); % Neutrophils 89.5 % (42.2-75.2); Absolute Basophils 0.1 10^3/uL (0-0.2); Absolute Immature Granulocytes 0.7 10^3/uL (0-0.05); Absolute Lymphocytes 0.7 10^3/uL (1.2-3.4); Absolute Monocytes 1.7 10^3/uL (0.1-0.6); Absolute Neutrophils 26.7 10^3/uL (1.4-6.5); Nucleated Red Blood Cells % 0 % (-)
[2024-10-28] MEDS: DUONEB 3 ML INH ×2 (07:16→13:17)
[2024-10-28 07:52] VITALS: BP 132/65
[2024-10-28 08:06] LABS: Glucose - Point of Care 142 mg/dl (70-99)
--- NOTE | 2024-10-28 08:19 | W.PN.INTV ---
Today's Communication / Plan
Recommendations
Extubated yesterday to NIV --> now on continuous NIV
Family meeting held with hospice and patient is being transitioned to comfort care
Once all family members have arrived, stop all medications unless tailored for comfort
Emotional support provided
Windows Technical Specialist services offered
He is already DNR/DNI
No additional recommendations at this time. Supervisor Frame Sample And Pattern/Pulmonary service will now sign off. Please call back if there are any additional questions or concerns.
Assessment
-
74 year old M with past medical history of COPD, current smoker, noncompliance with outpatient followup presenting from home to ER with complaints of acute on chronic shortness of breath. Patient reports chronic shortness of breath for the past
1 year, acutely worsening the past few days. There is also notation of worsening lower extremity edema, orthopnea, elevated BP at home. EMS reported patient was severely hypoxemic on initial evaluation and received nitroglycerin x 2. Patient was
placed on BiPAP in the ER. Imaging showing effusion, proBNP >4000, 3+ pitting LE edema. Admitted to IMU. We are consulted for evaluation.
Acute HFpEF exacerbation with orthopnea/LE edema on NIV
s/p intubation 10/21/2024, extubated 10/27/2024
Acute hypoxic and hypercapnic respiratory failure now on continuous NIV
Moderate pleural effusions s/p R-sided thora 10/14/24 (transudative)
SOB
Leukocytosis
Suspected CHRISTY/OHS (Noncompliant)
Thrombocytopenia � resolved
Profoundly weak, likely severe deconditioning
Moraxella in sputum Cx from 10/15/2024
Bloody stool seen on 10/25/2024 - resolved
Conditions present APPLICATION LEAD:
COPD-refuses outpatient pulmonary follow-up and PFTs
Current smoker- 1 pack a day for 40+ years-cut down to 1/2 pack
Hypertension
Morbid obesity due to excess calories
Peripheral arterial disease
Lumbar spinal stenosis s/p surgery 2018
s/p R cataract IOL and trabeculectomy 2014
Plan
Patient now on continuous NIV--> will consult hospice
Family meeting held with hospice and the patient's and children � family has agreed to withdraw care (see separate update note), just waiting on an additional son to arrive (Dru)
Until all phone numbers are ready to withdraw care, will half the TF rate given continuous NIV
FiO2 raised overnight, additional IV Lasix given today. Continues trend I/O.
In the interim:
Atrial fibrillation rate control - currently in NSR as of 10/23/2024
Echocardiogram noted 10/14/2024-EF 55-60%, grade 1 diastolic dysfunction, hypokinetic right ventricle with apical sparing (?Takotsubo's cardiomyopathy), no significant valvular disease, PA systolic 50-55
Cardiology following-correspondence reviewed
Amiodarone/Eliquis PO continued
Diuresis continues as tolerated--on 10/24/2024 lasix changed from 60mg IV BID to 80mg BID --> now on PO lasix since 10/25 may need additional diuresis with Zaroxolyn
He has improved pulmonary edema on CXR on 10/25 --> cardiology changed IV lasix to PO on 10/25 --> FiO2 worsened on 10/27 - 10/28/2024 on NIV, will give additional IV Lasix today
Given his echo findings with possible Takotsubo's cardiomyopathy, I discussed this case on 10/[address] Nabor Loredo, and we resumed Coreg - now stopped on 10/25 due to Hx of COPD
s/p intubation 10/21/2024 due to worsening hypoxemia, WOB --> extubated 10/27/2024
CXR with total L sided atelectasis, emergent bronch on 10/21/2024 with small mucus, lavaged and suctioned, mostly L sided atelectasis
Repositioned to R side down, sats improved
Desats with turning, positionally dependent
Nebulizers-DuoNebs continue
On 10/23 we started chest PT with sport bed
Added IV steroids on 10/22/2024 with IV decadron 4mg q8hr --> started weaning on 10/24 to 4mg IV q12hr --> weaned on 10/27 to 2mg IV q12hr ---> will now stop given he is being transitioned to comfort care
NPO, DHT in place --> will remove DHT once we transition to comfort care
TFs order per RD placed --> will half the rate given that he is on continuous NIV
Aspiration precautions
Cultures reviewed
Blood cultures negative
Pleural fluid 10/14/2024-no growth
Sputum culture 10/15/2024- +Moraxella, completed Doxy/rocephin (10/15 - 10/19/2024), then rocephin resumed on 10/21 following clinical change --> would stop after next 24-48 hrs assuming he remains afebrile
Bronch culture resent 10/21, NGTD
Influenza negative
Follow leukocytosis-Remains elevated
Monitor for fevers
Monitor renal function, electrolytes, intake/output, lower extremity edema and weight
Replace electrolytes as needed
Gave Diamox on 10/25+10/26, and pH this morning looks good at 7.46, continue to hold off on additional Diamox at this time
Lower extremity ultrasound 10/15/2014-no evidence for DVT bilaterally
DVT ppx, Eliquis
Smoking cessation counseling ongoing
Nicotine patch
DVT prophylaxis-on Eliquis
Patient is awaiting to be transitioned to comfort care with hospice. No additional recommendations at this time. Supervisor Frame Sample And Pattern/Pulmonary service will now sign off. Thank you for allowing us to be involved in the care of this patient. Please
reconsult if there are any additional questions/concerns, or if patient's respiratory status deteriorates.
Family Discussions
Obi 10/19/24- spoke to family again at bedside, they confirmed intubation but he would not want prolongation
Obi 10/18/24- spoke with at bedside regarding code status and she notes that he would not want to be prolonged or undergo tracheostomy but would want intubation is that would help him recover
Remains full code
Dr. Bolanos reviewed in detail with at the bedside 10/15/2024 and 10/16/2024- states does not take care of himself, does not seek medical attention, and they have been nagging him to get medical attention since Thanksgiving
Goals of care discussion ongoing
Diagnostic Data
CXR 10/15/24- 1. Right PICC tip projects over the cavoatrial junction. 2. Mild pulmonary vascular congestion. 3. Suspected bilateral pleural effusions. Bibasilar airspace disease may also be present.
CXR 10/13/24- CHF and small to moderate right pleural effusion with adjacent atelectasis.
Chest x-ray 02/03/15- No active pulmonary disease. Slightly prominent left hilum most likely representing overlapping normal vascularity. Left hilar mass/lymphadenopathy cannot be entirely excluded. Recommend comparison with any prior outside study
to assess stability.
CT CHEST 10/14/24- No findings to suggest CENTRAL pulmonary embolism. Unfortunately, evaluation for more peripheral pulmonary embolism particularly in the lower lobes bilaterally limited by bilateral lower lobe consolidations and pleural effusions,
right greater than left as well as motion/respiration artifact.. Small suggesting 'filling defect' arterial in the left lower lobe most likely represents a branching vessel and does not pulmonary embolism, although cannot be excluded.
ECHO 10/14/24- Normal left ventricular size and systolic function with mild to moderate concentric left ventricular hypertrophy Left ventricular ejection fraction visually estimated 55-60% Grade 1 diastolic dysfunction Dilated, hypokinetic right
ventricle with sparing of the apex Mild right atrial dilatation No significant valvular disease. Estimated pulmonary artery pressure of 50-55 mmHg. Assuming a right atrial pressure of 15 mmHg. The IVC is dilated and does not collapse Prominent
anterior fat pad present. No pericardial effusion. No pleural effusion present. No prior study available for comparison
Reports and relevant images were personally reviewed.
Total time spent today was 78 minutes for this encounter. Time includes reviewing laboratory test/imaging results, reviewing pertinent medical records, obtaining and reviewing medical history, performing an appropriate exam, ordering medications,
tests and procedures. Time also includes documentation of this encounter, coordinating patient care and communicating with other healthcare professionals. Total time does not include separately billed tests performed on this date of service.
Subjective Dataa
Subjective Data
Date of Service:
Date of Service: October 28, 2024
Chief Complaint: Supervisor Frame Sample And Pattern Follow Up and Pulmonary Follow Up
Subjective:
Patient was seen and evaluated this morning. Currently on NIV at 15/8cmH2O, FiO2 raised to 75% due to desaturation overnight; this AM VTe is 650mL and he is breathing at 18 breaths/min. His TF is at goal. He is withdrawn. HR 77 and BP 151/64.
Family members coming to bedside to have a goals of care discussion.
Review of Systems
General: Other (Unobtainable - continuous NIV)
Objective Data
Data Reviewed
Vital Signs / I&O / Oxygen:
Vital Signs
Temp Pulse Resp BP Pulse Ox
98.4 F 77 21 135/54 94
10/28/24 07:48 10/28/24 10:00 10/28/24 10:00 10/28/24 09:02 10/28/24 10:00
Intake and Output
10/27/24 10/28/24 10/29/24
06:59 06:59 06:59
Intake Total 2652.3 / 2767.6 2373.1 / 2373.1 0 / 0
Output Total 3235 / 3335 3217 / 3237 370 / 370
Balance -582.7 / -567.4 -843.9 / -863.9 -370 / -370
SaO2 [CPAP/PSV] 90
SaO2 [ASV] 94
SaO2 [A/C] 96
SaO2 [NIV (Non Invasive 93
Ventilation)]
SaO2 94
Nasal Cannula flow liters per 50
minute
Physical Exam
General: Respiratory Distress (negative), Chills (negative), Sweats (negative) and Other (morbid obesity)
HEENT: Normocephalic, Anicteric, Moist Mucous Membranes and Other (Thick neck)
Cardiovascular: S1-S2, Rub (negative) and Peripheral Edema (+2 bilateral pitting edema in lower extremities)
Respiratory: Wheeze (negative), Crackles (Bilaterally), Rhonchi (negative), Non-Labored Respirations, Accessory Resp Muscle Use (n) and Stridor (n)
GI: Soft, Distended (Abdominal obesity), Non Tender and Normal Bowel Sounds
Neurology: Tremors (negative), Lethargic and Other (sleepy at times but easily arousable and following all commands)
Skin: Warm, Dry, Cyanosis (n), Jaundice (n) and Rash (n)
Labs/Micro/Reports
Lab Data
10/28/24 04:01
10/28/24 04:01
Laboratory Results
10/27/24
11:37
pH 7.45
pCO2 59 H
pO2 61 L
HCO3 41.0 H*
O2 Delivery Level 60% fio2
Microbiology
10/22/24 13:25 Blood/Venous Blood Culture - Final
No Growth - Final Report
10/25/24 10:07 Nasal Swab Influenza Types A & B (VENITA) - Final
Negative for Influenza A & B, NAAT
Negative results must be combined with clinical observations
and patient history.
Nucleic Acid Amplification test (NAAT)performed on the
[employer] platform.
[2024-10-28] MEDS: NSS (PRESERVATIVE FREE) 10 ML IV (08:55)
[2024-10-28] MEDS: PROTONIX IV 40 MG IV (08:55)
[2024-10-28] MEDS: DECADRON 2 MG IV (08:56)
[2024-10-28] MEDS: NICODERM TRANSDERMAL 14 MG TRANSDERM (09:00)
[2024-10-28] MEDS: MIRALAX 17 GRAMS TUBE (09:02)
[2024-10-28] MEDS: LASIX 80 MG TUBE (09:02)
[2024-10-28] MEDS: HYDROPHOR 1 APPLIC TOPICAL (09:03)
[2024-10-28] MEDS: ELIQUIS 5 MG TUBE (09:03)
[2024-10-28] MEDS: PACERONE 200 MG TUBE (09:03)
[2024-10-28] MEDS: DESENEX/MITRAZOL/ZEASORB 1 APPLIC TOPICAL (09:04)
--- NOTE | 2024-10-28 09:56 | PTCARENOTE ---
Patient is quiet and withdrawn this am, refusing turns and other care. RN explained to him morning medication administration and nursing assessment. He is nodding head yes/no to questions, he denies pain/discomfort at this time, he is wandering
where his is. Tube feeds continuing per order, starr in place, right upper arm picc line noted. He still has +3 BLE pitting edema, cardiology was at bedside assessing as well.
See flowsheet/mar for further care details.
--- NOTE | 2024-10-28 10:06 | W.PN.CARDCBS ---
Today's Communication / Plan
-
IV diuretics
Impression / Plan
-
Primary Wine Manager: none prior to admission, first seen by Dr Shaw
Assessment:
Acute hypoxic respiratory failure, on BIPAP, intubated (10/21) 2 worsening hypoxia; extubated 10/27
Presentation with SOB
Acute HFpEF, improving
Paroxysmal atrial fibrillation, converted to sinus rhythm on amiodarone
Leukocytosis
Hyperkalemia
Elevated LFTs, concern for passive congestion
COPD, possibly acute on chronic
Ongoing tobacco use
Morbid obesity
ECHO 10/14/24: EF 55 to 60%, mild to moderate concentric LVH, grade 1 diastolic dysfunction, dilated hypokinetic RV with sparing of apex, PAP 50 to 55 mmHg, IVC dilated and does not collapse, prominent anterior fat pad
Plan:
74-year-old gentleman with COPD/ongoing tobacco abuse, likely untreated CHRISTY/OHS who presents with acute hypoxic/hypercapnic respiratory failure multifactorial with Moraxella pneumonia, exudative pleural effusion status post thoracentesis, heart
failure preserved ejection fraction/Takotsubo's cardiomyopathy
Extubated 10/27/2024 to noninvasive mechanical ventilation/BiPAP
No plans to reintubate; DNR/DNI
Management per pulmonary
Continue steroids and supportive care for respiratory failure
Echocardiogram concerning for Takotsubo's cardiomyopathy on 10/14/2024
Volume status difficult but appears volume overloaded. Will change p.m. dose of Lasix 80 mg to IV tonight and reassess volume status in the morning
Monitor BMP, weights, I's and O's
Keep K greater than 4, mag greater than 2
Maintain Parson catheter
Will consider limited repeat echocardiogram prior to discharge
History of paroxysmal atrial fibrillation remains in sinus rhythm after conversion on amiodarone
Continue amiodarone 200 twice daily.
Continue Eliquis 5 mg twice daily
Repeat EKG for QT monitoring
Blood pressures acceptable not requiring pressors
Will follow with you
Clinical summary:74-year-old man with COPD and ongoing tobacco abuse, morbid obesity, no recent medical contacts presenting with dyspnea and evidence of heart failure/pulmonary edema, proBNP 4200. Echo with preserved LVEF, hypokinetic right
ventricle with sparing of the apex, pulmonary artery systolic pressure 50-[address] scan shows elevated right hemidiaphragm and bilateral lower lobe consolidation with pleural effusions and no evidence of obvious pulmonary emboli. Onset of
atrial fibrillation October 15.
Progress Note - Wine Manager
Subjective
Date of Service: October 28, 2024
Seen and examined with nursing. On BiPAP but communicating utilizing alphabet paper. Events overnight reviewed, chart/telemetry reviewed
Objective
Labs:
10/28/24 04:01
10/28/24 04:01
Labs
Hgb 14.3 g/dL (13.0-18.0) 10/28/24 04:01
Hct 46.4 % (39.0-52.0) 10/28/24 04:01
Plt Count 158 10^3/uL (130-400) 10/28/24 04:01
APTT Cancelled 10/16/24 12:30
Sodium 138 mmol/L (135-145) 10/28/24 04:01
Potassium 4.3 mmol/L (3.5-5.1) 10/28/24 04:01
BUN 54 mg/dl (9-20) H 10/28/24 04:01
Creatinine 0.8 mg/dL (0.7-1.3) 10/28/24 04:01
Glucose 119 mg/dl (70-99) H 10/28/24 04:01
Vital Signs and I&O:
Vital Signs
Temp Pulse Resp BP Pulse Ox
98.4 F 77 21 135/54 94
10/28/24 07:48 10/28/24 10:00 10/28/24 10:00 10/28/24 09:02 10/28/24 10:00
Vital Signs
Temp Pulse Resp BP Pulse Ox
98.4 F 77 21 135/54 94
10/28/24 07:48 10/28/24 10:00 10/28/24 10:00 10/28/24 09:02 10/28/24 10:00
Intake & Output
10/26/24 10/27/24 10/28/24 10/29/24
06:59 06:59 06:59 06:59
Intake Total 2639.2 / 2746.0 2652.3 / 2767.6 2373.1 / 2373.1 0 / 0
Output Total 3105 / 3180 3235 / 3335 3217 / 3237 370 / 370
Balance -465.8 / -434.0 -582.7 / -567.4 -843.9 / -863.9 -370 / -370
Physical Exam
Physical Exam
GEN: 74-year-old gentleman who appears older than stated age on BiPAP
HEENT: Anicteric sclera
LUNGS: Coarse bronchovesicular breath sounds with bilateral rhonchi. No wheezes auscultated
CV: Distant heart sounds. Regular. Positive S1-S2. No murmur or rub.
ABD: soft, BS+, NT/ND, obese
EXT: ++ edema
--- NOTE | 2024-10-28 11:01 | CM ---
CM following re: discharge planning.
Reviewed pt's chart, met with pt and pt's spouse at bedside.
Pt continues NIV treatment, , continue supportive care. Per MD, pt now DNR/DNI and If he does not do well after extubation then we will transition to comfort care at that time.
D/c plan: uncertain at this time and will depend on pt's progress.
CM will follow with discharge plan updates as hospitalization progresses
--- NOTE | 2024-10-28 11:05 | CM ---
CM following re: discharge planning.
Discussed in Rounds, reviewed pt's chart, met with pt and spoke to pt's spouse.
Per Rounds meeting, pt continues NIV treatment, quiet and withdrawn, nodding head yes/no to questions, continue supportive care.
Hospice consult noted. Pt referred to hospice for evaluation and treatment.
D/C plan: hospice care with hospice probably GIP.
CM is available for emotional support.
[2024-10-28 11:18] VITALS: BP 145/52
[2024-10-28 11:36] VITALS: BP 144/79
[2024-10-28 11:43] LABS: Glucose - Point of Care 121 mg/dl (70-99)
[2024-10-28 12:02] LABS: B.E. 10.6 mmol/L; HCO3 36.3 mmol/L (21-28); O2 Saturation % 94.7 % (94-98); PCO2 51 mmHg (35-48); PO2 66 mmHg (83-108); pH 7.46 (7.35-7.45)
--- NOTE | 2024-10-28 12:23 | PTCARENOTE ---
Afternoon arterial blood gas sent to lab, pt continued on bipap with fiO2 at 75%. Pt allowed RN to perform oral care on him. RN called pt's to update her on rounds/plan of care, she will be coming in to see patient around 1:15 this afternoon.
process coach will come back to discuss goals of care with patient and . Pt continues to deny pain/discomfort at this time, tube feed rate decreased per chiller tender, voiding well via starr
--- NOTE | 2024-10-28 12:39 | W.PN.HOSP.TC ---
Today's Communication/Plan
-
Continue with noninvasive. Increasing FiO2 requirement noted
Continue with aggressive diuresis
Monitor WBC
Continue with tube feeding
Assessment / Plan
Assessment / Plan
Physical Exam
General: chronically ill looking, remains on NIV
HEENT: Normocephalic, Atraumatic,
Respiratory: Rhonchi
Cardiac: S1/S2
GI: Soft, Nontender, Nondistended and Normal Bowel Sounds;
Rectal: no bleeding
Musculoskeletal: No Cyanosis, Edema, Right Lower Extrem and Edema, Left Lower Extrem persist
Skin: Negative Rash
Neuro: awake and watching TV.
Psych: Calm
#Acute Pulmonary edema
#Acute hypoxic and hypercapnic respiratory failure likely multifactorial pleural effusion, suspected COPD exacerbation, pulmonary edema, diastolic heart failure exacerbation, pneumonia
Failed BiPAP and NIV, now intubated, ventilatory assisted. SBT today.
s/p Ceftriaxone and doxycycline. IV ceftriaxone 2 gm, s/p completion of abx course
Blood cultures negative, repeat 10/22
Pleural fluid 10/14/2024-no growth
Sputum culture: Moraxella catarrhalis, respiratory culture sent on 10/21
Influenza negative
Bronchodilators for now.
TF ongoing.
Chest x-ray 10/26 with acute pulmonary edema with slight progression
Status post extubation on 10/27/2024. Remains on noninvasive increase FiO2 requirement
Night Guard correspondence noted. . CODE STATUS changed to DNR/DNI after extubation
# Acute mucus plugging with collapse of left lung and persistent hypoxia despite high flow O2 and pressurized O2 treatment
s/p Bronchoscopy and intubation on 10/21
currently on SBT
No fevers
respirator culture 10/21 no growth
Negative blood culture
#Acute HFpEF
Lasix has been transitioned to 80 mg IV twice daily. Continue with aggressive diuresis.
No SGLT2 antagonist related to cost, avoid spironolactone related to hyperkalemia.
Monitor urinary output.
Daily weights
ECHO normal left ventricular size and function with mild to moderate LVH. EF 55 to 60%. Grade 1 diastolic dysfunction. Dilated hypokinetic right ventricle with sparing of the apex. No significant valvular disease. PASP of 50-55. IVC is dilated
and does not collapse.
trop flat.
proBNP elevated at 4200
Elevated D-dimer.
CT chest which was negative for pulmonary embolism. lower extremity Doppler negative
Also resume Diamox
May need to consider Zaroxolyn
Cardiology evaluation
# Leukocytosis likely secondary to recent pneumonia and also with steroids
If had episode of fever will need pancultures with repeat urine, blood cultures and chest x-ray
Monitor secretions
Abdomen not significantly distended. Having bowel movements
Mild downtrend in WBC noted
#Right pleural effusion exudative
CT chest with significant pleural effusion
[facility] consulted for thoracentesis status post 200 cc of fluid removal.
Fluid culture remains negative.
Cytology atypical cells, favor reactive.
#Burgundy stool on 10/25
Hgb stable so far
Monitor stools
# Moraxella catarrhalis pneumonia
Continue with ceftriaxone ( ordered)
Repeat culture no growth
# New onset of atrial fibrillation with rapid ventricular response
hep gtt stopped and switched to DOAC
Remains on amiodarone. Gtt discontinued and switch to 200mg PO TID loading dose, cardiology adjusted doses, now on Amiodarone 200 BID only, Coreg was started and now stopped .
#Hyperkalemia
improved with aggressive diuresis
#Transaminitis likely secondary hepatic congestion
Improving
#Primary hypertension
Avoid AMANDA or ARB in the setting of hyperkalemia for now
Monitor blood pressure with diuresis
# Borderline Diabetes mellitus type 2
A1c of 6.8
Started insulin sliding scale and Accu-Cheks
Not needing insulin
Encourage weight loss and diet compliance.
# tobacco abuse
Does not follow-up with monotype operator
NicoDerm
#Morbid obesity due to excess calories
# Obesity BMP >40
Affects all aspects of medical care
Recommend weight loss after resolution of acute disease process
#Peripheral arterial disease
# Medical Noncompliance
Mild thrombocytopenia
Continue to monitor platelets
Resolved
Sacra; skin stage I versus DTI
Wound care
Severe protein caloric malnutrition of acute illness
Tube feedings ongoing
Dietitian on board
DVT prophylaxis Eliquis
Full code
Prognosis guarded
Anticipated Discharge: > 48 hours
Subjective/Interval History
-
Date of Service: October 28, 2024
remains on NIV
Increased FIO2
Objective Data
-
Labs:
Laboratory Results
10/28/24 10/28/24
04:01 11:48
WBC 29.8 H
Hgb 14.3
Hct 46.4
Plt Count 158
HCO3 36.3 H
Sodium 138
Potassium 4.3
Chloride 95 L
Carbon Dioxide 34 H
BUN 54 H
Creatinine 0.8
Glucose 119 H
Calcium 8.5
Vital Signs:
Vital Signs
Temp Pulse Resp BP Pulse Ox
98.5 F 75 16 144/79 94
10/28/24 12:11 10/28/24 12:00 10/28/24 12:00 10/28/24 11:36 10/28/24 12:00
I&O
10/27/24 10/28/24 10/29/24
06:59 06:59 06:59
Intake Total 2652.3 / 2767.6 2373.1 / 2373.1 465 / 465
Output Total 3235 / 3335 3217 / 3237 770 / 770
Balance -582.7 / -567.4 -843.9 / -863.9 -305 / -305
Data Reviewed
-
Total Time Spent with Patient (in minutes): 55
--- NOTE | 2024-10-28 12:43 | HOSPNOTE ---
Addendum entered by Lori Yin RN 10/28/24 14:08:
Spoke with the family and discussed hospice and the philosophy. The family will meet with me in the am with a decision patient will need to remain here with hospice. The family was very tearful and just needs some time
Original Note:
Will meet with patient spouse at 1:30 to discuss hospice services. More information to follow.
[2024-10-28] MEDS: ATIVAN 1 MG IV ×2 (14:08→16:18)
[2024-10-28 14:13] VITALS: BP 151/61
--- NOTE | 2024-10-28 14:52 | PTCARENOTE ---
Patient's came out to nursing station and asked me if there could be a meeting to discuss patients end of life/goals of care. RN messaged paint supervisor and inpatient salesperson surgical appliances about family wishing to meet. Materials Analyst updated pt on current
respiratory status and our inability to take him off bipap due to his high oxygen requirements. glove former also met with family to talk about goals of care. End of life discussion was very distressing to patient and family asked medical team if we
could provide anti anxiety medication. Ativan 1mg was given post end of life discussion for anxiety. Pt's and 1 son is awaiting arrival of second son, they plan on settling on a decision to do or not do hospice tomorrow.
--- NOTE | 2024-10-28 15:47 | W.PN.UPDATE ---
Update Note
Progress Note Update
Had conversation with the patient's and other male family member, and they would like to transition to comfort care. They were going to wait for an additional son to come but the pt wants the mask off his face and wants a drink of water. I
will order comfort care order set and then our service will sign off. Please call back with any questions or concerns.
[2024-10-28] MEDS: MORPHINE SULFATE 2 MG IV ×2 (15:48→16:43)
--- NOTE | 2024-10-28 16:00 | PTCARENOTE ---
Patient family came out to nursing station again and told RN they have decided to move forward with hospice. They verbalized really wanting to make patient comfortable so he can take off the bipap/mask. He also wanted to drink water. RN relayed
patient and family wishes to shank stapler, hospitalist and area field person. Comfort care orders were initiated. Patient required several doses of morphine, Ativan, and Dilaudid initially for air hunger and anxiety. Morphine gtt was initiated per order.
Comfort cart ordered and delivered for patients family. Arterial line and NGT removed per order. Pt's two sons and are at bedside.
[2024-10-28] MEDS: DILAUDID 1 MG IV (16:17)
[2024-10-28] MEDS: NSS (PRESERVATIVE FREE) 0.5 ML IV (16:18)
[2024-10-28] MEDS: MORPHINE 100 IV (16:21)
--- NOTE | 2024-10-28 19:20 | PTCARENOTE ---
Patient during hand off shift change at 1900. Family was at bedside, home was picked out. Emotional support provided to family.
--- NOTE | 2024-10-28 19:24 | PTCARENOTE ---
Gift of life called- form attached to patients chart in front of unit
--- NOTE | 2024-10-28 19:42 | PTCARENOTE ---
Patient during hand off shift change at 1900, Family was at bedside. Emotional support given. Morphine gtt stopped, wasted with day RN. Night ASSOCIATE TECHNICIAN made aware of Pt passing.
--- NOTE | 2024-10-28 21:00 | W.PN.DEATH ---
Pronouncement of
-
Called to see patient to pronounce.
No spontaneous heart tones or respirations noted.
Patient not responsive to verbal stimuli.
Patient is pronounced .
Time of : 18:57
Date of : 10/28/24
Cause of : Acute pulmonary edema, acute hypoxic and hypercapnic respiratory failure, acute heart failure preserved ejection fraction,
Family Notified: Yes (Patient's and two sons at bedside when patient )
--- NOTE | 2024-10-29 08:00 | W.DCSUMMARY ---
Discharge Summary
Discharge Data
Date of Admission: 10/13/24
Date of Discharge: 10/29/24
-
Pending Results: No
Hospital Course
74-year-old male noncompliant following up with physician as outpatient is presenting from home with shortness of breath. Patient with history of extensive smoking and history of COPD, morbid obesity excess calories, peripheral arterial disease,
lumbar spinal stenosis. Patient was found to be in acute hypoxic and hypercapnic respiratory failure. Patient was also found with pulmonary edema. Patient was placed on BiPAP upon admission. Patient also evidence of pleural effusion status post
thoracentesis. Patient also with Moraxella catarrhalis pneumonia and was treated with antibiotics. Patient with increasing oxygenation requirement and was transferred to medical ICU. Patient was placed on noninvasive. ECHO normal left ventricular
size and function with mild to moderate LVH. EF 55 to 60%. Grade 1 diastolic dysfunction. Dilated hypokinetic right ventricle with sparing of the apex. No significant valvular disease. PASP of 50-55. IVC is dilated and does not collapse.
Patient was started on aggressive IV diuresis per cardiology. Patient was also evaluated by pulmonary. Patient also with new onset of atrial fibrillation and was started on amiodarone drip. Heparin drip was transitioned to Eliquis. Patient with
persistent hypoxemia and was eventually intubated on 10/21 patient also with suspected CHRISTY/OHS. Patient was started on tube feeding. Patient completed course of antibiotics. Patient was also started on aggressive IV steroids. CT of the chest was
negative for pulmonary embolism. lower extremity Doppler was negative. Patient also required Diamox. Patient was finally extubated on noninvasive on 10/27. Patient persistently remained hypoxic was unable to be weaned off the oxygenation. Per
die cleaner discussion with the family patient was changed to DNR/DNI. Hospice was consulted as patient with persistent severe hypoxemia and remains on continuous noninvasive. Patient and family discussed with hospice and patient was transition to
comfort care. Patient was transitioned to morphine infusion and patient on 10/28/2024 at 18:57. .
Discharge Plan
-
Patient Disposition:
Date/Time
Date/Time: 10/28/24 18:57
Discharge Date and Time
Discharge Date/Time: 10/28/24 18:57
Print Language: BELARUSIAN
== END 2024-10-28 18:57 | disposition expired | DRG 207 ==
LOC: ICU 13:28
PROVIDERS: Internal Medicine; Internal Medicine Cardiovascular Disease; Internal Medicine Critical Care Medicine; Nurse Practitioner Family; Nurse Practitioner Primary Care; Radiology Diagnostic Radiology; Radiology Vascular & Interventional Radiology; ADMITTING PHYSICIAN Hospitalist; CONSULT PHYSICIAN Internal Medicine; CONSULT PHYSICIAN Internal Medicine Cardiovascular Disease; EMERGENCY PHYSICIAN Student in an Organized Health Care Education/Training Program; FAMILY PHYSICIAN Family Medicine
PROC: 5A09357 Assistance with Respiratory Ventilation, Less than 24 Consecutive Hours, Continuous Positive Airway Pressure (ICD-10-PCS; 2024-10-13)
PROC: 0W993ZZ Drainage of Right Pleural Cavity, Percutaneous Approach (ICD-10-PCS; 2024-10-14)
PROC: 02HV33Z Insertion of Infusion Device into Superior Vena Cava, Percutaneous Approach (ICD-10-PCS; 2024-10-15)
PROC: 5A0935A Assistance with Respiratory Ventilation, Less than 24 Consecutive Hours, High Flow/Velocity Cannula (ICD-10-PCS; 2024-10-15)
PROC: 5A1955Z Respiratory Ventilation, Greater than 96 Consecutive Hours (ICD-10-PCS; 2024-10-21)
PROC: 0BH18EZ Insertion of Endotracheal Airway into Trachea, Via Natural or Artificial Opening Endoscopic (ICD-10-PCS; 2024-10-21)
DX: J44.1 Chronic obstructive pulmonary disease with (acute) exacerbation (principal); E43 Unspecified severe protein-calorie malnutrition; I50.31 Acute diastolic (congestive) heart failure; J96.01 Acute respiratory failure with hypoxia; J96.02 Acute respiratory failure with hypercapnia; J15.69 Pneumonia due to other Gram-negative bacteria; J91.8 Pleural effusion in other conditions classified elsewhere; Z68.42 Body mass index [BMI] 45.0-49.9, adult; E66.2 Morbid (severe) obesity with alveolar hypoventilation; Z66 Do not resuscitate; Z51.5 Encounter for palliative care; I11.0 Hypertensive heart disease with heart failure; J44.0 Chronic obstructive pulmonary disease with (acute) lower respiratory infection; E87.5 Hyperkalemia; F17.210 Nicotine dependence, cigarettes, uncomplicated; K76.1 Chronic passive congestion of liver; I73.9 Peripheral vascular disease, unspecified; I87.8 Other specified disorders of veins; D69.6 Thrombocytopenia, unspecified; E11.65 Type 2 diabetes mellitus with hyperglycemia; I48.0 Paroxysmal atrial fibrillation; Z11.52 Encounter for screening for COVID-19; Z91.148 Patient's other noncompliance with medication regimen for other reason
CPT/HCPCS: 88305; 32555; 36600; 71045; 71275; 74018; 80048; 80053; 80061; 82150; 82805; 82945; 82962; 83036; 83615; 83735; 83880; 83986; 84145; 84157; 84478; 84484; 85014; 85018; 85025; 85027; 85379; 85730; 87015; 87040; 87070; 87077; 87205; 87502; 87811; 88112; 88341; 88342; 89051; 93005; 93306; 93970; 94002; 94003; 94640; 94660; 96374; 96375; 97110; 97163; 97167; 97530; 99291; Q9967